=== PATIENT | male | born 1960 | race Caucasian/White ===

== ENCOUNTER 2024-04-29 12:41 | Emergency (ER) | payer MEDICARE, MEDICAID, SELFPAY ==
--- NOTE | ~2024-04-29 | XR_ITS ---
XR foot RT 2V 04/29/2024 15:32 INDICATION: Ecchymosis. PROCEDURE: 2 views right foot COMPARISON: No prior studies for comparison. FINDINGS: Lisfranc joint intact. Osteopenia. No fracture or traumatic malalignment. No foreign bodies . IMPRESSION: 1: NO ACUTE BONE OR JOINT ABNORMALITY IDENTIFIED. Reviewed, dictated and finalized at location B.
--- NOTE | ~2024-04-29 | XR_ITS ---
XR ribs LT 2V Ordering provider: El Winston History: . fall, pain . Comparison: None. FINDINGS: BONES: Acute fracture in the left sixth rib is noted. Old healed fracture is seen in the left eighth and ninth ribs. LEFT LUNG: No effusions or infiltrates. No pneumothorax. SOFT TISSUES: Normal. IMPRESSION: Fracture in the left sixth rib. Highly suggestive of old healed fractures in the left eighth and ninth rib. Reviewed, dictated and finalized at location A.
--- NOTE | ~2024-04-29 | CT_ITS ---
CT brain wo con Ordering provider: El Winston PA-C History: 63 years Male with . fall, on blood thinners . Comparison: None. Technique: CT of the head without contrast. Radiation reduction technique utilized.The dose-length product was 605.33 mGy-cm. FINDINGS: BRAIN PARENCHYMA AND CSF SPACES: Mild leukoaraiosis and diffuse cortical atrophy. Mild atheromatous d isease. No midline shift, mass effect or hemorrhage. The brain parenchyma and CSF spaces are otherwi se normal. VISUALIZED PARANASAL SINUSES: Bilateral ethmoid and maxillary sinus disease. Otherwise, Well aerated. MASTOIDS: Well aerated. BONES: The bones appear intact. SOFT TISSUES: Visualized nasopharynx is normal. Superficial soft tissues are normal. IMPRESSION: No acute intracranial findings. Reviewed, dictated and finalized at location A.
--- NOTE | ~2024-04-29 | CT_ITS ---
EXAMINATION: CT cervical spine wo con DATE: 04/29/2024 13:19 INDICATION: Fall with head injury TECHNIQUE: Computed tomography (CT) of the cervical spine was performed without intravenous contrast. Automated exposure control and iterative reconstruction technique were employed. The dose-length pro duct was 173.31 mGy-cm. COMPARISON: None FINDINGS: There is straightening of the normal cervical lordosis. There is a chronic C5 compression fracture wi th one third anterior vertebral body height loss and which is fused both anteriorly and posteriorly t o C4. Chronic appearing minimal anterior wedging at T1 and T2. No acute fractures. Moderate disc heig ht loss at C5-C6 and mild disc height loss at remaining cervical levels. Severe uncovertebral osteoar thritis on the right at C5-C6. Multilevel mild to moderate cervical and moderate left-sided and sever e right-sided upper thoracic facet osteoarthritis. Disc bulges at C2-C3, C3-C4 and C6-C7 and small po sterior endplate osteophytes at C4-C5 and C5-C6 result in multilevel mild central canal stenosis. Mul tilevel cervical neural foraminal stenosis. Minimal biapical pleural-parenchymal scarring. There is a likely left carotid body stimulator lead projecting alongside the left carotid bulb. Cervical soft t issues are otherwise unremarkable. IMPRESSION: 1. Chronic compression fractures with mild anterior vertebral body height loss at C5 and minimal at T 1 and T2. No acute osseous abnormality. 2. Anterior and posterior spinal fusion at C4-C5. Otherwise moderate cervical spondylosis. Reviewed, dictated and finalized at location A. IMPRESSION: 1. Chronic compression fractures with mild anterior vertebral body height loss at C5 and minimal at T1 and T2. No acute osseous abnormality. 2. Anterior and posterior spinal fusion at C4-C5. Otherwise moderate cervical s pondylosis.
[2024-04-29 13:02] VITALS: BP 105/70; PULSE 63; RESP 16; TEMP 36.6; O2SAT 100
--- NOTE | 2024-04-29 14:58 | ED_ITS ---
HPI - Fall General Chief Complaint: Fall Stated Complaint: Fall-rolled out of bed, Head injury,+Eliquis Time Seen by Provider: 04/29/24 14:35 Source: patient and RN notes reviewed Mode of arrival: EMS History of Present Illness HPI Narrative: Patient presents after an unwitnessed fall, presumably rolled out of bed. Possibly struck head. On Elliquis. Complaining of left chest pain. No loss of consciousness. Requesting that we let his [place] [facility] know he doesn't want to take melatonin anymore; feels it makes him too sleepy and off balance. Usually uses a walker but when feeling sleepy and off balance has had to use a wheelchair. Hadn't been complaining of right foot pain but states it does hurt when he presses on it after ecchymosis identified during physical exam. Unknown if trauma. Patient has an implanted device in his anterior device which he states is a vagus nerve stimulator that has since been shut off because they quoted at [place] that it would be $1000 out of pocket to replace the battery. States he weighed 174 lbs and then was down to 129 lbs but then weight improved. Related Data Allergies Allergy/AdvReac Type Severity Reaction Status Date / Time Antihistamines - Ethanolamine Allergy Unknown Unknown Verified 04/29/24 15:13 cephalexin Allergy Unknown Unknown Verified 04/29/24 15:13 Cephalosporins Allergy Unknown Unknown Verified 04/29/24 15:13 diphenhydramine (From Allergy Unknown Unknown Verified 04/29/24 15:13 Benadryl) enoxaparin Allergy Unknown Unknown Verified 04/29/24 15:13 fexofenadine Allergy Unknown Unknown Verified 04/29/24 15:13 lactose Allergy Unknown Unknown Verified 04/29/24 15:13 milk Allergy Unknown Unknown Verified 04/29/24 15:13 olanzapine Allergy Unknown Unknown Verified 04/29/24 15:13 rofecoxib Allergy Unknown Unknown Verified 04/29/24 15:13 Sulfa (Sulfonamide Allergy Unknown Unknown Verified 04/29/24 15:13 Antibiotics) valproic acid Allergy Unknown Unknown Verified 04/29/24 15:13 zinc Allergy Unknown Unknown Verified 04/29/24 15:13 zolpidem Allergy Unknown Unknown Verified 04/29/24 15:13 [facility] Past Medical History Medical History Weakness Unspecified severe protein-calorie malnutrition Unspecified mood [affective] disorder Type 2 diabetes mellitus without complications Other age-related cataract Mixed hyperlipidemia Hypo-osmolality and hyponatremia Essential (primary) hypertension Depression, unspecified Cognitive communication deficit Unsteadiness on feet Unspecified open-angle glaucoma, stage unspecified Unspecified cataract Sleep disorder, unspecified Need for assistance with personal care Mild 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, unspecified Epilepsy, unspecified, not intractable, without status epilepticus Conversion disorder with seizures or convulsions Benign prostatic hyperplasia without lower urinary tract symptoms Social History Social History Living arrangements: [place] [facility] Additional living arrangements comments: [facility] since 04/09/24 Exam Narrative: GENERAL: Well-appearing, well-nourished, and in no acute distress. HEAD: Normocephalic, atraumatic upon palpation. ENT: Nares clear, no rhinorrhea or epistaxis. NECK: Supple. CHEST: Speaking in full sentences. No respiratory distress. Lungs clear to auscultation bilaterally. No subcutaneous emphysema. No ecchymosis along anterior/lateral/posterior aspect of left chest. No palpable deformity. Implantable device in left superior anterior cheest. HEART: Regular rate and rhythm. ABDOMEN: Soft, nondistended. EXTREMITIES: Normal range of motion. No lower extremity edema. SKIN: Warm, dry. Right medial aspect of lateral foot with ecchymosis. NEURO: No focal deficits. Alert. Oriented to self; he does state I'm 60 going to be 64. PSYCH: Congruent mood and affect. Course Vital Signs Vital signs: Vital Signs Temperature 97.8 F 04/29/24 13:02 Pulse Rate 63 04/29/24 13:02 Respiratory Rate 16 04/29/24 13:02 Blood Pressure 105/70 04/29/24 13:02 Pulse Oximetry 100 04/29/24 13:02 Temperature 97.8 F 04/29/24 18:13 Pulse Rate 71 04/29/24 20:43 Respiratory Rate 18 04/29/24 20:43 Blood Pressure 111/68 04/29/24 20:43 Pulse Oximetry 100 04/29/24 20:43 MDM - Fall MDM Narrative Medical decision making narrative: Patient presents after presumably orally out of bed as he had unwitnessed fall. He potentially struck his head and is on Eliquis by report. He is complaining of left-sided chest pain. In the emergency department they are afebrile with vital signs within normal limits. Patient has an acute rib fracture as well as the appearance of old rib fractures that are healing. He can not recall if he ever had rib fractures before. [place] and lidocaine patch ordered. Patient unable to take NSAIDs due to being on Eliquis. Multimodal pain strategy medications ordered as prescriptions including opiates. Prescription monitoring database is reviewed which shows pregabalin filled in November 2023 with no other interval fills. Differential Diagnosis Differential diagnosis: Likely other (intracranial hemorrhage; vertebral fracture; fracture in foot; ecchymosis due to anticoagulation; rib fracture; pneumothorax/hemothorax) Imaging Data Radiologist's impression: Impressions Head CT 04/29/24 13:29 IMPRESSION: No acute intracranial findings. Ribs X-Ray 04/29/24 14:05 IMPRESSION: Fracture in the left sixth rib. Highly suggestive of old healed fractures in the left eighth and ninth rib. Cervical Spine CT 04/29/24 14:10 IMPRESSION: 1. Chronic compression fractures with mild anterior vertebral body height loss at C5 and minimal at T1 and T2. No acute osseous abnormality. 2. Anterior and posterior spinal fusion at C4-C5. Otherwise moderate cervical spondylosis. Foot X-Ray 04/29/24 15:50 IMPRESSION: 1: NO ACUTE BONE OR JOINT ABNORMALITY IDENTIFIED. Discharge Plan Discharge Clinical Impression: Compression fracture of C5 vertebra with routine healing Left rib fracture Qualifiers: Encounter type: initial encounter Rib fracture type: single rib Fracture type: closed Qualified Code(s): S22.32XA - Fracture of one rib, left side, initial encounter for closed fracture Multiple rib fractures Qualifiers: Fracture type: closed Laterality: left Fracture healing: with routine healing Fall Qualifiers: Encounter type: initial encounter Qualified Code(s): W19.XXXA - Unspecified fall, initial encounter Patient Disposition: [facility] [place] [facility] Living Condition: Stable Instructions: Antibiotic Form, How to Use an Incentive Spirometer (ED), Rib Fracture (ED), Vertebral Compression Fracture (ED), Fall Prevention (ED) Additional Instructions: Patient is requesting that the melatonin he is currently taking be discontinued; please discuss this patient preference with primary care physician/facility nuclear medical tech. Patient appears to have a chronic vertebral fracture but nothing acute. No bleeding in the brain. He also does have an isolated fracture of rib #6 on the left and some old but healing fractures. No broken bones in R foot. Bruising likely due to being on Eliquis. Given the patient is on Eliquis, NSAIDs (like ibuprofen, Motrin, Advil, Aleve Naprosyn, naproxen, etc) are contraindicated however a multimodal pain regimen strategy is recommended for pain control and has been prescribed. Follow-up with primary care physician/facility nuclear medical tech. Return to the emergency department with any new or worsening symptoms. Incentive spirometer has been provided to reduce the likelihood of pneumonia which can developed if patient's take more shallow breaths due to pain which is why pain control is important. Patient Language: Cameroonian Prescriptions: New oxycodone 5 mg tablet 5 mg PO Q8H PRN (Reason: pain) Qty: 14 0RF acetaminophen 500 mg capsule 1,000 mg PO Q6H PRN (Reason: pain) Qty: 30 0RF lidocaine 4 % adhesive patch,medicated 1 patch topical DAILY PRN (Reason: pain) Qty: 10 0RF oxycodone 10 mg tablet 10 mg PO Q8H PRN (Reason: pain) Qty: 14 0RF Follow-up/Referrals: PHYSICIAN NOT ON STAFF,NONSTAFF [Non-Staff] - Stand Alone Forms: Prison Discharge Time of Disposition: 16:33
[2024-04-29] MEDS: HYDROcodone/acetaminophen (*CRX) 5-325 MG TABLET 1 TAB PO (15:40)
[2024-04-29] MEDS: LIDOCAINE 5% PATCH 1 PATCH TRANSDERM (15:41)
[2024-04-29 18:13] VITALS: BP 132/80; PULSE 82; RESP 18; TEMP 36.6; O2SAT 100
[2024-04-29 20:43] VITALS: BP 111/68; PULSE 71; RESP 18; O2SAT 100
== END 2024-04-29 20:44 ==
PROVIDERS: Emergency Provider Student in an Organized Health Care Education/Training Program
DX: S22.32XA Fracture of one rib, left side, initial encounter for closed fracture (principal); S12.400A Unspecified displaced fracture of fifth cervical vertebra, initial encounter for closed fracture; E11.9 Type 2 diabetes mellitus without complications; E78.5 Hyperlipidemia, unspecified; I10 Essential (primary) hypertension; F32.A Depression, unspecified; G40.909 Epilepsy, unspecified, not intractable, without status epilepticus; Z79.01 Long term (current) use of anticoagulants; W06.XXXA Fall from bed, initial encounter
CPT/HCPCS: 70450; 71100; 72125; 73620; 99284; A9270

== ENCOUNTER 2024-10-03 00:08 | Day surgery (SDC) | payer MEDICARE, MEDICAID, SELFPAY ==
--- OUTSIDE RECORDS SUMMARY | 2018-08-19 09:50 | XMS_ITS | Continuity of Care Document ---
Author Organization [facility] [place], [facility] Address [address] [place] [address] Phone Care Team Providers Care Refinery Superintendent Name Role Phone [facility] [place] [facility], [facility] Unavailable Unavailable Procedures Procedure Date INSERT ANT SEGMENT DRAIN INT INSERT ANT SEGMENT DRAIN INT CATARACT SURG W/IOL Aqueous shunt prosthesis Pt Documented Not To Have Experienced An y Of The INSERT ANT SEGMENT DRAIN INT INSERT ANT SEGMENT DRAIN INT Aqueous shunt prosthesis CATARACT SURG W/IOL Pt Documented Not To Have Experienced An y Of The Advance Directives Directive Yes / No Effective Date File Name No Information Encounters Encounter Description Practice Location Reason(s) For Visit Diagnoses Date Provider Providers Copied on Encounter [facility] [place], [facility], [address], [place], [place], [id number], [place] tel:[phone] [facility] No Information [facility] [place] [facility]. [address], [id number], [place]. tel:[phone] Referring Provider: Josh Mcdonald, [address] [place], [address]. tel:[phone] [facility] [place], [facility], [address], [place], [place], [id number], [place] tel:[phone] [facility] No Information Surgery - [facility]. [address], [place], [place], [id number], [place]. tel:[phone] Referring Provider: Josh Mcdonald, [address] [place], [address]. tel:[phone] Family History Family Member Type Diagnosis Age At Onset No Information Payers Payer name Insurance type Covered green party ID Authoriza tion(s) Medicare [place] MB [id number] [place] [employer] [id number] Social History Type Description Quantity Date Captured Comments Sex Male Smoking Status No Information Chief Complaint And Reason For Visit No Information Reason For Referral Reason For Referral No Information History Of Present Illness Encounter Date Complaint History Of Prese nt Illness No Information Functional Status Date Functional Assessmen t No Information Instructions Date Instruction Additional Infor mation No Information Assessments Type Assessment Date No Information Patient Care Teams Name Effective Dates (start - stop) Status Members No Information
--- OUTSIDE RECORDS SUMMARY | 2023-09-06 03:36 | XMS_ITS | Continuity of Care Document ---
Author Organization [facility], [place] Address [address] [place] [address] Phone Care Team Providers Care Carrier Packer Name Role Phone Miky Fowler OD Unavailable Unavailable Allergies, Adverse Reactions, Alerts Substance Reaction Status Criticality barium sulfate Weal Active No Informatio n DIPHENHYDRAMINE HCL Unknown Active No Infor mation divalproex sodium Unknown Active No Informa tion CEPHALEXIN MONOHYDRATE Unknown Active No In formation ENOXAPARIN SODIUM Unknown Active No Informa tion sulfacetamide Unknown Active No Information rofecoxib Unknown Active No Information milk Unknown Active No Information Medications Medication Instructions Dosage Effective Dates (start - stop) Status Comments dorzolamide 2 % eye drops instill 1 drop by ophthalmic route 2 times every day into both eyes - Active disregard last Dorzolamide Rx with TID OD Combigan 0.2 %-0.5 % eye drops instill 1 Drop by Ophthalmic route 2 times every day into both eyes - Active disregard last Combigan with TID OD latanoprost 0.005 % eye drops instill 1 drop by ophthalmic route 2 times every day into both eyes - Active Vitamin C 500 mg tablet take 1 tablet by oral route every day 1 tablet - Active acetaminophen 325 mg tablet take 1 tablet by oral route every 4 hours as needed 325 MG - Active atorvastatin 40 mg tablet take 1 tablet by oral route every day 40 MG - Active benztropine 1 mg tablet take 1 tablet by oral route 2 times every day 1 MG - Active Calcium 600 600 mg calcium (1,500 mg) tablet take 1 tablet by oral route every day 1 tablet - Active carbamazepine ER 400 mg tablet,extended release,12 hr take 1 tablet by oral route every 12 hours 400 MG - Active Colestid 1 gram tablet take 1 tablet by oral route every day swallowing whole with any liquid. Do not crush, chew and/or divide. 1 G - Active haloperidol 5 mg tablet take 1 tablet by oral route 2 times every day 5 MG - Active irbesartan 150 mg tablet take 1 tablet by oral route every day 150 MG - Active levetiracetam 750 mg tablet take 1 tablet by oral route 2 times every day 750 MG - Active Lyrica 100 mg capsule take 1 capsule by oral route 2 times every day 100 MG - Active melatonin ER 3 mg tablet,extended release take 1 tablet by oral route 3-4 hrs before bedtime - Active meloxicam 15 mg tablet take 1 tablet by oral route every day 15 MG - Active multivitamin tablet take 1 tablet by oral route every day with food - Active olanzapine 15 mg tablet take 1 tablet by oral route every day 15 MG - Active sertraline 100 mg tablet take 1 tablet by oral route every day 100 MG - Active tamsulosin 0.4 mg capsule take 1 capsule by oral route every day 1/2 hour following the same meal each day 0.4 MG - Active Vitamin D3 2,000 unit capsule take 1 tablet by oral route every day 1 tablet - Active zonisamide 100 mg capsule take 1 capsule by oral route every day 100 MG - Active zonisamide 50 mg capsule take 1 capsule by oral route 2 times every day 50 MG - Active Procedures Procedure Date EYE EXAM ESTABLISHED [facility] EYE EXAM ESTABLISHED [facility] EYE EXAM ESTABLISHED [facility] EYE EXAM ESTABLISHED [facility] CORNEAL PACHYMETRY Scan Image/ OCT, Glaucoma EYE EXAM, NEW PATIENT INSERT ANT SEGMENT DRAIN INT INSERT ANT SEGMENT DRAIN INT CATARACT SURG W/IOL IOL MASTER, PROF COMP ONLY INSERT ANT SEGMENT DRAIN INT INSERT ANT SEGMENT DRAIN INT CATARACT SURG W/IOL EYE EXAM, NEW PATIENT IOL MASTER Post Operative Kit / Medical Supply By P rescription Advance Directives Directive Yes / No Effective Date File Name No Information Encounters Encounter Description Practice Location Reason(s) For Visit Diagnoses Date Provider Providers Copied on Encounter [facility], [address] [place] [address], [id number], [place] tel:[phone] [facility] 4 Malcolm Bolaños. [address] [place] [address], [id number], [place]. tel:[phone] [facility], [address] [place] [address], [id number], [place] tel:[phone] [facility] [address] f/u POAG OU (chief complaint) Primary open-angle glaucoma, right eye, severe stagePrimary open-angle glaucoma, left eye, moderate stage 4 Genaro Hernández. [address] [place] [address], [id number], [place]. tel:[phone] Referring Provider: Edgar Huber, [address] [place] [address], [id number] . tel:[phone] [facility], [address] [place] [address], [id number], [place] tel:[phone] [facility] [address] high pressures OU (chief complaint) Primary open-angle glaucoma, right eye, severe stagePrimary open-angle glaucoma, left eye, moderate stage 4 Genaro Hernández. [address] [place] [address], [id number], [place]. tel:[phone] Referring Provider: Edgar Huber, [address] [place] [address], [id number] . tel:[phone] [facility], [address] [place] [address], [id number], tel:[phone] [facility] [address] Glaucoma Evaluation (chief complaint) Primary open-angle glaucoma, right eye, severe stagePrimary open-angle glaucoma, left eye, moderate stage Sep- 2 Rom Moreno. [address] [place] [address], [id number], . [phone] Referring Provider: Josh Mcdonald, [address] [place] [address], [id number] . tel:[phone] [facility], [address] [place] [address], [id number], tel:[phone] [facility] (chief complaint) Presence of intraocular lensPrimary open-angle glaucoma, right eye, severe stagePrimary open-angle glaucoma, left eye, moderate stageOther secondary cataract, right eye 2 Jody Larios. [address] [place] [address], [id number], [place]. tel:[phone] Referring Provider: Ric Vera I, [address] [place] [address], [id number] . tel:[phone] [facility], [address] [place] [address], [id number], tel:[phone] [facility] No Information 9 Rom Moreno. [address] [place] [address], [id number], . [phone] Referring Provider: Estuardo Sifuentes, [facility] [address] [place], [address]. tel:[phone] [facility], [address] [place] [address], [id number], tel:[phone] [facility] No Information 9 Rom Moreno. [address] [place] [address], [id number], [place]. [phone] Referring Provider: Estuardo Sifuentes [place] [address] [place], [address]. tel:[phone] [facility], [address] [place] [address], [id number], tel:[phone] [facility] No Information 9 Rom Moreno. [address] [place] [address], [id number], [place]. [phone] Referring Provider: Estuardo Sifuentes [place] [address] [place], [address]. tel:[phone] [facility], [address] [place] [address], [id number], tel:[phone] [facility] (chief complaint) Primary open-angle glaucoma, bilateral, moderate stage 9 Rom oMreno. [address] [place] [address], [id number], [place]. tel:[phone] Referring Provider: Estuardo Sifuentes [place] [address] [place], [address]. tel:[phone] Family History Family Member Type Diagnosis Age At Onset Problem (finding) No family hist ory of Macular degeneration Mother Problem (finding) cataract Father Problem (finding) glaucoma Brother Problem (finding) hypertension Mother Problem (finding) Diabetes mellitus Payers Payer name Insurance type Covered libertarian ID Authoriza tion(s) Medicare [place] MB [id number] [facility] [id number] Social History Type Description Quantity Date Captured Comments Alcohol Use Details Unknown Caffeine Use Details Unknown Tobacco Use Status No Information Smoking Status No Information Sex Male Chief Complaint And Reason For Visit No Information Reason For Referral Reason For Referral No Information Plan Of Treatment Date Type Action Status Referral Ordered: Estuardo Sifuentes -[facility] Providers : Jewel Cupping Machine Operator (related to Age-related nuclear cataract, left eye) ordered Referral Referred To: Estuardo Sifuentes [address] [place] [address], [phone] Ordered: Referrals: [facility] Providers : Jewel Cupping Machine Operator. Estuardo Sifuentes. Assume care ordered Future Order: Radiology Order OC T - Optic Nerve ([id number]), Collected on: Ordered History Of Present Illness Encounter Date Complaint History Of Prese nt Illness f/u POAG OU The 63 year old patient presents for evaluation of f/u POAG OU. PT states he did not have any directions for the drops so he has not been doing them. PT reports OD is a black hole. VA OU D/N c gls is blurry. PT got all gt in last night, supposed to be using Dorzolamide TID OU, Latanoprost BID OU, Combigan BID OU. Pt did get drops in last night, his nephew came over. high pressures OU The 63 year ol d patient presents for evaluation of high pressures OD. Pt was referred by Dr Gamboa's office for high [pressures OD 66. Pt was having headaches. Pt states that distance and near vision is good OD but blurry OS cc. Pt states that both eyes hurt today. Pt is using Prednisolone, but isn't sure how many drops he uses. Pt is also using Combigan 1 gt BID OU. Pt is not using any TA. Glaucoma Evaluation The 61 year old patient presents for Glaucoma Evaluation in the right eye and left eye. Pt referred by [facility] for Glaucoma Eval OU. Pt reports of poor to no vision OD and fair vision OS. It affects both near and far vision cc since last exam. Patient denies: pain or discomfort. PT uses Azopt QID OD, Combigan TID OD, Rocklatan QHS OU, TobraDex BID OD, and Pred QAM OS. Glaucoma Evaluation The 61 year old patient presents for Eval of OAG and Cats to discuss surgical options, referred by Dr. Estuardo Sifuentes. Pt reports vision OD is very poor and has been that way for approximately 3 years. Pt states the onset was gradual. It affects both near and far vision with glasses. Pt reports OS D&NVA is good stable and constant with glasses. The condition is not any better. Patient denies: pain or discomfort. Pt is currently using Azopt TID OD, Combigan QID OD, Rocklatan qHS OU, Prednisolone qAM OS, TobraDex BID OD and OTC AT's PRN OU. Please send letter to Dr. Sifuentes. fuzzy VA The 58 Year old male presents for follow up Cataract Eval referred by Dr. Estuardo Sifuentes. PT states that he has fuzzy VA in the right eye and left eye since last exam. It affects both near and far vision. PT states that he notices OD is a lot worse than OS. PT states that smaller print is very hard to read and he has to use a magnifying gls. PT states that he is unsure if he has problems with glare. The patient denies pain or discomfort. PT states that he uses Azopt OD 2 x day, Latanoprost qHS OU, Combigan OD 2 x day,Did not do Optos or glare due to Epilepsy and is brought on by flashing lights Functional Status Date Functional Assessmen t No Information Instructions Date Instruction Additional Infor brady Impression/Plan Impression/Plan Impression/Plan Impression/Plan Impression/Plan Assessments Type Assessment Date No Information Patient Care Teams Name Effective Dates (start - stop) Status Members No Information
--- NOTE | 2024-07-14 12:30 | PC.NURSE ---
Spoke with ISABELL @ [facility] regarding medication ELIQUIS. _ISABELL_verbalizes understanding that the last dose is to be taken on _07/11/2024___ and the Endoscopist will instruct them when to restart after the procedure.
[2024-07-14 13:25] VITALS: BMI 19.0
[2024-09-30 14:32] VITALS: BMI 20.4
--- NOTE | 2024-09-30 14:38 | PC.NURSE ---
Spoke with _Nurse and DON of facility_ regarding medication _ELIQUIS_. _BOTH verbalizes understanding that the last dose is to be taken on _09/29/2024-AM DOSE WAS GIVEN 09/30/2024 BUT WILL BE HELD STARTING WITH PM DOSE and the Endoscopist will instruct them when to restart after the procedure.
[2024-10-03 08:48] VITALS: BP 92/75; PULSE 76; RESP 16; TEMP 36.3; O2SAT 100; BMI 19.2
--- NOTE | 2024-10-03 09:00 | WPDANESEPPF ---
Anes - Initial Pre Proc Eval Procedure: Operation Date: 10/03/24 10:00 Proposed Procedures p Screening Colonoscopy - Nixon Cedeno MD Date/Time: 10/03/24 09:00 Surgeon: Nixon Cedeno MD Pre Op Diagnosis: Screening Patient Data Age: 64 Gender: M Height: 1.8 m Weight: 66.5 kg Allergies Allergy/AdvReac Type Severity Reaction Status Date / Time Antihistamines - Ethanolamine Allergy Unknown Unknown Verified 10/03/24 08:54 cephalexin Allergy Unknown Unknown Verified 10/03/24 08:54 Cephalosporins Allergy Unknown Unknown Verified 10/03/24 08:54 diphenhydramine (From Allergy Unknown Unknown Verified 10/03/24 08:54 Benadryl) enoxaparin Allergy Unknown Unknown Verified 10/03/24 08:54 fexofenadine Allergy Unknown Unknown Verified 10/03/24 08:54 lactose Allergy Unknown Unknown Verified 10/03/24 08:54 milk Allergy Unknown Unknown Verified 10/03/24 08:54 olanzapine Allergy Unknown Unknown Verified 10/03/24 08:54 rofecoxib Allergy Unknown Unknown Verified 10/03/24 08:54 Sulfa (Sulfonamide Allergy Unknown Unknown Verified 10/03/24 08:54 Antibiotics) valproic acid Allergy Unknown Unknown Verified 10/03/24 08:54 zinc Allergy Unknown Unknown Verified 10/03/24 08:54 zolpidem Allergy Unknown Unknown Verified 10/03/24 08:54 Home Medications ?Medication ?Instructions ?Recorded ?Confirmed ?Type acetaminophen 500 mg capsule 1,000 mg (2 x 500 mg) PO Q6H PRN 04/29/24 07/11/24 Rx pain #30 caps lidocaine 4 % topical patch 1 patch topical DAILY PRN pain #10 04/29/24 07/11/24 Rx ea oxycodone 10 mg tablet 10 mg PO Q8H PRN pain #14 tabs 04/29/24 07/11/24 Rx oxycodone 5 mg tablet 5 mg PO Q8H PRN pain #14 tabs 04/29/24 07/11/24 Rx amlodipine 10 mg tablet 10 mg PO DAILY 07/11/24 10/03/24 History apixaban 5 mg tablet (Eliquis) 5 mg PO Q12H 07/11/24 10/03/24 History atorvastatin 40 mg tablet 40 mg PO QPM 07/11/24 10/03/24 History brimonidine 0.2 % eye drops drp 07/11/24 History brimonidine 0.2 %-timolol 0.5 % 1 drp EACH EYE Q12H 07/11/24 10/03/24 History eye drops (Combigan) cholecalciferol (vitamin D3) 50 2,000 unit PO DAILY 07/11/24 10/03/24 History mcg (2,000 unit) capsule dorzolamide 2 % eye drops 1 drp EACH EYE BID 07/11/24 10/03/24 History eslicarbazepine 800 mg tablet 800 mg PO DAILY 07/11/24 10/03/24 History (Aptiom) insulin glargine 100 unit/mL (3 10 unit subcut QPM 07/11/24 10/03/24 History mL) subcutaneous pen (Basaglar KwikPen U-100 Insulin) lactulose 10 gram/15 mL oral 30 ml PO BID PRN constipation 07/11/24 07/11/24 History solution latanoprost 0.005 % eye drops 1 drp EACH EYE QPM 07/11/24 10/03/24 History levetiracetam 500 mg tablet 500 mg PO TID 07/11/24 10/03/24 History lorazepam 1 mg tablet (Ativan) 1 mg PO TID 07/11/24 10/03/24 History melatonin 5 mg capsule 5 mg PO HS 07/11/24 10/03/24 History mirtazapine 15 mg tablet 15 mg PO HS 07/11/24 10/03/24 History pregabalin 50 mg capsule 50 mg PO Q12H 07/11/24 10/03/24 History pyridoxine (vitamin B6) 100 mg 100 mg PO Q12H 07/11/24 10/03/24 History tablet sertraline 50 mg tablet 50 mg PO Q24H 07/11/24 10/03/24 History trazodone 50 mg tablet 50 mg PO HS 07/11/24 10/03/24 History Patient hx anesthesia problems: none Family hx anesthesia problems: none Results Review: All pre-operative results and documents have been reviewed as part of the pre-operative evaluation. [facility] Past Medical History Medical History Weakness Unspecified severe protein-calorie malnutrition Unspecified mood [affective] disorder Type 2 diabetes mellitus without complications Other age-related cataract Mixed hyperlipidemia Hypo-osmolality and hyponatremia Essential (primary) hypertension Depression, unspecified Cognitive communication deficit Unsteadiness on feet Unspecified open-angle glaucoma, stage unspecified Unspecified cataract Sleep disorder, unspecified Need for assistance with personal care Mild 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, unspecified Epilepsy, unspecified, not intractable, without status epilepticus Conversion disorder with seizures or convulsions Benign prostatic hyperplasia without lower urinary tract symptoms Social History Social History Living arrangements: prison [facility] Anes - Evsaniya Final PreProcedure Day of Procedure 10/03/24 09:00 Patient weight: normal Heart: regular rate and rhythm Lungs: clear to auscultation Airway: Mallampati scale class II Neurological: alert and oriented Last oral intake: >/= 8 hours ASA classification: III Emergent: no Anesthetic plan: proceed Anesthesia type and monitoring: general GIVS and standard monitoring Results Review: All pre-operative results and documents have been reviewed as part of the pre-operative evaluation. Informed Consent: The patient's anesthetic plan and its attendant risks and benefits were discussed with the patient/family/POA. Questions were solicited and answers provided to the satisfaction of the patient/family/POA.
[2024-10-03] MEDS: LACTATED RINGERS 1,000 ML 150 ML IV CONT (09:17)
--- NOTE | 2024-10-03 09:52 | PM.IMHP ---
H&P: HPI History of Present Illness Date/Time: 10/03/24 09:52 Chief Complaint: Screening colonoscopy Narrative: This is the patient's 2nd colonoscopy. There are no GI symptoms and there is no family history of colorectal cancer. Review of Systems Review of Systems: All systems reviewed & are unremarkable except as noted in HPI and below PMFSH Past Medical History Medical History Weakness Unspecified severe protein-calorie malnutrition Unspecified mood [affective] disorder Type 2 diabetes mellitus without complications Other age-related cataract Mixed hyperlipidemia Hypo-osmolality and hyponatremia Essential (primary) hypertension Depression, unspecified Cognitive communication deficit Unsteadiness on feet Unspecified open-angle glaucoma, stage unspecified Unspecified cataract Sleep disorder, unspecified Need for assistance with personal care Mild 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, unspecified Epilepsy, unspecified, not intractable, without status epilepticus Conversion disorder with seizures or convulsions Benign prostatic hyperplasia without lower urinary tract symptoms Social History Social History Living arrangements: [facility] Additional living arrangements comments: [facility] since 04/09/24 Meds Home Medications and Allergies Home Medications ?Medication ?Instructions ?Recorded ?Confirmed ?Type acetaminophen 500 mg capsule 1,000 mg (2 x 500 mg) PO Q6H PRN 04/29/24 07/11/24 Rx pain #30 caps lidocaine 4 % topical patch 1 patch topical DAILY PRN pain #10 04/29/24 07/11/24 Rx ea oxycodone 10 mg tablet 10 mg PO Q8H PRN pain #14 tabs 04/29/24 07/11/24 Rx oxycodone 5 mg tablet 5 mg PO Q8H PRN pain #14 tabs 04/29/24 07/11/24 Rx amlodipine 10 mg tablet 10 mg PO DAILY 07/11/24 10/03/24 History apixaban 5 mg tablet (Eliquis) 5 mg PO Q12H 07/11/24 10/03/24 History atorvastatin 40 mg tablet 40 mg PO QPM 07/11/24 10/03/24 History brimonidine 0.2 % eye drops drp 07/11/24 History brimonidine 0.2 %-timolol 0.5 % 1 drp EACH EYE Q12H 07/11/24 10/03/24 History eye drops (Combigan) cholecalciferol (vitamin D3) 50 2,000 unit PO DAILY 07/11/24 10/03/24 History mcg (2,000 unit) capsule dorzolamide 2 % eye drops 1 drp EACH EYE BID 07/11/24 10/03/24 History eslicarbazepine 800 mg tablet 800 mg PO DAILY 07/11/24 10/03/24 History (Aptiom) insulin glargine 100 unit/mL (3 10 unit subcut QPM 07/11/24 10/03/24 History mL) subcutaneous pen (Basaglar KwikPen U-100 Insulin) lactulose 10 gram/15 mL oral 30 ml PO BID PRN constipation 07/11/24 07/11/24 History solution latanoprost 0.005 % eye drops 1 drp EACH EYE QPM 07/11/24 10/03/24 History levetiracetam 500 mg tablet 500 mg PO TID 07/11/24 10/03/24 History lorazepam 1 mg tablet (Ativan) 1 mg PO TID 07/11/24 10/03/24 History melatonin 5 mg capsule 5 mg PO HS 07/11/24 10/03/24 History mirtazapine 15 mg tablet 15 mg PO HS 07/11/24 10/03/24 History pregabalin 50 mg capsule 50 mg PO Q12H 07/11/24 10/03/24 History pyridoxine (vitamin B6) 100 mg 100 mg PO Q12H 07/11/24 10/03/24 History tablet sertraline 50 mg tablet 50 mg PO Q24H 07/11/24 10/03/24 History trazodone 50 mg tablet 50 mg PO HS 07/11/24 10/03/24 History Allergies Allergy/AdvReac Type Severity Reaction Status Date / Time Antihistamines - Ethanolamine Allergy Unknown Unknown Verified 10/03/24 08:54 cephalexin Allergy Unknown Unknown Verified 10/03/24 08:54 Cephalosporins Allergy Unknown Unknown Verified 10/03/24 08:54 diphenhydramine (From Allergy Unknown Unknown Verified 10/03/24 08:54 Benadryl) enoxaparin Allergy Unknown Unknown Verified 10/03/24 08:54 fexofenadine Allergy Unknown Unknown Verified 10/03/24 08:54 lactose Allergy Unknown Unknown Verified 10/03/24 08:54 milk Allergy Unknown Unknown Verified 10/03/24 08:54 olanzapine Allergy Unknown Unknown Verified 10/03/24 08:54 rofecoxib Allergy Unknown Unknown Verified 10/03/24 08:54 Sulfa (Sulfonamide Allergy Unknown Unknown Verified 10/03/24 08:54 Antibiotics) valproic acid Allergy Unknown Unknown Verified 10/03/24 08:54 zinc Allergy Unknown Unknown Verified 10/03/24 08:54 zolpidem Allergy Unknown Unknown Verified 10/03/24 08:54 Vital Signs Vital Signs - 24 hr 10/03/24 08:48 Temperature 97.4 F L Pulse Rate 76 Respiratory Rate 16 Blood Pressure 92/75 L Pulse Oximetry 100 Oxygen Delivery Room Air Exam Const: General: cooperative and healthy appearing Resp: Effort & Inspection: normal respiratory effort and able to speak in complete sentences Auscultation: clear to auscultation bilaterally Cardio: Rate: regular rate Rhythm: regular rhythm GI: Inspection: normal to inspection GI Palp: No No hepatosplenomegaly present Auscultation: normal bowel sounds Rectal Exam: deferred Skin: General skin exam: normal color Psych: Appearance: grossly normal Mental Status: mental status grossly normal Assessment and Plan Assessment and plan (1) Encounter for screening colonoscopy: Code(s): Z12.11 - Encounter for screening for malignant neoplasm of colon Status: Acute Assessment and Plan: The patient is deemed a good candidate for the procedure. Consent signed. Will proceed.
--- NOTE | 2024-10-03 10:16 | S_PTH ---
PATIENT: Jairon Dennis LOC: [facility] #:[id number] AGE/SX: 64/M ROOM: RE10/03/[address]: Nixon Cedeno MD : 1960 BED: DIS: 10/03/2024 SPEC #: [id number] RECD: 10/03/24 11:11 STATUS: TANJA REQ #: [id number] TAYLOR: 10/03/24 10:[address]: Nixon Cedeno DEPT: [facility] Surgical RECD BY: Josee Sepulveda Tissues: A - Colon Polypectomy Procedures: Hematoxylin and Eosin Stain Gross and Microscopic Level 4
[2024-10-03 10:17] VITALS: BP 103/60; PULSE 54; RESP 16; O2SAT 100
[2024-10-03 10:27] VITALS: BP 120/71; PULSE 58; RESP 11; O2SAT 100
[2024-10-03 10:37] VITALS: BP 111/71; PULSE 58; RESP 13; O2SAT 100
== END 2024-10-03 10:45 | disposition home or self-care (01) ==
PROVIDERS: Visit Provider Internal Medicine Gastroenterology
PROC: 0DJD8ZZ Inspection of Lower Intestinal Tract, Via Natural or Artificial Opening Endoscopic (ICD-10-PCS; CPT 45378; principal; 2024-10-03 10:00)
DX: Z12.11 Encounter for screening for malignant neoplasm of colon (principal); D12.3 Benign neoplasm of transverse colon; K57.30 Diverticulosis of large intestine without perforation or abscess without bleeding; E11.9 Type 2 diabetes mellitus without complications; E78.2 Mixed hyperlipidemia; E87.1 Hypo-osmolality and hyponatremia; I10 Essential (primary) hypertension; N40.0 Benign prostatic hyperplasia without lower urinary tract symptoms; F32.A Depression, unspecified; G47.9 Sleep disorder, unspecified; E43 Unspecified severe protein-calorie malnutrition; Z68.1 Body mass index [BMI] 19.9 or less, adult; F39 Unspecified mood [affective] disorder; F70 Mild intellectual disabilities; Z74.1 Need for assistance with personal care; G60.9 Hereditary and idiopathic neuropathy, unspecified; F44.5 Conversion disorder with seizures or convulsions; Z79.891 Long term (current) use of opiate analgesic; Z79.01 Long term (current) use of anticoagulants; Z79.4 Long term (current) use of insulin
CPT/HCPCS: 45385; 82948; 88305; J2003; J2704; J7120

== ENCOUNTER 2024-10-08 16:09 | Inpatient (IN) | payer MEDICARE, MEDICAID, SELFPAY ==
[2024-10-08] VITALS (20 sets, daily range): BP systolic 107–189; BP diastolic 61–135; PULSE 92–112; RESP 11–24; TEMP 36.9–37.7; O2SAT 80–100; BMI 19.5
--- NOTE | ~2024-10-08 | XR_ITS ---
EXAMINATION: XR chest 1V portable 10/08/2024 17:48 INDICATION: Shortness of breath TECHNIQUE:A single portable AP upright frontal image of the chest was obtained. COMPARISON: None available FINDINGS: Generator projects over the left hilar region. 5 mm calcified granuloma in the right lower lung. Heart is not enlarged. No pneumothorax. No pleural effusion. No free air the diaphragm. No focal pulmonary consolidation. IMPRESSION: 1: NO ACUTE CARDIOPULMONARY DISEASE. Reviewed, dictated and finalized at location Q.
--- NOTE | ~2024-10-08 | CT_ITS ---
EXAMINATION: CT brain wo carlos, 10/08/2024 17:08 CDT HISTORY: seizure COMPARISON: No comparisons available. Technique: Axial images obtained of the brain without contrast. One or more of the following dose reduction techniques were used: automated exposure control, adjustment of the mA and/or kV according to patient size, use of iterative reconstruction technique. Findings: No acute infarct or parenchymal hemorrhage. No abnormal mass or mass effect. No midline shift. No extra-axial fluid collections. No hydrocephalus. Mastoid air cells unremarkable. Sinuses and orbits unremarkable. No acute fracture. No significant facial or scalp soft tissue swelling evident. No radiopaque foreign body is seen. Impression: 1.No acute intracranial abnormality. Reviewed, dictated and finalized at location A. Impression: 1.No acute intracranial abnormality.
--- NOTE | ~2024-10-08 | CT_ITS ---
EXAMINATION: CT chest abdomen pelvis w con DATE: 10/09/2024 5:38 CDT INDICATION: Fever and abdominal tenderness TECHNIQUE: Computed tomography (CT) of the chest, abdomen, and pelvis was performed without intravenous contrast. The dose-length product was 388.91 mGy- cm. Automated exposure control and iterative reconstruction technique were employed. COMPARISON: None FINDINGS: CHEST CT: No evidence for aortic aneurysm or dissection. Heart size normal. No significant pleural or pericardial effusion. No pneumothorax. Patchy groundglass opacities are present in the lung bases, suspicious for pneumonia. No endobronchial lesions. No pneumothorax. There are multiple healed left rib fractures. Mild wedge compression deformities of T1 and T5, likely chronic. Mild thoracic spondylosis. ABDOMEN/PELVIS CT: The liver, spleen, pancreas, adrenal glands are unremarkable. Small subcentimeter hypodensity of the right kidney, most likely benign. 3 mm nonobstructing left renal stone. Gallbladder is present. Nonobstructive bowel gas pattern. No free air or free fluid. No abnormal pelvic masses or fluid collections. Colonic diverticulosis without evidence for diverticulitis. Small sclerotic lesion right ilium, most likely bone island in the absence of known malignancy. Mild-moderate multilevel degenerative spondylosis. IMPRESSION: 1. Patchy groundglass opacities of the lung bases, suspicious for pneumonia. 2: Nonobstructing left nephrolithiasis. Reviewed, dictated and finalized at location O.
--- NOTE | 2024-10-08 16:26 | ECG_ITS ---
Test Date: 2024-10-08 16:18:49 Measurements Intervals [place] Rate: 94 P: 66 UT: 176 QRS: 60 QRSD: 80 T: 58 QT: 338 QTc: 424 Interpretive Statements SINUS RHYTHM BORDERLINE R WAVE PROGRESSION, ANTERIOR LEADS BASELINE ARTIFACT- I, II, III, AVR, AVL, AVF, V1-V6 BORDERLINE ECG No previous ECG available for comparison Electronically Signed On 10-08-2024 18:45:31 CDT by Kale Guzmán D.O.
[2024-10-08 16:44] LABS: Hematocrit 43.7 % (42.0-52.0); Hemoglobin 15.1 g/dL (14.0-18.0); Immature Granulocyte Percent A 0.3 % (0-0.5); Lymphocytes Absolute Auto 0.97 K/mm3 (0.9-3.2); Mean Corpuscular HGB Conc 34.6 g/dl (32-36); Mean Corpuscular Hemoglobin 31.0 pg (26-34); Mean Corpuscular Volume 89.7 fl (80-100); Nucleated Red Blood Cells Absolute Auto 0.000 K/mm3 (0.0-0.012); Nucleated Red Blood Cells Perc 0.0 % (0.0-0.2); Platelet Count Result 204 k/mm3 (150-375); Red Blood Count 4.87 M/mm3 (4.6-6.20); White Blood Count 5.9 K/mm3 (4.5-10.0)
--- NOTE | 2024-10-08 16:44 | ED.SEIZURE ---
HPI - Seizure General Chief Complaint: Seizure Stated Complaint: seizure Time Seen by Provider: 10/08/24 16:33 History of Present Illness HPI Narrative: 64-year-old male with history of seizures, diabetes, intellectual disability presents [facility] the ED [facility] via [facility] for seizures. Per EMS report, patient reportedly had a couple seizures that lasted for 30 seconds to 2 minutes. Patient does not recall what happened today. He states that he felt ?not himself? today. Plan he states that he believes he may have fever but is not sure. Denies headache, sore throat, chest pain, shortness of breath, abdominal pain, nausea, vomiting. Seizure History: Yes (LARA) Related Data Home Medications ?Medication ?Instructions ?Recorded ?Confirmed ?Last Taken ?Type amlodipine 10 mg tablet 10 mg PO DAILY 07/11/24 10/03/24 10/02/24 History apixaban 5 mg tablet (Eliquis) 5 mg PO Q12H 07/11/24 10/03/24 09/30/24 History atorvastatin 40 mg tablet 40 mg PO QPM 07/11/24 10/03/24 09/28/24 History brimonidine 0.2 % eye drops drp 07/11/24 Unknown History brimonidine 0.2 %-timolol 0.5 % 1 drp EACH EYE Q12H 07/11/24 10/03/24 10/02/24 History eye drops (Combigan) cholecalciferol (vitamin D3) 50 2,000 unit PO DAILY 07/11/24 10/03/24 10/02/24 History mcg (2,000 unit) capsule dorzolamide 2 % eye drops 1 drp EACH EYE BID 07/11/24 10/03/24 10/02/24 History eslicarbazepine 800 mg tablet 800 mg PO DAILY 07/11/24 10/03/24 10/02/24 History (Aptiom) insulin glargine 100 unit/mL (3 10 unit subcut QPM 07/11/24 10/03/24 10/02/24 History mL) subcutaneous pen (Basaglar KwikPen U-100 Insulin) lactulose 10 gram/15 mL oral 30 ml PO BID PRN constipation 07/11/24 07/11/24 Unknown History solution latanoprost 0.005 % eye drops 1 drp EACH EYE QPM 07/11/24 10/03/24 10/02/24 History levetiracetam 500 mg tablet 500 mg PO TID 07/11/24 10/03/24 10/02/24 History lorazepam 1 mg tablet (Ativan) 1 mg PO TID 07/11/24 10/03/24 10/02/24 History melatonin 5 mg capsule 5 mg PO 07/11/24 10/03/24 10/02/24 History mirtazapine 15 mg tablet 15 mg PO 07/11/24 10/03/24 10/02/24 History pregabalin 50 mg capsule 50 mg PO Q12H 07/11/24 10/03/24 10/02/24 History pyridoxine (vitamin B6) 100 mg 100 mg PO Q12H 07/11/24 10/03/24 10/02/24 History tablet sertraline 50 mg tablet 50 mg PO Q24H 07/11/24 10/03/24 10/02/24 History trazodone 50 mg tablet 50 mg PO 07/11/24 10/03/24 10/02/24 History Allergies Allergy/AdvReac Type Severity Reaction Status Date / Time Antihistamines - Ethanolamine Allergy Unknown Unknown Verified 10/03/24 08:54 cephalexin Allergy Unknown Unknown Verified 10/03/24 08:54 Cephalosporins Allergy Unknown Unknown Verified 10/03/24 08:54 diphenhydramine (From Allergy Unknown Unknown Verified 10/03/24 08:54 Benadryl) enoxaparin Allergy Unknown Unknown Verified 10/03/24 08:54 fexofenadine Allergy Unknown Unknown Verified 10/03/24 08:54 lactose Allergy Unknown Unknown Verified 10/03/24 08:54 milk Allergy Unknown Unknown Verified 10/03/24 08:54 olanzapine Allergy Unknown Unknown Verified 10/03/24 08:54 rofecoxib Allergy Unknown Unknown Verified 10/03/24 08:54 Sulfa (Sulfonamide Allergy Unknown Unknown Verified 10/03/24 08:54 Antibiotics) valproic acid Allergy Unknown Unknown Verified 10/03/24 08:54 zinc Allergy Unknown Unknown Verified 10/03/24 08:54 zolpidem Allergy Unknown Unknown Verified 10/03/24 08:54 Review of Systems Review of Systems: Gen.: Denies fevers or chills Eyes: Denies eye pain or visual change ENT: Denies congestion Respiratory: Denies shortness of breath or cough CV: Denies chest pain or palpitations GI: Denies abdominal pain nausea, emesis or diarrhea denies burning, urgency, frequency or hematuria Musculoskeletal: Denies back pain or muscle pain Neuro: Denies numbness, tingling, weakness or focal weakness Skin: Denies rash Except as documented, all other systems reviewed and negative [facility] Past Medical History Medical History Weakness Unspecified severe protein-calorie malnutrition Unspecified mood [affective] disorder Type 2 diabetes mellitus without complications Other age-related cataract Mixed hyperlipidemia Hypo-osmolality and hyponatremia Essential (primary) hypertension Depression, unspecified Cognitive communication deficit Unsteadiness on feet Unspecified open-angle glaucoma, stage unspecified Unspecified cataract Sleep disorder, unspecified Need for assistance with personal care Mild 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, unspecified Epilepsy, unspecified, not intractable, without status epilepticus Conversion disorder with seizures or convulsions Benign prostatic hyperplasia without lower urinary tract symptoms Social History Social History Living arrangements: [facility] Additional living arrangements comments: [facility] since 04/09/24 Exam Narrative: APPEARANCE: No acute distress, nontoxic, resting in bed EYES: EOMI HEENT: Normocephalic, atraumatic, OMM RESPIRATORY: No respiratory distress Clear to auscultation bilaterally with no rhonchi wheezing or rales. CARDIOVASCULAR: Regular rate and rhythm without murmurs rubs or gallops. ABDOMINAL: Soft, nontender, nondistended, no rebound or guarding MUSCULOSKELETAl: Moves all extremities. No clubbing, cyanosis or edema. NEURO: AAO x1-2. Following commands, speech normal, no focal deficits SKIN:: Warm, dry. No rashes lesions or abrasions PSYCHIATRIC: Normal affect/mood, Course Vital Signs Vital signs: Vital Signs Temperature 98.4 F 10/08/24 16:12 Pulse Rate 94 10/08/24 16:12 Respiratory Rate 19 10/08/24 16:12 Blood Pressure 150/80 H 10/08/24 16:12 Pulse Oximetry 97 10/08/24 16:12 Oxygen Delivery Room Air 10/08/24 16:12 Temperature 98.4 F 10/08/24 16:12 Pulse Rate 95 10/08/24 17:49 Respiratory Rate 15 10/08/24 17:49 Blood Pressure 167/135 H 10/08/24 17:49 Pulse Oximetry 98 10/08/24 17:55 Oxygen Delivery Room Air 10/08/24 17:55 MDM - Seizure MDM Narrative Medical decision making narrative: 64-year-old male who presented to the ED for seizure activity. Under initial evaluation, patient was in no acute distress, afebrile, hemodynamically stable. He was at his baseline mental status per [facility]. He had nonfocal neuro exam. Heart and lungs clear. Abdomen soft nontender. CT head was obtained while in CT, patient did begin to experience grand mal seizure activity lasted about 15 seconds and aborted without any medications. Patient did appear to be in a postictal state shortly after this. He had another episode in the ED room it was similar to previous that lasted 15-20 seconds. He was loaded with Keppra 30 milligrams/kilogram. Lactic acid prior to these episodes was normal. CBC and CMP were without significant abnormalities. CT head showed no acute process. UA showed evidence of UTI. Chest x-ray was clear. Patient will require admission for further neurologic evaluation given these recurrent seizures. Case was discussed with Dr. Ann, neurology, who agrees with the plan and will see the patient as a consult. Case was discussedwith hospitalist who will admit the patient. Differential Diagnosis Differential diagnosis: Likely focal seizure, generalized seizure and epileptic seizure Medical Records Attestation: I reviewed the patient's medical records. Lab Data Attestation: I reviewed the patient's lab results. 10/08/24 17:21 10/08/24 17:21 Labs: Lab Results 10/08/24 10/08/24 10/08/24 Range/Units 16:36 17:21 18:04 WBC 5.9 7.2 (4.5-10.0) K/mm3 RBC 4.87 4.62 (4.6-6.20) M/mm3 Hgb 15.1 14.5 (14.0-18.0) g/dL Hct 43.7 41.7 L (42.0-52.0) % MCV 89.7 90.3 (80-100) fl MCH 31.0 31.4 (26-34) pg MCHC 34.6 34.8 (32-36) g/dl RDW 12.4 12.5 (11.5-14.5) % Plt Count 204 195 (150-375) k/mm3 MPV 9.8 9.2 (7.4-10.4) fl Immature Gran % (Auto) 0.3 0.4 (0-0.5) % Neut % (Auto) 77.2 H 79.0 H (45.5-73.1) % Lymph % (Auto) 16.4 L 14.7 L (18.3-44.2) % [place]rentiss % (Auto) 5.1 5.3 (2.6-8.5) % Eos % (Auto) 0.7 0.3 (0-4.4) % Baso % (Auto) 0.3 0.3 (0.2-1.2) % Lymph # (Auto) 0.97 1.06 (0.9-3.2) K/mm3 [place]iss # (Auto) 0.3 0.4 (0.1-0.6) K/mm3 Eos # (Auto) 0.0 0.0 (0-0.3) K/mm3 Baso # (Auto) 0.0 0.0 (0.0-0.1) K/mm3 Abs Immat Gran (auto) 0.02 0.03 (0.00-0.031) K/mm3 Absolute Neuts (auto) 4.6 5.7 (1.3-6.7) K/mm3 Absolute Nucleated RBC 0.000 0.000 (0.0-0.012) K/mm3 Nucleated RBC % 0.0 0.0 (0.0-0.2) % Sodium 131 L (137-145) mmol/L Potassium 4.4 (3.4-5.0) mmol/L Chloride 94 L (98-107) mmol/L Carbon Dioxide 28 (22-30) mmol/L Anion Gap 9 (4-12) mmol/L BUN 15 (9-20) mg/dL Creatinine 0.79 (0.7-1.3) mg/dL Estim Creat Clear Calc 72 ml/min Estimated GFR > 60 (59 - ) Glucose 123 H (65-110) mg/dL Lactic Acid 1.7 1.5 (0.7-2.0) mmol/L Calcium 9.9 (8.4-10.2) mg/dL Total Bilirubin 0.8 (0.2-1.3) mg/dL AST 43 (17-59) U/L ALT 49 (6-50) U/L Alkaline Phosphatase 127 H (38-126) U/L Total Protein 8.5 H (6.3-8.2) g/dL Albumin 4.9 (3.5-5.1) g/dL Urine Color Yellow (Yellow) Urine Appearance Cloudy H (Clear) Urine pH 7.5 (5.0-9.0) Ur Specific [place] 1.014 (1.001-1.035) Urine Protein 1+ H (Negative) mg/dL Urine Glucose (UA) Negative (Negative) mg/dL Urine Ketones Negative (Negative) mg/dL Ur Blood (Man) Negative (Negative) Urine Nitrate Negative (Negative) Urine Bilirubin Negative (Negative) Urine Urobilinogen 1.0 (<2.0) mg/dL Leukocyte Esterase Rfl Negative (Negative) LEO/UL Urine RBC 0-2 (0-2) /hpf Urine WBC 0-5 (0-3) /hpf Ur Squamous Epith Cells None seen (Few) /hpf Urine Bacteria None seen /hpf Urine Casts 0-2 Imaging Data Radiologist's impression: Impressions Head CT 10/08/24 17:17 Impression: 1.No acute intracranial abnormality. Chest X-Ray 10/08/24 17:50 IMPRESSION: 1: NO ACUTE CARDIOPULMONARY DISEASE. ECG Data EKG #1: Attestation: I personally reviewed and interpreted this ECG as follows: ECG completion date: 10/08/24 ECG completion time: 16:18 Interpretation: Normal sinus rhythm rate of 94, normal axis, normal intervals, no acute ST or T-wave changes Discharge Plan Discharge Clinical Impression: Generalized seizure Patient Disposition: Still a Patient Condition: Stable Patient Language: Mongolian Prescriptions: No Action oxycodone 5 mg tablet 5 mg PO Q8H PRN (Reason: pain) Qty: 14 0RF acetaminophen 500 mg capsule 1,000 mg PO Q6H PRN (Reason: pain) Qty: 30 0RF lidocaine 4 % adhesive patch,medicated 1 patch topical DAILY PRN (Reason: pain) Qty: 10 0RF oxycodone 10 mg tablet 10 mg PO Q8H PRN (Reason: pain) Qty: 14 0RF levetiracetam 500 mg tablet 500 mg PO TID pyridoxine (vitamin B6) 100 mg tablet 100 mg PO Q12H sertraline 50 mg tablet 50 mg PO Q24H pregabalin 50 mg capsule 50 mg PO Q12H lorazepam [Ativan] 1 mg tablet 1 mg PO TID Eliquis 5 mg tablet 5 mg PO Q12H lactulose 10 gram/15 mL solution 30 ml PO BID PRN (Reason: constipation) dorzolamide 2 % drops 1 drp EACH EYE BID cholecalciferol (vitamin D3) 50 mcg (2,000 unit) capsule 2,000 unit PO DAILY brimonidine 0.2 % drops brimonidine-timolol [Combigan] 0.2-0.5 % drops 1 drp EACH EYE Q12H atorvastatin 40 mg tablet 40 mg PO QPM eslicarbazepine [Aptiom] 800 mg tablet 800 mg PO DAILY amlodipine 10 mg tablet 10 mg PO DAILY latanoprost 0.005 % drops 1 drp EACH EYE QPM trazodone 50 mg tablet 50 mg PO HS mirtazapine 15 mg tablet 15 mg PO HS melatonin 5 mg capsule 5 mg PO HS insulin glargine [Basaglar KwikPen U-100 Insulin] 100 unit/mL (3 mL) insulin pen 10 unit SUBCUT QPM Follow-up/Referrals: [facility] [Other]
[2024-10-08] MEDS: DEXTROSE 5% IVPB (17:26)
[2024-10-08] MEDS: LEVETIRACETAM IVPB (17:26)
[2024-10-08 17:28] LABS: Hematocrit 41.7 % (42.0-52.0); Hemoglobin 14.5 g/dL (14.0-18.0); Immature Granulocyte Percent A 0.4 % (0-0.5); Lymphocytes Absolute Auto 1.06 K/mm3 (0.9-3.2); Mean Corpuscular HGB Conc 34.8 g/dl (32-36); Mean Corpuscular Hemoglobin 31.4 pg (26-34); Mean Corpuscular Volume 90.3 fl (80-100); Nucleated Red Blood Cells Absolute Auto 0.000 K/mm3 (0.0-0.012); Nucleated Red Blood Cells Perc 0.0 % (0.0-0.2); Platelet Count Result 195 k/mm3 (150-375); Red Blood Count 4.62 M/mm3 (4.6-6.20); White Blood Count 7.2 K/mm3 (4.5-10.0)
[2024-10-08 17:39] LABS: Alanine Aminotransferase 49 U/L (6-50); Albumin Level 4.9 g/dL (3.5-5.1); Alkaline Phosphatase 127 U/L (38-126); Anion Gap 9 mmol/L (4-12); Aspartate Amino Transferase 43 U/L (17-59); Bilirubin,Total 0.8 mg/dL (0.2-1.3); Blood Urea Nitrogen 15 mg/dL (9-20); Calcium 9.9 mg/dL (8.4-10.2); Carbon Dioxide 28 mmol/L (22-30); Chloride 94 mmol/L (98-107); Estimated CRCL calculation 72 ml/min; Estimated Glomerular Filt Rate > 60; Glucose 123 mg/dL (65-110); Potassium 4.4 mmol/L (3.4-5.0); Sodium 131 mmol/L (137-145); Total Protein 8.5 g/dL (6.3-8.2)
[2024-10-08 18:17] LABS: Add Urine Microscopic? YES; Appearance Urine Cloudy (Clear); Glucose Urine UA Negative (Negative); Leukocyte Esterase Ur Negative LEU/UL (Negative); Nitrate Urine Negative (Negative); Non Pathogenic Casts 0-2; Specific Grav Ur 1.014 (1.001-1.035)
[2024-10-08 21:13] LABS: Hemoglobin A1C 5.5 % (<5.7)
[2024-10-08 21:23] LABS: Magnesium 1.9 mg/dL (1.6-2.3)
--- NOTE | 2024-10-08 21:33 | PC.NURSE ---
Notified Carlos Colon NP that Pt. had a seizure lasting approx. 1 minute and that the nurse was notified that Pt. had a seizure on the way up from ER. Carlos Colon NP stated that he will review his chart and place new orders. Pt's RN informed.
[2024-10-08 22:04] LABS: Ammonia 25 umol/L (9-30)
[2024-10-08] MEDS: PHENYTOIN SODIUM INJ (*BKC) 1,000 MG in SODIUM CHLORIDE 0.9% IV 100 ML 360 MG IVPB (22:05)
--- NOTE | 2024-10-08 23:12 | PM.IMHP ---
H&P: HPI History of Present Illness Date/Time: 10/08/24 23:12 Chief Complaint: Seizures, lactic acidosis Narrative: This is a 64 year old male patient who is admitted to the hospital due to frequent seizures today. He is developmentally delayed and not always oriented. He is currently experiencing fever and some tenderness of the abdomen. He denies pain elsewhere, nausea, and vomiting at the time of assessment. Initially, he denied trouble breathing, but later affirmed experiencing cough and trouble breathing during assessment. He has a history of seizures and takes multiple medications for them, but is unsure if he has been consistently taking his doses; typically, nurses administer his medications at his care facility ([facility]). Initially labs were normal in ER except for mild hyponatremia (131) including normal lactic acid and normal WBC x 2 draws and normal UA. Once patient arrived to the floor he spiked a fever and was given Tylenol. Covid/Flu/RSV negative. CXR normal appearing. Blood cultures drawn along with repeat chemistry panel and lactic acid since patient had been having seizures. At this time his carbon dioxide had decreased to 21 and anion gap lauryn to 13. Lactic acid was 4.3. Ordered 30 mL/kg of LR infusion and CT scan of chest/abdomen/pelvis with IV contrast. Also loaded patient with phenytoin 1000 mg IVPB. A few hours later, lactic acid (and morning labs) drawn with increase in lactic acid to 5.8 as well as increased anion gap to 15. This time WBC returned elevated at 12.4. Uncertain if IV phenytoin, infection or seizure activity alone accounts for rising lactic acid. Fever could be infectious vs Neurologic in nature. Tylenol has not seemed to improve the temperature much. Review of Systems Review of Systems: Constitutional: Fever, warmth; denies chills, night sweats, malaise, fatigue, weight change. Respiratory: Affirmed cough and some trouble breathing during assessment, despite an initial denial of trouble breathing. Gastrointestinal: Denies nausea, vomiting. Musculoskeletal: No pain reported; legs are doing all right. Neurological: History of seizures; developmentally delayed; not always oriented. [facility] Past Medical History Medical History (Updated 10/09/24 @ 05:06 by Sergio Colon APRN) Generalized seizure Encounter for screening colonoscopy Weakness Unspecified severe protein-calorie malnutrition Unspecified mood [affective] disorder Type 2 diabetes mellitus without complications Other age-related cataract Mixed hyperlipidemia Hypo-osmolality and hyponatremia Essential (primary) hypertension Depression, unspecified Cognitive communication deficit Unsteadiness on feet Unspecified open-angle glaucoma, stage unspecified Unspecified cataract Sleep disorder, unspecified Need for assistance with personal care Mild 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, unspecified Epilepsy, unspecified, not intractable, without status epilepticus Conversion disorder with seizures or convulsions Benign prostatic hyperplasia without lower urinary tract symptoms Social History Social History Living arrangements: shelter Additional living arrangements comments: [facility] since 04/09/24 Meds Home Medications and Allergies Home Medications ?Medication ?Instructions ?Recorded ?Confirmed ?Type acetaminophen 500 mg capsule 1,000 mg (2 x 500 mg) PO Q6H PRN 04/29/24 07/11/24 Rx pain #30 caps lidocaine 4 % topical patch 1 patch topical DAILY PRN pain #10 04/29/24 07/11/24 Rx ea oxycodone 10 mg tablet 10 mg PO Q8H PRN pain #14 tabs 04/29/24 07/11/24 Rx oxycodone 5 mg tablet 5 mg PO Q8H PRN pain #14 tabs 04/29/24 07/11/24 Rx amlodipine 10 mg tablet 10 mg PO DAILY 07/11/24 10/03/24 History apixaban 5 mg tablet (Eliquis) 5 mg PO Q12H 07/11/24 10/03/24 History atorvastatin 40 mg tablet 40 mg PO QPM 07/11/24 10/03/24 History brimonidine 0.2 % eye drops drp 07/11/24 History brimonidine 0.2 %-timolol 0.5 % 1 drp EACH EYE Q12H 07/11/24 10/03/24 History eye drops (Combigan) cholecalciferol (vitamin D3) 50 2,000 unit PO DAILY 07/11/24 10/03/24 History mcg (2,000 unit) capsule dorzolamide 2 % eye drops 1 drp EACH EYE BID 07/11/24 10/03/24 History eslicarbazepine 800 mg tablet 800 mg PO DAILY 07/11/24 10/03/24 History (Aptiom) insulin glargine 100 unit/mL (3 10 unit subcut QPM 07/11/24 10/03/24 History mL) subcutaneous pen (Basaglar KwikPen U-100 Insulin) lactulose 10 gram/15 mL oral 30 ml PO BID PRN constipation 07/11/24 07/11/24 History solution latanoprost 0.005 % eye drops 1 drp EACH EYE QPM 07/11/24 10/03/24 History levetiracetam 500 mg tablet 500 mg PO TID 07/11/24 10/03/24 History lorazepam 1 mg tablet (Ativan) 1 mg PO TID 07/11/24 10/03/24 History melatonin 5 mg capsule 5 mg PO HS 07/11/24 10/03/24 History mirtazapine 15 mg tablet 15 mg PO 07/11/24 10/03/24 History pregabalin 50 mg capsule 50 mg PO Q12H 07/11/24 10/03/24 History pyridoxine (vitamin B6) 100 mg 100 mg PO Q12H 07/11/24 10/03/24 History tablet sertraline 50 mg tablet 50 mg PO Q24H 07/11/24 10/03/24 History trazodone 50 mg tablet 50 mg PO 07/11/24 10/03/24 History Allergies Allergy/AdvReac Type Severity Reaction Status Date / Time Antihistamines - Ethanolamine Allergy Unknown Unknown Verified 10/03/24 08:54 cephalexin Allergy Unknown Unknown Verified 10/03/24 08:54 Cephalosporins Allergy Unknown Unknown Verified 10/03/24 08:54 diphenhydramine (From Allergy Unknown Unknown Verified 10/03/24 08:54 Benadryl) enoxaparin Allergy Unknown Unknown Verified 10/03/24 08:54 fexofenadine Allergy Unknown Unknown Verified 10/03/24 08:54 lactose Allergy Unknown Unknown Verified 10/03/24 08:54 milk Allergy Unknown Unknown Verified 10/03/24 08:54 olanzapine Allergy Unknown Unknown Verified 10/03/24 08:54 rofecoxib Allergy Unknown Unknown Verified 10/03/24 08:54 Sulfa (Sulfonamide Allergy Unknown Unknown Verified 10/03/24 08:54 Antibiotics) valproic acid Allergy Unknown Unknown Verified 10/03/24 08:54 zinc Allergy Unknown Unknown Verified 10/03/24 08:54 zolpidem Allergy Unknown Unknown Verified 10/03/24 08:54 Vital Signs Vital Signs - 24 hr 10/08/24 16:12 10/08/24 16:22 10/08/24 17:39 Temperature 36.9 C Pulse Rate 94 92 Respiratory Rate 19 11 L Blood Pressure 150/80 H Pulse Oximetry 97 80 L Oxygen Delivery Room Air Room Air 10/08/24 17:45 10/08/24 17:47 10/08/24 17:49 Temperature Pulse Rate 112 H 95 Respiratory Rate 24 H 15 Blood Pressure 167/135 H Pulse Oximetry 88 L 97 99 Oxygen Delivery Room Air 10/08/24 17:55 10/08/24 18:00 10/08/24 18:01 Temperature Pulse Rate 94 97 Respiratory Rate 18 18 Blood Pressure 175/86 H Pulse Oximetry 98 100 100 Oxygen Delivery Room Air 10/08/24 18:15 10/08/24 18:16 10/08/24 19:44 Temperature Pulse Rate 98 101 H 104 H Respiratory Rate 16 15 16 Blood Pressure 107/94 H Pulse Oximetry 98 97 Oxygen Delivery 10/08/24 19:45 10/08/24 19:46 10/08/24 20:04 Temperature Pulse Rate 100 101 H 94 Respiratory Rate 16 16 17 Blood Pressure 127/61 Pulse Oximetry Oxygen Delivery 10/08/24 20:21 10/08/24 20:30 10/08/24 20:31 Temperature Pulse Rate 98 99 100 Respiratory Rate 18 18 19 Blood Pressure 149/63 H Pulse Oximetry Oxygen Delivery 10/08/24 20:42 10/08/24 21:18 Temperature 37.7 C H Pulse Rate 112 H Respiratory Rate 18 Blood Pressure 189/82 H Pulse Oximetry 100 96 Oxygen Delivery Exam Narrative: GENERAL: Acutely and chronically ill-appearing, uncomfortable appearing HEAD: Normocephalic, atraumatic. ENT:? Mucous membranes dry. CHEST: Clear to auscultation.? No respiratory distress. HEART: Tachycardic rate and regular rhythm. Bounding peripheral pulses. ABDOMEN: Soft, flat, diffusely tender without rebound or guarding EXTREMITIES: Normal range of motion. No peripheral edema. SKIN: Very hot to the touch, mildly diaphoretic NEURO: Awake and alert, chronically poor historian, moving all extremities equally. Multiple tonic-clonic seizures witnessed by nursing staff, EMS and ER/CT staff H&P: Results Labs Labs: Short CBC 10/08/24 10/08/24 Range/Units 16:36 17:21 WBC 5.9 7.2 (4.5-10.0) K/mm3 Hgb 15.1 14.5 (14.0-18.0) g/dL Hct 43.7 41.7 L (42.0-52.0) % Plt Count 204 195 (150-375) k/mm3 BMP 10/08/24 17:21 Sodium 131 L Potassium 4.4 Chloride 94 L Carbon Dioxide 28 BUN 15 Creatinine 0.79 Glucose 123 H Calcium 9.9 Liver Function 10/08/24 Range/Units 17:21 Total Bilirubin 0.8 (0.2-1.3) mg/dL AST 43 (17-59) U/L ALT 49 (6-50) U/L Alkaline Phosphatase 127 H (38-126) U/L Albumin 4.9 (3.5-5.1) g/dL Urine 10/08/24 Range/Units 18:04 Urine Color Yellow (Yellow) Urine Appearance Cloudy H (Clear) Urine pH 7.5 (5.0-9.0) Ur Specific [place] 1.014 (1.001-1.035) Urine Protein 1+ H (Negative) mg/dL Urine Glucose (UA) Negative (Negative) mg/dL Pulse Oximetry SpO2 results: 96-100% on room air Attestation: I personally reviewed and interpreted this pulse oximetry as follows: Interpretation: No need for supplemental oxygenation at this time Imaging CT Chest Abdomen Pelvis with IV contrast: My impression: Extensive gas throughout colon and mildly enlarged gallbladder noted on my independent interpretation, awaiting Radiology read in the morning. CT scan - head: Radiologist's impression: EXAMINATION: CT brain wo carlos, 10/08/2024 17:08 CDT HISTORY: seizure COMPARISON: No comparisons available. Technique: Axial images obtained of the brain without contrast. One or more of the following dose reduction techniques were used: automated exposure control, adjustment of the mA and/or kV according to patient size, use of iterative reconstruction technique. Findings: No acute infarct or parenchymal hemorrhage. No abnormal mass or mass effect. No midline shift. No extra-axial fluid collections. No hydrocephalus. Mastoid air cells unremarkable. Sinuses and orbits unremarkable. No acute fracture. No significant facial or scalp soft tissue swelling evident. No radiopaque foreign body is seen. Impression: 1.No acute intracranial abnormality. Reviewed, dictated and finalized at location A. Chest x-ray: Radiologist's impression: EXAMINATION: XR chest 1V portable 10/08/2024 17:48 INDICATION: Shortness of breath TECHNIQUE:A single portable AP upright frontal image of the chest was obtained. COMPARISON: None available FINDINGS: Generator projects over the left hilar region. 5 mm calcified granuloma in the right lower lung. Heart is not enlarged. No pneumothorax. No pleural effusion. No free air the diaphragm. No focal pulmonary consolidation. IMPRESSION: 1: NO ACUTE CARDIOPULMONARY DISEASE. Reviewed, dictated and finalized at location Q. Assessment and Plan Assessment and plan (1) Epilepsy, unspecified, not intractable, without status epilepticus: Code(s): G40.909 - Epilepsy, unspecified, not intractable, without status epilepticus Status: Acute Assessment and Plan: -Multiple episodes of seizures today including witnessed by EMS, ER, CT staff and Floor RNs -Keppra load recommended by Neurology 1800 mg, already on 500 mg TID oral -On high doses of Aptiom (1600 mg daily) which is non-formulary here -Takes pregabalin for pain -Numerous reported allergies including valproic acid -Loading dose of phenytoin given and initate 100 mg IVP Q6H starting about 12 hours after loading dose -Phenytoin may be cause of patient's rapidly rising lactic acid levels (2) Acute lactic acidosis: Code(s): E87.21 - Acute metabolic acidosis Status: Acute Assessment and Plan: -Potentially related to IV bolus (loading) dose of phenytoin, repeated seizure activity or infectious causes -30 mL/kg LR bolus given after lactic acid of 4.3 -Repeat was 5.8 -Redraw at 0600 ordered (3) Fever: Code(s): R50.9 - Fever, unspecified Status: Acute Assessment and Plan: -Very hot to touch on exam with tachycardia -Possibly infectious or potentially neurologic fever related to numerous seizures today -Abdomen tender to palpation throughout, normal UA -CT scan chest abdomen pelvis ordered STAT -Extensive gas throughout colon and mildly enlarged gallbladder noted on my independent interpretation, awaiting Radiology read in the morning. (4) Hypo-osmolality and hyponatremia: Code(s): E87.1 - Hypo-osmolality and hyponatremia Status: Acute Assessment and Plan: -Sodium 130-132 during this admission, uncertain baseline levels (5) Type 2 diabetes mellitus without complications: Code(s): E11.9 - Type 2 diabetes mellitus without complications Status: Chronic Assessment and Plan: -ACHS fingerstick glucose with SSI -Diabetic diet -Continue Lantus with 10% dose reduction (6) Essential (primary) hypertension: Code(s): I10 - Essential (primary) hypertension Status: Chronic Assessment and Plan: -Continue home medications -IV labetalol ordered for elevated BP after multiple seizures on the floor (7) Mild intellectual disabilities: Code(s): F70 - Mild intellectual disabilities Status: Chronic Assessment and Plan: -noted history (8) Unspecified mood [affective] disorder: Code(s): F39 - Unspecified mood [affective] disorder Status: Chronic Assessment and Plan: -noted history (9) Need for assistance with personal care: Code(s): Z74.1 - Need for assistance with personal care Status: Chronic Assessment and Plan: -noted history, resident at [facility] in [place] (10) Mixed hyperlipidemia: Code(s): E78.2 - Mixed hyperlipidemia Status: Chronic Assessment and Plan: -continue atorvastatin Quality VTE Prophylaxis VTE prophylaxis: pharmacologic ordered Due to a high probability of clinically significant, life threatening deterioration, the patient required my highest level of preparedness to intervene emergently and I personally spent this critical care time directly and personally managing the patient. This critical care time included obtaining a history; examining the patient; pulse oximetry; ordering and review of studies; arranging urgent treatment with development of a management plan; evaluation of patient's response to treatment; frequent reassessment; and discussions with other providers. It was exclusive of separately billable procedures and treating other patients and teaching time. Please see Assessment and Plan section and the rest of the note for further information on patient assessment and treatment. Critical Care time: 65 minutes Hospitalist MIPS Advance Care Plan I have confirmed that the patient's Advanced Care Plan is present, code status is documented, or surrogate decision maker is listed in patient medical record.: Yes Medication Reconciliation I have utilized all available resources to obtain, update and review the patients current medications (includes all prescriptions, OTC, herbals, cannabis, and nutritional supplements).: Yes
[2024-10-08 23:56] LABS: Albumin Level 4.7 g/dL (3.5-5.1); Anion Gap 13 mmol/L (4-12); Blood Urea Nitrogen 18 mg/dL (9-20); Calcium 9.7 mg/dL (8.4-10.2); Carbon Dioxide 21 mmol/L (22-30); Chloride 96 mmol/L (98-107); Estimated CRCL calculation 66 ml/min; Estimated Glomerular Filt Rate > 60; Glucose 131 mg/dL (65-110); Potassium 4.4 mmol/L (3.4-5.0); Sodium 130 mmol/L (137-145)
[2024-10-09] VITALS (16 sets, daily range): BP systolic 119–134; BP diastolic 56–65; PULSE 60–105; RESP 14–18; TEMP 36.3–38.1; O2SAT 97–98; BMI 19.5
[2024-10-09] MEDS: LACTATED RINGERS 900 ML 999 ML IV CONT (00:19)
[2024-10-09] MEDS: ACETAMINOPHEN 500 MG TABLET 1000 MG PO ×2 (00:21→16:03)
[2024-10-09] MEDS: LACTATED RINGERS 1,000 ML 999 ML IV CONT (01:43)
[2024-10-09 02:03] LABS: Hematocrit 37.9 % (42.0-52.0); Hemoglobin 13.0 g/dL (14.0-18.0); Immature Granulocyte Percent A 0.4 % (0-0.5); Lymphocytes Absolute Auto 1.24 K/mm3 (0.9-3.2); Mean Corpuscular HGB Conc 34.3 g/dl (32-36); Mean Corpuscular Hemoglobin 31.4 pg (26-34); Mean Corpuscular Volume 91.5 fl (80-100); Nucleated Red Blood Cells Absolute Auto 0.000 K/mm3 (0.0-0.012); Nucleated Red Blood Cells Perc 0.0 % (0.0-0.2); Platelet Count Result 181 k/mm3 (150-375); Red Blood Count 4.14 M/mm3 (4.6-6.20); White Blood Count 12.4 K/mm3 (4.5-10.0)
[2024-10-09 02:14] LABS: Alanine Aminotransferase 45 U/L (6-50); Albumin Level 4.4 g/dL (3.5-5.1); Alkaline Phosphatase 107 U/L (38-126); Anion Gap 15 mmol/L (4-12); Aspartate Amino Transferase 41 U/L (17-59); Bilirubin,Total 0.7 mg/dL (0.2-1.3); Blood Urea Nitrogen 17 mg/dL (9-20); Calcium 9.4 mg/dL (8.4-10.2); Carbon Dioxide 21 mmol/L (22-30); Chloride 96 mmol/L (98-107); Estimated CRCL calculation 64 ml/min; Estimated Glomerular Filt Rate > 60; Glucose 128 mg/dL (65-110); Magnesium 2.0 mg/dL (1.6-2.3); Potassium 4.2 mmol/L (3.4-5.0); Sodium 132 mmol/L (137-145); Total Protein 7.2 g/dL (6.3-8.2)
[2024-10-09] MEDS: SODIUM CHLOR 3% 15 ML NEB (RESPIRATORY THERAPY) 6 ML INHALATION (06:21)
--- NOTE | 2024-10-09 06:32 | PCRCNOTE ---
pt was unable to submit a sputum sample
[2024-10-09] MEDS: AZTREONAM 2 GM in SODIUM CHLORIDE 0.9% IV 100 ML IVPB ×3 (06:47→23:00)
[2024-10-09] MEDS: AZITHROMYCIN IV 500 MG in SODIUM CHLORIDE 0.9% IV 250 ML IVPB (08:36)
[2024-10-09] MEDS: PYRIDOXINE HCL 50 MG TABLET 100 MG PO ×2 (08:37→20:29)
[2024-10-09] MEDS: CHOLECALCIFEROL (VITAMIN D3) 25 MCG (1,000 UNITS) TABLET 50 MCG PO (08:38)
[2024-10-09] MEDS: PREGABALIN (*CRX) 50 MG CAPSULE PO ×2 (08:38→20:29)
[2024-10-09] MEDS: APIXABAN 5 MG TABLET PO ×2 (08:38→20:29)
[2024-10-09] MEDS: SERTRALINE HCL 25 MG TABLET PO (08:38)
[2024-10-09] MEDS: PHENYTOIN SODIUM INJ 100 MG/2 ML VIAL (*BKC) IV PUSH ×3 (09:31→20:41)
[2024-10-09] MEDS: DORZOLAMIDE HCL 2% OPHTH DROPS 1 DROP EACH EYE ×2 (09:31→20:41)
[2024-10-09 09:38] LABS: Hemoglobin A1C 5.4 % (<5.7)
[2024-10-09] MEDS: levETIRAcetam 1000MG/NACL100ML 1,000 MG/100 ML BAG 400 MG IVPB ×2 (09:42→20:30)
--- NOTE | 2024-10-09 18:09 | PM.IMPN ---
Progress Note: A&P Assessment and Plan (1) Epilepsy, unspecified, not intractable, without status epilepticus: Code(s): G40.909 - Epilepsy, unspecified, not intractable, without status epilepticus Status: Acute Assessment and Plan: On admission, had multiple witnessed episode of seizure per EMS, ER, CT staff and floor RN Neurology consulted, 1800 mg of Keppra loaded Continue Keppra 1 g q.12 hours, Continue phenytoin 100 mg IV push q.6 hours Patient takes Keppra 500 mg t.i.d. and high dose of Aptiom (1600 mg QD)-non-formulary here Patient allergic to valproic acid (2) Acute lactic acidosis: Code(s): E87.21 - Acute metabolic acidosis Status: Acute Assessment and Plan: Likely secondary to multifactorial etiology: Seizure, medication, dehydration and pneumonia Status post 30 cc/kg of LR bolus Repeat lactic acid is 2.1 normalized (3) Fever: Code(s): R50.9 - Fever, unspecified Status: Acute Assessment and Plan: On admission, had fever 38.1 Likely secondary to multifactorial etiology: Seizure/aspiration pneumonia/aspiration chemical pneumonitis CT abdomen/pelvis is unrevealing Nonobstructive left nephrolithiasis noted (4) Hypo-osmolality and hyponatremia: Code(s): E87.1 - Hypo-osmolality and hyponatremia Status: Acute Assessment and Plan: -Sodium 130-132 during this admission, uncertain baseline levels (5) Type 2 diabetes mellitus without complications: Code(s): E11.9 - Type 2 diabetes mellitus without complications Status: Chronic Assessment and Plan: Can not verify whether he had diabetes or not A1c 5.5% in this admission No need to do sliding scale, POCT Will check his glucose in BMP (6) Essential (primary) hypertension: Code(s): I10 - Essential (primary) hypertension Status: Chronic Assessment and Plan: -Continue home medications -IV labetalol ordered for elevated BP after multiple seizures on the floor (7) Mild intellectual disabilities: Code(s): F70 - Mild intellectual disabilities Status: Chronic Assessment and Plan: -noted history (8) Unspecified mood [affective] disorder: Code(s): F39 - Unspecified mood [affective] disorder Status: Chronic Assessment and Plan: -noted history (9) Need for assistance with personal care: Code(s): Z74.1 - Need for assistance with personal care Status: Chronic Assessment and Plan: -noted history, resident at [facility] in [place] (10) Mixed hyperlipidemia: Code(s): E78.2 - Mixed hyperlipidemia Status: Chronic Assessment and Plan: -continue atorvastatin (11) Aspiration pneumonia: Code(s): J69.0 - Pneumonitis due to inhalation of food and vomit Status: Acute Assessment and Plan: Likely secondary to aspiration secondary to seizure CT chest shows patchy ground-glass opacity of the lung base suspicious for pneumonia Continue azithromycin and Aztreonam Follow-up blood culture Plan Once clinically stable he will discharge to [facility] in [place] Time Spent With Patient Time: 30 minutes Subjective Date/time seen: 10/09/24 18:09 Interval history: Jairon has intellectual disabilities assisted for breakthrough seizure. He is not aware of what happened. He thinks his sugar was low. EMS reported he had a couple seizures that lasted for 30 seconds to 2 minutes. He covers his face with towel. Exam Narrative: APPEARANCE: Cover his face with towel. EYES: EOMI HEENT: Normocephalic, atraumatic, OMM RESPIRATORY: No respiratory distress Clear to auscultation bilaterally with no rhonchi wheezing or rales. CARDIOVASCULAR: RRR, S1 and S2 without murmurs rubs or gallops. ABDOMINAL: Soft, nontender, nondistended, no rebound or guarding MSK: Moves his extremities spontaneously NEURO: Awake and alert. Following commands, appears dysarthric PSYCHIATRIC: cover face with towel Objective Data Vital Signs Vital Signs: Vital Signs - 24 hr 10/08/24 18:15 10/08/24 18:16 10/08/24 19:44 Temperature Pulse Rate 98 101 H 104 H Respiratory Rate 16 15 16 Blood Pressure 107/94 H Pulse Oximetry 98 97 Oxygen Delivery 10/08/24 19:45 10/08/24 19:46 10/08/24 20:04 Temperature Pulse Rate 100 101 H 94 Respiratory Rate 16 16 17 Blood Pressure 127/61 Pulse Oximetry Oxygen Delivery 10/08/24 20:21 10/08/24 20:30 10/08/24 20:31 Temperature Pulse Rate 98 99 100 Respiratory Rate 18 18 19 Blood Pressure 149/63 H Pulse Oximetry Oxygen Delivery 10/08/24 20:42 10/08/24 21:18 10/08/24 21:39 Temperature 37.7 C H Pulse Rate 112 H Respiratory Rate 18 Blood Pressure 189/82 H Pulse Oximetry 100 96 97 Oxygen Delivery Room Air 10/09/24 00:03 10/09/24 00:21 10/09/24 00:25 Temperature 38.1 C H Pulse Rate 99 105 H Respiratory Rate Blood Pressure Pulse Oximetry Oxygen Delivery 10/09/24 01:21 10/09/24 04:00 10/09/24 04:05 Temperature 37.4 C 36.4 C L Pulse Rate 87 76 Respiratory Rate 18 Blood Pressure 132/56 L Pulse Oximetry 97 Oxygen Delivery 10/09/24 06:20 10/09/24 06:22 10/09/24 06:31 Temperature Pulse Rate 85 89 Respiratory Rate 18 18 Blood Pressure Pulse Oximetry 97 Oxygen Delivery Room Air 10/09/24 08:00 10/09/24 08:00 10/09/24 11:29 Temperature 36.7 C Pulse Rate 71 60 Respiratory Rate 18 Blood Pressure 119/59 L Pulse Oximetry 98 98 Oxygen Delivery Room Air 10/09/24 12:00 10/09/24 15:48 Temperature 36.3 C L Pulse Rate 62 63 Respiratory Rate 18 Blood Pressure 121/58 L Pulse Oximetry 98 Oxygen Delivery Intake/Output Intake/Output: Intake & Output 10/06/24 10/07/24 10/08/24 10/09/24 23:59 23:59 23:59 23:59 Intake Total 118.6 220 Output Total 75 250 Balance 43.6 -30 Meds/Results Medications: Active Medications Generic Name Dose Route Start Last Admin Trade Name Freq PRN Reason Stop Dose Admin Acetaminophen 1,000 mg 10/09/24 06:00 10/09/24 16:03 Acetaminophen 500 Mg Tablet PO 1,000 mg Q6H PRN Administration Pain or Fever Amlodipine Besylate 10 mg 10/09/24 09:00 10/09/24 08:38 Amlodipine Besylate 10 Mg Tablet PO 10 mg DAILY RADHA Administration Apixaban 5 mg 10/09/24 09:00 10/09/24 08:38 Apixaban 5 Mg Tablet PO 5 mg Q12HR RADHA Administration Artificial Tears 2 drop 10/09/24 04:39 Artificial Tears Ophth Soln 15 Ml Bottle EACH EYE TID PRN Dry Eye(s) Atorvastatin Calcium 40 mg 10/09/24 21:00 Atorvastatin 40 Mg Tablet PO HS RADHA Dextrose 12.5 gm 10/09/24 04:43 Dextrose 50% 25 Gm/50 Ml Syringe IV PUSH PRN PRN Hypoglycemia Protocol Dorzolamide HCl 1 drop 10/09/24 09:00 10/09/24 09:31 Dorzolamide Hcl 2% Ophth Drops EACH EYE 1 drop Q12HR RADHA Administration Glucagon 1 mg 10/09/24 04:43 Glucagon For Inj 1 Mg Vial IM PRN PRN Hypoglycemia Protocol Glucose 15 gm 10/09/24 04:43 Glucose Oral Gel 15 Gm Of Glucse In 37.5 Gm Tube PO PRN PRN Hypoglycemia Protocol Levetiracetam 1,000 mg in 100 mls @ 400 mls/hr 10/09/24 09:00 10/09/24 09:42 Keppra Iv IVPB 400 mls/hr Q12H RADHA Administration Dextrose 1,000 mls @ 100 mls/hr 10/09/24 04:43 Dextrose 5% 1,000 Ml IVPB PRN PRN Hypoglycemia Protocol Azithromycin 500 mg/ Sodium 250 mls @ 250 mls/hr 10/09/24 06:00 10/09/24 08:36 Chloride IVPB 250 mls/hr Q24H RADHA Administration Aztreonam 2 gm/ Sodium 100 mls @ 200 mls/hr 10/09/24 07:00 10/09/24 15:54 Chloride IVPB 200 mls/hr Q8H RADHA Administration Insulin Aspart 2 - 5 units 10/09/24 08:00 10/09/24 12:58 Insulin Aspart (*Bkc) 100 Units/Ml SUB-Q Not Given TIDWM [facility] Protocol Insulin Glargine 9 units 10/09/24 21:00 Insulin Glargine (*Bkc) 100 Units/Ml 0.15 units/kg (9 units) SUB-Q HS RADHA Lactulose 30 gm 10/09/24 04:33 Lactulose 20 Gm/30 Ml Udc PO BID PRN Constipation Latanoprost 1 drop 10/09/24 21:00 Latanoprost 0.005% Op Soln 2.5 Ml Btl EACH EYE HS RADHA Lorazepam 1 mg 10/09/24 04:33 Lorazepam (*Crx) 1 Mg Tablet PO TID PRN Anxiety Midazolam HCl 2 mg 10/08/24 21:38 Midazolam Hcl (*Crx) 2 Mg/2 Ml Vial IV PUSH Q4H PRN seizures Mirtazapine 15 mg 10/09/24 21:00 Mirtazapine 15 Mg Tablet PO HS [facility] Miscellaneous Information 1 each 10/09/24 00:01 Order Clarification - Aptiom 1,600 Mg Is Non-Formulary XX 11/08/24 00:00 CLARIFY RADHA Non-Formulary Medication 1,600 mg 10/09/24 09:00 Aptiom PO 11/08/24 08:59 DAILY [facility] Oxycodone HCl 10 mg 10/09/24 04:39 Oxycodone Hcl (*Crx) 5 Mg Tab Ir PO Q8H PRN Pain Rated 7-10 Phenytoin Sodium 100 mg 10/09/24 09:00 10/09/24 15:54 Phenytoin Sodium Inj 100 Mg/2 Ml Vial (*Bkc) IV PUSH 100 mg ,,,03 [facility] Administration Pregabalin 50 mg 10/09/24 09:00 10/09/24 08:38 Pregabalin (*Crx) 50 Mg Capsule PO 50 mg Q12HR RADHA Administration Pyridoxine HCl 100 mg 10/09/24 09:00 10/09/24 08:37 Pyridoxine Hcl 50 Mg Tablet PO 100 mg Q12HR RADHA Administration Sertraline HCl 25 mg 10/09/24 09:00 10/09/24 08:38 Sertraline Hcl 25 Mg Tablet PO 25 mg QAM RADHA Administration Sodium Chloride 6 ml 10/09/24 06:05 10/09/24 06:21 Sodium Chlor 3% 15 Ml Neb (Respiratory Therapy) INHALATION 10/11/24 05:01 6 ml DAILY@0500 [facility] Administration Vitamin D 50 mcg 10/09/24 09:00 10/09/24 08:38 Cholecalciferol (Vitamin D3) 25 Mcg (1,000 Units) Tablet PO 50 mcg DAILY RADHA Administration Radiology Results: ITS Impressions Head CT 10/08/24 17:17 Impression: 1.No acute intracranial abnormality. Chest X-Ray 10/08/24 17:50 IMPRESSION: 1: NO ACUTE CARDIOPULMONARY DISEASE. Chest/Abdomen/Pelvis CT 10/09/24 05:37 IMPRESSION: 1. Patchy groundglass opacities of the lung bases, suspicious for pneumonia. 2: Nonobstructing left nephrolithiasis. Labs Labs: Laboratory Results - last 24 hr 10/08/24 10/08/24 10/08/24 16:36 17:21 18:04 WBC RBC Hgb Hct MCV MCH MCHC RDW Plt Count MPV Immature Gran % (Auto) Neut % (Auto) Lymph % (Auto) [place] % (Auto) Eos % (Auto) Baso % (Auto) Lymph # (Auto) [place] # (Auto) Eos # (Auto) Baso # (Auto) Abs Immat Gran (auto) Absolute Neuts (auto) Absolute Nucleated RBC Nucleated RBC % Sodium Potassium Chloride Carbon Dioxide Anion Gap BUN Creatinine Estim Creat Clear Calc Estimated GFR Glucose POC Capillary Glucose Hemoglobin A1c 5.5 Lactic Acid Calcium Phosphorus Magnesium 1.9 Total Bilirubin AST ALT Alkaline Phosphatase Ammonia Total Protein Albumin Urine Color Yellow Urine Appearance Cloudy H Urine pH 7.5 Ur Specific [place] 1.014 Urine Protein 1+ H Urine Glucose (UA) Negative Urine Ketones Negative Ur Blood (Man) Negative Urine Nitrate Negative Urine Bilirubin Negative Urine Urobilinogen 1.0 Leukocyte Esterase Rfl Negative Urine RBC 0-2 Urine WBC 0-5 Ur Squamous Epith Cells None seen Urine Bacteria None seen Urine Casts 0-2 Urine Pneumococcal Ag 10/08/24 10/08/24 10/09/24 21:48 23:31 01:56 WBC 12.4 H RBC 4.14 L Hgb 13.0 L Hct 37.9 L MCV 91.5 MCH 31.4 MCHC 34.3 RDW 12.6 Plt Count 181 MPV 9.0 Immature Gran % (Auto) 0.4 Neut % (Auto) 81.8 H Lymph % (Auto) 10.0 L [place] % (Auto) 7.7 Eos % (Auto) 0.0 Baso % (Auto) 0.1 L Lymph # (Auto) 1.24 [place] # (Auto) 1.0 H Eos # (Auto) 0.0 Baso # (Auto) 0.0 Abs Immat Gran (auto) 0.05 H Absolute Neuts (auto) 10.1 H Absolute Nucleated RBC 0.000 Nucleated RBC % 0.0 Sodium 130 L 132 L Potassium 4.4 4.2 Chloride 96 L 96 L Carbon Dioxide 21 L 21 L Anion Gap 13 H 15 H BUN 18 17 Creatinine 0.87 0.89 Estim Creat Clear Calc 66 64 Estimated GFR > 60 > 60 Glucose 131 H 128 H POC Capillary Glucose Hemoglobin A1c Lactic Acid 4.3 H* 5.8 H* Calcium 9.7 9.4 Phosphorus 3.0 Magnesium 2.0 Total Bilirubin 0.7 AST 41 ALT 45 Alkaline Phosphatase 107 Ammonia 25 Total Protein 7.2 Albumin 4.7 4.4 Urine Color Urine Appearance Urine pH Ur Specific [place] Urine Protein Urine Glucose (UA) Urine Ketones Ur Blood (Man) Urine Nitrate Urine Bilirubin Urine Urobilinogen Leukocyte Esterase Rfl Urine RBC Urine WBC Ur Squamous Epith Cells Urine Bacteria Urine Casts Urine Pneumococcal Ag 10/09/24 10/09/24 10/09/24 06:03 08:03 12:03 WBC RBC Hgb Hct MCV MCH MCHC RDW Plt Count MPV Immature Gran % (Auto) Neut % (Auto) Lymph % (Auto) [place] % (Auto) Eos % (Auto) Baso % (Auto) Lymph # (Auto) [place] # (Auto) Eos # (Auto) Baso # (Auto) Abs Immat Gran (auto) Absolute Neuts (auto) Absolute Nucleated RBC Nucleated RBC % Sodium Potassium Chloride Carbon Dioxide Anion Gap BUN Creatinine Estim Creat Clear Calc Estimated GFR Glucose POC Capillary Glucose 110 H 103 Hemoglobin A1c 5.4 Lactic Acid 2.1 H Calcium Phosphorus Magnesium Total Bilirubin AST ALT Alkaline Phosphatase Ammonia Total Protein Albumin Urine Color Urine Appearance Urine pH Ur Specific [place] Urine Protein Urine Glucose (UA) Urine Ketones Ur Blood (Man) Urine Nitrate Urine Bilirubin Urine Urobilinogen Leukocyte Esterase Rfl Urine RBC Urine WBC Ur Squamous Epith Cells Urine Bacteria Urine Casts Urine Pneumococcal Ag 10/09/24 10/09/24 13:07 16:56 WBC RBC Hgb Hct MCV MCH MCHC RDW Plt Count MPV Immature Gran % (Auto) Neut % (Auto) Lymph % (Auto) [place] % (Auto) Eos % (Auto) Baso % (Auto) Lymph # (Auto) [place] # (Auto) Eos # (Auto) Baso # (Auto) Abs Immat Gran (auto) Absolute Neuts (auto) Absolute Nucleated RBC Nucleated RBC % Sodium Potassium Chloride Carbon Dioxide Anion Gap BUN Creatinine Estim Creat Clear Calc Estimated GFR Glucose POC Capillary Glucose 110 H Hemoglobin A1c Lactic Acid Calcium Phosphorus Magnesium Total Bilirubin AST ALT Alkaline Phosphatase Ammonia Total Protein Albumin Urine Color Urine Appearance Urine pH Ur Specific [place] Urine Protein Urine Glucose (UA) Urine Ketones Ur Blood (Man) Urine Nitrate Urine Bilirubin Urine Urobilinogen Leukocyte Esterase Rfl Urine RBC Urine WBC Ur Squamous Epith Cells Urine Bacteria Urine Casts Urine Pneumococcal Ag Cancelled Quality VTE Prophylaxis VTE prophylaxis: pharmacologic ordered (Eliquis)
[2024-10-09] MEDS: MIRTAZAPINE 15 MG TABLET PO (20:29)
[2024-10-09] MEDS: ATORVASTATIN 40 MG TABLET PO (20:29)
[2024-10-09] MEDS: oxyCODONE HCL (*CRX) 5 MG TAB IR 10 MG PO (20:29)
[2024-10-09] MEDS: LORazepam (*CRX) 1 MG TABLET PO (20:29)
[2024-10-09] MEDS: LATANOPROST 0.005% OP SOLN 2.5 ML BTL 1 DROP EACH EYE (20:41)
[2024-10-10] VITALS (7 sets, daily range): BP systolic 141–154; BP diastolic 66–75; PULSE 77–88; RESP 16–18; TEMP 36.3–37.9; O2SAT 96–100
[2024-10-10 06:20] LABS: Hematocrit 38.6 % (42.0-52.0); Hemoglobin 13.0 g/dL (14.0-18.0); Immature Granulocyte Percent A 0.3 % (0-0.5); Lymphocytes Absolute Auto 3.00 K/mm3 (0.9-3.2); Mean Corpuscular HGB Conc 33.7 g/dl (32-36); Mean Corpuscular Hemoglobin 31.4 pg (26-34); Mean Corpuscular Volume 93.2 fl (80-100); Nucleated Red Blood Cells Absolute Auto 0.000 K/mm3 (0.0-0.012); Nucleated Red Blood Cells Perc 0.0 % (0.0-0.2); Platelet Count Result 161 k/mm3 (150-375); Red Blood Count 4.14 M/mm3 (4.6-6.20); White Blood Count 7.9 K/mm3 (4.5-10.0)
[2024-10-10] MEDS: SODIUM CHLOR 3% 15 ML NEB (RESPIRATORY THERAPY) 6 ML INHALATION (06:26)
[2024-10-10] MEDS: AZITHROMYCIN IV 500 MG in SODIUM CHLORIDE 0.9% IV 250 ML IVPB (06:26)
[2024-10-10] MEDS: PHENYTOIN SODIUM INJ 100 MG/2 ML VIAL (*BKC) IV PUSH ×4 (06:26→20:36)
--- NOTE | 2024-10-10 06:43 | PCRCNOTE ---
Patient unable to produce a sputum sample.
[2024-10-10 07:00] LABS: Alanine Aminotransferase 36 U/L (6-50); Albumin Level 4.2 g/dL (3.5-5.1); Alkaline Phosphatase 99 U/L (38-126); Anion Gap 6 mmol/L (4-12); Aspartate Amino Transferase 48 U/L (17-59); Bilirubin,Total 0.6 mg/dL (0.2-1.3); Blood Urea Nitrogen 14 mg/dL (9-20); Calcium 9.2 mg/dL (8.4-10.2); Carbon Dioxide 29 mmol/L (22-30); Chloride 102 mmol/L (98-107); Estimated CRCL calculation 65 ml/min; Estimated Glomerular Filt Rate > 60; Glucose 91 mg/dL (65-110); Magnesium 2.1 mg/dL (1.6-2.3); Potassium 4.0 mmol/L (3.4-5.0); Sodium 137 mmol/L (137-145); Total Protein 7.1 g/dL (6.3-8.2)
[2024-10-10] MEDS: SERTRALINE HCL 25 MG TABLET PO (09:16)
[2024-10-10] MEDS: CHOLECALCIFEROL (VITAMIN D3) 25 MCG (1,000 UNITS) TABLET 50 MCG PO (09:16)
[2024-10-10] MEDS: PYRIDOXINE HCL 50 MG TABLET 100 MG PO ×2 (09:16→20:37)
[2024-10-10] MEDS: APIXABAN 5 MG TABLET PO ×2 (09:16→20:35)
[2024-10-10] MEDS: PREGABALIN (*CRX) 50 MG CAPSULE PO ×2 (09:17→20:36)
[2024-10-10] MEDS: levETIRAcetam 1000MG/NACL100ML 1,000 MG/100 ML BAG 400 MG IVPB ×2 (09:22→20:23)
[2024-10-10] MEDS: DORZOLAMIDE HCL 2% OPHTH DROPS 1 DROP EACH EYE ×2 (09:41→20:32)
--- NOTE | 2024-10-10 11:42 | ECG_ITS ---
Test Date: 2024-10-10 11:55:59 Measurements Intervals [place] Rate: 77 P: 71 OK: 172 QRS: 61 QRSD: 88 T: 47 QT: 380 QTc: 431 Interpretive Statements SINUS RHYTHM WITH OCCASIONAL VENTRICULAR PREMATURE COMPLEXES BORDERLINE ECG Compared to ECG 10/08/2024 16:18:49 Ventricular premature complex(es) now present Electronically Signed On 10-10-2024 12:06:40 CDT by Kale Guzmán D.O.
[2024-10-10 12:22] LABS: Magnesium 1.8 mg/dL (1.6-2.3)
[2024-10-10 12:49] LABS: MRSA (PCR) DETECTED (NOT DETECTE)
[2024-10-10] MEDS: ACETAMINOPHEN 500 MG TABLET 1000 MG PO (14:19)
--- NOTE | 2024-10-10 17:29 | PM.IMPN ---
Progress Note: A&P Assessment and Plan (1) Epilepsy, unspecified, not intractable, without status epilepticus: Code(s): G40.909 - Epilepsy, unspecified, not intractable, without status epilepticus Status: Acute Assessment and Plan: On admission, had multiple witnessed episode of seizure per EMS, ER, CT staff and floor RN Neurology consulted, 1800 mg of Keppra loaded Continue Keppra 1 g q.12 hours, Continue phenytoin 100 mg IV push q.6 hours Patient takes Keppra 500 mg t.i.d. and high dose of Aptiom (1600 mg QD)-non-formulary here Patient allergic to valproic acid (2) Acute lactic acidosis: Code(s): E87.21 - Acute metabolic acidosis Status: Acute Assessment and Plan: Likely secondary to multifactorial etiology: Seizure, medication, dehydration and pneumonia Status post 30 cc/kg of LR bolus Repeat lactic acid is 2.1 normalized (3) Fever: Code(s): R50.9 - Fever, unspecified Status: Acute Assessment and Plan: On admission, had fever 38.1 Likely secondary to multifactorial etiology: Seizure/aspiration pneumonia/aspiration chemical pneumonitis CT abdomen/pelvis is unrevealing Nonobstructive left nephrolithiasis noted (4) Hypo-osmolality and hyponatremia: Code(s): E87.1 - Hypo-osmolality and hyponatremia Status: Acute Assessment and Plan: Sodium today 137 (5) Type 2 diabetes mellitus without complications: Code(s): E11.9 - Type 2 diabetes mellitus without complications Status: Chronic Assessment and Plan: Can not verify whether he had diabetes or not A1c 5.5% in this admission No need to do sliding scale, POCT Will check his glucose in BMP (6) Essential (primary) hypertension: Code(s): I10 - Essential (primary) hypertension Status: Chronic Assessment and Plan: -Continue home medications -IV labetalol ordered for elevated BP after multiple seizures on the floor (7) Mild intellectual disabilities: Code(s): F70 - Mild intellectual disabilities Status: Chronic Assessment and Plan: -noted history (8) Unspecified mood [affective] disorder: Code(s): F39 - Unspecified mood [affective] disorder Status: Chronic Assessment and Plan: -noted history (9) Need for assistance with personal care: Code(s): Z74.1 - Need for assistance with personal care Status: Chronic Assessment and Plan: -noted history, resident at [facility] in [place] (10) Mixed hyperlipidemia: Code(s): E78.2 - Mixed hyperlipidemia Status: Chronic Assessment and Plan: -continue atorvastatin (11) Aspiration pneumonia: Code(s): J69.0 - Pneumonitis due to inhalation of food and vomit Status: Acute Assessment and Plan: Likely secondary to aspiration secondary to seizure CT chest shows patchy ground-glass opacity of the lung base suspicious for pneumonia Deescalate azithromycin and Aztreonam to Augmentin Blood culture no growth to date Plan Once clinically stable he will discharge to [facility] in [place] Subjective Date/time seen: 10/10/24 17:29 Interval history: No overnight events. More awake today. He refuses to follow commands he thinks he is weak. He has intellectual disability but pretty functional. No seizure since his admission. Exam Narrative: APPEARANCE: Awake, conversant EYES: EOMI HEENT: Normocephalic, atraumatic, OMM RESPIRATORY: No respiratory distress Clear to auscultation bilaterally with no rhonchi wheezing or rales. CARDIOVASCULAR: RRR, S1 and S2 without murmurs rubs or gallops. ABDOMINAL: Soft, nontender, nondistended, no rebound or guarding MSK: Moves his extremities spontaneously NEURO: Awake and alert. Following commands, appears dysarthric PSYCHIATRIC: cover face with towel Objective Data Vital Signs Vital Signs: Vital Signs - 24 hr 10/09/24 20:00 10/09/24 20:00 10/09/24 23:44 Temperature 36.7 C 37.1 C Pulse Rate 74 74 84 Respiratory Rate 14 14 Blood Pressure 129/65 134/64 Pulse Oximetry 98 97 Oxygen Delivery 10/10/24 04:00 10/10/24 08:00 10/10/24 08:00 Temperature 36.3 C L Pulse Rate 88 84 87 Respiratory Rate 17 18 Blood Pressure 154/68 H 146/74 H Pulse Oximetry 100 97 Oxygen Delivery 10/10/24 08:00 10/10/24 12:00 10/10/24 12:00 Temperature 37.9 C H Pulse Rate 88 83 Respiratory Rate 18 Blood Pressure 141/73 H Pulse Oximetry 99 Oxygen Delivery Room Air 10/10/24 14:19 10/10/24 15:34 10/10/24 16:00 Temperature 37.9 C H 37.4 C 37.4 C Pulse Rate 77 Respiratory Rate 18 Blood Pressure 142/66 H Pulse Oximetry 96 Oxygen Delivery 10/10/24 16:00 Temperature Pulse Rate 78 Respiratory Rate Blood Pressure Pulse Oximetry Oxygen Delivery Intake/Output Intake/Output: Intake & Output 10/07/24 10/08/24 10/09/24 10/10/24 23:59 23:59 23:59 23:59 Intake Total 118.6 990 650 Output Total 75 650 1500 Balance 43.6 340 -850 Meds/Results Medications: Active Medications Generic Name Dose Route Start Last Admin Trade Name Freq PRN Reason Stop Dose Admin Acetaminophen 1,000 mg 10/09/24 06:00 10/10/24 14:19 Acetaminophen 500 Mg Tablet PO 1,000 mg Q6H PRN Administration Pain or Fever Amlodipine Besylate 10 mg 10/09/24 09:00 10/10/24 09:17 Amlodipine Besylate 10 Mg Tablet PO 10 mg DAILY RADHA Administration Amoxicillin/Clavulanate Potassium 1 tablet 10/10/24 09:30 10/10/24 09:25 Amoxicillin/Clavulanate K 875-125 Mg Tab PO 10/13/24 21:01 1 tablet Q12HR RADHA Administration Apixaban 5 mg 10/09/24 09:00 10/10/24 09:16 Apixaban 5 Mg Tablet PO 5 mg Q12HR RADHA Administration Artificial Tears 2 drop 10/09/24 04:39 Artificial Tears Ophth Soln 15 Ml Bottle EACH EYE TID PRN Dry Eye(s) Atorvastatin Calcium 40 mg 10/09/24 21:00 10/09/24 20:29 Atorvastatin 40 Mg Tablet PO 40 mg HS RADHA Administration Azithromycin 500 mg 10/11/24 09:00 Azithromycin 250 Mg Tablet PO 10/11/24 09:01 ONCE ONE Dextrose 12.5 gm 10/09/24 04:43 Dextrose 50% 25 Gm/50 Ml Syringe IV PUSH PRN PRN Hypoglycemia Protocol Dorzolamide HCl 1 drop 10/09/24 09:00 10/10/24 09:41 Dorzolamide Hcl 2% Ophth Drops EACH EYE 1 drop Q12HR RADHA Administration Glucagon 1 mg 10/09/24 04:43 Glucagon For Inj 1 Mg Vial IM PRN PRN Hypoglycemia Protocol Glucose 15 gm 10/09/24 04:43 Glucose Oral Gel 15 Gm Of Glucse In 37.5 Gm Tube PO PRN PRN Hypoglycemia Protocol Levetiracetam 1,000 mg in 100 mls @ 400 mls/hr 10/09/24 09:00 10/10/24 09:22 Keppra Iv IVPB 400 mls/hr Q12H RADHA Administration Dextrose 1,000 mls @ 100 mls/hr 10/09/24 04:43 Dextrose 5% 1,000 Ml IVPB PRN PRN Hypoglycemia Protocol Insulin Aspart 2 - 5 units 10/09/24 08:00 10/10/24 17:01 Insulin Aspart (*Bkc) 100 Units/Ml SUB-Q Not Given TIDWM RADHA Protocol Lactulose 30 gm 10/09/24 04:33 Lactulose 20 Gm/30 Ml Udc PO BID PRN Constipation Latanoprost 1 drop 10/09/24 21:00 10/09/24 20:41 Latanoprost 0.005% Op Soln 2.5 Ml Btl EACH EYE 1 drop HS RADHA Administration Lorazepam 1 mg 10/09/24 04:33 10/09/24 20:29 Lorazepam (*Crx) 1 Mg Tablet PO 1 mg TID PRN Administration Anxiety Midazolam HCl 2 mg 10/08/24 21:38 Midazolam Hcl (*Crx) 2 Mg/2 Ml Vial IV PUSH Q4H PRN seizures Mirtazapine 15 mg 10/09/24 21:00 10/09/24 20:29 Mirtazapine 15 Mg Tablet PO 15 mg HS RADHA Administration Miscellaneous Information 1 each 10/09/24 00:01 Order Clarification - Aptiom 1,600 Mg Is Non-Formulary XX 11/08/24 00:00 CLARIFY RADHA Non-Formulary Medication 1,600 mg 10/09/24 09:00 Aptiom PO 11/08/24 08:59 DAILY RADHA Oxycodone HCl 10 mg 10/09/24 04:39 10/09/24 20:29 Oxycodone Hcl (*Crx) 5 Mg Tab Ir PO 10 mg Q8H PRN Administration Pain Rated 7-10 Phenytoin Sodium 100 mg 10/09/24 09:00 10/10/24 14:22 Phenytoin Sodium Inj 100 Mg/2 Ml Vial (*Bkc) IV PUSH 100 mg ,,,03 RADHA Administration Pregabalin 50 mg 10/09/24 09:00 10/10/24 09:17 Pregabalin (*Crx) 50 Mg Capsule PO 50 mg Q12HR RADHA Administration Pyridoxine HCl 100 mg 10/09/24 09:00 10/10/24 09:16 Pyridoxine Hcl 50 Mg Tablet PO 100 mg Q12HR RADHA Administration Sertraline HCl 25 mg 10/09/24 09:00 10/10/24 09:16 Sertraline Hcl 25 Mg Tablet PO 25 mg QAM RADHA Administration Sodium Chloride 6 ml 10/09/24 06:05 10/10/24 06:26 Sodium Chlor 3% 15 Ml Neb (Respiratory Therapy) INHALATION 10/11/24 05:01 6 ml DAILY@0500 RADHA Administration Vitamin D 50 mcg 10/09/24 09:00 10/10/24 09:16 Cholecalciferol (Vitamin D3) 25 Mcg (1,000 Units) Tablet PO 50 mcg DAILY RADHA Administration Radiology Results: ITS Impressions Head CT 10/08/24 17:17 Impression: 1.No acute intracranial abnormality. Chest X-Ray 10/08/24 17:50 IMPRESSION: 1: NO ACUTE CARDIOPULMONARY DISEASE. Chest/Abdomen/Pelvis CT 10/09/24 05:37 IMPRESSION: 1. Patchy groundglass opacities of the lung bases, suspicious for pneumonia. 2: Nonobstructing left nephrolithiasis. Labs Labs: Laboratory Results - last 24 hr 10/09/24 10/10/24 10/10/24 20:31 05:52 07:54 WBC 7.9 RBC 4.14 L Hgb 13.0 L Hct 38.6 L MCV 93.2 MCH 31.4 MCHC 33.7 RDW 12.8 Plt Count 161 MPV 9.4 Immature Gran % (Auto) 0.3 Neut % (Auto) 45.9 Lymph % (Auto) 38.0 [place] % (Auto) 12.3 H Eos % (Auto) 2.7 Baso % (Auto) 0.8 Lymph # (Auto) 3.00 [place] # (Auto) 1.0 H Eos # (Auto) 0.2 Baso # (Auto) 0.1 Abs Immat Gran (auto) 0.02 Absolute Neuts (auto) 3.6 Absolute Nucleated RBC 0.000 Nucleated RBC % 0.0 Sodium 137 Potassium 4.0 Chloride 102 Carbon Dioxide 29 Anion Gap 6 BUN 14 Creatinine 0.88 Estim Creat Clear Calc 65 Estimated GFR > 60 Glucose 91 POC Capillary Glucose 124 H 80 Calcium 9.2 Magnesium 2.1 Total Bilirubin 0.6 AST 48 ALT 36 Alkaline Phosphatase 99 Total Protein 7.1 Albumin 4.2 Nasal MRSA (PCR) 10/10/24 10/10/24 10/10/24 11:13 11:41 11:50 WBC RBC Hgb Hct MCV MCH MCHC RDW Plt Count MPV Immature Gran % (Auto) Neut % (Auto) Lymph % (Auto) [place] % (Auto) Eos % (Auto) Baso % (Auto) Lymph # (Auto) [place] # (Auto) Eos # (Auto) Baso # (Auto) Abs Immat Gran (auto) Absolute Neuts (auto) Absolute Nucleated RBC Nucleated RBC % Sodium Potassium Chloride Carbon Dioxide Anion Gap BUN Creatinine Estim Creat Clear Calc Estimated GFR Glucose POC Capillary Glucose 101 Calcium Magnesium 1.8 Total Bilirubin AST ALT Alkaline Phosphatase Total Protein Albumin Nasal MRSA (PCR) Detected A* 10/10/24 16:36 WBC RBC Hgb Hct MCV MCH MCHC RDW Plt Count MPV Immature Gran % (Auto) Neut % (Auto) Lymph % (Auto) [place] % (Auto) Eos % (Auto) Baso % (Auto) Lymph # (Auto) [place] # (Auto) Eos # (Auto) Baso # (Auto) Abs Immat Gran (auto) Absolute Neuts (auto) Absolute Nucleated RBC Nucleated RBC % Sodium Potassium Chloride Carbon Dioxide Anion Gap BUN Creatinine Estim Creat Clear Calc Estimated GFR Glucose POC Capillary Glucose 107 H Calcium Magnesium Total Bilirubin AST ALT Alkaline Phosphatase Total Protein Albumin Nasal MRSA (PCR) Quality VTE Prophylaxis VTE prophylaxis: pharmacologic ordered (Eliquis)
[2024-10-10] MEDS: ATORVASTATIN 40 MG TABLET PO (20:36)
[2024-10-10] MEDS: MIRTAZAPINE 15 MG TABLET PO (20:39)
[2024-10-11] VITALS (11 sets, daily range): BP systolic 146–153; BP diastolic 70–84; PULSE 71–94; RESP 16–18; TEMP 36.9–37; O2SAT 96–99
[2024-10-11] MEDS: PHENYTOIN SODIUM INJ 100 MG/2 ML VIAL (*BKC) IV PUSH (02:51)
[2024-10-11] MEDS: SODIUM CHLOR 3% 15 ML NEB (RESPIRATORY THERAPY) 6 ML INHALATION (05:31)
[2024-10-11 05:58] LABS: Hematocrit 39.4 % (42.0-52.0); Hemoglobin 13.4 g/dL (14.0-18.0); Immature Granulocyte Percent A 0.2 % (0-0.5); Lymphocytes Absolute Auto 1.88 K/mm3 (0.9-3.2); Mean Corpuscular HGB Conc 34.0 g/dl (32-36); Mean Corpuscular Hemoglobin 31.5 pg (26-34); Mean Corpuscular Volume 92.7 fl (80-100); Nucleated Red Blood Cells Absolute Auto 0.000 K/mm3 (0.0-0.012); Nucleated Red Blood Cells Perc 0.0 % (0.0-0.2); Platelet Count Result 178 k/mm3 (150-375); Red Blood Count 4.25 M/mm3 (4.6-6.20); White Blood Count 9.9 K/mm3 (4.5-10.0)
[2024-10-11 06:21] LABS: Alanine Aminotransferase 35 U/L (6-50); Albumin Level 4.3 g/dL (3.5-5.1); Alkaline Phosphatase 103 U/L (38-126); Anion Gap 6 mmol/L (4-12); Aspartate Amino Transferase 44 U/L (17-59); Bilirubin,Total 0.7 mg/dL (0.2-1.3); Blood Urea Nitrogen 13 mg/dL (9-20); Calcium 9.0 mg/dL (8.4-10.2); Carbon Dioxide 30 mmol/L (22-30); Chloride 96 mmol/L (98-107); Estimated CRCL calculation 81 ml/min; Estimated Glomerular Filt Rate > 60; Glucose 101 mg/dL (65-110); Magnesium 1.9 mg/dL (1.6-2.3); Potassium 3.8 mmol/L (3.4-5.0); Sodium 132 mmol/L (137-145); Total Protein 7.2 g/dL (6.3-8.2)
[2024-10-11] MEDS: LORazepam (*CRX) 1 MG TABLET PO (06:26)
[2024-10-11] MEDS: PYRIDOXINE HCL 50 MG TABLET 100 MG PO ×2 (08:59→21:02)
[2024-10-11] MEDS: CHOLECALCIFEROL (VITAMIN D3) 25 MCG (1,000 UNITS) TABLET 50 MCG PO (08:59)
[2024-10-11] MEDS: APIXABAN 5 MG TABLET PO ×2 (08:59→20:59)
[2024-10-11] MEDS: SERTRALINE HCL 25 MG TABLET PO (08:59)
[2024-10-11] MEDS: PREGABALIN (*CRX) 50 MG CAPSULE PO ×2 (08:59→21:02)
[2024-10-11] MEDS: DORZOLAMIDE HCL 2% OPHTH DROPS 1 DROP EACH EYE ×2 (09:07→21:00)
[2024-10-11] MEDS: AZITHROMYCIN 250 MG TABLET 500 MG PO (10:15)
--- NOTE | 2024-10-11 11:15 | P.PNIM_ITS ---
Progress Note: A&P Assessment and Plan (1) Epilepsy, unspecified, not intractable, without status epilepticus: Code(s): G40.909 - Epilepsy, unspecified, not intractable, without status epilepticus Status: Acute Assessment and Plan: On admission, had multiple witnessed episode of seizure per EMS, ER, CT staff and floor RN Neurology consulted, 1800 mg of Keppra loaded switch Keppra IV 1 g q.12 hours to p.o. the same dose switch phenytoin 100 mg IV push q.6 hours to the p.o. QID the symptoms Patient takes Keppra 500 mg t.i.d. and high dose of Aptiom (1600 mg QD)-non-formulary here Patient allergic to valproic acid (2) Acute lactic acidosis: Code(s): E87.21 - Acute metabolic acidosis Status: Acute Assessment and Plan: Likely secondary to multifactorial etiology: Seizure, medication, dehydration and pneumonia Status post 30 cc/kg of LR bolus Repeat lactic acid is 2.1 normalized (3) Fever: Code(s): R50.9 - Fever, unspecified Status: Acute Assessment and Plan: On admission, had fever 38.1 Likely secondary to multifactorial etiology: Seizure/aspiration pneumonia/aspiration chemical pneumonitis CT abdomen/pelvis is unrevealing Nonobstructive left nephrolithiasis noted (4) Hypo-osmolality and hyponatremia: Code(s): E87.1 - Hypo-osmolality and hyponatremia Status: Acute Assessment and Plan: Sodium today 137 (5) Type 2 diabetes mellitus without complications: Code(s): E11.9 - Type 2 diabetes mellitus without complications Status: Chronic Assessment and Plan: Can not verify whether he had diabetes or not A1c 5.5% in this admission, regular diet No need to do sliding scale, POCT Will check his glucose in BMP (6) Essential (primary) hypertension: Code(s): I10 - Essential (primary) hypertension Status: Chronic Assessment and Plan: -Continue home medications -IV labetalol ordered for elevated BP after multiple seizures on the floor (7) Mild intellectual disabilities: Code(s): F70 - Mild intellectual disabilities Status: Chronic Assessment and Plan: -noted history (8) Unspecified mood [affective] disorder: Code(s): F39 - Unspecified mood [affective] disorder Status: Chronic Assessment and Plan: -noted history (9) Need for assistance with personal care: Code(s): Z74.1 - Need for assistance with personal care Status: Chronic Assessment and Plan: -noted history, resident at [facility] in [place] (10) Mixed hyperlipidemia: Code(s): E78.2 - Mixed hyperlipidemia Status: Chronic Assessment and Plan: -continue atorvastatin (11) Aspiration pneumonia: Code(s): J69.0 - Pneumonitis due to inhalation of food and vomit Status: Acute Assessment and Plan: Likely secondary to aspiration secondary to seizure CT chest shows patchy ground-glass opacity of the lung base suspicious for pneumonia Deescalate azithromycin and Aztreonam to Augmentin Blood culture no growth to date Plan can be discharge to [facility] in [place] today the facility accepts Subjective Date/time seen: 10/11/24 11:15 Interval history: he is oriented to person. usually he is oriented to person, time and place. no seizure overnight. he ate breakfast this morning per nursing staff. no fever or chills or abdominal pain or diarrhea. Exam Narrative: APPEARANCE: Awake, conversant EYES: EOMI HEENT: Normocephalic, atraumatic, OMM RESPIRATORY: No respiratory distress Clear to auscultation bilaterally with no rhonchi wheezing or rales. CARDIOVASCULAR: RRR, S1 and S2 without murmurs rubs or gallops. ABDOMINAL: Soft, nontender, nondistended, no rebound or guarding MSK: Moves his extremities spontaneously NEURO: Awake and alert. Following commands, appears dysarthric PSYCHIATRIC: cover face with towel Objective Data Vital Signs Vital Signs: Vital Signs - 24 hr 10/10/24 12:00 10/10/24 12:00 10/10/24 14:19 Temperature 37.9 C H 37.9 C H Pulse Rate 88 83 Respiratory Rate 18 Blood Pressure 141/73 H Pulse Oximetry 99 Oxygen Delivery 10/10/24 15:34 10/10/24 16:00 10/10/24 16:00 Temperature 37.4 C 37.4 C Pulse Rate 77 78 Respiratory Rate 18 Blood Pressure 142/66 H Pulse Oximetry 96 Oxygen Delivery 10/10/24 20:00 10/10/24 20:00 10/10/24 20:00 Temperature 37.2 C Pulse Rate 77 84 Respiratory Rate 16 Blood Pressure 141/75 H Pulse Oximetry 97 Oxygen Delivery Room Air 10/11/24 00:00 10/11/24 00:00 10/11/24 04:00 Temperature 37.0 C Pulse Rate 73 75 79 Respiratory Rate 16 Blood Pressure 148/78 H Pulse Oximetry 99 Oxygen Delivery 10/11/24 05:18 10/11/24 05:31 10/11/24 05:43 Temperature 37.0 C Pulse Rate 81 94 92 Respiratory Rate 18 18 18 Blood Pressure 153/78 H Pulse Oximetry 98 Oxygen Delivery 10/11/24 08:00 10/11/24 08:00 Temperature Pulse Rate 76 Respiratory Rate Blood Pressure Pulse Oximetry Oxygen Delivery Room Air Intake/Output Intake/Output: Intake & Output 10/08/24 10/09/24 10/10/24 10/11/24 23:59 23:59 23:59 23:59 Intake Total 118.6 990 1640 740 Output Total 75 650 3150 1550 Balance 43.6 182 -4308 -675 Meds/Results Medications: Active Medications Generic Name Dose Route Start Last Admin Trade Name Freq PRN Reason Stop Dose Admin Acetaminophen 1,000 mg 10/09/24 06:00 10/10/24 14:19 Acetaminophen 500 Mg Tablet PO 1,000 mg Q6H PRN Administration Pain or Fever Amlodipine Besylate 10 mg 10/09/24 09:00 10/11/24 08:59 Amlodipine Besylate 10 Mg Tablet PO 10 mg DAILY RADHA Administration Amoxicillin/Clavulanate Potassium 1 tablet 10/10/24 09:30 10/11/24 08:59 Amoxicillin/Clavulanate K 875-125 Mg Tab PO 10/13/24 21:01 1 tablet Q12HR RADHA Administration Apixaban 5 mg 10/09/24 09:00 10/11/24 08:59 Apixaban 5 Mg Tablet PO 5 mg Q12HR RADHA Administration Artificial Tears 2 drop 10/09/24 04:39 Artificial Tears Ophth Soln 15 Ml Bottle EACH EYE TID PRN Dry Eye(s) Atorvastatin Calcium 40 mg 10/09/24 21:00 10/10/24 20:36 Atorvastatin 40 Mg Tablet PO 40 mg HS RADHA Administration Dextrose 12.5 gm 10/09/24 04:43 Dextrose 50% 25 Gm/50 Ml Syringe IV PUSH PRN PRN Hypoglycemia Protocol Dorzolamide HCl 1 drop 10/09/24 09:00 10/11/24 09:07 Dorzolamide Hcl 2% Ophth Drops EACH EYE 1 drop Q12HR RADHA Administration Glucagon 1 mg 10/09/24 04:43 Glucagon For Inj 1 Mg Vial IM PRN PRN Hypoglycemia Protocol Glucose 15 gm 10/09/24 04:43 Glucose Oral Gel 15 Gm Of Glucse In 37.5 Gm Tube PO PRN PRN Hypoglycemia Protocol Dextrose 1,000 mls @ 100 mls/hr 10/09/24 04:43 Dextrose 5% 1,000 Ml IVPB PRN PRN Hypoglycemia Protocol Insulin Aspart 2 - 5 units 10/09/24 08:00 10/11/24 09:09 Insulin Aspart (*Bkc) 100 Units/Ml SUB-Q Not Given TIDWM RADHA Protocol Lactulose 30 gm 10/09/24 04:33 Lactulose 20 Gm/30 Ml Udc PO BID PRN Constipation Latanoprost 1 drop 10/09/24 21:00 10/11/24 02:54 Latanoprost 0.005% Op Soln 2.5 Ml Btl EACH EYE Not Given HS RADHA Levetiracetam 1,000 mg 10/11/24 11:10 Levetiracetam 500 Mg Tablet PO Q12HR RADHA Lorazepam 1 mg 10/09/24 04:33 10/11/24 06:26 Lorazepam (*Crx) 1 Mg Tablet PO 1 mg TID PRN Administration Anxiety Midazolam HCl 2 mg 10/08/24 21:38 Midazolam Hcl (*Crx) 2 Mg/2 Ml Vial IV PUSH Q4H PRN seizures Mirtazapine 15 mg 10/09/24 21:00 10/10/24 20:39 Mirtazapine 15 Mg Tablet PO 15 mg HS RADHA Administration Miscellaneous Information 1 each 10/09/24 00:01 10/11/24 00:07 Order Clarification - Aptiom 1,600 Mg Is Non-Formulary XX 11/08/24 00:00 Not Given CLARIFY RADHA Non-Formulary Medication 1,600 mg 10/09/24 09:00 Aptiom PO 11/08/24 08:59 DAILY RADHA Oxycodone HCl 10 mg 10/09/24 04:39 10/09/24 20:29 Oxycodone Hcl (*Crx) 5 Mg Tab Ir PO 10 mg Q8H PRN Administration Pain Rated 7-10 Phenytoin Sodium 100 mg 10/09/24 09:00 10/11/24 10:15 Phenytoin Sodium Inj 100 Mg/2 Ml Vial (*Bkc) IV PUSH 100 mg ,,, RADHA Administration Polyethylene Glycol 17 gm 10/10/24 18:05 10/11/24 08:59 Polyethylene Glycol 3350 17 Gm Powd.Pack PO 17 gm QAM RADHA Administration Pregabalin 50 mg 10/09/24 09:00 10/11/24 08:59 Pregabalin (*Crx) 50 Mg Capsule PO 50 mg Q12HR RADHA Administration Pyridoxine HCl 100 mg 10/09/24 09:00 10/11/24 08:59 Pyridoxine Hcl 50 Mg Tablet PO 100 mg Q12HR RADHA Administration Sertraline HCl 25 mg 10/09/24 09:00 10/11/24 08:59 Sertraline Hcl 25 Mg Tablet PO 25 mg QAM RADHA Administration Vitamin D 50 mcg 10/09/24 09:00 10/11/24 08:59 Cholecalciferol (Vitamin D3) 25 Mcg (1,000 Units) Tablet PO 50 mcg DAILY RADHA Administration Radiology Results: ITS Impressions Head CT 10/08/24 17:17 Impression: 1.No acute intracranial abnormality. Chest X-Ray 10/08/24 17:50 IMPRESSION: 1: NO ACUTE CARDIOPULMONARY DISEASE. Chest/Abdomen/Pelvis CT 10/09/24 05:37 IMPRESSION: 1. Patchy groundglass opacities of the lung bases, suspicious for pneumonia. 2: Nonobstructing left nephrolithiasis. Labs Labs: Laboratory Results - last 24 hr 10/10/24 10/10/24 10/10/24 11:13 11:41 11:50 WBC RBC Hgb Hct MCV MCH MCHC RDW Plt Count MPV Immature Gran % (Auto) Neut % (Auto) Lymph % (Auto) [place] % (Auto) Eos % (Auto) Baso % (Auto) Lymph # (Auto) [place] # (Auto) Eos # (Auto) Baso # (Auto) Abs Immat Gran (auto) Absolute Neuts (auto) Absolute Nucleated RBC Nucleated RBC % Sodium Potassium Chloride Carbon Dioxide Anion Gap BUN Creatinine Estim Creat Clear Calc Estimated GFR Glucose POC Capillary Glucose 101 Calcium Magnesium 1.8 Total Bilirubin AST ALT Alkaline Phosphatase Total Protein Albumin Nasal MRSA (PCR) Detected A* 10/10/24 10/10/2425 16:36 20:57 05:46 WBC 9.9 RBC 4.25 L Hgb 13.4 L Hct 39.4 L MCV 92.7 MCH 31.5 MCHC 34.0 RDW 12.5 Plt Count 178 MPV 9.1 Immature Gran % (Auto) 0.2 Neut % (Auto) 67.1 Lymph % (Auto) 19.0 [place] % (Auto) 10.4 H Eos % (Auto) 2.7 Baso % (Auto) 0.6 Lymph # (Auto) 1.88 [place] # (Auto) 1.0 H Eos # (Auto) 0.3 Baso # (Auto) 0.1 Abs Immat Gran (auto) 0.02 Absolute Neuts (auto) 6.7 Absolute Nucleated RBC 0.000 Nucleated RBC % 0.0 Sodium 132 L Potassium 3.8 Chloride 96 L Carbon Dioxide 30 Anion Gap 6 BUN 13 Creatinine 0.70 Estim Creat Clear Calc 81 Estimated GFR > 60 Glucose 101 POC Capillary Glucose 107 H 128 H Calcium 9.0 Magnesium 1.9 Total Bilirubin 0.7 AST 44 ALT 35 Alkaline Phosphatase 103 Total Protein 7.2 Albumin 4.3 Nasal MRSA (PCR) 10/11/24 07:37 WBC RBC Hgb Hct MCV MCH MCHC RDW Plt Count MPV Immature Gran % (Auto) Neut % (Auto) Lymph % (Auto) [place] % (Auto) Eos % (Auto) Baso % (Auto) Lymph # (Auto) [place] # (Auto) Eos # (Auto) Baso # (Auto) Abs Immat Gran (auto) Absolute Neuts (auto) Absolute Nucleated RBC Nucleated RBC % Sodium Potassium Chloride Carbon Dioxide Anion Gap BUN Creatinine Estim Creat Clear Calc Estimated GFR Glucose POC Capillary Glucose 85 Calcium Magnesium Total Bilirubin AST ALT Alkaline Phosphatase Total Protein Albumin Nasal MRSA (PCR) Quality VTE Prophylaxis VTE prophylaxis: pharmacologic ordered (Eliquis)
[2024-10-11] MEDS: PHENYTOIN SODIUM 100 MG EXTENDED RELEASE CAP PO ×3 (12:02→21:01)
[2024-10-11] MEDS: ATORVASTATIN 40 MG TABLET PO (20:59)
[2024-10-11] MEDS: MIRTAZAPINE 15 MG TABLET PO (21:01)
[2024-10-11] MEDS: LATANOPROST 0.005% OP SOLN 2.5 ML BTL 1 DROP EACH EYE (21:01)
[2024-10-12] VITALS: PULSE 77
[2024-10-12 04:00] VITALS: PULSE 79
[2024-10-12] MEDS: ARTIFICIAL TEARS OPHTH SOLN 15 ML BOTTLE 2 DROP EACH EYE (05:21)
[2024-10-12 05:44] LABS: Hematocrit 39.7 % (42.0-52.0); Hemoglobin 13.5 g/dL (14.0-18.0); Immature Granulocyte Percent A 0.2 % (0-0.5); Lymphocytes Absolute Auto 2.37 K/mm3 (0.9-3.2); Mean Corpuscular HGB Conc 34.0 g/dl (32-36); Mean Corpuscular Hemoglobin 31.3 pg (26-34); Mean Corpuscular Volume 91.9 fl (80-100); Nucleated Red Blood Cells Absolute Auto 0.000 K/mm3 (0.0-0.012); Nucleated Red Blood Cells Perc 0.0 % (0.0-0.2); Platelet Count Result 197 k/mm3 (150-375); Red Blood Count 4.32 M/mm3 (4.6-6.20); White Blood Count 8.8 K/mm3 (4.5-10.0)
[2024-10-12 06:00] VITALS: BP 146/66; PULSE 77; RESP 18; TEMP 37; O2SAT 100
[2024-10-12 06:11] LABS: Alanine Aminotransferase 30 U/L (6-50); Albumin Level 4.0 g/dL (3.5-5.1); Alkaline Phosphatase 99 U/L (38-126); Anion Gap 5 mmol/L (4-12); Aspartate Amino Transferase 38 U/L (17-59); Bilirubin,Total 0.5 mg/dL (0.2-1.3); Blood Urea Nitrogen 17 mg/dL (9-20); Calcium 9.1 mg/dL (8.4-10.2); Carbon Dioxide 30 mmol/L (22-30); Chloride 98 mmol/L (98-107); Estimated CRCL calculation 72 ml/min; Estimated Glomerular Filt Rate > 60; Glucose 90 mg/dL (65-110); Magnesium 2.0 mg/dL (1.6-2.3); Potassium 3.6 mmol/L (3.4-5.0); Sodium 133 mmol/L (137-145); Total Protein 6.9 g/dL (6.3-8.2)
[2024-10-12 08:00] VITALS: PULSE 70; O2SAT 100
[2024-10-12] MEDS: PYRIDOXINE HCL 50 MG TABLET 100 MG PO (09:17)
[2024-10-12] MEDS: PHENYTOIN SODIUM 100 MG EXTENDED RELEASE CAP PO ×2 (09:18→13:31)
[2024-10-12] MEDS: CHOLECALCIFEROL (VITAMIN D3) 25 MCG (1,000 UNITS) TABLET 50 MCG PO (09:18)
[2024-10-12] MEDS: PREGABALIN (*CRX) 50 MG CAPSULE PO (09:18)
[2024-10-12] MEDS: APIXABAN 5 MG TABLET PO (09:18)
[2024-10-12] MEDS: SERTRALINE HCL 25 MG TABLET PO (09:19)
[2024-10-12] MEDS: DORZOLAMIDE HCL 2% OPHTH DROPS 1 DROP EACH EYE (09:20)
[2024-10-12 12:00] VITALS: PULSE 96
--- NOTE | 2024-10-12 13:06 | P.DS_ITS ---
DS: Admitting Diagnosis Discharge Date 10/12/2024 Admitting Diagnosis Seizure DS: Discharge Diagnosis Discharge Diagnosis (1) Aspiration pneumonia: Code(s): J69.0 - Pneumonitis due to inhalation of food and vomit Status: Acute (2) Fever: Code(s): R50.9 - Fever, unspecified Status: Acute (3) Acute lactic acidosis: Code(s): E87.21 - Acute metabolic acidosis Status: Acute (4) Need for assistance with personal care: Code(s): Z74.1 - Need for assistance with personal care Status: Chronic (5) Hypo-osmolality and hyponatremia: Code(s): E87.1 - Hypo-osmolality and hyponatremia Status: Acute (6) Mild intellectual disabilities: Code(s): F70 - Mild intellectual disabilities Status: Chronic (7) Epilepsy, unspecified, not intractable, without status epilepticus: Code(s): G40.909 - Epilepsy, unspecified, not intractable, without status epilepticus Status: Acute (8) Essential (primary) hypertension: Code(s): I10 - Essential (primary) hypertension Status: Chronic Plan In this admission Keppra increased to 1 g b.i.d. Phenytoin 100 mg p.o. q.i.d. DS: Summary Hospital Course Reason for hospitalization: Breakthrough seizure Hospital Course: Jairon Dennis is a 64 year old male with pmhx of intellectual disability, epilepsy, and hypertension, diet-controlled diabetes who came in from half-way living place for breakthrough seizure. Patient had multiple seizure both was at the living facility, in the ambulance and in the ED. neurology was consulted in the ED, Keppra dose was loaded, 1 mg b.i.d. was continued. Phenytoin 100 mg q.i.d. was started. Patient did not have any seizures since his admission. Chest x- ray was also showing some kind of consolidation concerning for aspiration pneumonia. Patient completed 5 days of IV antibiotics. Patient was in room air, no fever, cough, chest pain and abdominal pain. He was hemodynamically stable. Patient was discharged back to he has a half-way living place in stable condition. Time Spent with Patient Time attestation: Total time spent providing and/or coordinating discharge services: Exam Narrative: APPEARANCE: Awake, conversant EYES: EOMI HEENT: Normocephalic, atraumatic, OMM RESPIRATORY: No respiratory distress Clear to auscultation bilaterally with no rhonchi wheezing or rales. CARDIOVASCULAR: RRR, S1 and S2 without murmurs rubs or gallops. ABDOMINAL: Soft, nontender, nondistended, no rebound or guarding MSK: Moves his extremities spontaneously NEURO: Awake and alert. Following commands, appears dysarthric PSYCHIATRIC: cover face with towel DS: Data Data Completed and Pending Labs on day of discharge: Labs from last 24 hours 10/12/24 10/12/24 10/12/24 11:46 07:30 05:03 WBC 8.8 RBC 4.32 L Hgb 13.5 L Hct 39.7 L MCV 91.9 MCH 31.3 MCHC 34.0 RDW 12.5 Plt Count 197 MPV 9.5 Immature Gran % (Auto) 0.2 Neut % (Auto) 54.8 Lymph % (Auto) 26.8 [place] % (Auto) 12.8 H Eos % (Auto) 4.8 H Baso % (Auto) 0.6 Lymph # (Auto) 2.37 [place] # (Auto) 1.1 H Eos # (Auto) 0.4 H Baso # (Auto) 0.1 Abs Immat Gran (auto) 0.02 Absolute Neuts (auto) 4.9 Absolute Nucleated RBC 0.000 Nucleated RBC % 0.0 Sodium 133 L Potassium 3.6 Chloride 98 Carbon Dioxide 30 Anion Gap 5 BUN 17 Creatinine 0.79 Estim Creat Clear Calc 72 Estimated GFR > 60 Glucose 90 POC Capillary Glucose 101 84 Calcium 9.1 Magnesium 2.0 Total Bilirubin 0.5 AST 38 ALT 30 Alkaline Phosphatase 99 Total Protein 6.9 Albumin 4.0 10/11/24 10/11/24 20:29 16:41 WBC RBC Hgb Hct MCV MCH MCHC RDW Plt Count MPV Immature Gran % (Auto) Neut % (Auto) Lymph % (Auto) [place] % (Auto) Eos % (Auto) Baso % (Auto) Lymph # (Auto) [place] # (Auto) Eos # (Auto) Baso # (Auto) Abs Immat Gran (auto) Absolute Neuts (auto) Absolute Nucleated RBC Nucleated RBC % Sodium Potassium Chloride Carbon Dioxide Anion Gap BUN Creatinine Estim Creat Clear Calc Estimated GFR Glucose POC Capillary Glucose 130 H 125 H Calcium Magnesium Total Bilirubin AST ALT Alkaline Phosphatase Total Protein Albumin Preliminary micro results at discharge 10/08/24 23:32 Blood Culture - Preliminary Blood 10/08/24 23:31 Blood Culture - Preliminary Blood Discharge Plan Discharge Attending physician on discharge: Andrea Armendariz Consulting providers: Jamar Ann Discharging Clinician: Alina Talley Anticipated Discharge Date/Time: 10/12/24 12:55 Patient Disposition: [facility] Living Activity: unlimited Diet: regular Discharge Instructions: Continue taking Keppra 1000 mg twice a day Continue taking phenytoin 100 mg 3 times a Patient Instructions: Antibiotic Form, Apixaban (By mouth) Patient Language: Somali Stand Alone Forms: General Discharge Information Follow-up/Referrals: Pantera Friedman [Other] - 2 Weeks Discharge Medications: New levetiracetam [Keppra] 500 mg Tablet 1,000 mg PO Q12HR Qty: 60 0RF phenytoin sodium extended [Dilantin Extended] 100 mg Capsule 100 mg PO QID Qty: 120 0RF Artificial Tears(no-[id number]) 1-0.2-0.2 % Drops 2 drp EACH EYE TID PRN (Reason: Dry Eye(S)) Qty: 5 0RF Continued acetaminophen 500 mg capsule 1,000 mg PO Q6H PRN (Reason: pain) Qty: 30 0RF lidocaine 4 % adhesive patch,medicated 1 patch topical DAILY PRN (Reason: pain) Qty: 10 0RF oxycodone 10 mg tablet 10 mg PO Q8H PRN (Reason: pain) Qty: 14 0RF pyridoxine (vitamin B6) 100 mg tablet 100 mg PO Q12H sertraline 50 mg tablet 50 mg PO Q24H pregabalin 50 mg capsule 50 mg PO Q12H lorazepam [Ativan] 1 mg tablet 1 mg PO TID Eliquis 5 mg tablet 5 mg PO Q12H dorzolamide 2 % drops 1 drp EACH EYE BID cholecalciferol (vitamin D3) 50 mcg (2,000 unit) capsule 2,000 unit PO DAILY brimonidine-timolol [Combigan] 0.2-0.5 % drops 1 drp EACH EYE Q12H atorvastatin 40 mg tablet 40 mg PO QPM eslicarbazepine [Aptiom] 800 mg tablet 800 mg PO DAILY amlodipine 10 mg tablet 10 mg PO DAILY latanoprost 0.005 % drops 1 drp EACH EYE QPM mirtazapine 15 mg tablet 15 mg PO HS carboxymethylcellulose sodium 0.5 % drops 2 drp EACH EYE Q8H PRN (Reason: dry eye(s)) Discontinued levetiracetam 500 mg tablet 500 mg PO TID insulin glargine [Basaglar KwikPen U-100 Insulin] 100 unit/mL (3 mL) insulin pen 10 unit SUBCUT QPM Date of admission: 10/09/24 08:03 Primary Care Provider: Pantera Friedman Admitting Provider: Andrea Armendariz Attending physician on admission: Andrea Armendariz Condition: Stable
[2024-10-12 14:00] VITALS: BP 135/81; PULSE 75; RESP 18; TEMP 35.7; O2SAT 98
--- NOTE | 2024-10-14 12:15 | WPDNEUROLOGY ---
Neurology EEG Report General Information Date of Study: 11/09/24 TEST EEG DIAGNOSIS Frequent seizures CONDITION OF RECORDING Lethargic and cooperative. EEG NUMBER [id number] CLINICAL HISTORY 64 years old with history of seizures and on multiple medications for the seizure control has been having more frequently. At present patient has fever and being tender to belly. Patient has a lot of heavy size and D breathing during tracing and recording. EEG DESCRIPTION Background rhythm consists of medium voltage 6 to 7 hertz per 2nd theta activity admixed with multiple movement artifacts. Low-voltage beta activity seen diffusely admixed with waxing and waning theta activity during drowsiness. Bilateral symmetrical sleep spindles are noted during sleep. Photic stimulation not done. Hyperventilation not done. Non paroxysmal. Nonfocal. Nonlateralizing. IMPRESSION Abnormal record due to the absence of the normal background rhythm and with the presence of bihemispheric theta activity during wakefulness. There is no evidence of any paroxysmal discharge throughout the tracing. Clinical correlation recommended as this particular EEG could be compatible with only postictal state but no active seizures.
[2024-10-17 09:08] LABS: Chlamydia pneumoniae, PCR Negative (Negative)
== END 2024-10-12 15:15 | DRG 871 ==
LOC: ANHED 19:07 → ANH3MEDSUR 19:49
PROVIDERS: Nurse Practitioner; Admitting Provider General Practice; Emergency Provider Student in an Organized Health Care Education/Training Program; Visit Provider Student in an Organized Health Care Education/Training Program
DX: A41.9 Sepsis, unspecified organism (principal); J18.9 Pneumonia, unspecified organism; J69.0 Pneumonitis due to inhalation of food and vomit; E87.1 Hypo-osmolality and hyponatremia; G40.909 Epilepsy, unspecified, not intractable, without status epilepticus; I10 Essential (primary) hypertension; E11.9 Type 2 diabetes mellitus without complications; E78.2 Mixed hyperlipidemia; G60.9 Hereditary and idiopathic neuropathy, unspecified; N40.0 Benign prostatic hyperplasia without lower urinary tract symptoms; H40.10X0 Unspecified open-angle glaucoma, stage unspecified; F79 Unspecified intellectual disabilities; F32.A Depression, unspecified; F39 Unspecified mood [affective] disorder; Z74.1 Need for assistance with personal care; Z79.01 Long term (current) use of anticoagulants; Z79.4 Long term (current) use of insulin
CPT/HCPCS: 36415; 70450; 71045; 71260; 74177; 80053; 80069; 81001; 82140; 82948; 83036; 83605; 83735; 85025; 87040; 87449; 87486; 87581; 87641; 87899; 93005; 94640; 95816; 96365; 96367; 99285; A9270; G0378; J0456; J0457; J1165; J1953; J7050; J7120; Q9967

== ENCOUNTER 2025-01-03 13:21 | Inpatient (IN) | payer MEDICARE, MEDICAID, SELFPAY ==
[2025-01-03] VITALS (32 sets, daily range): BP systolic 109–156; BP diastolic 56–87; PULSE 68–108; RESP 11–28; TEMP 36.4–36.7; O2SAT 98–100; BMI 18.6
--- NOTE | ~2025-01-03 | CT_ITS ---
EXAMINATION: CT brain wo con DATE: 01/03/2025 14:04 INDICATION: Increased seizure activity. TECHNIQUE: Computed tomography (CT) of the head was performed without intravenous contrast. The mA was adjusted according to patient size. Iterative reconstruction technique was employed. The dose-length product was 605.33 mGy-cm. COMPARISON: Head CT 10/08/2024 FINDINGS: There is chronic encephalomalacia in the anteroinferior frontal lobes and temporal lobes. There is no intracranial hemorrhage, acute infarction, or abnormal intracranial mass lesion. The ventricles are normal in size. There are likely changes of ocular lens replacement surgeries. There is mild mucosal thickening in the paranasal sinuses. The mastoid air cells are normal. IMPRESSION: 1. Chronic encephalomalacia in the anteroinferior frontal lobes and temporal lobes, which is a distribution typical of traumatic brain injury. Reviewed, dictated and finalized at location E. STAMP OPERATOR IMPRESSION: 1. Chronic encephalomalacia in the anteroinferior frontal lobes and temporal lo bes, which is a distribution typical of traumatic brain injury.
--- NOTE | ~2025-01-03 | XR_ITS ---
EXAMINATION: XR chest 1V, 01/03/2025 13:55 TALENT SCOUT HISTORY: Weakness, increased seizures COMPARISON: No comparisons available. Technique: Single view. Findings: The lungs are clear, no effusion. No pneumothorax. Heart is normal size. Mediastinal and hilar contours are within normal limits. Bony thorax no acute abnormality. Impression: No acute cardiopulmonary abnormality. Reviewed, dictated and finalized at location P. NT SCOUT Impression: No acute cardiopulmonary abnormality.
--- NOTE | 2025-01-03 13:24 | ECG_ITS ---
Test Date: 2025-01-03 13:32:46 Measurements Intervals [place] Rate: 94 P: 82 UT: 160 QRS: 79 QRSD: 85 T: 57 QT: 359 QTc: 450 Interpretive Statements SINUS RHYTHM Compared to ECG 10/10/2024 11:55:59 Ventricular premature complex(es) no longer present Electronically Signed On 01-03-2025 14:08:41 DATABASE MARKETING ANALYST by Lorri Weems M.D.
--- NOTE | 2025-01-03 13:54 | ED.GENADULT ---
HPI - General Adult General Chief complaint: Seizure Stated complaint: seizures @ night x 3 days Time Seen by Provider: 01/03/25 13:30 History of Present Illness HPI narrative: Patient is a 64-year-old gentleman presents emergency department with chief complaint of seizure. The patient is a resident of [facility] and [facility] of patient has been having seizures at the facility and also has not been feeling well Related Data Home Medications ?Medication ?Instructions ?Recorded ?Confirmed ?Last Taken ?Type amlodipine 10 mg tablet 10 mg PO DAILY 07/11/24 10/09/24 10/08/24 History apixaban 5 mg tablet (Eliquis) 5 mg PO Q12H 07/11/24 10/09/24 10/08/24 History atorvastatin 40 mg tablet 40 mg PO QPM 07/11/24 10/09/24 10/07/24 History brimonidine 0.2 %-timolol 0.5 % 1 drp EACH EYE Q12H 07/11/24 10/09/24 10/08/24 History eye drops (Combigan) cholecalciferol (vitamin D3) 50 2,000 unit PO DAILY 07/11/24 10/09/24 10/08/24 History mcg (2,000 unit) capsule dorzolamide 2 % eye drops 1 drp EACH EYE BID 07/11/24 10/09/24 10/08/24 History eslicarbazepine 800 mg tablet 800 mg PO DAILY 07/11/24 10/09/24 10/08/24 History (Aptiom) latanoprost 0.005 % eye drops 1 drp EACH EYE QPM 07/11/24 10/09/24 10/07/24 History lorazepam 1 mg tablet (Ativan) 1 mg PO TID 07/11/24 10/09/24 10/08/24 History mirtazapine 15 mg tablet 15 mg PO HS 07/11/24 10/09/24 10/07/24 History pregabalin 50 mg capsule 50 mg PO Q12H 07/11/24 10/09/24 10/08/24 History pyridoxine (vitamin B6) 100 mg 100 mg PO Q12H 07/11/24 10/09/24 10/08/24 History tablet sertraline 50 mg tablet 50 mg PO Q24H 07/11/24 10/09/24 10/08/24 History carboxymethylcellulose sodium 0.5 2 drp EACH EYE Q8H PRN dry eye(s) 10/09/24 10/09/24 Unknown History % eye drops Allergies Allergy/AdvReac Type Severity Reaction Status Date / Time Antihistamines - Ethanolamine Allergy Unknown Unknown Verified 10/03/24 08:54 cephalexin Allergy Unknown Unknown Verified 10/03/24 08:54 Cephalosporins Allergy Unknown Unknown Verified 10/03/24 08:54 diphenhydramine (From Allergy Unknown Unknown Verified 10/03/24 08:54 Benadryl) enoxaparin Allergy Unknown Unknown Verified 10/03/24 08:54 fexofenadine Allergy Unknown Unknown Verified 10/03/24 08:54 lactose Allergy Unknown Unknown Verified 10/03/24 08:54 milk Allergy Unknown Unknown Verified 10/03/24 08:54 olanzapine Allergy Unknown Unknown Verified 10/03/24 08:54 rofecoxib Allergy Unknown Unknown Verified 10/03/24 08:54 Sulfa (Sulfonamide Allergy Unknown Unknown Verified 10/03/24 08:54 Antibiotics) valproic acid Allergy Unknown Unknown Verified 10/03/24 08:54 zinc Allergy Unknown Unknown Verified 10/03/24 08:54 zolpidem Allergy Unknown Unknown Verified 10/03/24 08:54 Review of Systems Review of Systems: A 10 system review of systems was completed on the patient and is negative except for what is stated in the HPI. Nursing and ancillary documentation was reviewed. 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 HEAD: Normocephalic, atraumatic. EYES: PERRLA and EOMI. ENT: Nares clear, no rhinorrhea or epistaxis. Mucous membranes moist. NECK: Supple. CHEST: Clear to auscultation. No respiratory distress. HEART: Regular rate and rhythm. No murmur heard. Normal peripheral pulses. ABDOMEN: Soft, nontender, nondistended, normal active bowel sounds. EXTREMITIES: Normal range of motion. No edema. SKIN: Warm, dry, no rash. NEURO: No focal deficits. Alert and oriented x3. PSYCH: Normal mood and affect. Course Vital Signs Vital signs: Vital Signs Temperature 36.7 C 01/03/25 13:19 Pulse Rate 105 H 01/03/25 13:19 Respiratory Rate 11 L 01/03/25 13:19 Pulse Oximetry 100 01/03/25 13:19 Oxygen Delivery Room Air 01/03/25 13:19 Temperature 36.7 C 01/03/25 13:19 Pulse Rate 89 01/03/25 14:16 Respiratory Rate 17 01/03/25 14:16 Blood Pressure 127/65 01/03/25 14:16 Pulse Oximetry 100 01/03/25 14:16 Oxygen Delivery Room Air 01/03/25 13:24 Medical Decision Making [facility] Narrative Medical decision making narrative: Differential diagnosis includes frequent seizures, infection, rhabdomyolysis Patient has elevated CPK at 4000 his troponin was slightly elevated Dilate level is less than 3 COVID flu RSV are negative Patient was given a gram of Dilantin the emergency department patient was also hydrated case was discussed with the hospitalist for admission Vital Signs Vital Signs: Vital Signs Temperature 36.7 C 01/03/25 13:19 Pulse Rate 105 H 01/03/25 13:19 Respiratory Rate 11 L 01/03/25 13:19 Pulse Oximetry 100 01/03/25 13:19 Oxygen Delivery Room Air 01/03/25 13:19 Temperature 36.7 C 01/03/25 13:19 Pulse Rate 89 01/03/25 14:16 Respiratory Rate 17 01/03/25 14:16 Blood Pressure 127/65 01/03/25 14:16 Pulse Oximetry 100 01/03/25 14:16 Oxygen Delivery Room Air 01/03/25 13:24 Lab Data 01/03/25 14:12 01/03/25 14:11 Labs: Lab Results 01/03/25 01/03/25 01/03/25 Range/Units 14:11 14:12 14:17 WBC 10.9 H (4.5-10.0) K/mm3 RBC 4.09 L (4.6-6.20) M/mm3 Hgb 13.1 L (14.0-18.0) g/dL Hct 36.9 L (42.0-52.0) % MCV 90.2 (80-100) fl MCH 32.0 (26-34) pg MCHC 35.5 (32-36) g/dl RDW 12.4 (11.5-14.5) % Plt Count 182 (150-375) k/mm3 MPV 10.1 (7.4-10.4) fl Immature Gran % (Auto) 0.4 (0-0.5) % Neut % (Auto) 84.7 H (45.5-73.1) % Lymph % (Auto) 5.0 L (18.3-44.2) % [place] % (Auto) 9.8 H (2.6-8.5) % Eos % (Auto) 0.0 (0-4.4) % Baso % (Auto) 0.1 L (0.2-1.2) % Lymph # (Auto) 0.55 L (0.9-3.2) K/mm3 [place] # (Auto) 1.1 H (0.1-0.6) K/mm3 Eos # (Auto) 0.0 (0-0.3) K/mm3 Baso # (Auto) 0.0 (0.0-0.1) K/mm3 Abs Immat Gran (auto) 0.04 H (0.00-0.031) K/mm3 Absolute Neuts (auto) 9.2 H (1.3-6.7) K/mm3 Absolute Nucleated RBC 0.000 (0.0-0.012) K/mm3 Nucleated RBC % 0.0 (0.0-0.2) % Sodium 134 L (137-145) mmol/L Potassium 4.0 (3.4-5.0) mmol/L Chloride 100 (98-107) mmol/L Carbon Dioxide 24 (22-30) mmol/L Anion Gap 10 (4-12) mmol/L BUN 43 H D (9-20) mg/dL Creatinine 0.96 (0.7-1.3) mg/dL Estim Creat Clear Calc 75 ml/min Estimated GFR > 60 (59 - ) Glucose 134 H (65-110) mg/dL Lactic Acid 1.3 (0.7-2.0) mmol/L Calcium 9.4 (8.4-10.2) mg/dL Magnesium 2.6 H (1.6-2.3) mg/dL Total Bilirubin 0.7 (0.2-1.3) mg/dL AST 236 H (17-59) U/L ALT 92 H (6-50) U/L Alkaline Phosphatase 98 (38-126) U/L Total Creatine Kinase 4030 H (55-170) U/L Troponin I 0.046 H* (0.000-0.034) ng/mL Total Protein 7.4 (6.3-8.2) g/dL Albumin 4.6 (3.5-5.1) g/dL Urine Color (Yellow) Urine Appearance (Clear) Urine pH (5.0-9.0) Ur Specific [place] (1.001-1.035) Urine Protein (Negative) mg/dL Urine Glucose (UA) (Negative) mg/dL Urine Ketones (Negative) mg/dL Ur Blood (Man) (Negative) Urine Nitrate (Negative) Urine Bilirubin (Negative) Urine Urobilinogen (<2.0) mg/dL Leukocyte Esterase Rfl (Negative) LEO/UL Urine RBC (0-2) /hpf Urine WBC (0-3) /hpf Ur Squamous Epith Cells (Few) /hpf Urine Bacteria /hpf Urine Casts Phenytoin < 3 L (10-20) ug/mL Influenza A (RT-PCR) Negative (Negative) Influenza B (RT-PCR) Negative (Negative) RSV (RT-PCR) Negative (Negative) SARS-CoV-2 RNA (RT-PCR) Negative (Negative) 01/03/25 Range/Units 14:26 WBC (4.5-10.0) K/mm3 RBC (4.6-6.20) M/mm3 Hgb (14.0-18.0) g/dL Hct (42.0-52.0) % MCV (80-100) fl MCH (26-34) pg MCHC (32-36) g/dl RDW (11.5-14.5) % Plt Count (150-375) k/mm3 MPV (7.4-10.4) fl Immature Gran % (Auto) (0-0.5) % Neut % (Auto) (45.5-73.1) % Lymph % (Auto) (18.3-44.2) % [place] % (Auto) (2.6-8.5) % Eos % (Auto) (0-4.4) % Baso % (Auto) (0.2-1.2) % Lymph # (Auto) (0.9-3.2) K/mm3 [place] # (Auto) (0.1-0.6) K/mm3 Eos # (Auto) (0-0.3) K/mm3 Baso # (Auto) (0.0-0.1) K/mm3 Abs Immat Gran (auto) (0.00-0.031) K/mm3 Absolute Neuts (auto) (1.3-6.7) K/mm3 Absolute Nucleated RBC (0.0-0.012) K/mm3 Nucleated RBC % (0.0-0.2) % Sodium (137-145) mmol/L Potassium (3.4-5.0) mmol/L Chloride (98-107) mmol/L Carbon Dioxide (22-30) mmol/L Anion Gap (4-12) mmol/L BUN (9-20) mg/dL Creatinine (0.7-1.3) mg/dL Estim Creat Clear Calc ml/min Estimated GFR (59 - ) Glucose (65-110) mg/dL Lactic Acid (0.7-2.0) mmol/L Calcium (8.4-10.2) mg/dL Magnesium (1.6-2.3) mg/dL Total Bilirubin (0.2-1.3) mg/dL AST (17-59) U/L ALT (6-50) U/L Alkaline Phosphatase (38-126) U/L Total Creatine Kinase (55-170) U/L Troponin I (0.000-0.034) ng/mL Total Protein (6.3-8.2) g/dL Albumin (3.5-5.1) g/dL Urine Color Yellow (Yellow) Urine Appearance Clear (Clear) Urine pH 6.0 (5.0-9.0) Ur Specific [place] 1.024 (1.001-1.035) Urine Protein 1+ H (Negative) mg/dL Urine Glucose (UA) Negative (Negative) mg/dL Urine Ketones 1+ H (Negative) mg/dL Ur Blood (Man) 3+ H (Negative) Urine Nitrate Negative (Negative) Urine Bilirubin Negative (Negative) Urine Urobilinogen 1.0 (<2.0) mg/dL Leukocyte Esterase Rfl Trace H (Negative) LEO/UL Urine RBC 0-2 (0-2) /hpf Urine WBC 0-5 (0-3) /hpf Ur Squamous Epith Cells None seen (Few) /hpf Urine Bacteria None seen /hpf Urine Casts 3-5 Phenytoin (10-20) ug/mL Influenza A (RT-PCR) (Negative) Influenza B (RT-PCR) (Negative) RSV (RT-PCR) (Negative) SARS-CoV-2 RNA (RT-PCR) (Negative) Discharge Plan Discharge Clinical Impression: Rhabdomyolysis, Seizure Patient Disposition: Still a Patient Condition: Stable Patient Language: Indonesian Prescriptions: No Action acetaminophen 500 mg capsule 1,000 mg PO Q6H PRN (Reason: pain) Qty: 30 0RF lidocaine 4 % adhesive patch,medicated 1 patch topical DAILY PRN (Reason: pain) Qty: 10 0RF oxycodone 10 mg tablet 10 mg PO Q8H PRN (Reason: pain) Qty: 14 0RF pyridoxine (vitamin B6) 100 mg tablet 100 mg PO Q12H sertraline 50 mg tablet 50 mg PO Q24H pregabalin 50 mg capsule 50 mg PO Q12H lorazepam [Ativan] 1 mg tablet 1 mg PO TID Eliquis 5 mg tablet 5 mg PO Q12H dorzolamide 2 % drops 1 drp EACH EYE BID cholecalciferol (vitamin D3) 50 mcg (2,000 unit) capsule 2,000 unit PO DAILY brimonidine-timolol [Combigan] 0.2-0.5 % drops 1 drp EACH EYE Q12H atorvastatin 40 mg tablet 40 mg PO QPM eslicarbazepine [Aptiom] 800 mg tablet 800 mg PO DAILY amlodipine 10 mg tablet 10 mg PO DAILY latanoprost 0.005 % drops 1 drp EACH EYE QPM mirtazapine 15 mg tablet 15 mg PO HS carboxymethylcellulose sodium 0.5 % drops 2 drp EACH EYE Q8H PRN (Reason: dry eye(s)) levetiracetam [Keppra] 500 mg Tablet 1,000 mg PO Q12HR Qty: 60 0RF phenytoin sodium extended [Dilantin Extended] 100 mg Capsule 100 mg PO QID Qty: 120 0RF Artificial Tears([id number]-aglp) 1-0.2-0.2 % Drops 2 drp EACH EYE TID PRN (Reason: Dry Eye(S)) Qty: 5 0RF Follow-up/Referrals: UNKNOWN,DOCTOR [Primary Care Provider] Time of Disposition: 15:59
[2025-01-03] MEDS: SODIUM CHLORIDE 0.9% IV 1,000 ML 999 ML IV CONT ×2 (14:14→16:15)
[2025-01-03 14:19] LABS: Hematocrit 36.9 % (42.0-52.0); Hemoglobin 13.1 g/dL (14.0-18.0); Immature Granulocyte Percent A 0.4 % (0-0.5); Lymphocytes Absolute Auto 0.55 K/mm3 (0.9-3.2); Mean Corpuscular HGB Conc 35.5 g/dl (32-36); Mean Corpuscular Hemoglobin 32.0 pg (26-34); Mean Corpuscular Volume 90.2 fl (80-100); Nucleated Red Blood Cells Absolute Auto 0.000 K/mm3 (0.0-0.012); Nucleated Red Blood Cells Perc 0.0 % (0.0-0.2); Platelet Count Result 182 k/mm3 (150-375); Red Blood Count 4.09 M/mm3 (4.6-6.20); White Blood Count 10.9 K/mm3 (4.5-10.0)
[2025-01-03 14:36] LABS: Add Urine Microscopic? YES; Appearance Urine Clear (Clear); Glucose Urine UA Negative (Negative); Leukocyte Esterase Ur Trace LEU/UL (Negative); Nitrate Urine Negative (Negative); Specific Grav Ur 1.024 (1.001-1.035)
[2025-01-03 14:37] LABS: Alanine Aminotransferase 92 U/L (6-50); Albumin Level 4.6 g/dL (3.5-5.1); Alkaline Phosphatase 98 U/L (38-126); Anion Gap 10 mmol/L (4-12); Aspartate Amino Transferase 236 U/L (17-59); Bilirubin,Total 0.7 mg/dL (0.2-1.3); Blood Urea Nitrogen 43 mg/dL (9-20); Calcium 9.4 mg/dL (8.4-10.2); Carbon Dioxide 24 mmol/L (22-30); Chloride 100 mmol/L (98-107); Estimated CRCL calculation 75 ml/min; Estimated Glomerular Filt Rate > 60; Glucose 134 mg/dL (65-110); Magnesium 2.6 mg/dL (1.6-2.3); Potassium 4.0 mmol/L (3.4-5.0); Sodium 134 mmol/L (137-145); Total Protein 7.4 g/dL (6.3-8.2)
[2025-01-03 14:44] LABS: Troponin I 0.046 ng/mL (0.000-0.034)
[2025-01-03 14:57] LABS: Influenza A QL RT-PCR Negative (Negative); Influenza B QL RT-PCR Negative (Negative); RSV RNA, RT-PCR Negative (Negative); SARS-CoV-2 RNA PCR Negative (Negative)
[2025-01-03 15:22] LABS: Creatine Kinase 4030 U/L (55-170)
--- NOTE | 2025-01-03 15:50 | PM.IMHP ---
H&P: HPI History of Present Illness Date/Time: 01/03/25 15:50 Chief Complaint: Increased Seizure Activity Narrative: 64 y/o M with PMH of intellectual disability, epilepsy, and hypertension, diet-controlled diabetes who came in from alf living place for breakthrough seizures. The patient presents here from [facility] for further evaluation of recurrent/breakthrough seizures. The patient presenting he has been having increased seizure activity. He is unsure when they started to increase, however EMS reported they have been increasing for the past 3 days. Patient is also unable to elaborate how he knows he has had increased seizure activity recently. Just states he knows and can tell. Believes this may be due to his facility not giving him his medications, patient has no recollection of saying this in the emergency department. Currently on Keppra 1000 mg b.i.d. and Remeron. He is unsure where he follows with [facility] stating [facility] [place]. Per last note at discharge in September of 2024, patient was on Keppra and Dilantin. Dilantin no longer on the patient's medication list. Patient poor historian. Initial VS at presentation: 98? F, HR 105, RR 11, 124/66, and 100% on RA. ED workup showed: WBC 10.9, hemoglobin 13.1 (at baseline), sodium 134, creatinine 0.96 and GFR >60, glucose 134, magnesium 2.6, AST 236/ALT 92, CK 4030, initial troponin 0.046. UA showed 1+ protein/1+ ketones/2+ blood/trace leuk esterase. Phenytoin <3. Viral PCR negative. CXR showed no acute cardiopulmonary abnormality. Head CT showed chronic encephalomalacia at the anteroinferior frontal lobes and temporal lobes which is a distribution typical of traumatic brain injury. EKG showed NSR, rate 94. Review of Systems Review of Systems: All systems reviewed & are unremarkable except as noted in HPI and below [facility] Past Medical History Medical History (Updated 01/03/25 @ 16:12 by Bernadine Madrigal, [employer]) Type 2 diabetes mellitus without complications 5.4% in September of 2024, not currently on medications as of December of 2024 Hypo-osmolality and hyponatremia Encounter for screening colonoscopy Unspecified severe protein-calorie malnutrition Unspecified mood [affective] disorder Other age-related cataract Mixed hyperlipidemia Essential (primary) hypertension Depression, unspecified Cognitive communication deficit Unspecified open-angle glaucoma, stage unspecified Sleep disorder, unspecified Mild 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, unspecified Epilepsy, unspecified, not intractable, without status epilepticus Conversion disorder with seizures or convulsions Benign prostatic hyperplasia without lower urinary tract symptoms Social History Social History Smoking status: Never smoker Second hand tobacco smoke exposure: No (Unknown) Alcohol intake: never Substance use: never Lack of Transportation: No Lack of Food: Never True Current Housing: I Have Housing Concerned About Future Housing: No Difficulty Paying Gas/Electric Bills: No Difficulty Paying for Meds: No Currently Unemployed: No Education: High School Diploma/GED Difficulty w/ Childcare or Family Care: No Living arrangements: intermediate Additional living arrangements comments: [facility] since 04/09/24 Spiritual care concerns: No Meds Home Medications and Allergies Home Medications ?Medication ?Instructions ?Recorded ?Confirmed ?Type acetaminophen 500 mg capsule 1,000 mg (2 x 500 mg) PO Q6H PRN 04/29/24 01/03/25 Rx pain #30 caps lidocaine 4 % topical patch 1 patch topical DAILY PRN pain #10 04/29/24 01/03/25 Rx ea oxycodone 10 mg tablet 10 mg PO Q8H PRN pain #14 tabs 04/29/24 01/03/25 Rx amlodipine 10 mg tablet 10 mg PO DAILY 07/11/24 01/03/25 History apixaban 5 mg tablet (Eliquis) 5 mg PO Q12H 07/11/24 01/03/25 History atorvastatin 40 mg tablet 40 mg PO HS 07/11/24 01/03/25 History brimonidine 0.2 %-timolol 0.5 % 1 drp EACH EYE Q12H 07/11/24 01/03/25 History eye drops (Combigan) cholecalciferol (vitamin D3) 50 2,000 unit PO DAILY 07/11/24 01/03/25 History mcg (2,000 unit) capsule dorzolamide 2 % eye drops 1 drp EACH EYE .q12hr 07/11/24 01/03/25 History eslicarbazepine 800 mg tablet 800 mg PO DAILY 07/11/24 01/03/25 History (Aptiom) latanoprost 0.005 % eye drops 1 drp EACH EYE HS 07/11/24 01/03/25 History lorazepam 1 mg tablet (Ativan) 1 mg PO .q8hr 07/11/24 01/03/25 History mirtazapine 15 mg tablet 15 mg PO HS 07/11/24 01/03/25 History pregabalin 50 mg capsule 50 mg PO Q12H 07/11/24 01/03/25 History pyridoxine (vitamin B6) 100 mg 100 mg PO Q12H 07/11/24 01/03/25 History tablet sertraline 50 mg tablet 50 mg PO Q24H 07/11/24 01/03/25 History carboxymethylcellulose sodium 0.5 2 drp EACH EYE Q8H PRN dry eye(s) 10/09/24 01/03/25 History % eye drops levetiracetam 500 mg tablet 1,000 mg (2 x 500 mg) PO Q12HR #60 10/12/24 01/03/25 Rx (Keppra) tabs peg [id number] 1 2 drp EACH EYE TID PRN Dry Eye(S) 10/12/24 01/03/25 Rx %-0.2 %-0.2 % eye drops #5 mL (Artificial Tears ([id number])) Allergies Allergy/AdvReac Type Severity Reaction Status Date / Time Antihistamines - Ethanolamine Allergy Unknown Unknown Verified 01/03/25 17:33 cephalexin Allergy Unknown Unknown Verified 01/03/25 17:33 Cephalosporins Allergy Unknown Unknown Verified 01/03/25 17:33 diphenhydramine (From Allergy Unknown Unknown Verified 01/03/25 17:33 Benadryl) enoxaparin Allergy Unknown Unknown Verified 01/03/25 17:33 fexofenadine Allergy Unknown Unknown Verified 01/03/25 17:33 lactose Allergy Unknown Unknown Verified 01/03/25 17:33 milk Allergy Unknown Unknown Verified 01/03/25 17:33 olanzapine Allergy Unknown Unknown Verified 01/03/25 17:33 rofecoxib Allergy Unknown Unknown Verified 01/03/25 17:33 Sulfa (Sulfonamide Allergy Unknown Unknown Verified 01/03/25 17:33 Antibiotics) valproic acid Allergy Unknown Unknown Verified 01/03/25 17:33 zinc Allergy Unknown Unknown Verified 01/03/25 17:33 zolpidem Allergy Unknown Unknown Verified 01/03/25 17:33 Vital Signs Vital Signs - 24 hr 01/03/25 13:19 01/03/25 13:24 01/03/25 13:45 Temperature 98.0 F Pulse Rate 105 H 84 Respiratory Rate 11 L 15 Blood Pressure Pulse Oximetry 100 98 Oxygen Delivery Room Air Room Air 01/03/25 13:46 01/03/25 14:06 01/03/25 14:13 Temperature Pulse Rate 76 99 91 Respiratory Rate 13 21 H 17 Blood Pressure 124/66 Pulse Oximetry 99 100 Oxygen Delivery 01/03/25 14:15 01/03/25 14:16 Temperature Pulse Rate 93 89 Respiratory Rate 17 17 Blood Pressure 127/65 Pulse Oximetry 100 100 Oxygen Delivery Exam Const: General: comfortable and no acute distress Other: , male, nontoxic appearance, chronically ill-appearing HENMT: Face/Nose/Sinus: Normal nares present Mouth: Yes dry mucous membranes Eyes: General: appearance normal, both eyes and all related structures Sclera: sclerae normal Pupils: Equal, round and reactive pupils present EOM: EOMs intact bilaterally Resp: Effort & Inspection: normal respiratory effort Auscultation: clear to auscultation bilaterally Cardio: Rate: regular rate Rhythm: regular rhythm Other: S1-S2 present without murmur, rub, ectopy GI: Other: Abdomen soft, nondistended, nontender. Normoactive bowel sounds in all quadrants. Skin: General skin exam: normal color and no rashes or lesions noted Wounds: no wounds Neuro: Sensory Exam: normal sensation Other: Alert orientated to self, place, time. Poor situational recall. Moderate amplitude resting tremor to the bilateral upper extremities, symmetric. Forgetful. Slow speech selvin. Extrem: General: normal to inspection Psych: Mental Status: mental status grossly normal Affect: normal affect Other: Fair to poor insight and judgment, pleasant H&P: Results Labs Labs: Short CBC 01/03/25 Range/Units 14:12 WBC 10.9 H (4.5-10.0) K/mm3 Hgb 13.1 L (14.0-18.0) g/dL Hct 36.9 L (42.0-52.0) % Plt Count 182 (150-375) k/mm3 BMP 01/03/25 14:11 Sodium 134 L Potassium 4.0 Chloride 100 Carbon Dioxide 24 BUN 43 H D Creatinine 0.96 Glucose 134 H Calcium 9.4 Cardiac Enzymes 01/03/25 Range/Units 14:11 Total Creatine Kinase 4030 H (55-170) U/L Troponin I 0.046 H* (0.000-0.034) ng/mL Liver Function 01/03/25 Range/Units 14:11 Total Bilirubin 0.7 (0.2-1.3) mg/dL AST 236 H (17-59) U/L ALT 92 H (6-50) U/L Alkaline Phosphatase 98 (38-126) U/L Albumin 4.6 (3.5-5.1) g/dL Urine 01/03/25 Range/Units 14:26 Urine Color Yellow (Yellow) Urine Appearance Clear (Clear) Urine pH 6.0 (5.0-9.0) Ur Specific [place] 1.024 (1.001-1.035) Urine Protein 1+ H (Negative) mg/dL Urine Glucose (UA) Negative (Negative) mg/dL Assessment and Plan Assessment and plan (1) Epilepsy, unspecified, not intractable, without status epilepticus: Qualifiers: Epilepsy type: generalized idiopathic Qualified Code(s): G40.309 - Generalized idiopathic epilepsy and epileptic syndromes, not intractable, without status epilepticus Code(s): G40.909 - Epilepsy, unspecified, not intractable, without status epilepticus Status: Acute Assessment and Plan: Increase in seizure activity over the past 3 days prior to admission on 01/03. Patient concerned his facility has not been giving him his medications. Currently on Remeron and Keppra for his generalized seizure disorder. Phenytoin levels negative upon admission. Additionally on Aptiom per medication list for seizures. - check Keppra levels, if depleted will give loading dose of 1800 IV - given IV phenytoin 1 G in ED >> no longer on this medication per his facility medication list. medication not continued. - continue Remeron and Aptiom. - seizure precautions - neurology consult? will consider if Keppra levels therapeutic (2) Rhabdomyolysis: Qualifiers: Rhabdomyolysis type: non-traumatic Qualified Code(s): M62.82 - Rhabdomyolysis Code(s): M62.82 - Rhabdomyolysis Status: Acute Assessment and Plan: CK 4030 upon admission on 01/03. Likely related to increased seizure activity over the last 3 days. No associated DWAYNE. - IV fluids: 2L -> 125 mL/hr x1L - trend CK down - monitor renal function (3) Elevated troponin: Code(s): R79.89 - Other specified abnormal findings of blood chemistry Status: Acute Assessment and Plan: Initial troponin 0.046. No complaints of chest pain or symptoms concerning for ACS. EKG from the emergency department personally reviewed, showed NSR/rate 94. When compared to previous PVCs no longer present. Impression reading same. Suspect elevation in troponin secondary to rhabdo. - trend troponins down - telemetry monitoring - nitro SL p.r.n. - repeat EKG with 3 hour troponin (4) Essential (primary) hypertension: Code(s): I10 - Essential (primary) hypertension Status: Chronic Assessment and Plan: - chronic, currently 127/65, stable. - continue home medications: Amlodipine - monitor Plan Diet: Heart healthy GI Prophylaxis: N/a DVT Prophylaxis: Eliquis IV fluids: 2L -> 125 mL/hr x1L Lines/Tubes: Peripheral IV Code Status: Full code Quality VTE Prophylaxis VTE prophylaxis: pharmacologic ordered Hospitalist MIPS Advance Care Plan I have confirmed that the patient's Advanced Care Plan is present, code status is documented, or surrogate decision maker is listed in patient medical record.: Yes Medication Reconciliation I have utilized all available resources to obtain, update and review the patients current medications (includes all prescriptions, OTC, herbals, cannabis, and nutritional supplements).: Yes
--- NOTE | 2025-01-03 16:10 | ECG_ITS ---
Test Date: 2025-01-03 16:50:31 Measurements Intervals [place] Rate: 83 P: 72 VA: 165 QRS: 69 QRSD: 89 T: 42 QT: 395 QTc: 466 Interpretive Statements SINUS RHYTHM Compared to ECG 01/03/2025 13:32:46 No significant changes Electronically Signed On 01-03-2025 22:54:46 REAL ESTATE INTERN by Lorri Weems M.D.
[2025-01-03] MEDS: PHENYTOIN SODIUM INJ (*BKC) 1,000 MG in SODIUM CHLORIDE 0.9% IV 100 ML 360 MG IVPB (16:16)
--- NOTE | 2025-01-03 16:59 | WPCEDHO ---
ED Hand Off Checklist All vitals saved:YES IV Site documented:YES All med administrations documented:YES Triage Note Triage Note Pt AMOL, coming from [facility] 01/03/25 13:19 of [place]. Patient called EMS stating the last three days he has been having seizures and the staff at [facility] have not being caring for him or giving him medications. Allergies Antihistamines - Ethanolamine Allergy (Unknown, Verified 10/03/24 08:54) Unknown cephalexin Allergy (Unknown, Verified 10/03/24 08:54) Unknown Cephalosporins Allergy (Unknown, Verified 10/03/24 08:54) Unknown diphenhydramine (From Benadryl) Allergy (Unknown, Verified 10/03/24 08:54) Unknown enoxaparin Allergy (Unknown, Verified 10/03/24 08:54) Unknown fexofenadine Allergy (Unknown, Verified 10/03/24 08:54) Unknown lactose Allergy (Unknown, Verified 10/03/24 08:54) Unknown milk Allergy (Unknown, Verified 10/03/24 08:54) Unknown olanzapine Allergy (Unknown, Verified 10/03/24 08:54) Unknown rofecoxib Allergy (Unknown, Verified 10/03/24 08:54) Unknown Sulfa (Sulfonamide Antibiotics) Allergy (Unknown, Verified 10/03/24 08:54) Unknown valproic acid Allergy (Unknown, Verified 10/03/24 08:54) Unknown zinc Allergy (Unknown, Verified 10/03/24 08:54) Unknown zolpidem Allergy (Unknown, Verified 10/03/24 08:54) Unknown Administered/Completed Medications Discontinued Medications Sodium Chloride (Normal Saline Iv) 1,000 mls @ 999 mls/hr IV CONT .Q1H1M STA Stop: 01/03/25 14:43 Last Infusion: 01/03/25 15:09 Dose: Infused Documented By: Admin: 01/03/25 14:14 Dose: 999 mls/hr Documented By: ANDREW Phenytoin Sodium 1,000 mg/ (Sodium Chloride) 120 mls @ 360 mls/hr IVPB ONCE STA Stop: 01/03/25 16:01 Last Infusion: 01/03/25 16:42 Dose: Infused Documented By: Admin: 01/03/25 16:16 Dose: 360 mls/hr Documented By: ANDREW Sodium Chloride (Normal Saline Iv) 1,000 mls @ 999 mls/hr IV CONT .Q1H1M STA Stop: 01/03/25 16:43 Last Admin: 01/03/25 16:15 Dose: 999 mls/hr Documented By: ANDREW Interventions/Assessments IV / Saline Lock, Insert Start: 01/03/25 13:19 Freq: Status: Active Protocol: Document 01/03/25 14:14 [facility] (Rec: 01/03/25 14:15 [facility] [id number]) IV Assessment Peripheral Access Left Wrist IV Catheter Access Initiated IV Insertion Date 01/03/25 IV Insertion Time 14:15 Catheter Gauge 20 IV Site Assessment WNL IV Care and WNL Maintenance Last Vital Signs Temperature 98.0 F 01/03/25 13:19 Pulse Rate 81 01/03/25 16:46 Respiratory Rate 20 01/03/25 16:46 Pulse Oximetry 100 01/03/25 16:46 Blood Pressure 151/87 H 01/03/25 16:46 Blood Pressure Mean 103 01/03/25 16:46 Oxygen Delivery Room Air 01/03/25 13:24 Weight 82 kg 01/03/25 13:19 Last Result - Abnormals Only WBC 10.9 K/mm3 (4.5-10.0) H 01/03/25 14:12 RBC 4.09 M/mm3 (4.6-6.20) L 01/03/25 14:12 Hgb 13.1 g/dL (14.0-18.0) L 01/03/25 14:12 Hct 36.9 % (42.0-52.0) L 01/03/25 14:12 Neut % (Auto) 84.7 % (45.5-73.1) H 01/03/25 14:12 Lymph % (Auto) 5.0 % (18.3-44.2) L 01/03/25 14:12 [place] % (Auto) 9.8 % (2.6-8.5) H 01/03/25 14:12 Baso % (Auto) 0.1 % (0.2-1.2) L 01/03/25 14:12 Lymph # (Auto) 0.55 K/mm3 (0.9-3.2) L 01/03/25 14:12 [place] # (Auto) 1.1 K/mm3 (0.1-0.6) H 01/03/25 14:12 Abs Immat Gran (auto) 0.04 K/mm3 (0.00-0.031) H 01/03/25 14:12 Absolute Neuts (auto) 9.2 K/mm3 (1.3-6.7) H 01/03/25 14:12 Sodium 134 mmol/L (137-145) L 01/03/25 14:11 BUN 43 mg/dL (9-20) H D 01/03/25 14:11 Glucose 134 mg/dL (65-110) H 01/03/25 14:11 Magnesium 2.6 mg/dL (1.6-2.3) H 01/03/25 14:11 AST 236 U/L (17-59) H 01/03/25 14:11 ALT 92 U/L (6-50) H 01/03/25 14:11 Total Creatine Kinase 4030 U/L (55-170) H 01/03/25 14:11 Troponin I 0.046 ng/mL (0.000-0.034) H* 01/03/25 14:11 Urine Protein 1+ mg/dL (Negative) H 01/03/25 14:26 Urine Ketones 1+ mg/dL (Negative) H 01/03/25 14:26 Ur Blood (Man) 3+ (Negative) H 01/03/25 14:26 Leukocyte Esterase Rfl Trace LEO/UL (Negative) H 01/03/25 14:26 Phenytoin < 3 ug/mL (10-20) L 01/03/25 14:11 Most Recent Suicide Severity Rating Suicide Severity Rating NO RISK INDICATED 01/03/25 13:19
[2025-01-03] MEDS: SODIUM CHLORIDE 0.9% IV 1,000 ML 125 ML IV CONT ×2 (17:02→18:02)
[2025-01-03 17:28] LABS: Troponin I 0.036 ng/mL (0.000-0.034)
--- NOTE | 2025-01-03 17:31 | ADMGEN ---
This patient, Jairon Dennis, was admitted to IMU Room 232-01. Patient/family oriented to hospital policies and general routines including ID bracelet, bed and alarms, visiting hours, pain management, procedures, bathroom and other care routines, personal items, smoking policy, room service/diet, and visiting hours. Information on how to activate the Rapid Response Team has been discussed. Patient/Family are encouraged to report perceived risks to care and to ask questions if they do not understand what they are told or what they should do.
[2025-01-03] MEDS: ATORVASTATIN 40 MG TABLET PO (21:13)
[2025-01-03] MEDS: PREGABALIN (*CRX) 50 MG CAPSULE PO (21:13)
[2025-01-03] MEDS: APIXABAN 5 MG TABLET PO (21:13)
[2025-01-03] MEDS: DOCUSATE SODIUM 100 MG CAPSULE PO (21:13)
[2025-01-03] MEDS: MIRTAZAPINE 15 MG TABLET PO (21:14)
[2025-01-03] MEDS: LORazepam (*CRX) 1 MG TABLET PO (21:14)
[2025-01-03] MEDS: PYRIDOXINE HCL 50 MG TABLET 100 MG PO (21:15)
[2025-01-03] MEDS: BISACODYL 10 MG SUPPOSITORY RECTAL (21:15)
[2025-01-03] MEDS: TIMOLOL MALEATE 0.5% OP SOLN 5 ML BOTTLE 1 DROP EACH EYE (21:16)
[2025-01-03] MEDS: BRIMONIDINE TARTRATE 0.2% OP SOLN 5 ML BTL 1 DROP EACH EYE (21:18)
[2025-01-03] MEDS: DORZOLAMIDE HCL 2% OPHTH DROPS 1 DROP EACH EYE (21:19)
[2025-01-03] MEDS: LATANOPROST 0.005% OP SOLN 2.5 ML BTL 1 DROP EACH EYE (21:24)
[2025-01-03 22:14] LABS: Troponin I 0.031 ng/mL (0.000-0.034)
[2025-01-04] VITALS (10 sets, daily range): BP systolic 126–140; BP diastolic 63–73; PULSE 64–80; RESP 18–20; TEMP 36.1–36.8; O2SAT 99–100
[2025-01-04 04:19] LABS: Hematocrit 30.6 % (42.0-52.0); Hemoglobin 10.7 g/dL (14.0-18.0); Immature Granulocyte Percent A 0.4 % (0-0.5); Lymphocytes Absolute Auto 1.06 K/mm3 (0.9-3.2); Mean Corpuscular HGB Conc 35.0 g/dl (32-36); Mean Corpuscular Hemoglobin 31.7 pg (26-34); Mean Corpuscular Volume 90.5 fl (80-100); Nucleated Red Blood Cells Absolute Auto 0.000 K/mm3 (0.0-0.012); Nucleated Red Blood Cells Perc 0.0 % (0.0-0.2); Platelet Count Result 133 k/mm3 (150-375); Red Blood Count 3.38 M/mm3 (4.6-6.20); White Blood Count 7.8 K/mm3 (4.5-10.0)
[2025-01-04 04:33] LABS: Anion Gap 2 mmol/L (4-12); Blood Urea Nitrogen 22 mg/dL (9-20); Calcium 8.3 mg/dL (8.4-10.2); Carbon Dioxide 27 mmol/L (22-30); Chloride 103 mmol/L (98-107); Creatine Kinase 1075 U/L (55-170); Estimated CRCL calculation 78 ml/min; Estimated Glomerular Filt Rate > 60; Glucose 102 mg/dL (65-110); Magnesium 2.1 mg/dL (1.6-2.3); Potassium 3.6 mmol/L (3.4-5.0); Sodium 132 mmol/L (137-145)
[2025-01-04] MEDS: LORazepam (*CRX) 1 MG TABLET PO ×3 (06:35→22:02)
--- NOTE | 2025-01-04 07:42 | P.PNIM_ITS ---
Progress Note: A&P Assessment and Plan (1) Epilepsy, unspecified, not intractable, without status epilepticus: Qualifiers: Epilepsy type: generalized idiopathic Qualified Code(s): G40.309 - Generalized idiopathic epilepsy and epileptic syndromes, not intractable, without status epilepticus Code(s): G40.909 - Epilepsy, unspecified, not intractable, without status epilepticus Status: Acute Assessment and Plan: Increase in seizure activity over the past 3 days prior to admission on 01/03. Patient concerned his facility has not been giving him his medications. Currently on Remeron and Keppra for his generalized seizure disorder. Phenytoin levels negative upon admission. Additionally on Aptiom per medication list for seizures. - check Keppra levels, if depleted will give loading dose of 1800 IV - given IV phenytoin 1 G in ED >> no longer on this medication per his facility medication list. medication not continued. - continue Remeron and Aptiom. - seizure precautions - neurology consult? will consider if Keppra levels therapeutic keppra level still pending neurology consulted continue seizure/fall precautions will downgrade to medsurg (2) Rhabdomyolysis: Qualifiers: Rhabdomyolysis type: non-traumatic Qualified Code(s): M62.82 - Rhabdomyolysis Code(s): M62.82 - Rhabdomyolysis Status: Acute Assessment and Plan: CK 4030 upon admission on 01/03. Likely related to increased seizure activity over the last 3 days. No associated DWAYNE. - IV fluids: 2L -> 125 mL/hr x1L - trend CK down - monitor renal function (3) Elevated troponin: Code(s): R79.89 - Other specified abnormal findings of blood chemistry Status: Acute Assessment and Plan: Initial troponin 0.046. No complaints of chest pain or symptoms concerning for ACS. EKG from the emergency department personally reviewed, showed NSR/rate 94. When compared to previous PVCs no longer present. Impression reading same. Suspect elevation in troponin secondary to rhabdo. - trend troponins down - telemetry monitoring - nitro SL p.r.n. - repeat EKG with 3 hour troponin (4) Essential (primary) hypertension: Code(s): I10 - Essential (primary) hypertension Status: Chronic Assessment and Plan: - chronic, currently 127/65, stable. - continue home medications: Amlodipine - monitor Plan Diet: Heart healthy GI Prophylaxis: N/a DVT Prophylaxis: Eliquis IV fluids: 2L -> 125 mL/hr x1L Lines/Tubes: Peripheral IV Code Status: Full code Time Spent With Patient Time with patient: 25 - 35 minutes Subjective Date/time seen: 01/04/25 07:42 Interval history: 64 y/o M with PMH of intellectual disability, epilepsy, and hypertension, diet- controlled diabetes who came in from longterm living place for breakthrough seizures. The patient presents here from [facility] for further evaluation of recurrent/breakthrough seizures. The patient presenting he has been having increased seizure activity. He is unsure when they started to increase, however EMS reported they have been increasing for the past 3 days. Patient is also unable to elaborate how he knows he has had increased seizure activity recently. Just states he knows and can tell. Believes this may be due to his facility not giving him his medications, patient has no recollection of saying this in the emergency department. Currently on Keppra 1000 mg b.i.d. and Remeron. He is unsure where he follows with [facility] stating [facility]. Per last note at discharge in September of 2024, patient was on Keppra and Dilantin. Dilantin no longer on the patient's medication list. Patient poor historian. Initial VS at presentation: 98? F, HR 105, RR 11, 124/66, and 100% on RA. ED workup showed: WBC 10.9, hemoglobin 13.1 (at baseline), sodium 134, creatinine 0.96 and GFR >60, glucose 134, magnesium 2.6, AST 236/ALT 92, CK 4030, initial troponin 0.046. UA showed 1+ protein/1+ ketones/2+ blood/trace leuk esterase. Phenytoin <3. Viral PCR negative. CXR showed no acute cardiopulmonary abnormality. Head CT showed chronic encephalomalacia at the anteroinferior frontal lobes and temporal lobes which is a distribution typical of traumatic brain injury. EKG showed NSR, rate 94. Pt is seen and examined. He insists that he had a seizure last night, he reports that he called that nurse as he was having a seizure to report it. No seizures were reported from nursing though. He voices no other complains at this time. Review of Systems Review of Systems: All systems reviewed & are unremarkable except as noted in HPI and below Exam Const: General: comfortable and no acute distress Other: , male, nontoxic appearance, chronically ill-appearing HENMT: Face/Nose/Sinus: Normal nares present Mouth: Yes dry mucous membranes Eyes: General: appearance normal, both eyes and all related structures Sclera: sclerae normal Pupils: Equal, round and reactive pupils present EOM: EOMs intact bilaterally Resp: Effort & Inspection: normal respiratory effort Auscultation: clear to auscultation bilaterally Cardio: Rate: regular rate Rhythm: regular rhythm Other: S1-S2 present without murmur, rub, ectopy GI: GI Palp: Yes Soft to palpation Auscultation: normal bowel sounds Other: Abdomen soft, nondistended, nontender. Normoactive bowel sounds in all quadrants. Skin: General skin exam: normal color and no rashes or lesions noted Wounds: no wounds Neuro: Cranial nerves: Yes Equal, round and reactive pupils present Sensory Exam: normal sensation Other: Alert orientated to self, place, time. Poor situational recall. Moderate amplitude resting tremor to the bilateral upper extremities, symmetric. Forgetful. Slow speech selvin. Extrem: General: normal to inspection Psych: Mental Status: mental status grossly normal Affect: normal affect Other: Fair to poor insight and judgment, pleasant Objective Data Vital Signs Vital Signs: Vital Signs - 24 hr 01/03/25 13:19 01/03/25 13:24 01/03/25 13:45 Temperature 98.0 F 98.0 F Pulse Rate 105 H 84 Respiratory Rate 11 L 15 Blood Pressure Pulse Oximetry 100 98 Oxygen Delivery Room Air Room Air 01/03/25 13:46 01/03/25 14:06 01/03/25 14:13 Temperature Pulse Rate 76 99 91 Respiratory Rate 13 21 H 17 Blood Pressure 124/66 Pulse Oximetry 99 100 Oxygen Delivery 01/03/25 14:15 01/03/25 14:16 01/03/25 14:17 Temperature Pulse Rate 93 89 95 Respiratory Rate 17 17 13 Blood Pressure 127/65 Pulse Oximetry 100 100 100 Oxygen Delivery 01/03/25 14:41 01/03/25 14:45 01/03/25 15:01 Temperature Pulse Rate 99 80 70 Respiratory Rate 14 13 14 Blood Pressure 114/56 L Pulse Oximetry 100 100 100 Oxygen Delivery 01/03/25 15:02 01/03/25 15:15 01/03/25 15:16 Temperature Pulse Rate 69 71 68 Respiratory Rate 14 13 14 Blood Pressure 109/67 Pulse Oximetry 100 100 100 Oxygen Delivery 01/03/25 15:30 01/03/25 15:31 01/03/25 15:45 Temperature Pulse Rate 69 70 99 Respiratory Rate 19 13 14 Blood Pressure Pulse Oximetry 100 100 100 Oxygen Delivery 01/03/25 15:46 01/03/25 16:00 01/03/25 16:01 Temperature Pulse Rate 97 99 97 Respiratory Rate 14 17 24 H Blood Pressure 141/75 H 133/74 Pulse Oximetry 98 100 100 Oxygen Delivery 01/03/25 16:15 01/03/25 16:16 01/03/25 16:17 Temperature Pulse Rate 95 97 102 H Respiratory Rate 13 13 16 Blood Pressure 156/86 H Pulse Oximetry 100 100 100 Oxygen Delivery 01/03/25 16:30 01/03/25 16:31 01/03/25 16:34 Temperature Pulse Rate 98 101 H 95 Respiratory Rate 28 H 18 22 H Blood Pressure 138/82 Pulse Oximetry 100 100 100 Oxygen Delivery 01/03/25 16:45 01/03/25 16:46 01/03/25 17:32 Temperature 97.5 F L Pulse Rate 85 81 86 Respiratory Rate 13 20 18 Blood Pressure 151/87 H 138/66 Pulse Oximetry 100 100 100 Oxygen Delivery 01/03/25 18:00 01/03/25 20:00 01/03/25 20:00 Temperature Pulse Rate 108 H 87 93 Respiratory Rate 18 Blood Pressure 128/60 Pulse Oximetry 98 Oxygen Delivery 01/03/25 20:00 01/03/25 22:00 01/04/25 00:00 Temperature Pulse Rate 79 Respiratory Rate Blood Pressure Pulse Oximetry Oxygen Delivery Room Air Room Air 01/04/25 00:00 01/04/25 00:00 01/04/25 02:00 Temperature 96.9 F L Pulse Rate 64 72 71 Respiratory Rate 18 Blood Pressure 128/65 Pulse Oximetry 100 Oxygen Delivery 01/04/25 04:00 01/04/25 04:00 01/04/25 04:00 Temperature 98.1 F Pulse Rate 80 80 Respiratory Rate 18 Blood Pressure 126/73 Pulse Oximetry 100 Oxygen Delivery Room Air 01/04/25 06:00 Temperature Pulse Rate 76 Respiratory Rate Blood Pressure Pulse Oximetry Oxygen Delivery Intake/Output Intake/Output: Intake & Output 01/01/25 01/02/25 01/03/25 01/04/25 23:59 23:59 23:59 23:59 Intake Total 2360 745.8 Output Total 650 Balance 2360 95.8 Meds/Results Medications: Active Medications Generic Name Dose Route Start Last Admin Trade Name Freq PRN Reason Stop Dose Admin Acetaminophen 1,000 mg 01/03/25 19:23 Acetaminophen 500 Mg Tablet PO Q6H PRN PAIN RATED 1-3 Amlodipine Besylate 10 mg 01/04/25 09:00 Amlodipine Besylate 10 Mg Tablet PO DAILY RADHA Apixaban 5 mg 01/03/25 21:00 01/03/25 21:13 Apixaban 5 Mg Tablet PO 5 mg Q12H RADHA Administration Artificial Tears 2 drop 01/03/25 19:23 Artificial Tears Ophth Soln 15 Ml Bottle EACH EYE TID PRN Dry Eye(s) Atorvastatin Calcium 40 mg 01/03/25 21:00 01/03/25 21:13 Atorvastatin 40 Mg Tablet PO 40 mg HS RADHA Administration Brimonidine Tartrate 1 drop 01/03/25 21:00 01/03/25 21:18 Brimonidine Tartrate 0.2% Op Soln 5 Ml Btl EACH EYE 1 drop Q12HR RADHA Administration Docusate Sodium 100 mg 01/03/25 21:00 01/03/25 21:13 Docusate Sodium 100 Mg Capsule PO 100 mg Q12HR RADHA Administration Dorzolamide HCl 1 drop 01/03/25 21:00 01/03/25 21:19 Dorzolamide Hcl 2% Ophth Drops EACH EYE 1 drop Q12HR RADHA Administration Latanoprost 1 drop 01/03/25 21:00 01/03/25 21:24 Latanoprost 0.005% Op Soln 2.5 Ml Btl EACH EYE 1 drop HS RADHA Administration Levetiracetam 1,000 mg 01/03/25 21:00 01/03/25 21:14 Levetiracetam 500 Mg Tablet PO 1,000 mg Q12HR RADHA Administration Lidocaine 1 patch 01/03/25 19:31 Lidocaine 5% Patch TOPICAL DAILY PRN pain Lorazepam 1 mg 01/03/25 22:00 01/04/25 06:35 Lorazepam (*Crx) 1 Mg Tablet PO 1 mg Q8HR RADHA Administration Mirtazapine 15 mg 01/03/25 21:00 01/03/25 21:14 Mirtazapine 15 Mg Tablet PO 15 mg HS RADHA Administration Miscellaneous Information 1 each 01/04/25 00:01 Aptiom Is Nonform; Can Pt Use From Home? XX 02/03/25 00:00 CLARIFY RADHA Nitroglycerin 0.4 mg 01/03/25 16:27 Nitroglycerin Sl 0.4 Mg Tablet SUBLINGUAL Q5M PRN Chest Pain Non-Formulary Medication 800 mg 01/04/25 09:00 Eslicarbazepine [Aptiom] PO 02/03/25 08:59 DAILY [facility] Oxycodone HCl 10 mg 01/03/25 19:23 Oxycodone Hcl (*Crx) 5 Mg Tab Ir PO Q8H PRN PAIN RATED 7-10 Polyethylene Glycol 17 gm 01/03/25 19:47 Polyethylene Glycol 3350 17 Gm Powd.Pack PO DAILY PRN Constipation Pregabalin 50 mg 01/03/25 21:00 01/03/25 21:13 Pregabalin (*Crx) 50 Mg Capsule PO 50 mg Q12HR [facility] Administration Pyridoxine HCl 100 mg 01/03/25 21:00 01/03/25 21:15 Pyridoxine Hcl 50 Mg Tablet PO 100 mg Q12H [facility] Administration Sertraline HCl 50 mg 01/04/25 09:00 Sertraline Hcl 50 Mg Tablet PO QAM [facility] Timolol Maleate 1 drop 01/03/25 21:00 01/03/25 21:16 Timolol Maleate 0.5% Op Soln 5 Ml Bottle EACH EYE 1 drop Q12HR [facility] Administration Vitamin D 50 mcg 01/04/25 09:00 Cholecalciferol (Vitamin D3) 25 Mcg (1,000 Units) Tablet PO DAILY [facility] Radiology Results: ITS Impressions Chest X-Ray 01/03/25 14:05 Impression: No acute cardiopulmonary abnormality. Head CT 01/03/25 14:05 IMPRESSION: 1. Chronic encephalomalacia in the anteroinferior frontal lobes and temporal lobes, which is a distribution typical of traumatic brain injury. Labs Labs: Laboratory Results - last 24 hr 01/03/25 01/03/25 01/03/25 14:11 14:12 14:17 WBC 10.9 H RBC 4.09 L Hgb 13.1 L Hct 36.9 L MCV 90.2 MCH 32.0 MCHC 35.5 RDW 12.4 Plt Count 182 MPV 10.1 Immature Gran % (Auto) 0.4 Neut % (Auto) 84.7 H Lymph % (Auto) 5.0 L [place] % (Auto) 9.8 H Eos % (Auto) 0.0 Baso % (Auto) 0.1 L Lymph # (Auto) 0.55 L [place] # (Auto) 1.1 H Eos # (Auto) 0.0 Baso # (Auto) 0.0 Abs Immat Gran (auto) 0.04 H Absolute Neuts (auto) 9.2 H Absolute Nucleated RBC 0.000 Nucleated RBC % 0.0 Sodium 134 L Potassium 4.0 Chloride 100 Carbon Dioxide 24 Anion Gap 10 BUN 43 H D Creatinine 0.96 Estim Creat Clear Calc 75 Estimated GFR > 60 Glucose 134 H Lactic Acid 1.3 Calcium 9.4 Magnesium 2.6 H Total Bilirubin 0.7 AST 236 H ALT 92 H Alkaline Phosphatase 98 Total Creatine Kinase 4030 H Troponin I 0.046 H* Total Protein 7.4 Albumin 4.6 Urine Color Urine Appearance Urine pH Ur Specific [place] Urine Protein Urine Glucose (UA) Urine Ketones Ur Blood (Man) Urine Nitrate Urine Bilirubin Urine Urobilinogen Leukocyte Esterase Rfl Urine RBC Urine WBC Ur Squamous Epith Cells Urine Bacteria Urine Casts Phenytoin < 3 L Influenza A (RT-PCR) Negative Influenza B (RT-PCR) Negative RSV (RT-PCR) Negative SARS-CoV-2 RNA (RT-PCR) Negative 01/03/25 01/03/25 01/03/25 14:26 16:56 21:45 WBC RBC Hgb Hct MCV MCH MCHC RDW Plt Count MPV Immature Gran % (Auto) Neut % (Auto) Lymph % (Auto) [place] % (Auto) Eos % (Auto) Baso % (Auto) Lymph # (Auto) [place] # (Auto) Eos # (Auto) Baso # (Auto) Abs Immat Gran (auto) Absolute Neuts (auto) Absolute Nucleated RBC Nucleated RBC % Sodium Potassium Chloride Carbon Dioxide Anion Gap BUN Creatinine Estim Creat Clear Calc Estimated GFR Glucose Lactic Acid Calcium Magnesium Total Bilirubin AST ALT Alkaline Phosphatase Total Creatine Kinase Troponin I 0.036 H* D 0.031 Total Protein Albumin Urine Color Yellow Urine Appearance Clear Urine pH 6.0 Ur Specific [place] 1.024 Urine Protein 1+ H Urine Glucose (UA) Negative Urine Ketones 1+ H Ur Blood (Man) 3+ H Urine Nitrate Negative Urine Bilirubin Negative Urine Urobilinogen 1.0 Leukocyte Esterase Rfl Trace H Urine RBC 0-2 Urine WBC 0-5 Ur Squamous Epith Cells None seen Urine Bacteria None seen Urine Casts 3-5 Phenytoin Influenza A (RT-PCR) Influenza B (RT-PCR) RSV (RT-PCR) SARS-CoV-2 RNA (RT-PCR) 01/04/25 04:13 WBC 7.8 RBC 3.38 L Hgb 10.7 L Hct 30.6 L MCV 90.5 MCH 31.7 MCHC 35.0 RDW 12.5 Plt Count 133 L MPV 9.8 Immature Gran % (Auto) 0.4 Neut % (Auto) 71.2 Lymph % (Auto) 13.6 L [place] % (Auto) 14.1 H Eos % (Auto) 0.6 Baso % (Auto) 0.1 L Lymph # (Auto) 1.06 [place] # (Auto) 1.1 H Eos # (Auto) 0.1 Baso # (Auto) 0.0 Abs Immat Gran (auto) 0.03 Absolute Neuts (auto) 5.6 Absolute Nucleated RBC 0.000 Nucleated RBC % 0.0 Sodium 132 L Potassium 3.6 Chloride 103 Carbon Dioxide 27 Anion Gap 2 L BUN 22 H D Creatinine 0.71 Estim Creat Clear Calc 78 Estimated GFR > 60 Glucose 102 Lactic Acid Calcium 8.3 L Magnesium 2.1 Total Bilirubin AST ALT Alkaline Phosphatase Total Creatine Kinase 1075 H Troponin I Total Protein Albumin Urine Color Urine Appearance Urine pH Ur Specific [place] Urine Protein Urine Glucose (UA) Urine Ketones Ur Blood (Man) Urine Nitrate Urine Bilirubin Urine Urobilinogen Leukocyte Esterase Rfl Urine RBC Urine WBC Ur Squamous Epith Cells Urine Bacteria Urine Casts Phenytoin Influenza A (RT-PCR) Influenza B (RT-PCR) RSV (RT-PCR) SARS-CoV-2 RNA (RT-PCR) Quality VTE Prophylaxis VTE prophylaxis: pharmacologic ordered
[2025-01-04] MEDS: PYRIDOXINE HCL 50 MG TABLET 100 MG PO ×2 (09:22→22:02)
[2025-01-04] MEDS: PREGABALIN (*CRX) 50 MG CAPSULE PO (09:23)
[2025-01-04] MEDS: APIXABAN 5 MG TABLET PO ×2 (09:23→22:01)
[2025-01-04] MEDS: CHOLECALCIFEROL (VITAMIN D3) 25 MCG (1,000 UNITS) TABLET 50 MCG PO (09:23)
[2025-01-04] MEDS: SERTRALINE HCL 50 MG TABLET PO (09:24)
[2025-01-04] MEDS: DORZOLAMIDE HCL 2% OPHTH DROPS 1 DROP EACH EYE ×2 (09:24→22:04)
[2025-01-04] MEDS: TIMOLOL MALEATE 0.5% OP SOLN 5 ML BOTTLE 1 DROP EACH EYE ×2 (09:24→22:03)
[2025-01-04] MEDS: BRIMONIDINE TARTRATE 0.2% OP SOLN 5 ML BTL 1 DROP EACH EYE ×2 (09:25→22:04)
[2025-01-04] MEDS: DOCUSATE SODIUM 100 MG CAPSULE PO ×2 (09:25→22:01)
--- NOTE | 2025-01-04 13:54 | PC.NURSE ---
Patient states I have been having seizures all day. This RN informed him that he has not had any seizures this hospitalization. The patient states I haven't. This RN reassured him that he had not had any seizure activity. He states I just don't feel like myself. This RN verbalizes understanding at this time. No acute distress noted at this time. Discussed with patient that he had been downgraded and may get a new room. Patient verbalizes understanding at this time.
--- NOTE | 2025-01-04 18:02 | WPDNEURCNPN ---
Assessment and Plan Assessment and plan (1) Epilepsy, unspecified, not intractable, without status epilepticus: Qualifiers: Epilepsy type: generalized idiopathic Qualified Code(s): G40.309 - Generalized idiopathic epilepsy and epileptic syndromes, not intractable, without status epilepticus Code(s): G40.909 - Epilepsy, unspecified, not intractable, without status epilepticus Status: Acute (2) Mild intellectual disabilities: Code(s): F70 - Mild intellectual disabilities Status: Chronic (3) Unspecified mood [affective] disorder: Code(s): F39 - Unspecified mood [affective] disorder Status: Chronic (4) Rhabdomyolysis: Qualifiers: Rhabdomyolysis type: non-traumatic Qualified Code(s): M62.82 - Rhabdomyolysis Code(s): M62.82 - Rhabdomyolysis Status: Acute Assessment and Plan: His CPK was 1075 this morning but it was up to 4030 earlier on. Plan I reviewed the medications and noted that he is on Eliquis and use of the eslicarbazepine or drugs in that class or Dilantin may render anticoagulation less effective and hence I would suggest to increase the dose of pregabalin 200 mg twice a day and a Keppra to 1250 mg twice a day. We should maintain seizure precautions. Consult date: 01/04/25 HPI: Jairon Dennis is a 64 year old male with history of static encephalopathy and seizure disorder was seen for neurologic evaluation today. The patient apparently has been saying that he has been having increasing seizures for last 3 days although the nursing staff have not observed him mark any seizure-like spells. He keeps the cap on since he states that he is sensitive to light and would not let me shine a light in his eyes. According the nursing staff they have not noted any seizure-like spell nevertheless the patient maintains that he is having seizures. He is on multiple seizure medications. He apparently is also claiming that the jail is not providing him with all the medications for seizure. Current list of medications were reviewed. An EEG was performed previously which did shows diffuse background slowing but no focal or paroxysmal epileptiform abnormalities were described. CTs scan of the brain shows some encephalomalacia in the frontal and temporal lobe region. No acute findings were noted. Review of Systems Review of Systems: All systems reviewed & are unremarkable except as noted in HPI and below PMFSH Past Medical History Medical History Type 2 diabetes mellitus without complications 5.4% in September of 2024, not currently on medications as of December of 2024 Hypo-osmolality and hyponatremia Encounter for screening colonoscopy Unspecified severe protein-calorie malnutrition Unspecified mood [affective] disorder Other age-related cataract Mixed hyperlipidemia Essential (primary) hypertension Depression, unspecified Cognitive communication deficit Unspecified open-angle glaucoma, stage unspecified Sleep disorder, unspecified Mild 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, unspecified Epilepsy, unspecified, not intractable, without status epilepticus Conversion disorder with seizures or convulsions Benign prostatic hyperplasia without lower urinary tract symptoms Social History Social History Smoking status: Never smoker Second hand tobacco smoke exposure: No (Unknown) Alcohol intake: never Substance use: never Lack of Transportation: No Lack of Food: Never True Current Housing: I Have Housing Concerned About Future Housing: No Difficulty Paying Gas/Electric Bills: No Difficulty Paying for Meds: No Currently Unemployed: No Education: High School Diploma/GED Difficulty w/ Childcare or Family Care: No Living arrangements: jail [facility] Spiritual care concerns: No Meds Home Medications and Allergies Home Medications ?Medication ?Instructions ?Recorded ?Confirmed ?Type acetaminophen 500 mg capsule 1,000 mg (2 x 500 mg) PO Q6H PRN 04/29/24 01/03/25 Rx pain #30 caps lidocaine 4 % topical patch 1 patch topical DAILY PRN pain #10 04/29/24 01/03/25 Rx ea oxycodone 10 mg tablet 10 mg PO Q8H PRN pain #14 tabs 04/29/24 01/03/25 Rx amlodipine 10 mg tablet 10 mg PO DAILY 07/11/24 01/03/25 History apixaban 5 mg tablet (Eliquis) 5 mg PO Q12H 07/11/24 01/03/25 History atorvastatin 40 mg tablet 40 mg PO HS 07/11/24 01/03/25 History brimonidine 0.2 %-timolol 0.5 % 1 drp EACH EYE Q12H 07/11/24 01/03/25 History eye drops (Combigan) cholecalciferol (vitamin D3) 50 2,000 unit PO DAILY 07/11/24 01/03/25 History mcg (2,000 unit) capsule dorzolamide 2 % eye drops 1 drp EACH EYE .q12hr 07/11/24 01/03/25 History eslicarbazepine 800 mg tablet 800 mg PO DAILY 07/11/24 01/03/25 History (Aptiom) latanoprost 0.005 % eye drops 1 drp EACH EYE HS 07/11/24 01/03/25 History lorazepam 1 mg tablet (Ativan) 1 mg PO .q8hr 07/11/24 01/03/25 History mirtazapine 15 mg tablet 15 mg PO HS 07/11/24 01/03/25 History pregabalin 50 mg capsule 50 mg PO Q12H 07/11/24 01/03/25 History pyridoxine (vitamin B6) 100 mg 100 mg PO Q12H 07/11/24 01/03/25 History tablet sertraline 50 mg tablet 50 mg PO Q24H 07/11/24 01/03/25 History carboxymethylcellulose sodium 0.5 2 drp EACH EYE Q8H PRN dry eye(s) 10/09/24 01/03/25 History % eye drops levetiracetam 500 mg tablet 1,000 mg (2 x 500 mg) PO Q12HR #60 10/12/24 01/03/25 Rx (Keppra) tabs peg 101-[id number] 1 2 drp EACH EYE TID PRN Dry Eye(S) 10/12/24 01/03/25 Rx %-0.2 %-0.2 % eye drops #5 mL (Artificial Tears ([id number])) Allergies Allergy/AdvReac Type Severity Reaction Status Date / Time Antihistamines - Ethanolamine Allergy Unknown Unknown Verified 01/03/25 17:33 cephalexin Allergy Unknown Unknown Verified 01/03/25 17:33 Cephalosporins Allergy Unknown Unknown Verified 01/03/25 17:33 diphenhydramine (From Allergy Unknown Unknown Verified 01/03/25 17:33 Benadryl) enoxaparin Allergy Unknown Unknown Verified 01/03/25 17:33 fexofenadine Allergy Unknown Unknown Verified 01/03/25 17:33 lactose Allergy Unknown Unknown Verified 01/03/25 17:33 milk Allergy Unknown Unknown Verified 01/03/25 17:33 olanzapine Allergy Unknown Unknown Verified 01/03/25 17:33 rofecoxib Allergy Unknown Unknown Verified 01/03/25 17:33 Sulfa (Sulfonamide Allergy Unknown Unknown Verified 01/03/25 17:33 Antibiotics) valproic acid Allergy Unknown Unknown Verified 01/03/25 17:33 zinc Allergy Unknown Unknown Verified 01/03/25 17:33 zolpidem Allergy Unknown Unknown Verified 01/03/25 17:33 Vital Signs Vital Signs - 24 hr 01/03/25 20:00 01/03/25 20:00 01/03/25 20:00 Temperature Pulse Rate 87 93 Respiratory Rate 18 Blood Pressure 128/60 Pulse Oximetry 98 Oxygen Delivery Room Air 01/03/25 22:00 01/04/25 00:00 01/04/25 00:00 Temperature Pulse Rate 79 64 Respiratory Rate Blood Pressure Pulse Oximetry Oxygen Delivery Room Air 01/04/25 00:00 01/04/25 02:00 01/04/25 04:00 Temperature 96.9 F L 98.1 F Pulse Rate 72 71 80 Respiratory Rate 18 18 Blood Pressure 128/65 126/73 Pulse Oximetry 100 100 Oxygen Delivery 01/04/25 04:00 01/04/25 04:00 01/04/25 06:00 Temperature Pulse Rate 80 76 Respiratory Rate Blood Pressure Pulse Oximetry Oxygen Delivery Room Air 01/04/25 08:00 01/04/25 08:00 01/04/25 08:00 Temperature 98.0 F Pulse Rate 76 79 79 Respiratory Rate 20 20 Blood Pressure 138/73 Pulse Oximetry 100 99 Oxygen Delivery Room Air 01/04/25 09:20 01/04/25 10:00 01/04/25 11:56 Temperature 98.3 F Pulse Rate 66 78 Respiratory Rate 19 Blood Pressure 140/73 Pulse Oximetry 99 100 Oxygen Delivery Room Air 01/04/25 12:00 01/04/25 12:00 Temperature Pulse Rate 72 72 Respiratory Rate 19 Blood Pressure Pulse Oximetry 100 Oxygen Delivery Room Air Exam Narrative: Fully conscious alert able to talk. No aphasia or dysarthria. Examination head and neck was unremarkable. I am unable to see the his pupils are eye movements because he is very sensitive to light and does not like to have stroke cap taken off. There is no facial asymmetry. Tongue was midline. Other cranial nerves appear grossly within normal limits. Motor system normal power and tone in both upper and lower limbs. No spasticity or involuntary movements were seen. Deep tendon reflexes did not show any asymmetry. Sensory examination grossly intact. No intention tremors were noted. Results Labs 01/04/25 04:13 01/04/25 04:13 Labs: Short CBC 01/04/25 Range/Units 04:13 WBC 7.8 (4.5-10.0) K/mm3 Hgb 10.7 L (14.0-18.0) g/dL Hct 30.6 L (42.0-52.0) % Plt Count 133 L (150-375) k/mm3 BMP 01/04/25 04:13 Sodium 132 L Potassium 3.6 Chloride 103 Carbon Dioxide 27 BUN 22 H D Creatinine 0.71 Glucose 102 Calcium 8.3 L Cardiac Enzymes 01/03/25 01/04/25 Range/Units 21:45 04:13 Total Creatine Kinase 1075 H (55-170) U/L Troponin I 0.031 (0.000-0.034) ng/mL
[2025-01-04] MEDS: ATORVASTATIN 40 MG TABLET PO (22:01)
[2025-01-04] MEDS: MIRTAZAPINE 15 MG TABLET PO (22:02)
[2025-01-04] MEDS: PREGABALIN (*CRX) 50 MG CAPSULE 100 MG PO (22:02)
[2025-01-04] MEDS: LATANOPROST 0.005% OP SOLN 2.5 ML BTL 1 DROP EACH EYE (22:03)
[2025-01-04] MEDS: oxyCODONE HCL (*CRX) 5 MG TAB IR 10 MG PO (22:36)
[2025-01-05] MEDS: LORazepam (*CRX) 1 MG TABLET PO ×3 (05:19→21:10)
[2025-01-05 05:39] VITALS: BP 143/68; PULSE 72; RESP 18; TEMP 36.6; O2SAT 100
[2025-01-05 06:11] LABS: Hematocrit 35.5 % (42.0-52.0); Hemoglobin 12.0 g/dL (14.0-18.0); Mean Corpuscular HGB Conc 33.8 g/dl (32-36); Mean Corpuscular Hemoglobin 31.6 pg (26-34); Mean Corpuscular Volume 93.4 fl (80-100); Platelet Count Result 144 k/mm3 (150-375); Red Blood Count 3.80 M/mm3 (4.6-6.20); White Blood Count 8.4 K/mm3 (4.5-10.0)
[2025-01-05 06:46] LABS: Anion Gap 4 mmol/L (4-12); Blood Urea Nitrogen 13 mg/dL (9-20); Calcium 8.7 mg/dL (8.4-10.2); Carbon Dioxide 30 mmol/L (22-30); Chloride 101 mmol/L (98-107); Creatine Kinase 273 U/L (55-170); Estimated CRCL calculation 88 ml/min; Estimated Glomerular Filt Rate > 60; Glucose 94 mg/dL (65-110); Potassium 4.1 mmol/L (3.4-5.0); Sodium 135 mmol/L (137-145)
--- NOTE | 2025-01-05 09:23 | PM.IMPN ---
Progress Note: A&P Assessment and Plan (1) Epilepsy, unspecified, not intractable, without status epilepticus: Qualifiers: Epilepsy type: generalized idiopathic Qualified Code(s): G40.309 - Generalized idiopathic epilepsy and epileptic syndromes, not intractable, without status epilepticus Code(s): G40.909 - Epilepsy, unspecified, not intractable, without status epilepticus Status: Acute Assessment and Plan: Increase in seizure activity over the past 3 days prior to admission on 01/03. Patient concerned his facility has not been giving him his medications. Currently on Remeron and Keppra for his generalized seizure disorder. Phenytoin levels negative upon admission. Additionally on Aptiom per medication list for seizures. - check Keppra levels, if depleted will give loading dose of 1800 IV - given IV phenytoin 1 G in ED >> no longer on this medication per his facility medication list. medication not continued. - continue Remeron and Aptiom. - seizure precautions - neurology consult? will consider if Keppra levels therapeutic keppra level still pending neurology consulted continue seizure/fall precautions will downgrade to medsurg 01/05- lyrica dose increased to 100 mg bid per neurology as well as Keppra now 1250 bid (up from 1000 mg bid) -continue seizure precaution he will have to f/u with neurology as an outpt (2) Rhabdomyolysis: Qualifiers: Rhabdomyolysis type: non-traumatic Qualified Code(s): M62.82 - Rhabdomyolysis Code(s): M62.82 - Rhabdomyolysis Status: Acute Assessment and Plan: CK 4030 upon admission on 01/03. Likely related to increased seizure activity over the last 3 days. No associated DWAYNE. - IV fluids: 2L -> 125 mL/hr x1L - trend CK down - monitor renal function 01/05 ck is downtrending- 273 this morning (4030->1075-> 273) (3) Elevated troponin: Code(s): R79.89 - Other specified abnormal findings of blood chemistry Status: Acute Assessment and Plan: Initial troponin 0.046. No complaints of chest pain or symptoms concerning for ACS. EKG from the emergency department personally reviewed, showed NSR/rate 94. When compared to previous PVCs no longer present. Impression reading same. Suspect elevation in troponin secondary to rhabdo. - trend troponins down - telemetry monitoring - nitro SL p.r.n. - repeat EKG with 3 hour troponin (4) Essential (primary) hypertension: Code(s): I10 - Essential (primary) hypertension Status: Chronic Assessment and Plan: - chronic, currently 127/65, stable. - continue home medications: Amlodipine - monitor Plan Diet: Heart healthy GI Prophylaxis: N/a DVT Prophylaxis: Eliquis IV fluids: 2L -> 125 mL/hr x1L Lines/Tubes: Peripheral IV Code Status: Full code Time Spent With Patient Time with patient: 25 - 35 minutes Subjective Date/time seen: 01/05/25 09:23 Interval history: 64 y/o M with PMH of intellectual disability, epilepsy, and hypertension, diet-controlled diabetes who came in from [facility] for breakthrough seizures. The patient presents here from [facility] for further evaluation of recurrent/breakthrough seizures. The patient presenting he has been having increased seizure activity. He is unsure when they started to increase, however EMS reported they have been increasing for the past 3 days. Patient is also unable to elaborate how he knows he has had increased seizure activity recently. Just states he knows and can tell. Believes this may be due to his facility not giving him his medications, patient has no recollection of saying this in the emergency department. Currently on Keppra 1000 mg b.i.d. and Remeron. He is unsure where he follows with [facility]rology stating [facility]. Per last note at discharge in September of 2024, patient was on Keppra and Dilantin. Dilantin no longer on the patient's medication list. Patient poor historian. Initial VS at presentation: 98? F, HR 105, RR 11, 124/66, and 100% on RA. ED workup showed: WBC 10.9, hemoglobin 13.1 (at baseline), sodium 134, creatinine 0.96 and GFR >60, glucose 134, magnesium 2.6, AST 236/ALT 92, CK 4030, initial troponin 0.046. UA showed 1+ protein/1+ ketones/2+ blood/trace leuk esterase. Phenytoin <3. Viral PCR negative. CXR showed no acute cardiopulmonary abnormality. Head CT showed chronic encephalomalacia at the anteroinferior frontal lobes and temporal lobes which is a distribution typical of traumatic brain injury. EKG showed NSR, rate 94. Pt is seen and examined. Neurology made some changes to the regimen. NO reported seizures overnight. He denies chest pain, sob, n/v/d. Lyrica dose was increased yesterday per neurology as well. Review of Systems Review of Systems: All systems reviewed & are unremarkable except as noted in HPI and below Exam Const: General: comfortable and no acute distress Other: , male, nontoxic appearance, chronically ill-appearing HENMT: Face/Nose/Sinus: Normal nares present Mouth: Yes dry mucous membranes Eyes: General: appearance normal, both eyes and all related structures Sclera: sclerae normal Pupils: Equal, round and reactive pupils present EOM: EOMs intact bilaterally Resp: Effort & Inspection: normal respiratory effort Auscultation: clear to auscultation bilaterally Cardio: Rate: regular rate Rhythm: regular rhythm Other: S1-S2 present without murmur, rub, ectopy GI: Auscultation: normal bowel sounds Other: Abdomen soft, nondistended, nontender. Normoactive bowel sounds in all quadrants. Skin: General skin exam: normal color and no rashes or lesions noted Wounds: no wounds Neuro: Cranial nerves: Yes Equal, round and reactive pupils present Sensory Exam: normal sensation Other: Alert orientated to self, place, time. Poor situational recall. Moderate amplitude resting tremor to the bilateral upper extremities, symmetric. Forgetful. Slow speech selvin. Extrem: General: normal to inspection Psych: Mental Status: mental status grossly normal Affect: normal affect Other: Fair to poor insight and judgment, pleasant Objective Data Vital Signs Vital Signs: Vital Signs - 24 hr 01/04/25 10:00 01/04/25 11:56 01/04/25 12:00 Temperature 98.3 F Pulse Rate 66 78 72 Respiratory Rate 19 19 Blood Pressure 140/73 Pulse Oximetry 100 100 Oxygen Delivery Room Air 01/04/25 12:00 01/04/25 22:00 01/04/25 22:10 Temperature 97.8 F Pulse Rate 72 80 Respiratory Rate 19 Blood Pressure 132/63 Pulse Oximetry 100 Oxygen Delivery Room Air 01/05/25 05:39 Temperature 97.9 F Pulse Rate 72 Respiratory Rate 18 Blood Pressure 143/68 H Pulse Oximetry 100 Oxygen Delivery Intake/Output Intake/Output: Intake & Output 01/02/25 01/03/25 01/04/25 01/05/25 23:59 23:59 23:59 23:59 Intake Total 2360 1345.8 858 Output Total 650 1700 Balance 2360 695.8 -842 Meds/Results Medications: Active Medications Generic Name Dose Route Start Last Admin Trade Name Freq PRN Reason Stop Dose Admin Acetaminophen 1,000 mg 01/03/25 19:23 Acetaminophen 500 Mg Tablet PO Q6H PRN PAIN RATED 1-3 Amlodipine Besylate 10 mg 01/04/25 09:00 01/04/25 09:25 Amlodipine Besylate 10 Mg Tablet PO 10 mg DAILY RADHA Administration Apixaban 5 mg 01/03/25 21:00 01/04/25 22:01 Apixaban 5 Mg Tablet PO 5 mg Q12H RADHA Administration Artificial Tears 2 drop 01/03/25 19:23 Artificial Tears Ophth Soln 15 Ml Bottle EACH EYE TID PRN Dry Eye(s) Atorvastatin Calcium 40 mg 01/03/25 21:00 01/04/25 22:01 Atorvastatin 40 Mg Tablet PO 40 mg HS RADHA Administration Brimonidine Tartrate 1 drop 01/03/25 21:00 01/04/25 22:04 Brimonidine Tartrate 0.2% Op Soln 5 Ml Btl EACH EYE 1 drop Q12HR RADHA Administration Docusate Sodium 100 mg 01/03/25 21:00 01/04/25 22:01 Docusate Sodium 100 Mg Capsule PO 100 mg Q12HR RADHA Administration Dorzolamide HCl 1 drop 01/03/25 21:00 01/04/25 22:04 Dorzolamide Hcl 2% Ophth Drops EACH EYE 1 drop Q12HR RADHA Administration Latanoprost 1 drop 01/03/25 21:00 01/04/25 22:03 Latanoprost 0.005% Op Soln 2.5 Ml Btl EACH EYE 1 drop HS RADHA Administration Levetiracetam 250 mg 01/04/25 21:00 01/04/25 22:01 Levetiracetam 250 Mg Tablet PO 250 mg Q12HR RADHA Administration Levetiracetam 1,000 mg 01/04/25 21:00 01/04/25 22:02 Levetiracetam 500 Mg Tablet PO 1,000 mg Q12HR RADHA Administration Lidocaine 1 patch 01/03/25 19:31 Lidocaine 5% Patch TOPICAL DAILY PRN pain Lorazepam 1 mg 01/03/25 22:00 01/05/25 05:19 Lorazepam (*Crx) 1 Mg Tablet PO 1 mg Q8HR RADHA Administration Mirtazapine 15 mg 01/03/25 21:00 01/04/25 22:02 Mirtazapine 15 Mg Tablet PO 15 mg HS RADHA Administration Miscellaneous Information 1 each 01/04/25 00:01 Aptiom Is Nonform; Can Pt Use From Home? XX 02/03/25 00:00 CLARIFY RADHA Nitroglycerin 0.4 mg 01/03/25 16:27 Nitroglycerin Sl 0.4 Mg Tablet SUBLINGUAL Q5M PRN Chest Pain Oxycodone HCl 10 mg 01/03/25 19:23 01/04/25 22:36 Oxycodone Hcl (*Crx) 5 Mg Tab Ir PO 10 mg Q8H PRN Administration PAIN RATED 7-10 Polyethylene Glycol 17 gm 01/03/25 19:47 Polyethylene Glycol 3350 17 Gm Powd.Pack PO DAILY PRN Constipation Pregabalin 100 mg 01/04/25 21:00 01/04/25 22:02 Pregabalin (*Crx) 50 Mg Capsule PO 100 mg Q12HR RADHA Administration Pyridoxine HCl 100 mg 01/03/25 21:00 01/04/25 22:02 Pyridoxine Hcl 50 Mg Tablet PO 100 mg Q12H RADHA Administration Sertraline HCl 50 mg 01/04/25 09:00 01/04/25 09:24 Sertraline Hcl 50 Mg Tablet PO 50 mg QAM RADHA Administration Timolol Maleate 1 drop 01/03/25 21:00 01/04/25 22:03 Timolol Maleate 0.5% Op Soln 5 Ml Bottle EACH EYE 1 drop Q12HR RADHA Administration Vitamin D 50 mcg 01/04/25 09:00 01/04/25 09:23 Cholecalciferol (Vitamin D3) 25 Mcg (1,000 Units) Tablet PO 50 mcg DAILY RADHA Administration Radiology Results: ITS Impressions Chest X-Ray 01/03/25 14:05 Impression: No acute cardiopulmonary abnormality. Head CT 01/03/25 14:05 IMPRESSION: 1. Chronic encephalomalacia in the anteroinferior frontal lobes and temporal lobes, which is a distribution typical of traumatic brain injury. Labs Labs: Laboratory Results - last 24 hr 01/05/25 05:31 WBC 8.4 RBC 3.80 L Hgb 12.0 L Hct 35.5 L MCV 93.4 MCH 31.6 MCHC 33.8 RDW 12.7 Plt Count 144 L MPV 10.2 Sodium 135 L Potassium 4.1 Chloride 101 Carbon Dioxide 30 Anion Gap 4 BUN 13 D Creatinine 0.67 L Estim Creat Clear Calc 88 Estimated GFR > 60 Glucose 94 Calcium 8.7 Total Creatine Kinase 273 H Quality VTE Prophylaxis VTE prophylaxis: pharmacologic ordered
[2025-01-05] MEDS: PREGABALIN (*CRX) 50 MG CAPSULE 100 MG PO ×2 (09:24→21:11)
[2025-01-05] MEDS: APIXABAN 5 MG TABLET PO ×2 (09:24→21:11)
[2025-01-05] MEDS: DOCUSATE SODIUM 100 MG CAPSULE PO ×2 (09:24→21:11)
[2025-01-05] MEDS: PYRIDOXINE HCL 50 MG TABLET 100 MG PO ×2 (09:24→21:11)
[2025-01-05] MEDS: SERTRALINE HCL 50 MG TABLET PO (09:24)
[2025-01-05] MEDS: CHOLECALCIFEROL (VITAMIN D3) 25 MCG (1,000 UNITS) TABLET 50 MCG PO (09:24)
[2025-01-05] MEDS: TIMOLOL MALEATE 0.5% OP SOLN 5 ML BOTTLE 1 DROP EACH EYE ×2 (12:30→21:14)
[2025-01-05] MEDS: BRIMONIDINE TARTRATE 0.2% OP SOLN 5 ML BTL 1 DROP EACH EYE ×2 (12:30→21:14)
[2025-01-05] MEDS: DORZOLAMIDE HCL 2% OPHTH DROPS 1 DROP EACH EYE ×2 (12:30→21:14)
[2025-01-05 13:52] VITALS: BP 120/87; PULSE 81; RESP 16; TEMP 37; O2SAT 98
[2025-01-05] MEDS: MIRTAZAPINE 15 MG TABLET PO (21:11)
[2025-01-05] MEDS: ATORVASTATIN 40 MG TABLET PO (21:12)
[2025-01-05] MEDS: LATANOPROST 0.005% OP SOLN 2.5 ML BTL 1 DROP EACH EYE (21:14)
[2025-01-05 22:00] VITALS: BP 152/86; PULSE 84; RESP 16; TEMP 36.1; O2SAT 100
[2025-01-06] MEDS: LORazepam (*CRX) 1 MG TABLET PO ×2 (05:50→14:58)
[2025-01-06 05:51] VITALS: BP 141/78; PULSE 72; RESP 16; TEMP 36.1; O2SAT 100
[2025-01-06] MEDS: CHOLECALCIFEROL (VITAMIN D3) 25 MCG (1,000 UNITS) TABLET 50 MCG PO (09:23)
[2025-01-06] MEDS: PREGABALIN (*CRX) 50 MG CAPSULE 100 MG PO (09:24)
[2025-01-06] MEDS: DOCUSATE SODIUM 100 MG CAPSULE PO (09:24)
[2025-01-06] MEDS: APIXABAN 5 MG TABLET PO (09:24)
[2025-01-06] MEDS: SERTRALINE HCL 50 MG TABLET PO (09:24)
[2025-01-06] MEDS: PYRIDOXINE HCL 50 MG TABLET 100 MG PO (09:24)
[2025-01-06] MEDS: TIMOLOL MALEATE 0.5% OP SOLN 5 ML BOTTLE 1 DROP EACH EYE (09:25)
[2025-01-06] MEDS: ARTIFICIAL TEARS OPHTH SOLN 15 ML BOTTLE 2 DROP EACH EYE (09:26)
[2025-01-06] MEDS: BRIMONIDINE TARTRATE 0.2% OP SOLN 5 ML BTL 1 DROP EACH EYE (09:26)
[2025-01-06] MEDS: DORZOLAMIDE HCL 2% OPHTH DROPS 1 DROP EACH EYE (09:26)
--- NOTE | 2025-01-06 09:56 | P.PNIM_ITS ---
Progress Note: A&P Assessment and Plan (1) Epilepsy, unspecified, not intractable, without status epilepticus: Qualifiers: Epilepsy type: generalized idiopathic Qualified Code(s): G40.309 - Generalized idiopathic epilepsy and epileptic syndromes, not intractable, without status epilepticus Code(s): G40.909 - Epilepsy, unspecified, not intractable, without status epilepticus Status: Acute Assessment and Plan: Increase in seizure activity over the past 3 days prior to admission on 01/03. Patient concerned his facility has not been giving him his medications. Currently on Remeron and Keppra for his generalized seizure disorder. Phenytoin levels negative upon admission. Additionally on Aptiom per medication list for seizures. - head ct: Chronic encephalomalacia in the anteroinferior frontal lobes and temporal lobes, which is a distribution typical of traumatic brain injury. - check Keppra levels, if depleted will give loading dose of 1800 IV - given IV phenytoin 1 G in ED >> no longer on this medication per his facility medication list. medication not continued. - continue Remeron and Aptiom. - seizure precautions - neurology consulted lyrica dose increased to 100 mg bid Keppra now 1250 bid (up from 1000 mg bid (2) Rhabdomyolysis: Qualifiers: Rhabdomyolysis type: non-traumatic Qualified Code(s): M62.82 - Rhabdomyolysis Code(s): M62.82 - Rhabdomyolysis Status: Acute Assessment and Plan: CK 4030 upon admission on 01/03. Likely related to increased seizure activity over the last 3 days. No associated DWAYNE. - IV fluids: 2L -> 125 mL/hr x1L which has been discontinued ck is downtrending- 273 this morning (4030->1075-> 273) (3) Elevated troponin: Code(s): R79.89 - Other specified abnormal findings of blood chemistry Status: Acute Assessment and Plan: Initial troponin 0.046. No complaints of chest pain or symptoms concerning for ACS. EKG from the emergency department personally reviewed, showed NSR/rate 94. When compared to previous PVCs no longer present. Impression reading same. Suspect elevation in troponin secondary to rhabdo. - telemetry monitoring - nitro SL p.r.n. - repeat troponin downtrended back to WNL (4) Essential (primary) hypertension: Code(s): I10 - Essential (primary) hypertension Status: Chronic Assessment and Plan: - chronic, - continue home medications: Amlodipine - blood pressures reviewed and stable, continue to monitor Subjective Date/time seen: 01/06/25 09:56 Interval history: 64 y/o M with PMH of intellectual disability, epilepsy, and hypertension, diet- controlled diabetes who came in from long-term living place for breakthrough seizures. Review of Systems Review of Systems: All systems reviewed & are unremarkable except as noted in HPI and below Exam Narrative: AF General: well nourished, well-developed male in no acute respiratory distress wh o is nontoxic appearing, lying semi recumbent in bed. HEENT: Normocephalic. Atraumatic. Pupils equal round reactive to light. Extraocular movement intact. Sclera clear and anicteric. Nares patent. No oral lesions. Moist mucous membranes. Tongue is midline. Palate lauryn symmetrically. No facial asymmetry. Neck: Neck was supple. No dominant adenopathy, thyromegaly or masses. 2+ carotid upstrokes without bruits. Chest: Lungs are clear to auscultation bilaterlly. No wheezes or crackles. CV: Heart was regular rate and rhythm. S1/S2. No murmurs, gallops, or rubs. Abd: Abdomen was soft. Nontender. Nondistended. Postive bowel sounds. No organomegaly or masses. Ext: No clubbing, cyanosis, or edema. 2+ DP pulses bilaterally. Neuro: Patient is alert and oriented x4. Strenth is 5/5 in both upper and lower extremities. Cranial nerves 2-12 are intact. Speech is clear. Psych: Normal nood and affect. Patient is pleasant and cooperative. Skin: Warm and dry. No rashes noted. Objective Data Vital Signs Vital Signs: Vital Signs - 24 hr 01/05/25 13:52 01/05/25 13:53 01/05/25 20:00 Temperature 98.6 F Pulse Rate 81 Respiratory Rate 16 Blood Pressure 120/87 Pulse Oximetry 98 Oxygen Delivery Room Air Room Air 01/05/25 22:00 01/06/25 05:51 Temperature 97.0 F L 97.0 F L Pulse Rate 84 72 Respiratory Rate 16 16 Blood Pressure 152/86 H 141/78 H Pulse Oximetry 100 100 Oxygen Delivery Intake/Output Intake/Output: Intake & Output 01/03/25 01/04/25 01/05/25 01/06/25 23:59 23:59 23:59 23:59 Intake Total 2360 1345.8 2431 450 Output Total 650 6595 2221 Balance 2360 982.8 -2528 -449 Meds/Results Medications: Active Medications Generic Name Dose Route Start Last Admin Trade Name Freq PRN Reason Stop Dose Admin Acetaminophen 1,000 mg 01/03/25 19:23 Acetaminophen 500 Mg Tablet PO Q6H PRN PAIN RATED 1-3 Amlodipine Besylate 10 mg 01/04/25 09:00 01/06/25 09:24 Amlodipine Besylate 10 Mg Tablet PO 10 mg DAILY RADHA Administration Apixaban 5 mg 01/03/25 21:00 01/06/25 09:24 Apixaban 5 Mg Tablet PO 5 mg Q12H RADHA Administration Artificial Tears 2 drop 01/03/25 19:23 01/06/25 09:26 Artificial Tears Ophth Soln 15 Ml Bottle EACH EYE 2 drop TID PRN Administration Dry Eye(s) Atorvastatin Calcium 40 mg 01/03/25 21:00 01/05/25 21:12 Atorvastatin 40 Mg Tablet PO 40 mg HS RADHA Administration Brimonidine Tartrate 1 drop 01/03/25 21:00 01/06/25 09:26 Brimonidine Tartrate 0.2% Op Soln 5 Ml Btl EACH EYE 1 drop Q12HR RADHA Administration Docusate Sodium 100 mg 01/03/25 21:00 01/06/25 09:24 Docusate Sodium 100 Mg Capsule PO 100 mg Q12HR RADHA Administration Dorzolamide HCl 1 drop 01/03/25 21:00 01/06/25 09:26 Dorzolamide Hcl 2% Ophth Drops EACH EYE 1 drop Q12HR RADHA Administration Latanoprost 1 drop 01/03/25 21:00 01/05/25 21:14 Latanoprost 0.005% Op Soln 2.5 Ml Btl EACH EYE 1 drop HS RADHA Administration Levetiracetam 250 mg 01/04/25 21:00 01/06/25 09:23 Levetiracetam 250 Mg Tablet PO 250 mg Q12HR RADHA Administration Levetiracetam 1,000 mg 01/04/25 21:00 01/06/25 09:24 Levetiracetam 500 Mg Tablet PO 1,000 mg Q12HR RADHA Administration Lidocaine 1 patch 01/03/25 19:31 Lidocaine 5% Patch TOPICAL DAILY PRN pain Lorazepam 1 mg 01/03/25 22:00 01/06/25 05:50 Lorazepam (*Crx) 1 Mg Tablet PO 1 mg Q8HR RADHA Administration Mirtazapine 15 mg 01/03/25 21:00 01/05/25 21:11 Mirtazapine 15 Mg Tablet PO 15 mg HS RADHA Administration Miscellaneous Information 1 each 01/04/25 00:01 Aptiom Is Nonform; Can Pt Use From Home? XX 02/03/25 00:00 CLARIFY RADHA Nitroglycerin 0.4 mg 01/03/25 16:27 Nitroglycerin Sl 0.4 Mg Tablet SUBLINGUAL Q5M PRN Chest Pain Oxycodone HCl 10 mg 01/03/25 19:23 01/04/25 22:36 Oxycodone Hcl (*Crx) 5 Mg Tab Ir PO 10 mg Q8H PRN Administration PAIN RATED 7-10 Polyethylene Glycol 17 gm 01/03/25 19:47 Polyethylene Glycol 3350 17 Gm Powd.Pack PO DAILY PRN Constipation Pregabalin 100 mg 01/04/25 21:00 01/06/25 09:24 Pregabalin (*Crx) 50 Mg Capsule PO 100 mg Q12HR RADHA Administration Pyridoxine HCl 100 mg 01/03/25 21:00 01/06/25 09:24 Pyridoxine Hcl 50 Mg Tablet PO 100 mg Q12H RADHA Administration Sertraline HCl 50 mg 01/04/25 09:00 01/06/25 09:24 Sertraline Hcl 50 Mg Tablet PO 50 mg QAM RADHA Administration Timolol Maleate 1 drop 01/03/25 21:00 01/06/25 09:25 Timolol Maleate 0.5% Op Soln 5 Ml Bottle EACH EYE 1 drop Q12HR RADHA Administration Vitamin D 50 mcg 01/04/25 09:00 01/06/25 09:23 Cholecalciferol (Vitamin D3) 25 Mcg (1,000 Units) Tablet PO 50 mcg DAILY RADHA Administration Radiology Results: ITS Impressions Chest X-Ray 01/03/25 14:05 Impression: No acute cardiopulmonary abnormality. Head CT 01/03/25 14:05 IMPRESSION: 1. Chronic encephalomalacia in the anteroinferior frontal lobes and temporal lobes, which is a distribution typical of traumatic brain injury. Labs Labs: Laboratory Results - last 24 hr 01/06/25 08:16 POC Capillary Glucose 100 Quality VTE Prophylaxis VTE prophylaxis: pharmacologic ordered
[2025-01-06 10:33] LABS: Hematocrit 34.2 % (42.0-52.0); Hemoglobin 11.8 g/dL (14.0-18.0); Mean Corpuscular HGB Conc 34.5 g/dl (32-36); Mean Corpuscular Hemoglobin 31.9 pg (26-34); Mean Corpuscular Volume 92.4 fl (80-100); Platelet Count Result 155 k/mm3 (150-375); Red Blood Count 3.70 M/mm3 (4.6-6.20); White Blood Count 7.2 K/mm3 (4.5-10.0)
[2025-01-06 10:55] LABS: Alanine Aminotransferase 56 U/L (6-50); Albumin Level 3.5 g/dL (3.5-5.1); Alkaline Phosphatase 76 U/L (38-126); Anion Gap 3 mmol/L (4-12); Aspartate Amino Transferase 50 U/L (17-59); Bilirubin,Total 0.4 mg/dL (0.2-1.3); Blood Urea Nitrogen 11 mg/dL (9-20); Calcium 8.7 mg/dL (8.4-10.2); Carbon Dioxide 31 mmol/L (22-30); Chloride 96 mmol/L (98-107); Estimated CRCL calculation 99 ml/min; Estimated Glomerular Filt Rate > 60; Glucose 147 mg/dL (65-110); Potassium 3.3 mmol/L (3.4-5.0); Sodium 130 mmol/L (137-145); Total Protein 6.1 g/dL (6.3-8.2)
[2025-01-06 14:00] VITALS: BP 134/73; PULSE 73; RESP 16; TEMP 36.1; O2SAT 95
--- NOTE | 2025-01-06 14:21 | P.DS_ITS ---
DS: Admitting Diagnosis Discharge Date 01/06/2025 Admitting Diagnosis epilepsy rhabdomyolysis elevated troponin htn DS: Discharge Diagnosis Discharge Diagnosis (1) Epilepsy, unspecified, not intractable, without status epilepticus: Qualifiers: Epilepsy type: generalized idiopathic Qualified Code(s): G40.309 - Generalized idiopathic epilepsy and epileptic syndromes, not intractable, without status epilepticus Code(s): G40.909 - Epilepsy, unspecified, not intractable, without status epilepticus Status: Acute (2) Rhabdomyolysis: Qualifiers: Rhabdomyolysis type: non-traumatic Qualified Code(s): M62.82 - Rhabdomyolysis Code(s): M62.82 - Rhabdomyolysis Status: Acute (3) Elevated troponin: Code(s): R79.89 - Other specified abnormal findings of blood chemistry Status: Acute (4) Essential (primary) hypertension: Code(s): I10 - Essential (primary) hypertension Status: Chronic DS: Summary Hospital Course Reason for hospitalization: epilepsy rhabdomyolysis elevated troponin htn Hospital Course: 64-year-old male with a past medical history of mild intellectual disability, epilepsy, hypertension, and diet-controlled type 2 diabetes, who was admitted from a correction care facility for evaluation of increased seizure activity over the preceding three days. On arrival, he was a poor historian and unable to provide specific details regarding the frequency or characteristics of his seizures, but reported a subjective increase in episodes. Initial evaluation revealed stable vital signs, but laboratory studies were notable for elevated creatine kinase (CK 4030 U/L) and a mildly elevated troponin (0.046 ng/mL). Urinalysis showed mild proteinuria and hematuria, otherwise unremarkable. Head CT demonstrated chronic encephalomalacia in the anteroinferior frontal and temporal lobes, consistent with prior traumatic brain injury. EKG was unremarkable. In the emergency department, he received a loading dose of IV phenytoin, though this was not continued as it was not on his current medication list. His home antiepileptics included levetiracetam (Keppra), eslicarbazepine (Aptiom), and pregabalin (Lyrica), with mirtazapine for mood disorder were resumed pending neurology recommendations. Neurology was consulted and recommended continuing mirtazapine, increasing levetiracetam to 1250 mg BID and pregabalin to 100 mg BID, with continued seizure precautions. His Aptiom was discontinued after further discussion with neurology prior to discharge. There was no clinical or witnessed evidence of ongoing seizures during hospitalization. The patient?s rhabdomyolysis was attributed to possible unwitnessed seizure activity, with CK peaking at 4030 U/L and trending down to 273 U/L with IV fluid hydration. Renal function remained stable throughout admission, and there was no evidence of acute kidney injury. He remained asymptomatic denying muscle aches and pains. The mild troponin elevation was felt to be secondary to rhabdomyolysis, as the patient had no chest pain or ischemic symptoms, and serial EKGs and troponins remained stable. He was alert, oriented, and cooperative on time of discharge with no focal romina rologic deficits. By discharge, his CK had normalized, and he was back at his baseline mental status. Prior to discharge discussed patient with neurology patient who agreed with discharge from their perspective with follow up in the office. Patient had no complaints at time of discharge denying chest pain, palpitations, shortness of breath, nausea/vomiting, abdominal pain, and dizziness/lighthead edness. Patient discharged back to his facility in a stable condition. He is to follow up with his PCP in 1 week and neurology as scheduled. Status at Discharge Functional status at discharge: independent ambulation Time Spent with Patient Time attestation: Total time spent providing and/or coordinating discharge services: Time spent: Greater than 30 minutes Exam Narrative: AF HR 73 RR 16 Spo2 95 BP 134/73 General: male in no acute respiratory distress who is nontoxic appearing, lying semi recumbent in bed. HEENT: Normocephalic. Atraumatic. Extraocular movement intact. Sclera clear and anicteric.No facial asymmetry. Chest: Lungs are clear to auscultation bilaterally. No wheezes or crackles. CV: Heart was regular rate and rhythm. Abd: Abdomen was soft. Nontender. Nondistended. Positive bowel sounds. Ext: No clubbing, cyanosis, or edema. DP pulses bilaterally. Neuro: Patient is alert. Strength is 5/5 in both upper and lower extremities. Speech is clear. DS: Data Data Completed and Pending Completed studies during hospitalization: head ct chest xr Labs on day of discharge: Labs from last 24 hours 01/06/25 01/06/25 01/06/25 11:38 10:24 08:16 WBC 7.2 RBC 3.70 L Hgb 11.8 L Hct 34.2 L MCV 92.4 MCH 31.9 MCHC 34.5 RDW 12.5 Plt Count 155 MPV 9.7 Sodium 130 L Potassium 3.3 L Chloride 96 L Carbon Dioxide 31 H Anion Gap 3 L BUN 11 Creatinine 0.57 L Estim Creat Clear Calc 99 Estimated GFR > 60 Glucose 147 H POC Capillary Glucose 106 H 100 Calcium 8.7 Total Bilirubin 0.4 AST 50 ALT 56 H Alkaline Phosphatase 76 Total Protein 6.1 L Albumin 3.5 Levetiracetam 01/03/25 16:56 WBC RBC Hgb Hct MCV MCH MCHC RDW Plt Count MPV Sodium Potassium Chloride Carbon Dioxide Anion Gap BUN Creatinine Estim Creat Clear Calc Estimated GFR Glucose POC Capillary Glucose Calcium Total Bilirubin AST ALT Alkaline Phosphatase Total Protein Albumin Levetiracetam 26.9 Discharge Plan Discharge Attending physician on discharge: Cait Brooks Consulting providers: Dariel Franz; Lamar Garcia; Lorri Weems; Bernadine Madrigal; Ritu Hill; Yony Snell; Davonte Swift V. Discharging Clinician: Ammy Penn Anticipated Discharge Date/Time: 01/06/25 13:52 Patient Disposition: NH Fdc/Asst Living Activity: as tolerated Diet: as tolerated Discharge Instructions: Discharge disposition: 1. Medications * Keppra dose increased to 1250 mg q12 hours * Lyrica dose increased to 100 mg q12 hours * Stop Aptiom * Take your anti-seizure medications exactly as prescribed. Do not skip doses or stop taking your medication without medical advice. 2. Seizure Precautions * Avoid activities that could be dangerous if a seizure occurs (e.g., swimming alone, climbing ladders, operating heavy machinery, or driving until cleared by your provider and local laws). * Shower instead of taking baths to reduce the risk of drowning. * Use caution with sharp objects and hot surfaces. 3. Safety at Home * Inform family and close contacts about your condition and what to do during a seizure. * Consider wearing a medical alert bracelet. * Keep a padded mat or soft surface near your bed if you have seizures at night. * Remove sharp or hard objects from areas where you spend a lot of time. 4. When to Seek Immediate Medical Attention * Seizure lasts longer than 5 minutes. * You have repeated seizures without regaining consciousness between them. * You experience difficulty breathing, severe injury, or do not return to your usual state after a seizure. * You are or have diabetes and experience a seizure. 5. Follow-Up * Schedule a follow-up appointment with your neurology or primary care provider as directed. * Attached is the information to neurology office 6. Lifestyle and Triggers * Get adequate sleep and maintain a regular sleep schedule. * Avoid alcohol and recreational drugs, as these can lower your seizure threshold. * Manage stress as much as possible. * Identify and avoid known seizure triggers (flashing lights, certain medication s, etc.). 7. Driving and Legal Considerations * Do not drive until you have been cleared by your provider and meet state requirements regarding seizure-free periods. Monitor blood pressures Take caution while standing, rising, or moving Change positions slowly taking a break between each position change If you standing feel dizzy sit back down and take a break Encouraged to continue with yearly vaccinations Return to the emergency department if he developed sudden shortness of breath, chest pain, nausea, vomiting, upset stomach or intractable diarrhea Return to the emergency department if you develop fever greater than 100.5 Follow-up with the primary care physician within 1-2 weeks Thank you for [facility] for your healthcare needs Patient Instructions: Recurrent Seizures in Adults (DC) Patient Language: Kenyan Stand Alone Forms: General Discharge Information Follow-up/Referrals: Lamar Garcia MD [Physician, Neurology] - Call for Appointment UNKNOWN,DOCTOR [Primary Care Provider] - 1 Week Discharge Medications: Continued acetaminophen 500 mg capsule 1,000 mg PO Q6H PRN (Reason: pain) Qty: 30 0RF lidocaine 4 % adhesive patch,medicated 1 patch topical DAILY PRN (Reason: pain) Qty: 10 0RF oxycodone 10 mg tablet 10 mg PO Q8H PRN (Reason: pain) Qty: 14 0RF pyridoxine (vitamin B6) 100 mg tablet 100 mg PO Q12H sertraline 50 mg tablet 50 mg PO Q24H lorazepam [Ativan] 1 mg tablet 1 mg PO .q8hr Eliquis 5 mg tablet 5 mg PO Q12H dorzolamide 2 % drops 1 drp EACH EYE .q12hr cholecalciferol (vitamin D3) 50 mcg (2,000 unit) capsule 2,000 unit PO DAILY brimonidine-timolol [Combigan] 0.2-0.5 % drops 1 drp EACH EYE Q12H atorvastatin 40 mg tablet 40 mg PO HS amlodipine 10 mg tablet 10 mg PO DAILY latanoprost 0.005 % drops 1 drp EACH EYE HS mirtazapine 15 mg tablet 15 mg PO HS carboxymethylcellulose sodium 0.5 % drops 2 drp EACH EYE Q8H PRN (Reason: dry eye(s)) Artificial Tears([id number]) 1-0.2-0.2 % Drops 2 drp EACH EYE TID PRN (Reason: Dry Eye(S)) Qty: 5 0RF Changed levetiracetam [Keppra] 500 mg Tablet 1,250 mg PO Q12HR Qty: 60 0RF pregabalin 50 mg capsule 100 mg PO Q12H Qty: 30 0RF Discontinued eslicarbazepine [Aptiom] 800 mg tablet 800 mg PO DAILY No Action pregabalin 50 mg capsule 50 mg PO Q12H Date of admission: 01/04/25 15:10 Primary Care Provider: UNKNOWN,DOCTOR Admitting Provider: David Valadez Attending physician on admission: Ammy Penn Condition: Stable Hospitalist MIPS Heart Failure (Exclusion) Patient has history of Heart Transplant or Left Ventricular Assistive Device?: No IF YES, STOP HERE Heart Failure (Qualifier) Patient has current or prior documentation of LVEF less than or equal to 40%, or mod/servere depressed LVSF?: No IF NO, STOP HERE
--- NOTE | 2025-01-06 20:30 | PC.NURSE ---
Patient dischaged to [facility] at this time, prior to assessment. Patient belongings and personal items sent via Ambulance.
== END 2025-01-06 20:24 | DRG 101 ==
LOC: ANHED 15:44 → ANHIMU 17:03 → ANH3MEDSUR 01-04 15:18
PROVIDERS: Nurse Practitioner; Student in an Organized Health Care Education/Training Program; Admitting Provider Internal Medicine; Emergency Provider Emergency Medicine; Visit Provider Student in an Organized Health Care Education/Training Program
DX: G40.309 Generalized idiopathic epilepsy and epileptic syndromes, not intractable, without status epilepticus (principal); M62.82 Rhabdomyolysis; E87.1 Hypo-osmolality and hyponatremia; G93.49 Other encephalopathy; E78.2 Mixed hyperlipidemia; F32.A Depression, unspecified; F39 Unspecified mood [affective] disorder; F70 Mild intellectual disabilities; H25.9 Unspecified age-related cataract; E11.40 Type 2 diabetes mellitus with diabetic neuropathy, unspecified; I10 Essential (primary) hypertension; N40.1 Benign prostatic hyperplasia with lower urinary tract symptoms; R80.9 Proteinuria, unspecified; R31.0 Gross hematuria; Z20.822 Contact with and (suspected) exposure to COVID-19; Z74.1 Need for assistance with personal care; Z79.01 Long term (current) use of anticoagulants; Z79.891 Long term (current) use of opiate analgesic
CPT/HCPCS: 36415; 70450; 71045; 80048; 80053; 80177; 80185; 81001; 82550; 82948; 83605; 83735; 84484; 85025; 85027; 87637; 93005; 96361; 96365; 97162; 99285; A9270; G0378; J1165; J7030

== ENCOUNTER 2025-01-16 21:31 | Inpatient (IN) | payer MEDICARE, MEDICAID, SELFPAY ==
--- NOTE | ~2025-01-16 | CT_ITS ---
EXAMINATION: CTA abdomen pelvis DATE: 01/17/2025 01:01 INDICATION: Blood in stool. TECHNIQUE: Computed tomographic angiography (CTA) of the abdomen and pelvis was performed with 100 mL Omnipaque-350 intravenous contrast. Automated exposure control and iterative reconstruction technique were employed. The dose-length product was 433.33 mGy-cm. Maximum intensity projection 3D-reconstructions of the aorta and other arteries were constructed by the technologist on a separate workstation. COMPARISON: CT abdomen and pelvis 10/09/2024 FINDINGS: The visualized portions of the lung bases demonstrate mild atelectasis. There is septal thickening in right lower lobe, consistent with mild pulmonary edema. A calcified right lung nodule is consistent with old granulomatous disease. There is a trace right pleural effusion. The heart size is normal. No pericardial effusion. The liver and spleen are normal. The gallbladder is contracted. Gallbladder wall thickening is likely secondary to interstitial edema. There is widespread fat stranding in the abdomen. There is a 7 mm cyst in the tail of the pancreas, likely benign. The adrenal glands are normal. There is cortical thinning of the kidneys. There is a 5 mm cyst in right kidney. There is a 12 mm cyst in left kidney. The prostate is mildly enlarged. There is diverticulosis of the colon without evidence of diverticulitis. There are no dilated loops of bowel. The appendix is not visualized. There is a small volume of ascites. There is no significant stenosis of celiac axis, superior mesenteric artery, the renal arteries, or inferior mesenteric artery. There is severe lower lumbar spondylosis. There is mild chronic anterior wedging of multiple vertebral bodies. IMPRESSION: 1. No active hemorrhage identified. 2. Widespread fat stranding in the abdomen, which may be edema or acute interstitial pancreatitis. 3. Small volume of ascites. 4. Mild pulmonary edema. Reviewed, dictated and finalized at location E. CUTTER IMPRESSION: 1. No active hemorrhage identified. 2. Widespread fat stranding in the abdomen, which may be edema or acute interst itial pancreatitis. 3. Small volume of ascites. 4. Mild pulmonary edema.
[2025-01-16 22:42] VITALS: BP 120/73; PULSE 81; RESP 18; O2SAT 95
--- NOTE | 2025-01-16 22:43 | ED.RECABL ---
HPI - Recheck/Abnormal Lab/Rx General Chief Complaint: Recheck/Abnormal Lab/Rx <Keily Aguirre APRN - Last Filed: 01/17/25 04:21> Stated Complaint: low h&h <Keily Aguirre APRN - Last Filed: 01/17/25 04:21> Time Seen by Provider: 01/16/25 22:05 <Keily Aguirre APRN - Last Filed: 01/17/25 04:21> History of Present Illness HPI narrative: Patient is a 64-year-old male who presents to the ER with concerns of abnormal blood work. He reports he had a tonic clonic seizure last night. Per EMS, patient's blood work indicates he has a low hemoglobin and hematocrit. Patient denies any recent rectal bleeding, abdominal pain, urinary symptoms, headache, or shortness of breath. His medical records indicate he has a significant medical history including high blood pressure, hyperlipidemia, seizures, and intellectual delay. <Keily Aguirre APRN - Last Filed: 01/17/25 04:21> Related Data Home Medications: Home Medications ?Medication ?Instructions ?Recorded ?Confirmed ?Last Taken ?Type amlodipine 10 mg tablet 10 mg PO DAILY 07/11/24 01/03/25 10/08/24 History apixaban 5 mg tablet (Eliquis) 5 mg PO Q12H 07/11/24 01/03/25 10/08/24 History atorvastatin 40 mg tablet 40 mg PO HS 07/11/24 01/03/25 10/07/24 History brimonidine 0.2 %-timolol 0.5 % 1 drp EACH EYE Q12H 07/11/24 01/03/25 10/08/24 History eye drops (Combigan) cholecalciferol (vitamin D3) 50 2,000 unit PO DAILY 07/11/24 01/03/25 10/08/24 History mcg (2,000 unit) capsule dorzolamide 2 % eye drops 1 drp EACH EYE .q12hr 07/11/24 01/03/25 10/08/24 History latanoprost 0.005 % eye drops 1 drp EACH EYE HS 07/11/24 01/03/25 10/07/24 History lorazepam 1 mg tablet (Ativan) 1 mg PO .q8hr 07/11/24 01/03/25 10/08/24 History mirtazapine 15 mg tablet 15 mg PO HS 07/11/24 01/03/25 10/07/24 History pregabalin 50 mg capsule 50 mg PO Q12H 07/11/24 01/03/25 10/08/24 History pyridoxine (vitamin B6) 100 mg 100 mg PO Q12H 07/11/24 01/03/25 10/08/24 History tablet sertraline 50 mg tablet 50 mg PO Q24H 07/11/24 01/03/25 10/08/24 History carboxymethylcellulose sodium 0.5 2 drp EACH EYE Q8H PRN dry eye(s) 10/09/24 01/03/25 Unknown History % eye drops <Keily Aguirre, RICK - Last Filed: 01/17/25 04:21> Allergies/Adverse Reactions: Allergies Allergy/AdvReac Type Severity Reaction Status Date / Time Antihistamines - Ethanolamine Allergy Unknown Unknown Verified 01/17/25 01:25 cephalexin Allergy Unknown Unknown Verified 01/17/25 01:25 Cephalosporins Allergy Unknown Unknown Verified 01/17/25 01:25 diphenhydramine (From Allergy Unknown Unknown Verified 01/17/25 01:25 Benadryl) enoxaparin Allergy Unknown Unknown Verified 01/17/25 01:25 fexofenadine Allergy Unknown Unknown Verified 01/17/25 01:25 lactose Allergy Unknown Unknown Verified 01/17/25 01:25 milk Allergy Unknown Unknown Verified 01/17/25 01:25 olanzapine Allergy Unknown Unknown Verified 01/17/25 01:25 rofecoxib Allergy Unknown Unknown Verified 01/17/25 01:25 Sulfa (Sulfonamide Allergy Unknown Unknown Verified 01/17/25 01:25 Antibiotics) valproic acid Allergy Unknown Unknown Verified 01/17/25 01:25 zinc Allergy Unknown Unknown Verified 01/17/25 01:25 zolpidem Allergy Unknown Unknown Verified 01/17/25 01:25 <Keily Aguirre, RICK - Last Filed: 01/17/25 04:21> Review of Systems Review of Systems: All systems reviewed & are unremarkable except as noted in HPI and below <Keily Aguirre APRN - Last Filed: 01/17/25 04:21> [facility] Past Medical History Medical History: Medical History Type 2 diabetes mellitus without complications 5.4% in September of 2024, not currently on medications as of December of 2024 Hypo-osmolality and hyponatremia Encounter for screening colonoscopy Unspecified severe protein-calorie malnutrition Unspecified mood [affective] disorder Other age-related cataract Mixed hyperlipidemia Essential (primary) hypertension Depression, unspecified Cognitive communication deficit Unspecified open-angle glaucoma, stage unspecified Sleep disorder, unspecified Mild 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, unspecified Epilepsy, unspecified, not intractable, without status epilepticus Conversion disorder with seizures or convulsions Benign prostatic hyperplasia without lower urinary tract symptoms <Keily Aguirre APRN - Last Filed: 01/17/25 04:21> Social History Social History: Social History Smoking status: Never smoker Second hand tobacco smoke exposure: No (Unknown) Alcohol intake: never Substance use: never Lack of Transportation: No Lack of Food: Never True Current Housing: I Have Housing Concerned About Future Housing: No Difficulty Paying Gas/Electric Bills: No Difficulty Paying for Meds: No Currently Unemployed: No Education: High School Diploma/GED Difficulty w/ Childcare or Family Care: No Living arrangements: long term Additional living arrangements comments: [facility] since 04/09/24 Spiritual care concerns: No <Keily Aguirre APRN - Last Filed: 01/17/25 04:21> Exam Narrative: GENERAL: Well appearing, well-nourished, non-toxic, in no acute distress. HEAD: Normocephalic, atraumatic. NECK: Supple. No adenopathy, no masses. RESPIRATORY: Airway patent, respirations nonlabored. Clear to auscultation bilaterally, no rales, rhonchi, wheezing. CARDIOVASCULAR: Regular rate and rhythm without murmurs, rubs, or gallops. Peripheral pulses 2+ and equal bilaterally. ABDOMINAL: Soft, nontender, nondistended, no hepatosplenomegaly. Normoactive BS. MUSCULOSKELETAL: Moves all extremities. Strength/ROM intact without gross deformities. SKIN: Warm, dry, pallor. No rashes. NEURO: A&O X3. Speech clear. Cranial nerves II-XII intact. No ataxic movements. PSYCHIATRIC: Appropriate mood and affect. Normal interaction. : Patient's Hemoccult was positive. No palpable hemorrhoids with internal examination. No visible blood or external hemorrhoids. <Keily Aguirre, CUSTOMS COLLECTOR - Last Filed: 01/17/25 04:21> Course [employer]IMAL VETERINARIAN/PA Physician Supervision This visit was performed by both a physician and an APC. I performed all aspects of the MDM as documented. <Rashaad Silveira, - Last Filed: 01/17/25 04:40> Vital Signs Vital signs: Vital Signs Pulse Rate 81 01/16/25 22:42 Respiratory Rate 18 01/16/25 22:42 Blood Pressure 120/73 01/16/25 22:42 Pulse Oximetry 95 01/16/25 22:42 Temperature 97.6 F 01/17/25 03:23 Pulse Rate 72 01/17/25 03:23 Respiratory Rate 15 01/17/25 03:23 Blood Pressure 122/57 L 01/17/25 03:23 Pulse Oximetry 98 01/17/25 03:23 <Keily Aguirre, CUSTOMS COLLECTOR - Last Filed: 01/17/25 04:21> Vital Signs Pulse Rate 81 01/16/25 22:42 Respiratory Rate 18 01/16/25 22:42 Blood Pressure 120/73 01/16/25 22:42 Pulse Oximetry 95 01/16/25 22:42 Temperature 97.6 F 01/17/25 03:23 Pulse Rate 72 01/17/25 03:23 Respiratory Rate 15 01/17/25 03:23 Blood Pressure 122/57 L 01/17/25 03:23 Pulse Oximetry 98 01/17/25 03:23 <Rashaad Silveira, - Last Filed: 01/17/25 04:40> [facility] MDM Narrative Medical decision making narrative: Patient is a 64-year-old male who presents to the ER with concerns of abnormal blood work. He reports he had a tonic clonic seizure last night. Per EMS, patient's blood work indicates he has a low hemoglobin and hematocrit. Patient denies any recent rectal bleeding, abdominal pain, urinary symptoms, headache, or shortness of breath. His medical records indicate he has a significant medical history including high blood pressure, hyperlipidemia, seizures, and intellectual delay. Labs Ordered: CBC, CMP, lipase, type and screen, UA, PTT, INR Imaging Ordered: CTA abdomen pelvis Medications Ordered: 1 L normal saline IV bolus, 2 units RBCs Results: Patient's CT scan indicates edematous pancreas with peripancreatic fat stranding concerning for acute pancreatitis. No apparent time all necrosis or organized peripancreatic collections. Correlate with serum lipase. Mild ascites. No active gastrointestinal bleeding identified. Trace right pleural effusion. Nonspecific gallbladder wall edema without convincing evidence of cholecystitis. Liver, spleen, and adrenal glands are unremarkable. No hydronephrosis. Small left kidney cyst. No aortic aneurysm or dissection. No bowel obstruction. Diverticulosis without diverticulitis. Appendix not identified. Unremarkable urinary bladder. Unremarkable prostate. No acute osseous findings. Diagnosis: rectal bleed, low hemoglobin Consults: 0145- Spoke with scientific affairs manager, Dr. Bell, who was in agreement with consulting on pt once he is admitted to the hospital. MDM: Results of imaging and lab work shared with patient. It was advised patient be admitted to the hospital for further evaluation and treatment. Patient verbalized understanding and are in agreement with plan. 0230- Spoke with hospitalist, Dr. Kline, who was in agreement with plan for admission to hospital. Pt will be admitted to the med/surg floor with telemetry. He will receive a dose of Prilosec here in the ER. Pt will remain NPO at this time. <Keily Aguirre APRN - Last Filed: 01/17/25 04:21> Differential Diagnosis Differential Diagnosis: Rectal bleed, anemia, small-bowel obstruction, urinary tract infection <Keily Aguirre APRN - Last Filed: 01/17/25 04:21> Lab Data [facility] Lab Attestation statement: I personally reviewed the patient's lab results. <Keily Aguirre APRN - Last Filed: 01/17/25 04:21> Result diagrams: 01/16/25 23:46 01/16/25 23:46 <Keily Aguirre APRN - Last Filed: 01/17/25 04:21> Labs: Lab Results 01/16/25 01/17/25 Range/Units 23:46 00:39 WBC 12.2 H (4.5-10.0) K/mm3 RBC 1.75 L (4.6-6.20) M/mm3 Hgb 5.8 L* D (14.0-18.0) g/dL Hct 17.7 L* (42.0-52.0) % MCV 101.1 H (80-100) fl MCH 33.1 (26-34) pg MCHC 32.8 (32-36) g/dl RDW 15.9 H (11.5-14.5) % Plt Count 273 D (150-375) k/mm3 MPV 11.0 H (7.4-10.4) fl Immature Gran % (Auto) 0.4 (0-0.5) % Neut % (Auto) 67.8 (45.5-73.1) % Lymph % (Auto) 22.9 (18.3-44.2) % [place] % (Auto) 6.4 (2.6-8.5) % Eos % (Auto) 2.2 (0-4.4) % Baso % (Auto) 0.3 (0.2-1.2) % Lymph # (Auto) 2.79 (0.9-3.2) K/mm3 [place] # (Auto) 0.8 H (0.1-0.6) K/mm3 Eos # (Auto) 0.3 (0-0.3) K/mm3 Baso # (Auto) 0.0 (0.0-0.1) K/mm3 Abs Immat Gran (auto) 0.05 H (0.00-0.031) K/mm3 Absolute Neuts (auto) 8.2 H (1.3-6.7) K/mm3 Absolute Nucleated RBC 0.040 H (0.0-0.012) K/mm3 Nucleated RBC % 0.3 H (0.0-0.2) % PT 13.0 (11.1-14.7) Seconds INR 1.0 APTT 20.4 L (22.3-36.8) Seconds Sodium 133 L (137-145) mmol/L Potassium 3.5 (3.4-5.0) mmol/L Chloride 99 (98-107) mmol/L Carbon Dioxide 31 H (22-30) mmol/L Anion Gap 3 L (4-12) mmol/L BUN 18 (9-20) mg/dL Creatinine 0.86 (0.7-1.3) mg/dL Estim Creat Clear Calc Not Reportable Estimated GFR > 60 (59 - ) Glucose 109 (65-110) mg/dL Calcium 8.8 (8.4-10.2) mg/dL Total Bilirubin 0.4 (0.2-1.3) mg/dL AST 92 H (17-59) U/L ALT 123 H (6-50) U/L Alkaline Phosphatase 82 (38-126) U/L Total Protein 6.2 L (6.3-8.2) g/dL Albumin 3.6 (3.5-5.1) g/dL Lipase 176 (23-300) U/L Urine Color Yellow (Yellow) Urine Appearance Clear (Clear) Urine pH 6.5 (5.0-9.0) Ur Specific [place] 1.015 (1.001-1.035) Urine Protein Negative (Negative) mg/dL Urine Glucose (UA) Trace H (Negative) mg/dL Urine Ketones Negative (Negative) mg/dL Ur Blood (Man) Negative (Negative) Urine Nitrate Negative (Negative) Urine Bilirubin Negative (Negative) Urine Urobilinogen 0.2 (<2.0) mg/dL Leukocyte Esterase Rfl Negative (Negative) LEO/UL Blood Type A Positive Antibody Screen Negative Crossmatch See Detail <Keily Aguirre, CUSTOMS COLLECTOR - Last Filed: 01/17/25 04:21> Lab Results 01/16/25 01/17/25 Range/Units 23:46 00:39 WBC 12.2 H (4.5-10.0) K/mm3 RBC 1.75 L (4.6-6.20) M/mm3 Hgb 5.8 L* D (14.0-18.0) g/dL Hct 17.7 L* (42.0-52.0) % MCV 101.1 H (80-100) fl MCH 33.1 (26-34) pg MCHC 32.8 (32-36) g/dl RDW 15.9 H (11.5-14.5) % Plt Count 273 D (150-375) k/mm3 MPV 11.0 H (7.4-10.4) fl Immature Gran % (Auto) 0.4 (0-0.5) % Neut % (Auto) 67.8 (45.5-73.1) % Lymph % (Auto) 22.9 (18.3-44.2) % [place] % (Auto) 6.4 (2.6-8.5) % Eos % (Auto) 2.2 (0-4.4) % Baso % (Auto) 0.3 (0.2-1.2) % Lymph # (Auto) 2.79 (0.9-3.2) K/mm3 [place] # (Auto) 0.8 H (0.1-0.6) K/mm3 Eos # (Auto) 0.3 (0-0.3) K/mm3 Baso # (Auto) 0.0 (0.0-0.1) K/mm3 Abs Immat Gran (auto) 0.05 H (0.00-0.031) K/mm3 Absolute Neuts (auto) 8.2 H (1.3-6.7) K/mm3 Absolute Nucleated RBC 0.040 H (0.0-0.012) K/mm3 Nucleated RBC % 0.3 H (0.0-0.2) % PT 13.0 (11.1-14.7) Seconds INR 1.0 APTT 20.4 L (22.3-36.8) Seconds Sodium 133 L (137-145) mmol/L Potassium 3.5 (3.4-5.0) mmol/L Chloride 99 (98-107) mmol/L Carbon Dioxide 31 H (22-30) mmol/L Anion Gap 3 L (4-12) mmol/L BUN 18 (9-20) mg/dL Creatinine 0.86 (0.7-1.3) mg/dL Estim Creat Clear Calc Not Reportable Estimated GFR > 60 (59 - ) Glucose 109 (65-110) mg/dL Calcium 8.8 (8.4-10.2) mg/dL Total Bilirubin 0.4 (0.2-1.3) mg/dL AST 92 H (17-59) U/L ALT 123 H (6-50) U/L Alkaline Phosphatase 82 (38-126) U/L Total Protein 6.2 L (6.3-8.2) g/dL Albumin 3.6 (3.5-5.1) g/dL Lipase 176 (23-300) U/L Urine Color Yellow (Yellow) Urine Appearance Clear (Clear) Urine pH 6.5 (5.0-9.0) Ur Specific [place] 1.015 (1.001-1.035) Urine Protein Negative (Negative) mg/dL Urine Glucose (UA) Trace H (Negative) mg/dL Urine Ketones Negative (Negative) mg/dL Ur Blood (Man) Negative (Negative) Urine Nitrate Negative (Negative) Urine Bilirubin Negative (Negative) Urine Urobilinogen 0.2 (<2.0) mg/dL Leukocyte Esterase Rfl Negative (Negative) LEO/UL Blood Type A Positive Antibody Screen Negative Crossmatch See Detail <Rashaad Silveira DO - Last Filed: 01/17/25 04:40> Imaging Data Attestation: I personally reviewed and interpreted this imaging study as follows: <Keily Aguirre APRN - Last Filed: 01/17/25 04:21> Radiologist's impression: Patient's CT scan indicates edematous pancreas with peripancreatic fat stranding concerning for acute pancreatitis. No apparent time all necrosis or organized peripancreatic collections. Correlate with serum lipase. Mild ascites. No active gastrointestinal bleeding identified. Trace right pleural effusion. Nonspecific gallbladder wall edema without convincing evidence of cholecystitis. Liver, spleen, and adrenal glands are unremarkable. No hydronephrosis. Small left kidney cyst. No aortic aneurysm or dissection. No bowel obstruction. Diverticulosis without diverticulitis. Appendix not identified. Unremarkable urinary bladder. Unremarkable prostate. No acute osseous findings. <Keily Aguirre APRN - Last Filed: 01/17/25 04:21> Discharge Plan Discharge Clinical Impression: Low hemoglobin, GI bleed <Keily Aguirre APRN - Last Filed: 01/17/25 04:21> Patient Disposition: Still a Patient <Keily Aguirre APRN - Last Filed: 01/17/25 04:21> Condition: Guarded Prognosis <Keily Aguirre APRN - Last Filed: 01/17/25 04:21>
[2025-01-16] MEDS: SODIUM CHLORIDE 0.9% IV 1,000 ML 999 ML IV CONT (23:47)
[2025-01-16 23:55] LABS: Immature Granulocyte Percent A 0.4 % (0-0.5); Lymphocytes Absolute Auto 2.79 K/mm3 (0.9-3.2); Mean Corpuscular HGB Conc 32.8 g/dl (32-36); Mean Corpuscular Hemoglobin 33.1 pg (26-34); Mean Corpuscular Volume 101.1 fl (80-100); Nucleated Red Blood Cells Absolute Auto 0.040 K/mm3 (0.0-0.012); Nucleated Red Blood Cells Perc 0.3 % (0.0-0.2); Platelet Count Result 273 k/mm3 (150-375); Red Blood Count 1.75 M/mm3 (4.6-6.20); White Blood Count 12.2 K/mm3 (4.5-10.0)
[2025-01-17] VITALS (24 sets, daily range): BP systolic 83–145; BP diastolic 42–84; PULSE 66–104; RESP 15–23; TEMP 36.4–37.1; O2SAT 97–100; BMI 21.1
[2025-01-17] LABS: Hemoglobin 5.8 g/dL (14.0-18.0)
[2025-01-17 00:01] LABS: Hematocrit 17.7 % (42.0-52.0)
[2025-01-17 00:05] LABS: INR 1.0; Prothrombin Time 13.0 Seconds (11.1-14.7)
[2025-01-17 00:06] LABS: Partial Thromboplastin Time 20.4 Seconds (22.3-36.8)
[2025-01-17 00:20] LABS: Alanine Aminotransferase 123 U/L (6-50); Albumin Level 3.6 g/dL (3.5-5.1); Alkaline Phosphatase 82 U/L (38-126); Anion Gap 3 mmol/L (4-12); Aspartate Amino Transferase 92 U/L (17-59); Bilirubin,Total 0.4 mg/dL (0.2-1.3); Blood Urea Nitrogen 18 mg/dL (9-20); Calcium 8.8 mg/dL (8.4-10.2); Carbon Dioxide 31 mmol/L (22-30); Chloride 99 mmol/L (98-107); Estimated Glomerular Filt Rate > 60; Glucose 109 mg/dL (65-110); Lipase 176 U/L (23-300); Potassium 3.5 mmol/L (3.4-5.0); Sodium 133 mmol/L (137-145); Total Protein 6.2 g/dL (6.3-8.2)
[2025-01-17 00:48] LABS: Add Urine Microscopic? NO; Appearance Urine Clear (Clear); Glucose Urine UA Trace mg/dL (Negative); Leukocyte Esterase Ur Negative LEU/UL (Negative); Nitrate Urine Negative (Negative); Specific Grav Ur 1.015 (1.001-1.035)
[2025-01-17] MEDS: TUBING, BLOOD PLUM PUMP TUBING 1 EACH XX ×2 (01:18→05:05)
[2025-01-17] MEDS: SODIUM CHLORIDE 0.9% IV 250 ML 30 ML IV CONT (01:18)
--- NOTE | 2025-01-17 04:50 | WPCEDHO ---
ED Hand Off Checklist All vitals saved: Yes IV Site documented: Yes All med administrations documented: Yes Triage Note Triage Note Pt to ed from [facility] of 01/16/25 21:32 [place] for low H&H. Pt states he has no complaints. Allergies Antihistamines - Ethanolamine Allergy (Unknown, Verified 01/17/25:25) Unknown cephalexin Allergy (Unknown, Verified 01/17/25:25) Unknown Cephalosporins Allergy (Unknown, Verified 01/17/25:25) Unknown diphenhydramine (From Benadryl) Allergy (Unknown, Verified 01/17/25:25) Unknown enoxaparin Allergy (Unknown, Verified 01/17/25:25) Unknown fexofenadine Allergy (Unknown, Verified 01/17/25:) Unknown lactose Allergy (Unknown, Verified 01/17/25:25) Unknown milk Allergy (Unknown, Verified 01/17/25:25) Unknown olanzapine Allergy (Unknown, Verified 01/17/25:25) Unknown rofecoxib Allergy (Unknown, Verified 01/17/25:25) Unknown Sulfa (Sulfonamide Antibiotics) Allergy (Unknown, Verified 01/17/25:25) Unknown valproic acid Allergy (Unknown, Verified 01/17/25:25) Unknown zinc Allergy (Unknown, Verified 01/17/25:25) Unknown zolpidem Allergy (Unknown, Verified 01/17/25:25) Unknown Active Medications including assessments/comments Sodium Chloride (Normal Saline Iv) 250 mls @ 30 mls/hr IV CONT .Q8H20M STA Stop: 01/17/25 08:21 Last Admin: 01/17/25 01:18 Dose: 30 mls/hr Documented By: CR Infusion/Titration Document 01/17/25 01:18 CR (Rec: 01/17/25 01:18 CR [id number]) Intake IV Site Peripheral Access Right Arm, Upper Container Volume 250 Waste Amount 0 Dosing Infusion Rate 30 Cumulative Dose Not Applicable Increase/Decrease Started Elapsed Time Elapsed Time ( 0m minutes) Administered/Completed Medications Discontinued Medications Sodium Chloride (Normal Saline Iv) 1,000 mls @ 999 mls/hr IV CONT .Q1H1M STA Stop: 01/16/25 23:41 Last Infusion: 01/17/25 01:07 Dose: Infused Documented By: Admin: 01/16/25 23:47 Dose: 999 mls/hr Documented By: CR IV Miscellaneous Supplies (Tubing, Blood [place] Pump Tubing) Confirm Administered Dose 1 each XX .STK-MED ONE Stop: 01/17/25 01:10 Last Admin: 01/17/25 01:18 Dose: 1 each Documented By: CR Interventions/Assessments General Assessment Start: 01/16/25 21:28 Freq: Status: Active Protocol: Document 01/17/25 01:26 CR (Rec: 01/17/25 01:26 CR [id number]) GA Neurological Assessment Neurological Yes Assessment WNL Level of Alert,Awake Consciousness Arousable to Verbal Orientation Oriented to Person,Oriented to Place,Oriented to Time Behavior Appropriate,Cooperative Patient Able to Comprehend Comprehension Memory Description Intact Facial Symmetry Symmetrical IV / Saline Lock, Insert Start: 01/16/25 21:28 Freq: Status: Active Protocol: Document 01/16/25 23:48 CR (Rec: 01/16/25 23:48 CR [id number]) IV Assessment Peripheral Access Right Arm, Upper IV Catheter Access Initiated IV Insertion Date 01/16/25 IV Insertion Time 23:48 Catheter Gauge 18 IV Insertion 1 Attempts IV Site Assessment WNL IV Care and WNL Maintenance Last Vital Signs Temperature 98.4 F 01/17/25 04:39 Pulse Rate 93 01/17/25 04:39 Respiratory Rate 16 01/17/25 04:39 Pulse Oximetry 97 01/17/25 04:39 Blood Pressure 141/71 H 01/17/25 04:39 Blood Pressure Mean 94 01/17/25 04:39 Blood Pressure Position Supine 01/17/25 03:23 Last Result - Abnormals Only WBC 12.2 K/mm3 (4.5-10.0) H 01/16/25 23:46 RBC 1.75 M/mm3 (4.6-6.20) L 01/16/25 23:46 Hgb 5.8 g/dL (14.0-18.0) L* D 01/16/25 23:46 Hct 17.7 % (42.0-52.0) L* 01/16/25 23:46 MCV 101.1 fl (80-100) H 01/16/25 23:46 RDW 15.9 % (11.5-14.5) H 01/16/25 23:46 MPV 11.0 fl (7.4-10.4) H 01/16/25 23:46 [place] # (Auto) 0.8 K/mm3 (0.1-0.6) H 01/16/25 23:46 Abs Immat Gran (auto) 0.05 K/mm3 (0.00-0.031) H 01/16/25 23:46 Absolute Neuts (auto) 8.2 K/mm3 (1.3-6.7) H 01/16/25 23:46 Absolute Nucleated RBC 0.040 K/mm3 (0.0-0.012) H 01/16/25 23:46 Nucleated RBC % 0.3 % (0.0-0.2) H 01/16/25 23:46 APTT 20.4 Seconds (22.3-36.8) L 01/16/25 23:46 Sodium 133 mmol/L (137-145) L 01/16/25 23:46 Carbon Dioxide 31 mmol/L (22-30) H 01/16/25 23:46 Anion Gap 3 mmol/L (4-12) L 01/16/25 23:46 AST 92 U/L (17-59) H 01/16/25 23:46 ALT 123 U/L (6-50) H 01/16/25 23:46 Total Protein 6.2 g/dL (6.3-8.2) L 01/16/25 23:46 Urine Glucose (UA) Trace mg/dL (Negative) H 01/17/25 00:39 Crossmatch See Detail 01/16/25 23:46 Most Recent Suicide Severity Rating Suicide Severity Rating NO RISK INDICATED 01/16/25 21:32
[2025-01-17] MEDS: PANTOPRAZOLE SODIUM IV 40 MG VIAL 80 MG IV PUSH (05:05)
--- NOTE | 2025-01-17 05:44 | ADMGEN ---
This patient, Jairon Dennis, was admitted to 3 [facility] Surg Room 306-01.Arrived @0530. Patient oriented to hospital policies and general routines including ID bracelet, bed and alarms, visiting hours, pain management, procedures, bathroom and other care routines, personal items, smoking policy, room service/diet, and visiting hours. Information on how to activate the Rapid Response Team has been discussed. Patient is encouraged to report perceived risks to care and to ask questions if they do not understand what they are told or what they should do.
--- NOTE | 2025-01-17 08:02 | PM.IMHP2 ---
H&P: HPI History of Present Illness Date/Time: 01/17/25 08:02 Chief Complaint: abnormal labs Narrative: Patient is a 64 year old male with PMH of epilepsy, HTN, HLD, intellectual delay, BPH and depression. Patient presented to the ER from his halfway due to abnormal labs (low hemoglobin and hematocrit). Patient denied any rectal bleeding or coffee ground emesis. Patient did report he had a seizure last night. In the ER the patient's labs showed a wbc 12.2, hemoglobin 5.8 and hematocrit 17.7. Other labs were sodium 133, UA unremarkable and stool was occult blood positive. Patient was transfused 2 units PRBC's overnight. GI was consulted and will see patient today. Patient had a CTA of the abdomen and pelvis which did not identify any acute GI bleeding. CT did show edematous pancreas with peripancreatic fat stranding concerning for acute pancreatitis. Lipase was WNL at 176 and patient denies acute abdominal pain. Patient will remain NPO for now. IV Protonix and IV fluids. Serial H&H every 6 hours. Patient admitted for further evaluation and treatment. Review of Systems Review of Systems: All systems reviewed & are unremarkable except as noted in HPI and below PMFSH Past Medical History Medical History (Updated 01/17/25 @ 12:02 by Renetta Galeano APRN) Blood thinned due to long-term anticoagulant use Acute on chronic blood loss anemia Melena Type 2 diabetes mellitus without complications 5.4% in September of 2024, not currently on medications as of December of 2024 Hypo-osmolality and hyponatremia Encounter for screening colonoscopy Unspecified severe protein-calorie malnutrition Unspecified mood [affective] disorder Other age-related cataract Mixed hyperlipidemia Essential (primary) hypertension Depression, unspecified Cognitive communication deficit Unspecified open-angle glaucoma, stage unspecified Sleep disorder, unspecified Mild 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, unspecified Epilepsy, unspecified, not intractable, without status epilepticus Conversion disorder with seizures or convulsions Benign prostatic hyperplasia without lower urinary tract symptoms Social History Social History Smoking status: Never smoker Second hand tobacco smoke exposure: No (Unknown) Alcohol intake: never Substance use: never Lack of Transportation: No Lack of Food: Never True Current Housing: I Have Housing Concerned About Future Housing: No Difficulty Paying Gas/Electric Bills: No Difficulty Paying for Meds: No Currently Unemployed: No Education: High School Diploma/GED Difficulty w/ Childcare or Family Care: No Living arrangements: halfway Additional living arrangements comments: [facility] since 04/09/24 Spiritual care concerns: No Meds Home Medications and Allergies Home Medications ?Medication ?Instructions ?Recorded ?Confirmed ?Type acetaminophen 500 mg capsule 1,000 mg (2 x 500 mg) PO Q6H PRN 04/29/24 01/17/25 Rx pain #30 caps lidocaine 4 % topical patch 1 patch topical DAILY PRN pain #10 04/29/24 01/17/25 Rx ea oxycodone 10 mg tablet 10 mg PO Q8H PRN pain #14 tabs 04/29/24 01/17/25 Rx amlodipine 10 mg tablet 10 mg PO DAILY 07/11/24 01/17/25 History apixaban 5 mg tablet (Eliquis) 5 mg PO Q12H 07/11/24 01/17/25 History atorvastatin 40 mg tablet 40 mg PO HS 07/11/24 01/17/25 History brimonidine 0.2 %-timolol 0.5 % 1 drp EACH EYE Q12H 07/11/24 01/17/25 History eye drops (Combigan) cholecalciferol (vitamin D3) 50 2,000 unit PO DAILY 07/11/24 01/17/25 History mcg (2,000 unit) capsule dorzolamide 2 % eye drops 1 drp EACH EYE .q12hr 07/11/24 01/17/25 History latanoprost 0.005 % eye drops 1 drp EACH EYE HS 07/11/24 01/17/25 History lorazepam 1 mg tablet (Ativan) 1 mg PO .q8hr 07/11/24 01/17/25 History mirtazapine 15 mg tablet 15 mg PO HS 07/11/24 01/17/25 History pyridoxine (vitamin B6) 100 mg 100 mg PO Q12H 07/11/24 01/17/25 History tablet sertraline 50 mg tablet 50 mg PO Q24H 07/11/24 01/17/25 History carboxymethylcellulose sodium 0.5 2 drp EACH EYE Q8H PRN dry eye(s) 10/09/24 01/17/25 History % eye drops peg [id number] 1 2 drp EACH EYE TID PRN Dry Eye(S) 10/12/24 01/17/25 Rx %-0.2 %-0.2 % eye drops #5 mL (Artificial Tears ([id number])) levetiracetam 500 mg tablet 1,250 mg (2.5 x 500 mg) PO Q12HR 01/06/25 01/17/25 Rx (Keppra) #60 tabs pregabalin 50 mg capsule 100 mg (2 x 50 mg) PO Q12H #30 caps 01/06/25 01/17/25 Rx artificial tears solution eye drops 1 drp ophthalmic (eye) BID 01/17/25 01/17/25 History Keratoconjunctivitis Allergies Allergy/AdvReac Type Severity Reaction Status Date / Time Antihistamines - Ethanolamine Allergy Unknown Unknown Verified 01/17/25 05:47 cephalexin Allergy Unknown Unknown Verified 01/17/25 05:47 Cephalosporins Allergy Unknown Unknown Verified 01/17/25 05:47 diphenhydramine (From Allergy Unknown Unknown Verified 01/17/25 05:47 Benadryl) enoxaparin Allergy Unknown Unknown Verified 01/17/25 05:47 fexofenadine Allergy Unknown Unknown Verified 01/17/25 05:47 lactose Allergy Unknown Unknown Verified 01/17/25 05:47 milk Allergy Unknown Unknown Verified 01/17/25 05:47 olanzapine Allergy Unknown Unknown Verified 01/17/25 05:47 rofecoxib Allergy Unknown Unknown Verified 01/17/25 05:47 Sulfa (Sulfonamide Allergy Unknown Unknown Verified 01/17/25 05:47 Antibiotics) valproic acid Allergy Unknown Unknown Verified 01/17/25 05:47 zinc Allergy Unknown Unknown Verified 01/17/25 05:47 zolpidem Allergy Unknown Unknown Verified 01/17/25 05:47 Vital Signs Vital Signs - 24 hr 01/16/25 22:42 01/17/25 00:00 01/17/25 00:09 Temperature Pulse Rate 81 74 75 Respiratory Rate 18 15 17 Blood Pressure 120/73 83/50 L 106/42 L Pulse Oximetry 95 100 100 Oxygen Delivery 01/17/25 01:03 01/17/25 01:15 01/17/25 01:19 Temperature 97.6 F Pulse Rate 104 H 81 87 Respiratory Rate 15 15 18 Blood Pressure 137/65 115/53 L 114/74 Pulse Oximetry 100 100 100 Oxygen Delivery 01/17/25 01:21 01/17/25 01:36 01/17/25 02:00 Temperature 97.6 F 97.7 F Pulse Rate 90 85 69 Respiratory Rate 16 18 16 Blood Pressure 114/74 140/66 101/56 L Pulse Oximetry 100 100 100 Oxygen Delivery 01/17/25 02:36 01/17/25 02:45 01/17/25 03:23 Temperature 97.8 F 97.6 F 97.6 F Pulse Rate 81 66 72 Respiratory Rate 18 15 15 Blood Pressure 102/57 L 102/57 L 122/57 L Pulse Oximetry 100 97 98 Oxygen Delivery 01/17/25 03:25 01/17/25 03:30 01/17/25 04:39 Temperature 98.4 F Pulse Rate 74 83 93 Respiratory Rate 17 23 H 16 Blood Pressure 122/57 L 119/71 141/71 H Pulse Oximetry 100 97 97 Oxygen Delivery 01/17/25 04:39 01/17/25 04:57 01/17/25 05:18 Temperature 97.7 F 97.8 F Pulse Rate 87 87 84 Respiratory Rate 18 20 18 Blood Pressure 141/71 H 140/68 140/68 Pulse Oximetry 100 97 100 Oxygen Delivery 01/17/25 05:45 01/17/25 06:00 Temperature 98.0 F Pulse Rate 78 Respiratory Rate 18 Blood Pressure 141/68 H Pulse Oximetry 100 Oxygen Delivery Room Air Exam Const: General: comfortable and no acute distress HENMT: Face/Nose/Sinus: Normal nares present Mouth: Yes moist mucous membranes Eyes: General: appearance normal, both eyes and all related structures Sclera: sclerae normal Neck: Neck: supple Resp: Effort & Inspection: normal respiratory effort Auscultation: clear to auscultation bilaterally Cardio: Rate: regular rate Rhythm: regular rhythm GI: GI Palp: Yes Soft to palpation Auscultation: normal bowel sounds Skin: General skin exam: normal color and no rashes or lesions noted Neuro: Speech: normal speech Motor exam (neuro): 5/5 motor strength present throughout Sensory Exam: normal sensation Extrem: Other: 1+ pitting edema BLE Psych: Mental Status: mental status grossly normal Results Labs Labs: Short CBC 01/16/25 Range/Units 23:46 WBC 12.2 H (4.5-10.0) K/mm3 Hgb 5.8 L* D (14.0-18.0) g/dL Hct 17.7 L* (42.0-52.0) % Plt Count 273 D (150-375) k/mm3 [facility] 01/16/25 23:46 Sodium 133 L Potassium 3.5 Chloride 99 Carbon Dioxide 31 H BUN 18 Creatinine 0.86 Glucose 109 Calcium 8.8 Liver Function 01/16/25 Range/Units 23:46 Total Bilirubin 0.4 (0.2-1.3) mg/dL AST 92 H (17-59) U/L ALT 123 H (6-50) U/L Alkaline Phosphatase 82 (38-126) U/L Albumin 3.6 (3.5-5.1) g/dL Urine 01/17/25 Range/Units 00:39 Urine Color Yellow (Yellow) Urine Appearance Clear (Clear) Urine pH 6.5 (5.0-9.0) Ur Specific [place] 1.015 (1.001-1.035) Urine Protein Negative (Negative) mg/dL Urine Glucose (UA) Trace H (Negative) mg/dL Imaging CT scan - abdomen: Radiologist's impression: Ordering Physician: Keily Aguirre APRN Date of Service: 01/17/25 Procedure(s): CTA abdomen pelvis Accession Number(s): [id number] cc: Sherine Kline MD; Keily Aguirre APRN; UNKNOWN,DOCTOR~ EXAMINATION: CTA abdomen pelvis DATE: 01/17/2025 01:01 INDICATION: Blood in stool. TECHNIQUE: Computed tomographic angiography (CTA) of the abdomen and pelvis was performed with 100 mL Omnipaque-350 intravenous contrast. Automated exposure control and iterative reconstruction technique were employed. The dose-length product was 433.33 mGy-cm. Maximum intensity projection 3D-reconstructions of the aorta and other arteries were constructed by the technologist on a separate workstation. COMPARISON: CT abdomen and pelvis 10/09/2024 FINDINGS: The visualized portions of the lung bases demonstrate mild atelectasis. There is septal thickening in right lower lobe, consistent with mild pulmonary edema. A calcified right lung nodule is consistent with old granulomatous disease. There is a trace right pleural effusion. The heart size is normal. No pericardial effusion. The liver and spleen are normal. The gallbladder is contracted. Gallbladder wall thickening is likely secondary to interstitial edema. There is widespread fat stranding in the abdomen. There is a 7 mm cyst in the tail of the pancreas, likely benign. The adrenal glands are normal. There is cortical thinning of the kidneys. There is a 5 mm cyst in right kidney. There is a 12 mm cyst in left kidney. The prostate is mildly enlarged. There is diverticulosis of the colon without evidence of diverticulitis. There are no dilated loops of bowel. The appendix is not visualized. There is a small volume of ascites. There is no significant stenosis of celiac axis, superior mesenteric artery, the renal arteries, or inferior mesenteric artery. There is severe lower lumbar spondylosis. There is mild chronic anterior wedging of multiple vertebral bodies. IMPRESSION: 1. No active hemorrhage identified. 2. Widespread fat stranding in the abdomen, which may be edema or acute interstitial pancreatitis. 3. Small volume of ascites. 4. Mild pulmonary edema. Reviewed, dictated and finalized at location [facility] FOOD MANAGER Quality VTE Prophylaxis VTE prophylaxis: mechanical ordered Assessment and Plan Assessment and plan (1) GI bleed: Code(s): K92.2 - Gastrointestinal hemorrhage, unspecified Status: Acute Assessment and Plan: patient presented with Hgb 5.8 patient denies melena or coffee ground emesis stool positive for occult blood in ED GI consulted NPO IV protonix s/p CTA abdomen and pelvis with no acute GI bleed identified s/p 2 units PRBC monitor serial H&H (2) ABLA (acute blood loss anemia): Code(s): D62 - Acute posthemorrhagic anemia Status: Acute Assessment and Plan: patient presented with Hgb 5.8 Hgb on 01/06/25 was 11.8 appears to be due to acute GI bleed hold patient's Eliquis s/p 2 units PRBC monitor serial H&H (3) Leukocytosis: Code(s): D72.829 - Elevated white blood cell count, unspecified Status: Acute Assessment and Plan: wbx 12.2 on arrival no clear signs of infection suspect reactive due to acute anemia CBC in am (4) Hyponatremia: Code(s): E87.1 - Hypo-osmolality and hyponatremia Status: Acute Assessment and Plan: Na 133 on admission on review of previous labs patient appears to have hyponatremia baseline monitor (5) Epilepsy, unspecified, not intractable, without status epilepticus: Qualifiers: Epilepsy type: generalized idiopathic Qualified Code(s): G40.309 - Generalized idiopathic epilepsy and epileptic syndromes, not intractable, without status epilepticus Code(s): G40.909 - Epilepsy, unspecified, not intractable, without status epilepticus Status: Acute Assessment and Plan: patient was recently hospitalized with a neurology consult for seizures continue Keppra 1250 mg PO BID seizure precautions (6) Essential (primary) hypertension: Code(s): I10 - Essential (primary) hypertension Status: Chronic Assessment and Plan: BP appears stable hold home amlodipine in the setting of GI bleed restart amlodipine as indicated (7) Blood thinned due to long-term anticoagulant use: Code(s): Z79.01 - superintendent terminal (current) use of anticoagulants Status: Acute Assessment and Plan: patient is taking Eliquis 5 mg BID at halfway no indication listed in halfway records or hospital chart patient reports he had 3 different blood clots in his leg at different times, is unable to tell me how long ago this occured holding Eliquis in the setting of GI bleed and acute anemia Prior Studies I have reviewed the following patient records and this information was taken into consideration when formulating the assessment and plan.: previous labs, previous ER visits and previous hospitalizations Hospitalist MIPS Medication Reconciliation I have utilized all available resources to obtain, update and review the patients current medications (includes all prescriptions, OTC, herbals, cannabis, and nutritional supplements).: Yes
[2025-01-17 08:09] LABS: Hematocrit 25.3 % (42.0-52.0); Hemoglobin 8.4 g/dL (14.0-18.0)
--- NOTE | 2025-01-17 10:00 | WPDGICN ---
Assessment and Plan Assessment and plan (1) Melena: Code(s): K92.1 - Melena Status: Acute Assessment and Plan: he will need egd to assess if ulcer, lesions, etc will hold eliquis and he should be ready to undergo EGD this Sunday iv protonix will start diet if he tolerates, denies nausea (2) GI bleed: Code(s): K92.2 - Gastrointestinal hemorrhage, unspecified Status: Acute Assessment and Plan: iv protonix had recent colonoscopy as screening, no major findings only mild diverticulosis- no need to repeat (3) Seizure: Code(s): R56.9 - Unspecified convulsions Status: Acute Assessment and Plan: on meds (4) Mild intellectual disabilities: Code(s): F70 - Mild intellectual disabilities Status: Chronic (5) Acute on chronic blood loss anemia: Code(s): D62 - Acute posthemorrhagic anemia Status: Acute (6) Blood thinned due to long-term anticoagulant use: Code(s): Z79.01 - long term acute care registered nurse (current) use of anticoagulants Status: Acute GI Consult Note Consult date/time: 01/17/25 10:00 Reason for consult: symptomatic anemia, dark stools HPI: Jairon Dennis is a 64 year old male with past medical history of epilepsy, HTN, HLD, intellectual delay, BPH and depression. He came to the ER from his [facility] yesterday due to abnormal labs (low hemoglobin and hematocrit). Patient denied any rectal bleeding but noted some dark stools. He had a seizure last night. ER labs showed a wbc 12.2, hemoglobin 5.8 and hematocrit 17.7. Other labs were sodium 133, UA unremarkable and stool was occult blood positive. Patient was transfused 2 units PRBC's overnight. CTA of the abdomen and pelvis which did not identify any acute GI bleeding. CT did show edematous pancreas with peripancreatic fat stranding concerning for acute pancreatitis but lipase was WNL at 176, only mild epigastric pain. He is comfortable and hungry. He had routine screening colonoscopy 09/[address] Cedeno, only mild sigmoid diverticulosis and small polyp removed. He is on eliquis. Review of Systems Constitutional: Constitutional: Reports weakness Eyes: Eyes: Denies blurry vision ENT: Reports Normal hearing present Cardiovascular: Cardiovascular: Denies chest pain Respiratory: Respiratory: Reports dyspnea on exertion Gastrointestinal: Gastrointestinal: Reports melena Genitourinary: Genitourinary: Denies dysuria Musculoskeletal: Musculoskeletal: Denies neck pain Integumentary/Breasts: Skin/Breast: Denies rash Neurologic: Denies Abnormal speech present Psychiatric: Psychiatric: Denies confusion COUNTS INCLUDE 234 BEDS AT THE [facility] Past Medical History Medical History (Updated 01/17/25 @ 10:03 by Blake Caldwell MD) Blood thinned due to long-term anticoagulant use Acute on chronic blood loss anemia Melena Type 2 diabetes mellitus without complications 5.4% in September of 2024, not currently on medications as of December of 2024 Hypo-osmolality and hyponatremia Encounter for screening colonoscopy Unspecified severe protein-calorie malnutrition Unspecified mood [affective] disorder Other age-related cataract Mixed hyperlipidemia Essential (primary) hypertension Depression, unspecified Cognitive communication deficit Unspecified open-angle glaucoma, stage unspecified Sleep disorder, unspecified Mild 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, unspecified Epilepsy, unspecified, not intractable, without status epilepticus Conversion disorder with seizures or convulsions Benign prostatic hyperplasia without lower urinary tract symptoms Social History Social History Smoking status: Never smoker Second hand tobacco smoke exposure: No (Unknown) Alcohol intake: never Substance use: never Lack of Transportation: No Lack of Food: Never True Current Housing: I Have Housing Concerned About Future Housing: No Difficulty Paying Gas/Electric Bills: No Difficulty Paying for Meds: No Currently Unemployed: No Education: High School Diploma/GED Difficulty w/ Childcare or Family Care: No Living arrangements: fpc Additional living arrangements comments: [facility] since 04/09/24 Spiritual care concerns: No Meds Home Medications and Allergies Home Medications ?Medication ?Instructions ?Recorded ?Confirmed ?Type acetaminophen 500 mg capsule 1,000 mg (2 x 500 mg) PO Q6H PRN 04/29/24 01/17/25 Rx pain #30 caps lidocaine 4 % topical patch 1 patch topical DAILY PRN pain #10 04/29/24 01/17/25 Rx ea oxycodone 10 mg tablet 10 mg PO Q8H PRN pain #14 tabs 04/29/24 01/17/25 Rx amlodipine 10 mg tablet 10 mg PO DAILY 07/11/24 01/17/25 History apixaban 5 mg tablet (Eliquis) 5 mg PO Q12H 07/11/24 01/17/25 History atorvastatin 40 mg tablet 40 mg PO HS 07/11/24 01/17/25 History brimonidine 0.2 %-timolol 0.5 % 1 drp EACH EYE Q12H 07/11/24 01/17/25 History eye drops (Combigan) cholecalciferol (vitamin D3) 50 2,000 unit PO DAILY 07/11/24 01/17/25 History mcg (2,000 unit) capsule dorzolamide 2 % eye drops 1 drp EACH EYE .q12hr 07/11/24 01/17/25 History latanoprost 0.005 % eye drops 1 drp EACH EYE HS 07/11/24 01/17/25 History lorazepam 1 mg tablet (Ativan) 1 mg PO .q8hr 07/11/24 01/17/25 History mirtazapine 15 mg tablet 15 mg PO HS 07/11/24 01/17/25 History pyridoxine (vitamin B6) 100 mg 100 mg PO Q12H 07/11/24 01/17/25 History tablet sertraline 50 mg tablet 50 mg PO Q24H 07/11/24 01/17/25 History carboxymethylcellulose sodium 0.5 2 drp EACH EYE Q8H PRN dry eye(s) 10/09/24 01/17/25 History % eye drops peg [id number] 1 2 drp EACH EYE TID PRN Dry Eye(S) 10/12/24 01/17/25 Rx %-0.2 %-0.2 % eye drops #5 mL (Artificial Tears ([id number])) levetiracetam 500 mg tablet 1,250 mg (2.5 x 500 mg) PO Q12HR 01/06/25 01/17/25 Rx (Keppra) #60 tabs pregabalin 50 mg capsule 100 mg (2 x 50 mg) PO Q12H #30 caps 01/06/25 01/17/25 Rx artificial tears solution eye drops 1 drp ophthalmic (eye) BID 01/17/25 01/17/25 History Keratoconjunctivitis Allergies Allergy/AdvReac Type Severity Reaction Status Date / Time Antihistamines - Ethanolamine Allergy Unknown Unknown Verified 01/17/25 05:47 cephalexin Allergy Unknown Unknown Verified 01/17/25 05:47 Cephalosporins Allergy Unknown Unknown Verified 01/17/25 05:47 diphenhydramine (From Allergy Unknown Unknown Verified 01/17/25 05:47 Benadryl) enoxaparin Allergy Unknown Unknown Verified 01/17/25 05:47 fexofenadine Allergy Unknown Unknown Verified 01/17/25 05:47 lactose Allergy Unknown Unknown Verified 01/17/25 05:47 milk Allergy Unknown Unknown Verified 01/17/25 05:47 olanzapine Allergy Unknown Unknown Verified 01/17/25 05:47 rofecoxib Allergy Unknown Unknown Verified 01/17/25 05:47 Sulfa (Sulfonamide Allergy Unknown Unknown Verified 01/17/25 05:47 Antibiotics) valproic acid Allergy Unknown Unknown Verified 01/17/25 05:47 zinc Allergy Unknown Unknown Verified 01/17/25 05:47 zolpidem Allergy Unknown Unknown Verified 01/17/25 05:47 Vital Signs Vital Signs - 24 hr 01/16/25 22:42 01/17/25 00:00 01/17/25 00:09 Temperature Pulse Rate 81 74 75 Respiratory Rate 18 15 17 Blood Pressure 120/73 83/50 L 106/42 L Pulse Oximetry 95 100 100 Oxygen Delivery 01/17/25 01:03 01/17/25 01:15 01/17/25 01:19 Temperature 97.6 F Pulse Rate 104 H 81 87 Respiratory Rate 15 15 18 Blood Pressure 137/65 115/53 L 114/74 Pulse Oximetry 100 100 100 Oxygen Delivery 01/17/25 01:21 01/17/25 01:36 01/17/25 02:00 Temperature 97.6 F 97.7 F Pulse Rate 90 85 69 Respiratory Rate 16 18 16 Blood Pressure 114/74 140/66 101/56 L Pulse Oximetry 100 100 100 Oxygen Delivery 01/17/25 02:36 01/17/25 02:45 01/17/25 03:23 Temperature 97.8 F 97.6 F 97.6 F Pulse Rate 81 66 72 Respiratory Rate 18 15 15 Blood Pressure 102/57 L 102/57 L 122/57 L Pulse Oximetry 100 97 98 Oxygen Delivery 01/17/25 03:25 01/17/25 03:30 01/17/25 04:39 Temperature 98.4 F Pulse Rate 74 83 93 Respiratory Rate 17 23 H 16 Blood Pressure 122/57 L 119/71 141/71 H Pulse Oximetry 100 97 97 Oxygen Delivery 01/17/25 04:39 01/17/25 04:57 01/17/25 05:18 Temperature 97.7 F 97.8 F Pulse Rate 87 87 84 Respiratory Rate 18 20 18 Blood Pressure 141/71 H 140/68 140/68 Pulse Oximetry 100 97 100 Oxygen Delivery 01/17/25 05:45 01/17/25 06:00 01/17/25 08:17 Temperature 98.0 F 98.5 F Pulse Rate 78 91 Respiratory Rate 18 20 Blood Pressure 141/68 H 130/62 Pulse Oximetry 100 100 Oxygen Delivery Room Air Exam Const: General: comfortable and no acute distress HENMT: Face/Nose/Sinus: Normal nares present Eyes: General: appearance normal, both eyes and all related structures Neck: Neck: supple Resp: Auscultation: clear to auscultation bilaterally Cardio: Rate: regular rate Rhythm: regular rhythm GI: Inspection: non-distended GI Palp: Yes Soft to palpation and Yes Tenderness to palpation present (GI) (minimal pain in epigastric, no rebound) Auscultation: normal bowel sounds Skin: General skin exam: normal color Neuro: Speech: normal speech Extrem: General: normal to inspection Psych: Mental Status: mental status grossly normal Results Labs 01/17/25 08:04 01/16/25 23:46 Labs: Short CBC 01/16/25 01/17/25 Range/Units 23:46 08:04 WBC 12.2 H (4.5-10.0) K/mm3 Hgb 5.8 L* D 8.4 L (14.0-18.0) g/dL Hct 17.7 L* 25.3 L (42.0-52.0) % Plt Count 273 D (150-375) k/mm3 BMP 01/16/25 23:46 Sodium 133 L Potassium 3.5 Chloride 99 Carbon Dioxide 31 H BUN 18 Creatinine 0.86 Glucose 109 Calcium 8.8 Liver Function 01/16/25 Range/Units 23:46 Total Bilirubin 0.4 (0.2-1.3) mg/dL AST 92 H (17-59) U/L ALT 123 H (6-50) U/L Alkaline Phosphatase 82 (38-126) U/L Albumin 3.6 (3.5-5.1) g/dL Urine 01/17/25 Range/Units 00:39 Urine Color Yellow (Yellow) Urine Appearance Clear (Clear) Urine pH 6.5 (5.0-9.0) Ur Specific [place] 1.015 (1.001-1.035) Urine Protein Negative (Negative) mg/dL Urine Glucose (UA) Trace H (Negative) mg/dL
[2025-01-17] MEDS: PREGABALIN (*CRX) 50 MG CAPSULE 100 MG PO ×2 (10:13→20:52)
[2025-01-17] MEDS: PANTOPRAZOLE SODIUM IV 40 MG VIAL IV PUSH (10:13)
[2025-01-17] MEDS: LORazepam (*CRX) 1 MG TABLET PO ×2 (10:13→14:59)
[2025-01-17] MEDS: SERTRALINE HCL 50 MG TABLET PO (10:13)
[2025-01-17] MEDS: ARTIFICIAL TEARS OPHTH SOLN 15 ML BOTTLE 1 DROP EACH EYE ×2 (10:15→18:00)
[2025-01-17] MEDS: SODIUM CHLORIDE 0.9% IV 1,000 ML 100 ML IV CONT (10:48)
[2025-01-17 11:54] LABS: Hematocrit 24.4 % (42.0-52.0); Hemoglobin 8.1 g/dL (14.0-18.0)
[2025-01-17 15:52] LABS: Hematocrit 22.9 % (42.0-52.0); Hemoglobin 7.7 g/dL (14.0-18.0)
[2025-01-17 23:37] LABS: Hematocrit 23.1 % (42.0-52.0); Hemoglobin 7.7 g/dL (14.0-18.0)
[2025-01-18] VITALS: PULSE 99
[2025-01-18 04:00] VITALS: PULSE 80
[2025-01-18 05:52] VITALS: BP 148/79; PULSE 93; RESP 17; TEMP 36.6; O2SAT 98
[2025-01-18 08:00] VITALS: PULSE 103
[2025-01-18 09:17] LABS: Hematocrit 25.5 % (42.0-52.0); Hemoglobin 8.3 g/dL (14.0-18.0); Immature Granulocyte Percent A 0.6 % (0-0.5); Lymphocytes Absolute Auto 1.45 K/mm3 (0.9-3.2); Mean Corpuscular HGB Conc 32.5 g/dl (32-36); Mean Corpuscular Hemoglobin 30.1 pg (26-34); Mean Corpuscular Volume 92.4 fl (80-100); Nucleated Red Blood Cells Absolute Auto 0.000 K/mm3 (0.0-0.012); Nucleated Red Blood Cells Perc 0.0 % (0.0-0.2); Platelet Count Result 247 k/mm3 (150-375); Red Blood Count 2.76 M/mm3 (4.6-6.20); White Blood Count 9.6 K/mm3 (4.5-10.0)
[2025-01-18] MEDS: BRIMONIDINE TARTRATE 0.2% OP SOLN 5 ML BTL 1 DROP EACH EYE (09:23)
[2025-01-18] MEDS: DORZOLAMIDE HCL 2% OPHTH DROPS 1 DROP EACH EYE (09:23)
[2025-01-18] MEDS: PREGABALIN (*CRX) 50 MG CAPSULE 100 MG PO ×2 (09:23→21:14)
[2025-01-18] MEDS: ARTIFICIAL TEARS OPHTH SOLN 15 ML BOTTLE 1 DROP EACH EYE (09:23)
[2025-01-18] MEDS: PANTOPRAZOLE SODIUM IV 40 MG VIAL IV PUSH ×2 (09:23→21:14)
[2025-01-18 09:41] LABS: Alanine Aminotransferase 79 U/L (6-50); Albumin Level 3.3 g/dL (3.5-5.1); Alkaline Phosphatase 85 U/L (38-126); Anion Gap 3 mmol/L (4-12); Aspartate Amino Transferase 43 U/L (17-59); Bilirubin,Total 0.3 mg/dL (0.2-1.3); Blood Urea Nitrogen 13 mg/dL (9-20); Calcium 8.6 mg/dL (8.4-10.2); Carbon Dioxide 29 mmol/L (22-30); Chloride 101 mmol/L (98-107); Estimated CRCL calculation 79 ml/min; Estimated Glomerular Filt Rate > 60; Glucose 105 mg/dL (65-110); Potassium 3.7 mmol/L (3.4-5.0); Sodium 133 mmol/L (137-145); Total Protein 5.7 g/dL (6.3-8.2)
--- NOTE | 2025-01-18 10:48 | P.PN_ITS ---
Progress Note: A&P Assessment and Plan (1) GI bleed: Code(s): K92.2 - Gastrointestinal hemorrhage, unspecified Status: Acute Assessment and Plan: Presented with hemoglobin of 5.8, stool positive for occult blood in ED * Appreciate GI consultation and recommendations * Plan for EGD tomorrow * Continue regular diet for now, NPO at midnight for EGD tomorrow * Continue IV pantoprazole (2) ABLA (acute blood loss anemia): Code(s): D62 - Acute posthemorrhagic anemia Status: Acute Assessment and Plan: Hemoglobin 5.8 on presentation, was previously 11.8 two weeks prior * Received 2 units packed RBCs on presentation * Hemoglobin remaining stable following transfusion, 8.3 this morning * Continue to monitor q.12 hours (3) Leukocytosis: Code(s): D72.829 - Elevated white blood cell count, unspecified Status: Resolved Assessment and Plan: Suspect reactive secondary to anemia * Resolved. WBC 9.6 today (4) Hyponatremia: Code(s): E87.1 - Hypo-osmolality and hyponatremia Status: Acute Assessment and Plan: Chronic and stable * Sodium 133 today. * Continue to monitor BMP (5) Epilepsy, unspecified, not intractable, without status epilepticus: Qualifiers: Epilepsy type: generalized idiopathic Qualified Code(s): G40.309 - Generalized idiopathic epilepsy and epileptic syndromes, not intractable, without status epilepticus Code(s): G40.909 - Epilepsy, unspecified, not intractable, without status epilepticus Status: Acute Assessment and Plan: Had recent hospitalization due to seizures, was evaluated by Neurology and had adjustment of his anti seizure medications * Continue Keppra and pregabalin per Neurology recommendations * He has outpatient follow-up with Neurology scheduled (6) Essential (primary) hypertension: Code(s): I10 - Essential (primary) hypertension Status: Chronic Assessment and Plan: Blood pressure soft on arrival, improved with transfusion. Now remaining stable * Home amlodipine is on hold, resume when clinically indicated * Monitor BP trends closely (7) Blood thinned due to long-term anticoagulant use: Code(s): Z79.01 - terminal block assembler (current) use of anticoagulants Status: Acute Assessment and Plan: Patient is on Eliquis 5 mg b.i.d. at nursing facility * No obvious indication for use of chronic anticoagulation in patient records * Patient states he requires anticoagulation due to history of DVT, cannot recall when this occurred * Eliquis on hold in setting of suspected GI bleed and acute anemia * Pending EGD reports, will need to obtain more info regarding indication for Eliquis as this may need to be discontinued Subjective Date/time seen: 01/18/25 10:48 Interval history: Doing well today. Offers no significant complaints. States he has been having normal bowel movements today and denies hematochezia or melena. Denies hematemesis. Denies shortness of breath, cough, chest pain. States he did not sleep well last night. He has no additional concerns Review of Systems Review of Systems: All systems reviewed & are unremarkable except as noted in HPI and below Exam Narrative: General: well nourished, well developed, no acute distress Neuro: awake, alert and oriented x4, cognitive impairment HEENT: normocephalic, atraumatic CV: regular rate, rhythm Respiratory: lungs clear to auscultation, normal respiratory effort Abd: soft, nondistended, nontender, normoactive bowel sounds Extremities: no erythema or swelling Psych: appropriate mood and affect Objective Data Vital Signs Vital Signs: Vital Signs - 24 hr 01/17/25 11:00 01/17/25 12:00 01/17/25 13:42 Temperature 97.7 F Pulse Rate 96 91 Respiratory Rate 16 Blood Pressure 145/66 H Pulse Oximetry 100 Oxygen Delivery Room Air 01/17/25 16:00 01/17/25 20:00 01/17/25 20:00 Temperature Pulse Rate 93 94 Respiratory Rate Blood Pressure Pulse Oximetry Oxygen Delivery Room Air 01/17/25 20:41 01/18/25 00:00 01/18/25 04:00 Temperature 98.7 F Pulse Rate 90 99 80 Respiratory Rate 17 Blood Pressure 135/84 Pulse Oximetry 100 Oxygen Delivery 01/18/25 05:52 Temperature 97.8 F Pulse Rate 93 Respiratory Rate 17 Blood Pressure 148/79 H Pulse Oximetry 98 Oxygen Delivery Intake/Output Intake/Output: Intake & Output 01/15/25 01/16/25 01/17/25 01/18/25 23:59 23:59 23:59 23:59 Intake Total 2680 1300 Output Total 800 Balance 1880 1300 Meds/Results Medications: Active Medications Generic Name Dose Route Start Last Admin Trade Name Freq PRN Reason Stop Dose Admin Acetaminophen 650 mg 01/17/25 08:07 Acetaminophen 325 Mg Tablet PO Q4H PRN Mild Pain (1-3) or Fever Artificial Tears 1 drop 01/17/25 09:00 01/18/25 09:23 Artificial Tears Ophth Soln 15 Ml Bottle EACH EYE 02/16/25 08:59 1 drop BID RADHA Administration Artificial Tears 2 drop 01/17/25 08:09 Artificial Tears Ophth Soln 15 Ml Bottle EACH EYE TID PRN Dry Eye(s) Brimonidine Tartrate 1 drop 01/17/25 09:00 01/18/25 09:23 Brimonidine Tartrate 0.2% Op Soln 5 Ml Btl EACH EYE 1 drop Q12HR RADHA Administration Dorzolamide HCl 1 drop 01/17/25 09:00 01/18/25 09:23 Dorzolamide Hcl 2% Ophth Drops EACH EYE 1 drop Q12HR RADHA Administration Latanoprost 1 drop 01/17/25 21:00 01/17/25 20:57 Latanoprost 0.005% Op Soln 2.5 Ml Btl EACH EYE Not Given HS RADHA Levetiracetam 250 mg 01/17/25 09:00 01/18/25 09:24 Levetiracetam 250 Mg Tablet PO 250 mg Q12HR RADHA Administration Levetiracetam 1,000 mg 01/17/25 09:00 01/18/25 09:24 Levetiracetam 500 Mg Tablet PO 1,000 mg Q12HR RADHA Administration Lorazepam 1 mg 01/17/25 08:10 01/18/25 05:21 Lorazepam (*Crx) 1 Mg Tablet PO Not Given Q8HR RADHA Mirtazapine 15 mg 01/17/25 21:00 01/17/25 20:57 Mirtazapine 15 Mg Tablet PO Not Given HS RADHA Ondansetron HCl 4 mg 01/17/25 08:07 Ondansetron Inj 4 Mg/2 Ml Vial IV PUSH Q6H PRN Nausea And Vomiting Oxycodone HCl 10 mg 01/17/25 08:09 Oxycodone Hcl (*Crx) 5 Mg Tab Ir PO Q8H PRN Pain 7-10 Pantoprazole Sodium 40 mg 01/17/25 09:00 12/07/25 09:23 Pantoprazole Sodium Iv 40 Mg Vial IV PUSH 40 mg Q12HR RADHA Administration Pregabalin 100 mg 01/17/25 09:00 01/18/25 09:23 Pregabalin (*Crx) 50 Mg Capsule PO 100 mg Q12HR RADHA Administration Sertraline HCl 50 mg 01/17/25 09:00 01/18/25 09:25 Sertraline Hcl 50 Mg Tablet PO Not Given QAM RADHA Timolol Maleate 1 drop 01/17/25 09:00 01/18/25 09:25 Timolol Maleate 0.5% Op Soln 5 Ml Bottle EACH EYE Not Given Q12HR RADHA Radiology Results: ITS Impressions Abdomen/Pelvis CTA 01/17/25 07:53 IMPRESSION: 1. No active hemorrhage identified. 2. Widespread fat stranding in the abdomen, which may be edema or acute interstitial pancreatitis. 3. Small volume of ascites. 4. Mild pulmonary edema. Labs Labs: Laboratory Results - last 24 hr 01/17/25 01/17/25 01/17/25 11:41 15:47 23:26 WBC RBC Hgb 8.1 L 7.7 L 7.7 L Hct 24.4 L 22.9 L 23.1 L MCV MCH MCHC RDW Plt Count MPV Immature Gran % (Auto) Neut % (Auto) Lymph % (Auto) [place] % (Auto) Eos % (Auto) Baso % (Auto) Lymph # (Auto) [place] # (Auto) Eos # (Auto) Baso # (Auto) Abs Immat Gran (auto) Absolute Neuts (auto) Absolute Nucleated RBC Nucleated RBC % Sodium Potassium Chloride Carbon Dioxide Anion Gap BUN Creatinine Estim Creat Clear Calc Estimated GFR Glucose Calcium Total Bilirubin AST ALT Alkaline Phosphatase Total Protein Albumin 01/18/25 09:12 WBC 9.6 RBC 2.76 L Hgb 8.3 L Hct 25.5 L MCV 92.4 D MCH 30.1 D MCHC 32.5 RDW 18.6 H Plt Count 247 MPV 9.6 Immature Gran % (Auto) 0.6 H Neut % (Auto) 72.9 Lymph % (Auto) 15.1 L [place] % (Auto) 8.5 Eos % (Auto) 2.6 Baso % (Auto) 0.3 Lymph # (Auto) 1.45 [place] # (Auto) 0.8 H Eos # (Auto) 0.3 Baso # (Auto) 0.0 Abs Immat Gran (auto) 0.06 H Absolute Neuts (auto) 7.0 H Absolute Nucleated RBC 0.000 Nucleated RBC % 0.0 Sodium 133 L Potassium 3.7 Chloride 101 Carbon Dioxide 29 Anion Gap 3 L BUN 13 D Creatinine 0.80 Estim Creat Clear Calc 79 Estimated GFR > 60 Glucose 105 Calcium 8.6 Total Bilirubin 0.3 AST 43 ALT 79 H Alkaline Phosphatase 85 Total Protein 5.7 L Albumin 3.3 L Quality VTE Prophylaxis VTE prophylaxis: mechanical ordered
--- NOTE | 2025-01-18 10:52 | PC.NURSE ---
pt became agitated and threw walker and PCT, also refusing to wear nurse monitoring. Provider Adriana aware. Pt is calm and cooperative at this time.
--- NOTE | 2025-01-18 11:03 | PC.NURSE ---
RN spoke with hospitalist Adriana in regards to patient's telemetry. Patient refusing to wear it. Patient became aggressive with staff, ripped walker out of [employer]'s hand, and ripped urinal and threw it. Security was called to room due to patient's behaviors, screaming, and violence. Okay to d/c telemetry due to patient refusing to keep it on/ripping it off.
[2025-01-18 14:00] VITALS: BP 143/67; PULSE 92; RESP 18; TEMP 36.4; O2SAT 100
--- NOTE | 2025-01-18 14:36 | WPDGIPROGNO ---
Progress Note: A&P Assessment and Plan (1) GI bleed: Code(s): K92.2 - Gastrointestinal hemorrhage, unspecified Status: Acute Assessment and Plan: on protonix for now egd tomorrow to assess if source of ugib blood thinner is on hold he had colonoscopy earlier this year (2) Melena: Code(s): K92.1 - Melena Status: Acute (3) Blood thinned due to long-term anticoagulant use: Code(s): Z79.01 - residential (current) use of anticoagulants Status: Acute (4) Acute on chronic blood loss anemia: Code(s): D62 - Acute posthemorrhagic anemia Status: Acute (5) Seizure: Code(s): R56.9 - Unspecified convulsions Status: Acute Subjective Date/time seen: 01/18/25 14:36 Interval history: he is comfortable Review of Systems Review of Systems: All systems reviewed & are unremarkable except as noted in HPI and below Exam Const: General: comfortable and no acute distress HENMT: Face/Nose/Sinus: Normal nares present Eyes: General: appearance normal, both eyes and all related structures Neck: Neck: supple Resp: Auscultation: clear to auscultation bilaterally Cardio: Rate: regular rate Rhythm: regular rhythm GI: Inspection: non-distended GI Palp: Yes Soft to palpation and No Tenderness to palpation present (GI) Auscultation: normal bowel sounds Skin: Other: pallor Neuro: Speech: normal speech Extrem: General: normal to inspection Psych: Mental Status: mental status grossly normal Objective Data Vital Signs Vital Signs: Vital Signs - 24 hr 01/17/25 16:00 01/17/25 20:00 01/17/25 20:00 Temperature Pulse Rate 93 94 Respiratory Rate Blood Pressure Pulse Oximetry Oxygen Delivery Room Air 01/17/25 20:41 01/18/25 00:00 01/18/25 04:00 Temperature 98.7 F Pulse Rate 90 99 80 Respiratory Rate 17 Blood Pressure 135/84 Pulse Oximetry 100 Oxygen Delivery 01/18/25 05:52 01/18/25 08:00 Temperature 97.8 F Pulse Rate 93 103 H Respiratory Rate 17 Blood Pressure 148/79 H Pulse Oximetry 98 Oxygen Delivery Intake/Output Intake/Output: Intake & Output 01/15/25 01/16/25 01/17/25 01/18/25 23:59 23:59 23:59 23:59 Intake Total 2680 1780 Output Total 800 Balance 1880 1780 Meds/Results Medications: Active Medications Generic Name Dose Route Start Last Admin Trade Name Freq PRN Reason Stop Dose Admin Acetaminophen 650 mg 01/17/25 08:07 Acetaminophen 325 Mg Tablet PO Q4H PRN Mild Pain (1-3) or Fever Artificial Tears 1 drop 01/17/25 09:00 01/18/25 09:23 Artificial Tears Ophth Soln 15 Ml Bottle EACH EYE 02/16/25 08:59 1 drop BID RADHA Administration Artificial Tears 2 drop 01/17/25 08:09 Artificial Tears Ophth Soln 15 Ml Bottle EACH EYE TID PRN Dry Eye(s) Brimonidine Tartrate 1 drop 01/17/25 09:00 01/18/25 09:23 Brimonidine Tartrate 0.2% Op Soln 5 Ml Btl EACH EYE 1 drop Q12HR RADHA Administration Dorzolamide HCl 1 drop 01/17/25 09:00 01/18/25 09:23 Dorzolamide Hcl 2% Ophth Drops EACH EYE 1 drop Q12HR RADHA Administration Latanoprost 1 drop 01/17/25 21:00 01/17/25 20:57 Latanoprost 0.005% Op Soln 2.5 Ml Btl EACH EYE Not Given HS RADHA Levetiracetam 250 mg 01/17/25 09:00 01/18/25 09:24 Levetiracetam 250 Mg Tablet PO 250 mg Q12HR RADHA Administration Levetiracetam 1,000 mg 01/17/25 09:00 01/18/25 09:24 Levetiracetam 500 Mg Tablet PO 1,000 mg Q12HR RADHA Administration Lorazepam 1 mg 01/17/25 08:10 01/18/25 05:21 Lorazepam (*Crx) 1 Mg Tablet PO Not Given Q8HR RADHA Mirtazapine 15 mg 01/17/25 21:00 01/17/25 20:57 Mirtazapine 15 Mg Tablet PO Not Given HS RADHA Ondansetron HCl 4 mg 01/17/25 08:07 Ondansetron Inj 4 Mg/2 Ml Vial IV PUSH Q6H PRN Nausea And Vomiting Oxycodone HCl 10 mg 01/17/25 08:09 Oxycodone Hcl (*Crx) 5 Mg Tab Ir PO Q8H PRN Pain 7-10 Pantoprazole Sodium 40 mg 01/17/25 09:00 01/18/25 09:23 Pantoprazole Sodium Iv 40 Mg Vial IV PUSH 40 mg Q12HR RADHA Administration Pregabalin 100 mg 01/17/25 09:00 01/18/25 09:23 Pregabalin (*Crx) 50 Mg Capsule PO 100 mg Q12HR RADHA Administration Sertraline HCl 50 mg 01/17/25 09:00 01/18/25 09:25 Sertraline Hcl 50 Mg Tablet PO Not Given QAM RADHA Timolol Maleate 1 drop 01/17/25 09:00 01/18/25 09:25 Timolol Maleate 0.5% Op Soln 5 Ml Bottle EACH EYE Not Given Q12HR RADHA Radiology Results: ITS Impressions Abdomen/Pelvis CTA 01/17/25 07:53 IMPRESSION: 1. No active hemorrhage identified. 2. Widespread fat stranding in the abdomen, which may be edema or acute interstitial pancreatitis. 3. Small volume of ascites. 4. Mild pulmonary edema. Labs Labs: Laboratory Results - last 24 hr 01/17/25 01/17/25 01/18/25 15:47 23:26 09:12 WBC 9.6 RBC 2.76 L Hgb 7.7 L 7.7 L 8.3 L Hct 22.9 L 23.1 L 25.5 L MCV 92.4 D MCH 30.1 D MCHC 32.5 RDW 18.6 H Plt Count 247 MPV 9.6 Immature Gran % (Auto) 0.6 H Neut % (Auto) 72.9 Lymph % (Auto) 15.1 L [place] % (Auto) 8.5 Eos % (Auto) 2.6 Baso % (Auto) 0.3 Lymph # (Auto) 1.45 [place] # (Auto) 0.8 H Eos # (Auto) 0.3 Baso # (Auto) 0.0 Abs Immat Gran (auto) 0.06 H Absolute Neuts (auto) 7.0 H Absolute Nucleated RBC 0.000 Nucleated RBC % 0.0 Sodium 133 L Potassium 3.7 Chloride 101 Carbon Dioxide 29 Anion Gap 3 L BUN 13 D Creatinine 0.80 Estim Creat Clear Calc 79 Estimated GFR > 60 Glucose 105 Calcium 8.6 Total Bilirubin 0.3 AST 43 ALT 79 H Alkaline Phosphatase 85 Total Protein 5.7 L Albumin 3.3 L
[2025-01-18] MEDS: LORazepam (*CRX) 1 MG TABLET PO ×2 (14:55→21:13)
[2025-01-18 20:16] LABS: Hematocrit 28.1 % (42.0-52.0); Hemoglobin 9.2 g/dL (14.0-18.0)
[2025-01-18] MEDS: MIRTAZAPINE 15 MG TABLET PO (21:14)
[2025-01-18 21:16] VITALS: BP 154/73; PULSE 88; RESP 17; TEMP 36.4; O2SAT 98
[2025-01-19] MEDS: LORazepam (*CRX) 1 MG TABLET PO ×2 (05:38→13:48)
[2025-01-19 06:00] VITALS: BP 144/79; PULSE 90; RESP 17; TEMP 36.1; O2SAT 100
[2025-01-19 06:27] LABS: Hematocrit 28.3 % (42.0-52.0); Hemoglobin 9.1 g/dL (14.0-18.0); Mean Corpuscular HGB Conc 32.2 g/dl (32-36); Mean Corpuscular Hemoglobin 29.7 pg (26-34); Mean Corpuscular Volume 92.5 fl (80-100); Platelet Count Result 257 k/mm3 (150-375); Red Blood Count 3.06 M/mm3 (4.6-6.20); White Blood Count 8.5 K/mm3 (4.5-10.0)
[2025-01-19 06:59] LABS: Anion Gap 1 mmol/L (4-12); Blood Urea Nitrogen 11 mg/dL (9-20); Calcium 8.9 mg/dL (8.4-10.2); Carbon Dioxide 31 mmol/L (22-30); Chloride 102 mmol/L (98-107); Estimated CRCL calculation 101 ml/min; Estimated Glomerular Filt Rate > 60; Glucose 97 mg/dL (65-110); Potassium 4.8 mmol/L (3.4-5.0); Sodium 134 mmol/L (137-145)
[2025-01-19] MEDS: LACTATED RINGERS 1,000 ML 150 ML IV CONT (08:22)
[2025-01-19 08:27] VITALS: BP 129/89; PULSE 85; RESP 18; TEMP 36.1; O2SAT 100
[2025-01-19] MEDS: SIMETHICONE ORAL SUSPENSION 20 MG/0.3 ML 30 ML BOTTLE 1.8 ML PO (08:30)
--- NOTE | 2025-01-19 08:51 | WPDANESEPPF ---
Anes - Initial Pre Proc Eval Procedure: Operation Date: 01/19/25 10:00 Proposed Procedures p Esophagogastroduodenoscopy - Nixon Cedeno MD Date/Time: 01/19/25 08:51 Surgeon: Sherine Kline MD Pre Op Diagnosis: gastrointestinal bleed, low hemoglobin Patient Data Age: 64 Gender: M Height: 1.8 m Weight: 68.7 kg Last Vital Signs Temp 36.1 C L 01/19/25 08:27 Pulse 85 01/19/25 08:27 Resp 18 01/19/25 08:27 BP 129/89 01/19/25 08:27 Pulse Ox 100 01/19/25 08:27 O2 Del Method Room Air 01/19/25 08:27 Allergies Allergy/AdvReac Type Severity Reaction Status Date / Time Antihistamines - Ethanolamine Allergy Unknown Unknown Verified 01/19/25 08:26 cephalexin Allergy Unknown Unknown Verified 01/19/25 08:26 Cephalosporins Allergy Unknown Unknown Verified 01/19/25 08:26 diphenhydramine (From Allergy Unknown Unknown Verified 01/19/25 08:26 Benadryl) enoxaparin Allergy Unknown Unknown Verified 01/19/25 08:26 fexofenadine Allergy Unknown Unknown Verified 01/19/25 08:26 lactose Allergy Unknown Unknown Verified 01/19/25 08:26 milk Allergy Unknown Unknown Verified 01/19/25 08:26 olanzapine Allergy Unknown Unknown Verified 01/19/25 08:26 rofecoxib Allergy Unknown Unknown Verified 01/19/25 08:26 Sulfa (Sulfonamide Allergy Unknown Unknown Verified 01/19/25 08:26 Antibiotics) valproic acid Allergy Unknown Unknown Verified 01/19/25 08:26 zinc Allergy Unknown Unknown Verified 01/19/25 08:26 zolpidem Allergy Unknown Unknown Verified 01/19/25 08:26 Home Medications ?Medication ?Instructions ?Recorded ?Confirmed ?Type acetaminophen 500 mg capsule 1,000 mg (2 x 500 mg) PO Q6H PRN 04/29/24 01/17/25 Rx pain #30 caps lidocaine 4 % topical patch 1 patch topical DAILY PRN pain #10 04/29/24 01/17/25 Rx ea oxycodone 10 mg tablet 10 mg PO Q8H PRN pain #14 tabs 04/29/24 01/17/25 Rx amlodipine 10 mg tablet 10 mg PO DAILY 07/11/24 01/17/25 History apixaban 5 mg tablet (Eliquis) 5 mg PO Q12H 07/11/24 01/17/25 History atorvastatin 40 mg tablet 40 mg PO HS 07/11/24 01/17/25 History brimonidine 0.2 %-timolol 0.5 % 1 drp EACH EYE Q12H 07/11/24 01/17/25 History eye drops (Combigan) cholecalciferol (vitamin D3) 50 2,000 unit PO DAILY 07/11/24 01/17/25 History mcg (2,000 unit) capsule dorzolamide 2 % eye drops 1 drp EACH EYE .q12hr 07/11/24 01/17/25 History latanoprost 0.005 % eye drops 1 drp EACH EYE HS 07/11/24 01/17/25 History lorazepam 1 mg tablet (Ativan) 1 mg PO .q8hr 07/11/24 01/17/25 History mirtazapine 15 mg tablet 15 mg PO HS 07/11/24 01/17/25 History pyridoxine (vitamin B6) 100 mg 100 mg PO Q12H 07/11/24 01/17/25 History tablet sertraline 50 mg tablet 50 mg PO Q24H 07/11/24 01/17/25 History carboxymethylcellulose sodium 0.5 2 drp EACH EYE Q8H PRN dry eye(s) 10/09/24 01/17/25 History % eye drops peg [id number] 1 2 drp EACH EYE TID PRN Dry Eye(S) 10/12/24 01/17/25 Rx %-0.2 %-0.2 % eye drops #5 mL (Artificial Tears ([id number])) levetiracetam 500 mg tablet 1,250 mg (2.5 x 500 mg) PO Q12HR 01/06/25 01/17/25 Rx (Keppra) #60 tabs pregabalin 50 mg capsule 100 mg (2 x 50 mg) PO Q12H #30 caps 01/06/25 01/17/25 Rx artificial tears solution eye drops 1 drp ophthalmic (eye) BID 01/17/25 01/17/25 History Keratoconjunctivitis Laboratory Tests 01/18/25 01/18/25 01/19/25 09:12 20:11 06:09 WBC 9.6 K/mm3 8.5 K/mm3 (4.5-10.0) (4.5-10.0) RBC 2.76 L M/mm3 3.06 L M/mm3 (4.6-6.20) (4.6-6.20) Hgb 8.3 L g/dL 9.2 L g/dL 9.1 L g/dL (14.0-18.0) (14.0-18.0) (14.0-18.0) Hct 25.5 L % 28.1 L % 28.3 L % (42.0-52.0) (42.0-52.0) (42.0-52.0) MCV 92.4 D fl 92.5 fl (80-100) (80-100) MCH 30.1 D pg 29.7 pg (26-34) (26-34) MCHC 32.5 g/dl 32.2 g/dl (32-36) (32-36) RDW 18.6 H % 17.6 H % (11.5-14.5) (11.5-14.5) Plt Count 247 k/mm3 257 k/mm3 (150-375) (150-375) MPV 9.6 fl 9.3 fl (7.4-10.4) (7.4-10.4) Immature Gran % (Auto) 0.6 H % (0-0.5) Neut % (Auto) 72.9 % (45.5-73.1) Lymph % (Auto) 15.1 L % (18.3-44.2) [place] % (Auto) 8.5 % (2.6-8.5) Eos % (Auto) 2.6 % (0-4.4) Baso % (Auto) 0.3 % (0.2-1.2) Lymph # (Auto) 1.45 K/mm3 (0.9-3.2) [place] # (Auto) 0.8 H K/mm3 (0.1-0.6) Eos # (Auto) 0.3 K/mm3 (0-0.3) Baso # (Auto) 0.0 K/mm3 (0.0-0.1) Abs Immat Gran (auto) 0.06 H K/mm3 (0.00-0.031) Absolute Neuts (auto) 7.0 H K/mm3 (1.3-6.7) Absolute Nucleated RBC 0.000 K/mm3 (0.0-0.012) Nucleated RBC % 0.0 % (0.0-0.2) Sodium 133 L mmol/L 134 L mmol/L (137-145) (137-145) Potassium 3.7 mmol/L 4.8 mmol/L (3.4-5.0) (3.4-5.0) Chloride 101 mmol/L 102 mmol/L (98-107) (98-107) Carbon Dioxide 29 mmol/L 31 H mmol/L (22-30) (22-30) Anion Gap 3 L mmol/L 1 L mmol/L (4-12) (4-12) BUN 13 D mg/dL 11 mg/dL (9-20) (9-20) Creatinine 0.80 mg/dL 0.61 L mg/dL (0.7-1.3) (0.7-1.3) Estim Creat Clear Calc 79 ml/min 101 ml/min Estimated GFR > 60 > 60 (59 - ) (59 - ) Glucose 105 mg/dL 97 mg/dL (65-110) (65-110) Calcium 8.6 mg/dL 8.9 mg/dL (8.4-10.2) (8.4-10.2) Total Bilirubin 0.3 mg/dL (0.2-1.3) AST 43 U/L (17-59) ALT 79 H U/L (6-50) Alkaline Phosphatase 85 U/L (38-126) Total Protein 5.7 L g/dL (6.3-8.2) Albumin 3.3 L g/dL (3.5-5.1) Patient hx anesthesia problems: none Family hx anesthesia problems: none Results Review: All pre-operative results and documents have been reviewed as part of the pre-operative evaluation. [facility] Past Medical History Medical History Blood thinned due to long-term anticoagulant use Acute on chronic blood loss anemia Melena Type 2 diabetes mellitus without complications 5.4% in September of 2024, not currently on medications as of December of 2024 Hypo-osmolality and hyponatremia Encounter for screening colonoscopy Unspecified severe protein-calorie malnutrition Unspecified mood [affective] disorder Other age-related cataract Mixed hyperlipidemia Essential (primary) hypertension Depression, unspecified Cognitive communication deficit Unspecified open-angle glaucoma, stage unspecified Sleep disorder, unspecified Mild 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, unspecified Epilepsy, unspecified, not intractable, without status epilepticus Conversion disorder with seizures or convulsions Benign prostatic hyperplasia without lower urinary tract symptoms Social History Social History Smoking status: Never smoker Second hand tobacco smoke exposure: No (Unknown) Alcohol intake: never Substance use: never Lack of Transportation: No Lack of Food: Never True Current Housing: I Have Housing Concerned About Future Housing: No Difficulty Paying Gas/Electric Bills: No Difficulty Paying for Meds: No Currently Unemployed: No Education: High School Diploma/GED Difficulty w/ Childcare or Family Care: No Living arrangements: correction Additional living arrangements comments: [facility] since 04/09/24 Spiritual care concerns: No Anes - Eval Final PreProcedure Day of Procedure 01/19/25 08:51 Patient weight: thin Heart: regular rate and rhythm Lungs: clear to auscultation Airway: Mallampati scale class II and special considerations poor dentition Neurological: alert and oriented Last oral intake: >/= 8 hours ASA classification: III Emergent: no Anesthetic plan: proceed Anesthesia type and monitoring: general GIVS and standard monitoring Results Review: All pre-operative results and documents have been reviewed as part of the pre-operative evaluation. Informed Consent: The patient's anesthetic plan and its attendant risks and benefits were discussed with the patient/family/POA. Questions were solicited and answers provided to the satisfaction of the patient/family/POA.
[2025-01-19 09:53] VITALS: BP 104/62; PULSE 69; RESP 18; O2SAT 100
--- NOTE | 2025-01-19 09:53 | S_PTH ---
PATIENT: Jairon Dennis LOC: [id number] U#:[id number] AGE/SX: 64/M ROOM: 333 RE01/18/[address]: Ayleen Young PA-C : 1960 BED: 01 DIS: 01/19/2025 SPEC #: [id number] RECD: 01/19/25 10:46 STATUS: CARLOSJason MOHSEN #: [id number] TAYLOR: 01/19/25 09:[address]: Nixon Cedeno DEPT: [facility] Surgical RECD BY: Josee Sepulveda ENTERED: 01/19/25 10:46 SP TYPE: Surgical OTHR DR: MD Blake Camarena MD Tissues: A - Gastric Biopsy B - Gastric Biopsy Procedures: Hematoxylin and Eosin Stain Gross and Microscopic Level 4
--- NOTE | 2025-01-19 09:58 | WPDGIPROGNO ---
Progress Note: A&P Assessment and Plan (1) Duodenal ulcer: Code(s): K26.9 - Duodenal ulcer, unspecified as acute or chronic, without hemorrhage or perforation Status: Acute Assessment and Plan: See EGD report. Multiple, clean based duodenal ulcers explained anemia and melena. Patient is hemodynamically stable after transfusion. He can resume regular diet today and switch pantoprazole to 40 mg once a day orally for 6 weeks. After discharge, anticipated for tomorrow, he can resume his regular dose of Eliquis. Will notify the patient if there is H pylori detected to prescribe appropriate treatment and follow up to confirm erradication. NSAIDs are absolutely contraindicated. Subjective Date/time seen: 01/19/25 09:58 Objective Data Vital Signs Vital Signs: Vital Signs - 24 hr 01/18/25 14:00 01/18/25 20:00 01/18/25 21:16 Temperature 97.5 F L 97.6 F Pulse Rate 92 88 Respiratory Rate 18 17 Blood Pressure 143/67 H 154/73 H Pulse Oximetry 100 98 Oxygen Delivery Room Air 01/19/25 06:00 01/19/25 08:27 01/19/25 09:53 Temperature 96.9 F L 97.0 F L Pulse Rate 90 85 69 Respiratory Rate 17 18 18 Blood Pressure 144/79 H 129/89 104/62 Pulse Oximetry 100 100 100 Oxygen Delivery Room Air Room Air Intake/Output Intake/Output: Intake & Output 01/16/25 01/17/25 01/18/25 01/19/25 23:59 23:59 23:59 23:59 Intake Total 2680 2020 0 Output Total 800 1900 Balance 1880 120 0 Meds/Results Medications: Active Medications Generic Name Dose Route Start Last Admin Trade Name Freq PRN Reason Stop Dose Admin Acetaminophen 650 mg 01/17/25 08:07 Acetaminophen 325 Mg Tablet PO Q4H PRN Mild Pain (1-3) or Fever Artificial Tears 1 drop 01/17/25 09:00 01/18/25 16:49 Artificial Tears Ophth Soln 15 Ml Bottle EACH EYE 02/16/25 08:59 Not Given BID RADHA Artificial Tears 2 drop 01/17/25 08:09 Artificial Tears Ophth Soln 15 Ml Bottle EACH EYE TID PRN Dry Eye(s) Brimonidine Tartrate 1 drop 01/17/25 09:00 01/18/25 21:00 Brimonidine Tartrate 0.2% Op Soln 5 Ml Btl EACH EYE Not Given Q12HR RADHA Dorzolamide HCl 1 drop 01/17/25 09:00 01/18/25 21:00 Dorzolamide Hcl 2% Ophth Drops EACH EYE Not Given Q12HR RADHA Lactated Ringer's 1,000 mls @ 150 mls/hr 01/19/25 07:50 01/19/25 09:51 Lr - Lactated Ringers Iv IV CONT 150 mls/hr .Q6H40M RADHA Infusion Latanoprost 1 drop 01/17/25 21:00 01/18/25 21:00 Latanoprost 0.005% Op Soln 2.5 Ml Btl EACH EYE Not Given HS RADHA Levetiracetam 250 mg 01/17/25 09:00 01/18/25 21:14 Levetiracetam 250 Mg Tablet PO 250 mg Q12HR RADHA Administration Levetiracetam 1,000 mg 01/17/25 09:00 01/18/25 21:14 Levetiracetam 500 Mg Tablet PO 1,000 mg Q12HR RADHA Administration Lorazepam 1 mg 01/17/25 08:10 01/19/25 05:38 Lorazepam (*Crx) 1 Mg Tablet PO 1 mg Q8HR RADHA Administration Mirtazapine 15 mg 01/17/25 21:00 01/18/25 21:14 Mirtazapine 15 Mg Tablet PO 15 mg HS RADHA Administration Ondansetron HCl 4 mg 01/17/25 08:07 Ondansetron Inj 4 Mg/2 Ml Vial IV PUSH Q6H PRN Nausea And Vomiting Oxycodone HCl 10 mg 01/17/25 08:09 Oxycodone Hcl (*Crx) 5 Mg Tab Ir PO Q8H PRN Pain 7-10 Pantoprazole Sodium 40 mg 01/19/25 09:00 Pantoprazole 40 Mg Tablet PO QAM RADHA Pregabalin 100 mg 01/17/25 09:00 01/18/25 21:14 Pregabalin (*Crx) 50 Mg Capsule PO 100 mg Q12HR RADHA Administration Sertraline HCl 50 mg 01/17/25 09:00 01/18/25 09:25 Sertraline Hcl 50 Mg Tablet PO Not Given QAM [facility] Timolol Maleate 1 drop 01/17/25 09:00 01/18/25 21:00 Timolol Maleate 0.5% Op Soln 5 Ml Bottle EACH EYE Not Given Q12HR [facility] Radiology Results: ITS Impressions Abdomen/Pelvis CTA 01/17/25 07:53 IMPRESSION: 1. No active hemorrhage identified. 2. Widespread fat stranding in the abdomen, which may be edema or acute interstitial pancreatitis. 3. Small volume of ascites. 4. Mild pulmonary edema. Labs Labs: Laboratory Results - last 24 hr 01/18/25 01/19/25 01/19/25 20:11 06:09 08:21 WBC 8.5 RBC 3.06 L Hgb 9.2 L 9.1 L Hct 28.1 L 28.3 L MCV 92.5 MCH 29.7 MCHC 32.2 RDW 17.6 H Plt Count 257 MPV 9.3 Sodium 134 L Potassium 4.8 Chloride 102 Carbon Dioxide 31 H Anion Gap 1 L BUN 11 Creatinine 0.61 L Estim Creat Clear Calc 101 Estimated GFR > 60 Glucose 97 POC Capillary Glucose 88 Calcium 8.9
[2025-01-19 10:03] VITALS: BP 118/84; PULSE 79; RESP 24; O2SAT 100
[2025-01-19 10:13] VITALS: BP 137/83; PULSE 88; RESP 27; O2SAT 100
[2025-01-19] MEDS: PREGABALIN (*CRX) 50 MG CAPSULE 100 MG PO (10:36)
[2025-01-19] MEDS: SERTRALINE HCL 50 MG TABLET PO (10:37)
[2025-01-19] MEDS: PANTOPRAZOLE 40 MG TABLET PO (10:37)
[2025-01-19] MEDS: ARTIFICIAL TEARS OPHTH SOLN 15 ML BOTTLE 1 DROP EACH EYE (10:47)
[2025-01-19] MEDS: TIMOLOL MALEATE 0.5% OP SOLN 5 ML BOTTLE 1 DROP EACH EYE (10:47)
[2025-01-19] MEDS: BRIMONIDINE TARTRATE 0.2% OP SOLN 5 ML BTL 1 DROP EACH EYE (10:47)
[2025-01-19] MEDS: DORZOLAMIDE HCL 2% OPHTH DROPS 1 DROP EACH EYE (10:47)
[2025-01-19 10:50] LABS: HPYLORIRESULT Negative (Negative)
--- NOTE | 2025-01-19 12:28 | P.DS_ITS ---
DS: Admitting Diagnosis Discharge Date 01/19/25 Admitting Diagnosis Acute GI bleed DS: Discharge Diagnosis Discharge Diagnosis (1) GI bleed: Code(s): K92.2 - Gastrointestinal hemorrhage, unspecified Status: Acute (2) ABLA (acute blood loss anemia): Code(s): D62 - Acute posthemorrhagic anemia Status: Acute (3) Leukocytosis: Code(s): D72.829 - Elevated white blood cell count, unspecified Status: Resolved (4) Hyponatremia: Code(s): E87.1 - Hypo-osmolality and hyponatremia Status: Acute (5) Epilepsy, unspecified, not intractable, without status epilepticus: Qualifiers: Epilepsy type: generalized idiopathic Qualified Code(s): G40.309 - Generalized idiopathic epilepsy and epileptic syndromes, not intractable, without status epilepticus Code(s): G40.909 - Epilepsy, unspecified, not intractable, without status epilepticus Status: Acute (6) Essential (primary) hypertension: Code(s): I10 - Essential (primary) hypertension Status: Chronic (7) Blood thinned due to long-term anticoagulant use: Code(s): Z79.01 - alf (current) use of anticoagulants Status: Acute DS: Summary Hospital Course Hospital Course: This is a 64-year-old male with a past medical history of epilepsy, hypertension, hyperlipidemia, intellectual delay, BPH depression the present to the ED on 01/16/2025 due to abnormal labs. He was reported to have a low hemoglobin hematocrit. In the ED was found have a hemoglobin of 5.8 and hematocrit of 17.7. He did not have any rectal bleeding or coffee-ground emesis. GI was consulted. He received 2 units of PRBCs in the ED. CTA of the abdomen pelvis did not identify any acute GI bleed. He was started on IV Protonix and fluids. And serial hemoglobin hematocrit. He had EGD today which revealed chronic duodenal ulcers and gastritis. He has remained stable since his transfusion. Recommend that he start PPI. Time Spent with Patient Time attestation: Total time spent providing and/or coordinating discharge services: Exam Narrative: GENERAL: Comfortable, no acute distress HENMT: moist mucous membranes RESPIRATORY: clear to auscultation, no increased respiratory effort CARDIO: Regular rate and rhythm GI: soft, nontender, bowel sounds present SKIN/EXTREMITIES: no rashes, no edema, no redness or tenderness DS: Data Data Completed and Pending Pending studies at discharge: Pending at discharge 01/19/25 09:53 Surgical [PTH] Routine Labs on day of discharge: Labs from last 24 hours 01/19/25 01/19/25 01/19/25 10:48 10:02 08:21 WBC RBC Hgb Hct MCV MCH MCHC RDW Plt Count MPV Sodium Potassium Chloride Carbon Dioxide Anion Gap BUN Creatinine Estim Creat Clear Calc Estimated GFR Glucose POC Capillary Glucose 88 88 Calcium POC H. pylori Urease Negative 01/19/25 01/18/25 06:09 20:11 WBC 8.5 RBC 3.06 L Hgb 9.1 L 9.2 L Hct 28.3 L 28.1 L MCV 92.5 MCH 29.7 MCHC 32.2 RDW 17.6 H Plt Count 257 MPV 9.3 Sodium 134 L Potassium 4.8 Chloride 102 Carbon Dioxide 31 H Anion Gap 1 L BUN 11 Creatinine 0.61 L Estim Creat Clear Calc 101 Estimated GFR > 60 Glucose 97 POC Capillary Glucose Calcium 8.9 POC H. pylori Urease Discharge Plan Discharge Consulting providers: Blake Caldwell Discharging Clinician: Ayleen Young Patient Disposition: [facility] Activity: as tolerated Diet: regular Discharge Instructions: Discharge disposition: After discharge, anticipated for tomorrow (01/20/25), he can resume his regular dose of Eliquis. Will notify the patient if there is H pylori detected to prescribe appropriate treatment and follow up to confirm eradication. NSAIDs are absolutely contraindicated. Take medications as prescribed Monitor blood pressures Encouraged to continue with yearly vaccinations Return to the emergency department if he developed sudden shortness of breath, chest pain, nausea, vomiting, upset stomach or intractable diarrhea Return to the emergency department if you develop fever greater than 100.4 Follow-up with the primary care physician within 1-2 weeks Thank you for choosing [facility] for your healthcare needs Patient Instructions: Antibiotic Form Patient Language: Slovenian Stand Alone Forms: General Discharge Information Discharge Medications: New pantoprazole 40 mg Tablet,Delayed Release (Dr/Ec) 40 mg PO QAM Qty: 42 0RF Continued acetaminophen 500 mg capsule 1,000 mg PO Q6H PRN (Reason: pain) Qty: 30 0RF lidocaine 4 % adhesive patch,medicated 1 patch topical DAILY PRN (Reason: pain) Qty: 10 0RF pyridoxine (vitamin B6) 100 mg tablet 100 mg PO Q12H sertraline 50 mg tablet 50 mg PO Q24H lorazepam [Ativan] 1 mg tablet 1 mg PO .q8hr Eliquis 5 mg tablet 5 mg PO Q12H dorzolamide 2 % drops 1 drp EACH EYE .q12hr cholecalciferol (vitamin D3) 50 mcg (2,000 unit) capsule 2,000 unit PO DAILY brimonidine-timolol [Combigan] 0.2-0.5 % drops 1 drp EACH EYE Q12H atorvastatin 40 mg tablet 40 mg PO HS amlodipine 10 mg tablet 10 mg PO DAILY latanoprost 0.005 % drops 1 drp EACH EYE HS mirtazapine 15 mg tablet 15 mg PO HS carboxymethylcellulose sodium 0.5 % drops 2 drp EACH EYE Q8H PRN (Reason: dry eye(s)) Artificial Tears([id number]) 1-0.2-0.2 % Drops 2 drp EACH EYE TID PRN (Reason: Dry Eye(S)) Qty: 5 0RF levetiracetam [Keppra] 500 mg Tablet 1,250 mg PO Q12HR Qty: 60 0RF pregabalin 50 mg capsule 100 mg PO Q12H Qty: 30 0RF artificial tears solution Drops 1 drp ophthalmic (eye) BID Patient Comments: Bilateral eyes Discontinued oxycodone 10 mg tablet 10 mg PO Q8H PRN (Reason: pain) Qty: 14 0RF Date of admission: 01/18/25 16:03 Primary Care Provider: Pantera Friedman Admitting Provider: Sherine Kline Attending physician on admission: Sherine Kline Condition: Guarded Prognosis Hospitalist MIPS Heart Failure (Exclusion) Patient has history of Heart Transplant or Left Ventricular Assistive Device?: No IF YES, STOP HERE Heart Failure (Qualifier) Patient has current or prior documentation of LVEF less than or equal to 40%, or mod/servere depressed LVSF?: No IF NO, STOP HERE
[2025-01-19 14:00] VITALS: BP 126/82; PULSE 80; RESP 18; TEMP 36.9; O2SAT 100
== END 2025-01-19 16:00 | DRG 377 ==
LOC: ANHED 01-17 04:21 → ANH3MEDSUR 01-17 04:30
PROVIDERS: Internal Medicine Gastroenterology; Nurse Practitioner Adult Health; Physician Assistant; Admitting Provider General Practice; Emergency Provider Registered Nurse; Visit Provider Internal Medicine Critical Care Medicine
PROC: 0DJ08ZZ Inspection of Upper Intestinal Tract, Via Natural or Artificial Opening Endoscopic (ICD-10-PCS; principal; 2025-01-19 10:00)
DX: K92.2 Gastrointestinal hemorrhage, unspecified (principal); E43 Unspecified severe protein-calorie malnutrition; D62 Acute posthemorrhagic anemia; E87.1 Hypo-osmolality and hyponatremia; K29.70 Gastritis, unspecified, without bleeding; K26.7 Chronic duodenal ulcer without hemorrhage or perforation; D72.829 Elevated white blood cell count, unspecified; G40.909 Epilepsy, unspecified, not intractable, without status epilepticus; N40.0 Benign prostatic hyperplasia without lower urinary tract symptoms; H40.10X0 Unspecified open-angle glaucoma, stage unspecified; Z79.01 Long term (current) use of anticoagulants; Z68.21 Body mass index [BMI] 21.0-21.9, adult
CPT/HCPCS: 36415; 36430; 74174; 80048; 80053; 81003; 82948; 83690; 85014; 85018; 85025; 85027; 85610; 85730; 86850; 86900; 86901; 86923; 87081; 88305; 96361; 96374; 96375; 96376; 99285; A9270; G0378; J2003; J2470; J2704; J7030; J7050; J7120; P9016; Q9967

== ENCOUNTER 2025-01-20 21:25 | Observation (INO) | payer MEDICARE, MEDICAID, SELFPAY ==
--- NOTE | ~2025-01-20 | CT_ITS ---
CT HEAD NON-CONTRAST Clinical History: seizure Comparison: 01/03/2025 Technique: Unenhanced axial images skull base to vertex Coronal, sagittal reformats CT images acquired with automatic exposure control for dose reduction DLP: 681 mGy-cm Findings: Mild inferior bifrontal encephalomalacia. Sulci, ventricles: Unremarkable. No intracerebral hemorrhage. No evidence acute territorial infarct. No mass effect, midline shift. Bony calvarium intact. Visualized paranasal sinuses: Clear. Mastoid air cells: Clear. IMPRESSION: 1. No acute intracranial findings. Reviewed, dictated and finalized at location R. R PLANT OPERATOR
--- NOTE | ~2025-01-20 | XR_ITS ---
EXAMINATION: XR chest 1V DATE: 01/20/2025 22:06 INDICATION: Seizure TECHNIQUE: A single frontal view of the chest was obtained. COMPARISON: January 03, 2025 FINDINGS: Left-sided pacemaking device are electronic device stable. Lungs are clear. Heart shadow normal. No pneumothorax or subphrenic free air seen. IMPRESSION: 1. Portable chest x-ray with no focal acute process. Reviewed, dictated and finalized at location A. R DIRECTOR
[2025-01-20 21:25] VITALS: BP 100/70; PULSE 121; RESP 22; TEMP 36.6; O2SAT 100
--- NOTE | 2025-01-20 21:50 | ECG_ITS ---
Test Date: 2025-01-20 22:41:20 Measurements Intervals [place] Rate: 93 P: 54 UT: 166 QRS: 61 QRSD: 79 T: 60 QT: 362 QTc: 452 Interpretive Statements SINUS RHYTHM NORMAL ECG Compared to ECG 01/03/2025 16:50:31 No significant changes Electronically Signed On 01-21-2025 06:19:06 [employer]ILHEAD OPERATOR by Kale Guzmán D.O.
[2025-01-20 22:00] VITALS: BP 120/87; PULSE 114; RESP 23; TEMP 36.9; O2SAT 100
--- OUTSIDE RECORDS SUMMARY | 2025-01-20 22:16 | XMS_ITS | Clinical Summary ---
Author Organization [facility] Address [facility] [place] [address] Care Team Providers Care Stacking Machine Operator Name Role Phone Lex Eaton MD Primary Care Provider [phone] Louie Soto MD Unavailable [phone] Allergies Active Allergy Reactions Criticality Noted Date Comments Zolpidem Dizziness 03/07/2023 Fexofenadine-Pseudoephed Er Unknown 12/30/19 Cephalexin Unknown 06/13/2017 Cephalosporins Unknown 12/29/2021 Ciprofloxacin Unknown 12/29/2021 Diphenhydramine Seizure 06/13/2017 Enoxaparin Unknown 06/13/2017 Ethanolamine Unknown 12/29/2021 Lactose Diarrhea 06/13/2017 Milk-Related Compounds Unknown 12/29/2021 Rofecoxib Unknown 06/13/2017 Sulfa Antibiotics Unknown 12/29/2021 Sulfacetamide Unknown 06/13/2017 Valproic Acid Dizziness 06/13/2017 Zinc Acetate Unknown 12/29/2021 Olanzapine Blurred vision 05/11/2023 Medications vitamin C (ASCORBIC ACID) 1000 MG tabletIndication s:supplement Take 1 tablet (1,000 mg total) by mouth daily. Indications: supplement 4 Active Cholecalciferol (VITAMIN D3) 50 MCG (1999) CapIndications:s upplement Take 1 tablet by mouth daily. Indications: supplement 4 Active mirtazapine (REMERON) 15 MG tabletIndication s:Depression Take 1 tablet (15 mg total) by mouth nightly at bedtime. 30 tablet 1 4 Active calcium, elemental, 600 MG tablet Take 1 tablet (600 mg total) by mouth daily. 4 Active Multiple Vitamins-Mineral s (MULTIVITAMIN ADULTS 50+) Tab Take 1 tablet by mouth daily. 4 Active sodium chloride 1 GM tabletIndication s:Low sodium levels Take 1 tablet (1 g total) by mouth 2 (two) times a day. 4 Active alfuzosin ER (UROXATRAL) 10 MG 24 hr tabletIndication s:BPH Take 1 tablet (10 mg total) by mouth nightly at bedtime. 90 tablet 1 4 Active pyridoxine (VITAMIN B-6) 100 MG tablet Take 1 tablet (100 mg total) by mouth 2 (two) times a day. 4 Active COMBIGAN 0.2-0.5 % ophthalmic solutionIndicati ons:Glaucoma Place 1 drop into both eyes 2 (two) times a day. Indications: Glaucoma 4 Active ROCKLATAN 0.02-0.005 % SolutionIndicati ons:Glaucoma Apply 1 drop to eye nightly at bedtime. Both eyes 4 Active prednisoLONE acetate (PRED FORTE) 1 % ophthalmic suspensionIndica tions:Inflammati on of eye Place 1 drop into both eyes every morning. 4 Active atorvastatin (LIPITOR) 40 MG tabletIndication s:hypercholester olemia take one tablet by mouth every day 90 tablet 4 Active ELIQUIS 5 MG tabletIndication s:History of deep venous thrombosis (DVT) of distal vein of right lower extremity take one tablet twice daily 60 tablet 1 4 Active empagliflozin (JARDIANCE) 10 MG tabletIndication s:Diastolic dysfunction Take 1 tablet (10 mg total) by mouth daily. 30 tablet 2 4 Active Additional Information Patient not taking.Reported on 09/25/2024 dorzolamide (TRUSOPT) 2 % ophthalmic solution Place 1 drop into both eyes. 4 Active latanoprost (XALATAN) 0.005 % ophthalmic solution Place 1 drop into both eyes. 4 Active ATIVAN 1 MG tablet Take by mouth every 8 (eight) hours. 4 Active sertraline (ZOLOFT) 50 MG tablet Take by mouth daily. 4 Active ENULOSE 10 GM/15ML solution Take by mouth every 12 (twelve) hours. 4 Active amLODIPine (NORVASC) 10 MG tablet Take by mouth daily. 4 Active BASAGLAR KWIKPEN 100 UNIT/ML injection (PEN) 5 Active oxyCODONE immediate release (ROXICODONE) 10 MG immediate release tablet 5 Active eslicarbazepine (APTIOM) 800 MG tabletIndication s:Seizure Disorder Take 2 tablets (1,600 mg total) by mouth daily. Indications: Disorder with Convulsion 30 tablet 5 5 Active levETIRAcetam (KEPPRA) 750 MG tabletIndication s:Seizure Disorder Take 2 tablets (1,500 mg total) by mouth 3 (three) times daily. Indications: Disorder with Convulsion 540 tablet 3 5 09/26/19 26 Active pregabalin (LYRICA) 50 MG capsuleIndicatio ns:Pain Take 1 capsule (50 mg total) by mouth 2 (two) times daily. Indications: Pain Take with the 100 mg in the afternoon and evening 60 capsule 5 5 Active Active Problems Problem Noted Date Diagnosed Date Diastolic dysfunction 08/17/2023 Dry mouth and eyes 05/25/2023 Idiopathic peripheral neuropathy 02/23/2023 Overview (05/30/2023): 05/31/2023 Assessment & Plan (05/31/2023 2:14 PM CDT): Plan: I discussed the pathophysiology, diagnostic tests, diagnosis and treatment options for peripheral neuropathy including EMG nerve conduction studies, laboratory studies, good neuropathy foot care, physical therapy for gait and balance and medications for neuropathic discomfort. The patient will have labs to further evaluate for possible causes of neuropathy to include TSH, folate, thiamine, vitamin B6, SPEP with JOSEFINA, UPEP with JOSEFINA. The patient will have an EMG nerve conduction study of the bilateral lower extremities to evaluate for neuropathy. For neuropathic pain I discussed antiepileptic and antiseizure medications including things like duloxetine and further adjustment of pregabalin. He does not want to make any changes until testing has been completed. The patient has declined referral to physical therapy for evaluation and treatment of gait and balance. The patient is to call for any problems. History of deep venous throm bosis (DVT) of distal vein of right lower extremity 06/05/2022 Legal blindness of right eye , as defined in [place] 06/05/2022 Disc disease, degenerative, cervical 06/05/2022 Ureteral stricture 06/05/2022 Overview (06/05/2022): S/p dilation by Dr. Robbins on 11/10/2020 Elevated PSA 03/30/2022 Urolithiasis 03/30/2022 Stricture of male urethra 11/10/2020 Memory deficit 07/10/2019 Other age-related cataract 08/06/[address] atus epilepticus, unspecified epilepsy type 11/20/2017 Overview (05/30/2023): 05/31/2023 Assessment & Plan (05/31/2023 2:13 PM CDT): Plan: He will continue to follow-up with his epilepsy doctor in [place]. This will be followed conservatively from my standpoint. The patient is to call for any problems. Chronic pain disorder 11/20/2017 Glaucoma, unspecified glaucoma type, unspecified laterality 11/20/2017 History of kidney stones 11/20/2017 History of prostate cancer 11/20/2017 Photosensitivity 11/20/2017 H/O adenomatous polyp of colon 06/13/2017 Disordered sleep 11/09/2016 Recurrent major depressive disorder, in full rem ission 03/22/2016 Hypertension 02/23/2016 Hyperlipidemia, unspecified hyperlipidemia type 02/23/2016 BPH (benign prostatic hyperplasia) 02/23/2016 Hyponatremia 02/23/2016 Seizure disorder 02/23/2016 Kidney stones 02/12/1997 Overview (07/10/2019): Followed by dr. mendoza Resolved Problems Problem Noted Date Diagnosed Date Resolved Date Peripheral neuropathy 06/05/20222023 Prostate cancer 07/10/2019 07/04/2023 Overview (07/10/2019): Patient states that he is in remission for the past 2 years. Schizophrenia, unspecified type 11/20/2017 02/23/2023 Encounter for preventive health examination 01/10/2017 11/14/2021 Encounters Date Type Department Care Team Description 11/14/2024 Telephone [facility] Multispecialty Care - [address], [address] [place] [address] Leah Gillespie MD Medication from Last 3 Months Immunizations Immunization Administration Dates Next Due Arexvy Respiratory Syncytial Virus (RSV, adjuvanted) 0.5 mL, PF 12/29/2022 Fluzone 6 Months+ Quad (0.5 mL Prefilled Syringe) 11/06/2018,10/16/2016,10/30/2015 Influenza (Generic) 10/25/2017,10/30/2014 Influenza 3 yrs + Preservati ve Free (Fluzone) 10/30/2014 Influenza Adult (Generic) 11/14/2022,04/2021,11/07/2019,2018,10/25/2017,10/16/2016,10/30/2015 MMR 09/19/2018 PFIZER COVID-19 BIVALENT (12 +) mRNA, LNP-S, PF, 30 MCG/0.3 ML DOSE 11/14/2021 Pneumococcal (Pneumovax 23) 11/23/2009 Pneumococcal (Prevnar 13) 12/01/2020 Shingrix 10/20/2022,08/21/2022 Family History Medical History Relation Comments Diabetes Brother Hyperlipidemia Brother Hypertension Brother Diabetes Father Heart Disease Father Hyperlipidemia Father Hypertension Father Stroke Father Cancer Maternal Aunt Heart Disease Maternal Aunt Heart Disease Maternal Uncle Diabetes Mother Heart Disease Mother Hyperlipidemia Mother Hypertension Mother Relation Status Comments Brother Father Maternal Aunt Maternal Uncle Mother Social History Tobacco Use Types Packs/Day Years Used Date Smoking Tobacco: Never Passive Smoke Exposure: Never Smokeless Tobacco: Never Tobacco Cessation:Counseling Given: No Comments:Non smoker will not start Alcohol Use Standard Drinks/Week Comments No 0 (1 standard drink = 0.6 oz pur e alcohol) OASIS D0700: Social Isolation Answer Da te Recorded Frequency of experiencing loneliness or isolatio n Never 07/12/2023 OASIS A1250: Transportation Answer Date Recorded Lack of Transportation (Medical) No 07/12/2023 Lack of Transportation (Non-Medical) No 07/12/2023 Patient Unable or Declines to Respond No 07/12/2023 OASIS B1300: Health Literacy Answer Huan e Recorded Frequency of needing help to read materials from doctor or pharmacy Never 07/12/2023 Humiliation, Afraid, Rape, and Kick questionnair e Answer Date Recorded Within the last year, have y ou been afraid of your partner or ex-partner? No 03/30/2022 Within the last year, have y ou been humiliated or emotionally abused in other ways by your partner or ex-partner? No Within the last year, have y ou been kicked, hit, slapped, or otherwise physically hurt by your partner or ex-partner? No 03/30/2022 Within the last year, have y ou been raped or forced to have any kind of sexual activity by your partner or ex-partner? No 03/30/2022 Social Connection and Isolation Panel Answer Date Recorded In a typical week, how many times do you talk on the phone with family, friends, or neighbors? More than three times a week 03/30/2022 How often do you get togethe r with friends or relatives? More than three times a week 03/30/2022 How often do you attend chur or jainism services? More than 4 times per year 03/30/2022 Do you belong to any clubs o r organizations such as jew groups, unions, fraternal or athletic groups, or school groups? Yes 03/30/2022 How often do you attend meet ings of the clubs or organizations you belong to? 1 to 4 times per year 03/30/2022 Are you , , di vorced, , never , or living with a partner? Never 03/30/2022 AUDIT-C Answer Date Recorded Q1: How often do you have a drink containing alcohol? Never 12/01/2022 Q2: How many drinks containi ng alcohol do you have on a typical day when you are drinking? Patient does not drink Q3: How often do you have si x or more drinks on one occasion? Never 12/01/2022 Overall Financial Resource Strain (CARDIA) Answe r Date Recorded How hard is it for you to pa y for the very basics like food, housing, medical care, and heating? Not hard at all 03/30/2022 PHQ-2 Answer Date Recorded Patient Health Questionnaire-2 Score 2 05/31/2023 [facility] - Occupational Stress Questionnaire Answer Date Recorded Do you feel stress - tense, restless, nervous, or anxious, or unable to sleep at night because your mind is troubled all the time - these days? Only a little 03/30/2022 Exercise Vital Sign Answer Date Recorde d On average, how many days pe r week do you engage in moderate to strenuous exercise (like a brisk walk)? 3 days 03/30/2022 On average, how many minutes do you engage in exercise at this level? 60 min 03/30/2022 Hunger Vital Sign Answer Date Recorded Within the past 12 months, y ou worried that your food would run out before you got the money to buy more. Never true 03/30/19 23 Within the past 12 months, t he food you bought just didn't last and you didn't have money to get more. Never true 03/30/2022 PRAPARE - Transportation Answer Date Re corded In the past 12 months, has l ack of transportation kept you from medical appointments or from getting medications? No 03/15 In the past 12 months, has l ack of transportation kept you from meetings, work, or from getting things needed for daily living? No 03/30/2022 Housing Stability Vital Sign Answer Huan e Recorded In the last 12 months, was t here a time when you were not able to pay the mortgage or rent on time? No 03/30/2022 In the last 12 months, how many places have you lived? 1 03/30/2022 In the last 12 months, was t here a time when you did not have a steady place to sleep or slept in a [place] (including now)? No 03/30/2022 Sex and Gender Information Value Date Recorded Sex Assigned at Not on file Legal Sex Male 1:36 PM CDT Gender Identity Not on file Sexual Orientation Not on file Last Filed Vital Signs Vital Sign Reading Time Taken Comments Blood Pressure 115/71 09/25/2024 11:29 AM CDT Pulse 66 09/25/2024 11:29 AM CDT Temperature 36.6 C (97.9 F) 09/25/2024 11:29 AM CDT Respiratory Rate 18 08/31/2023 2:08 AM CDT Oxygen Saturation 98% 09/25/2024 11:29 AM CDT Inhaled Oxygen Concentration - - Weight 65.9 kg (145 lb 4.8 oz) 09/25/2024 11:29 AM CDT Height 180.3 cm (5' 11) 09/25/2024 11:29 AM CDT Body Mass Index 20.27 09/25/2024 11:29 AM CDT Plan of Treatment Upcoming Encounters Date Type Department Care Team (Late st Contact Info) Description 01/26/2025 9:00 AM PAINTER TUMBLING BARREL Office Visit [facility] Multispecialty Care - [address], [address] [place] [address] Leah Gillespie MD [address] [place] [id number] Health Maintenance Due Date Last Done Comments DTaP, Tdap and Td Vaccines (1 - Tdap) 06/13/1979 Annual Physical 08/08/2023 08/07/2022 PHQ-2 (Physician Holladay) 02/13/2024 05/31/2023 COVID-19 Vaccine ( - season) 2024 12/21/2023, 12/26/2022, 11/14/2021, Additional history exists Influenza Adult (#1) 2024 11/14/2022, 11/14/2021, 11/07/2019, Additional history exists Pneumococcal Vaccine: 50+ Years (3 of 3 - PCV20 or PCV21) 12/01/2025 12/01/2020, 11/23/2009 Colorectal Cancer Screening Colonoscopy (10 Years) 03/21/2027 03/21/2022 Hepatitis C Completed 10/04/2021, 07/14/2016 Zoster Vaccines Completed 10/20/2022, 08/21/2022 RSV Immunization or 60+ Years Completed 12/29/2022 Hepatitis A Vaccines Aged Out No long er eligible based on patient's age to complete this topic Meningococcal B Vaccine Aged Out No l onger eligible based on patient's age to complete this topic Meningococcal Vaccine Aged Out No елена karey eligible based on patient's age to complete this topic RSV Immunizations Under 20 Months Aged Out No longer eligible based on patient's age to complete this topic Medical Devices Implanted Type Area Android Ui Developer Device Identifier Shelf Expiration Date Model / Serial / Lot Stent Ureteral [place] Sci Contour Vl 6fr X 22-30cm - [id number] Implanted:Qty : 1 on 03/15/2022 by Dada Robbins MD at [facility] Stent Left: Ureter [employer] [id number] 12/13/2024 [id number] 60 / / [id number] Stent Ureteral [place] Sci Contour Vl 6fr X 22-30cm - [id number] Implanted:Qty : 1 on 03/30/2022 by Dada Robbins MD at [facility] Stent Left: Ureter [employer] [id number] 12/26/2024 [id number] 60 / / [id number] Vagal Nerve Stimulator-Of f Left Iol Procedures Procedure Name Priority Date/Time Associated Diagnosis Comments HEPATITIS C ANTIBODY Routine 10/04/2021 11:57 AM CDT Medication management from Last 3 Months or Most Recently Relevant to Health Maintenance Results * HEPATITIS C ANTIBODY (10/04/2021 11:57 AM CDT) HEPATITIS C AB NON-REACTI VE NON-REACT RUSH 10/05/2021 3:49 PM CDT [facility] Comment: ANTIBODIES TO HCV NOT DETECTED. DOES NOT EXCLUDE THE POSSIBILITY OF EXPOSURE TO HCV. 10/04/2021 11:5 7 AM CDT us Bear Arreguin DPM LABORATORY Final Resul t [facility] [address] [phone] from Last 3 Months or Most Recently Relevant to Health Maintenance Insurance MEDICARE MEDICAID MEDICARE MEDICARE MEDICAID Advance Directives Documents on File Type Date Recorded Patient Trim And Burr Operator Expl anation Power of Fire Operations Forester Advance Directives and Living Will 09/23/2020 11:05 AM 09/28/2011 POA FOR HEALTH CARE Advance Directives and Living Will 09/23/2020 11:05 AM 09/27/2011 LIVING [place] Advance Directives and Living Will 01/28/2018 12:00 AM LIVING WILL Advance Directives and Living Will 01/28/2018 12:00 AM POWER OF MANAGER ERP FO R HEALTH CARE Advance Directives and Living Will 01/28/2018 12:00 AM LIVING WILL Advance Directives and Living Will 01/28/2018 12:00 AM POWER OF MANAGER ERP FO R HEALTH CARE Advance Directives and Living Will 11/21/2017 12:00 AM LIVING WILL Advance Directives and Living Will 11/21/2017 12:00 AM POWER OF MANAGER ERP FO R HEALTH CARE Advance Directives and Living Will 11/21/2017 12:00 AM LIVING WILL Advance Directives and Living Will 11/21/2017 12:00 AM POWER OF MANAGER ERP FO R HEALTH CARE Advance Directives and Living Will 07/20/2017 12:00 AM LIVING WILL Advance Directives and Living Will 07/18/2017 12:00 AM POWER OF MANAGER ERP FO R HEALTH CARE Advance Directives and Living Will 07/18/2017 12:00 AM LIVING WILL Advance Directives and Living Will 07/18/2017 12:00 AM LIVING WILL Advance Directives and Living Will 07/18/2017 12:00 AM POWER OF MANAGER ERP FO R HEALTH CARE Advance Directives and Living Will 07/18/2017 12:00 AM POWER OF MANAGER ERP FO R HEALTH CARE * Full Code (Latest Code Status on File) Date Activated Date Inactivated Comments 06/22/2023 12:07 PM 07/08/2023 5:04 PM * Full Code Date Activated Date Inactivated Comments 06/06/2022 2:57 PM 09/01/2022 7:34 AM * Full Code Date Activated Date Inactivated Comments 03/30/2022 12:16 PM 03/31/2022 4:23 PM Healthcare Agents on File Name Relationship Healthcare Agent Relationshi p Communication Priti Sandhu [facility] Health Care Agent Care Teams Stacking Machine Operator Relationship Specialty Start Date End Date Lex Eaton MD [address] [place] [address] PCP - General FAMILY PRACTICE 06/05/22 Louie Soto MD [address] [place] [address] NEUROLOGY 06/29/23
--- OUTSIDE RECORDS SUMMARY | 2025-01-20 22:16 | XMS_ITS | Encounter Summary ---
Author Organization [facility] Address [facility] [place] [address] Care Team Providers Care Gun Numberer Name Role Phone Jason Mcclure NP Primary Care Provider [phone] Lex Eaton MD Primary Care Provider [phone] Louie Soto MD Unavailable [phone] Encounter Details Date Type Department Care Team (Late st Contact Info) Description 03/07/2022 Prep for Procedure [facility] Day Services [address] [place] [address] Terry Padilla MD Social History Tobacco Use Types Packs/Day Years Used Date Smoking Tobacco: Never Smokeless Tobacco: Never Alcohol Use Standard Drinks/Week Comments No 0 (1 standard drink = 0.6 oz pur e alcohol) AUDIT-C Answer Date Recorded Frequency of Alcohol Consumption Never 08/06/2018 Average Number of Drinks Not on file 019 Frequency of Binge Drinking Not on file 07/14 Sex and Gender Information Value Date Recorded Sex Assigned at Not on file Legal Sex Male 1:36 PM CDT Gender Identity Not on file Sexual Orientation Not on file COVID-19 Exposure Response Date Recorded In the last 10 days, have yo u been in contact with someone who was confirmed or suspected to have Coronavirus/COVID-19? No / Unsure 03/09/2022 3:48 PM BEAUTY SHOP MANAGER documented as of this encounter Functional Status * Calculated C-SSRS Risk Score (Lifetime/Recent) Answer Date of Assessment Author Status No Risk Indicated 03/09/2022 3:52 PM BEAUTY SHOP MANAGER Bernardino Khoury RN Active * Odem Suicide Severity Rating Scale (Screener/Recent Self-Report) Question Answer Date of Assessment Author Status 1. Wish to be (Past 1 Month) No 03/09/2022 3:52 PM BEAUTY SHOP MANAGER Ale Khoury RN Acti ve 2. Non-Specific Active Suicidal Thoughts (Past 1 Month) No 03/09/2022 3:52 PM BEAUTY SHOP MANAGER Ale Khoury RN Acti ve 6. Suicidal Behavior (Lifetime) No 03/09/2022 3:52 PM BEAUTY SHOP MANAGER Ale Khoury RN Acti ve documented as of this encounter Plan of Treatment Upcoming Encounters Date Type Department Care Team (Late st Contact Info) Description 01/26/2025 9:00 AM BEAUTY SHOP MANAGER Office Visit [facility] Multispecialty Care - [address], [address] [place] [address] Leah Gillespie MD [address] [place] [address] documented as of this encounter Visit Diagnoses Not on filedocumented in this encounter Additional Health Concerns Infection Onset Date Last Indicated Resolved Time COVID-19 Rule Out 08/30/2023 08/30/2023 08/30/2023 11:07 PM CDT documented as of this encounter Care Teams Gun Numberer Relationship Specialty Start Date End Date Jason Mcclure NP PCP - General NURSE PRACTITIONER 08/31/21 06/04/22 Lex Eaton MD [address] [place] [address] PCP - General FAMILY PRACTICE 06/05/22 Louie Soto MD [address] [place] [address] NEUROLOGY 06/29/23 documented as of this encounter
[2025-01-20 22:22] LABS: Hematocrit 28.6 % (42.0-52.0); Hemoglobin 9.3 g/dL (14.0-18.0); Immature Granulocyte Percent A 0.3 % (0-0.5); Lymphocytes Absolute Auto 1.39 K/mm3 (0.9-3.2); Mean Corpuscular HGB Conc 32.5 g/dl (32-36); Mean Corpuscular Hemoglobin 29.7 pg (26-34); Mean Corpuscular Volume 91.4 fl (80-100); Nucleated Red Blood Cells Absolute Auto 0.000 K/mm3 (0.0-0.012); Nucleated Red Blood Cells Perc 0.0 % (0.0-0.2); Platelet Count Result 273 k/mm3 (150-375); Red Blood Count 3.13 M/mm3 (4.6-6.20); White Blood Count 9.0 K/mm3 (4.5-10.0)
--- NOTE | 2025-01-20 22:29 | ED.GENADULT ---
HPI - General Adult General Chief complaint: Seizure Stated complaint: seizure Time Seen by Provider: 01/20/25 21:39 History of Present Illness HPI narrative: 64-year-old male with prior history of seizures presents emergency department for evaluation for 3 seizures today. Patient does take Keppra patient does have a history of a vagal nerve stimulator that is no longer active. Patient does reside in a local custodial. Patient was unaware that he had had 3 seizures today. Patient denies any pain or complaints. Patient denies any recent illnesses. Patient was well-appearing at time of evaluation. Patient is unsure who he follows up with for Neurology. Patient has previously seen Dr. Ann for EEG. Related Data Home Medications ?Medication ?Instructions ?Recorded ?Confirmed ?Last Taken ?Type amlodipine 10 mg tablet 10 mg PO DAILY 07/11/24 01/17/25 01/16/25 09:30 History 10 mg apixaban 5 mg tablet (Eliquis) 5 mg PO Q12H 07/11/24 01/17/25 01/16/25 15:50 History 5 mg atorvastatin 40 mg tablet 40 mg PO HS 07/11/24 01/17/25 01/16/25 19:40 History 40 mg brimonidine 0.2 %-timolol 0.5 % 1 drp EACH EYE Q12H 07/11/24 01/17/25 01/16/25 19:40 History eye drops (Combigan) 1 drp cholecalciferol (vitamin D3) 50 2,000 unit PO DAILY 07/11/24 01/17/25 01/16/25 09:35 History mcg (2,000 unit) capsule 2,000 unit dorzolamide 2 % eye drops 1 drp EACH EYE .q12hr 07/11/24 01/17/25 01/16/25 20:10 History 1 drp latanoprost 0.005 % eye drops 1 drp EACH EYE HS 07/11/24 01/17/25 01/16/25 20:10 History 1 drp lorazepam 1 mg tablet (Ativan) 1 mg PO .q8hr 07/11/24 01/17/25 01/16/25 20:10 History 1 mg mirtazapine 15 mg tablet 15 mg PO HS 07/11/24 01/17/25 01/16/25 20:10 History 15 mg pyridoxine (vitamin B6) 100 mg 100 mg PO Q12H 07/11/24 01/17/25 01/16/25 20:10 History tablet 100 mg sertraline 50 mg tablet 50 mg PO Q24H 07/11/24 01/17/25 01/16/25 09:30 History 50 mg carboxymethylcellulose sodium 0.5 2 drp EACH EYE Q8H PRN dry eye(s) 10/09/24 01/17/25 Unknown History % eye drops artificial tears solution eye drops 1 drp ophthalmic (eye) BID 01/17/25 01/17/25 01/16/25 15:50 History Keratoconjunctivitis 1 drp Allergies Allergy/AdvReac Type Severity Reaction Status Date / Time Antihistamines - Ethanolamine Allergy Unknown Unknown Verified 01/21/25 04:31 cephalexin Allergy Unknown Unknown Verified 01/21/25 04:31 Cephalosporins Allergy Unknown Unknown Verified 01/21/25 04:31 diphenhydramine (From Allergy Unknown Unknown Verified 01/21/25 04:31 Benadryl) enoxaparin Allergy Unknown Unknown Verified 01/21/25 04:31 fexofenadine Allergy Unknown Unknown Verified 01/21/25 04:31 lactose Allergy Unknown Unknown Verified 01/21/25 04:31 milk Allergy Unknown Unknown Verified 01/21/25 04:31 olanzapine Allergy Unknown Unknown Verified 01/21/25 04:31 rofecoxib Allergy Unknown Unknown Verified 01/21/25 04:31 Sulfa (Sulfonamide Allergy Unknown Unknown Verified 01/21/25 04:31 Antibiotics) valproic acid Allergy Unknown Unknown Verified 01/21/25 04:31 zinc Allergy Unknown Unknown Verified 01/21/25 04:31 zolpidem Allergy Unknown Unknown Verified 01/21/25 04:31 Review of Systems Review of Systems: ROS unobtainable: Yes unobtainable due to medical condition PMFSH Past Medical History Medical History Blood thinned due to long-term anticoagulant use Acute on chronic blood loss anemia Melena Type 2 diabetes mellitus without complications 5.4% in September of 2024, not currently on medications as of December of 2024 Hypo-osmolality and hyponatremia Encounter for screening colonoscopy Unspecified severe protein-calorie malnutrition Unspecified mood [affective] disorder Other age-related cataract Mixed hyperlipidemia Essential (primary) hypertension Depression, unspecified Cognitive communication deficit Unspecified open-angle glaucoma, stage unspecified Sleep disorder, unspecified Mild 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, unspecified Epilepsy, unspecified, not intractable, without status epilepticus Conversion disorder with seizures or convulsions Benign prostatic hyperplasia without lower urinary tract symptoms Social History Social History Smoking status: Never smoker Second hand tobacco smoke exposure: No (Unknown) Alcohol intake: never Substance use: never Lack of Transportation: No Lack of Food: Never True Current Housing: I Have Housing Concerned About Future Housing: No Difficulty Paying Gas/Electric Bills: No Difficulty Paying for Meds: No Currently Unemployed: No Education: High School Diploma/GED Difficulty w/ Childcare or Family Care: No Living arrangements: custodial [facility] Spiritual care concerns: No Exam Narrative: APPEARANCE: Well appearing HEAD: normocephalic, atraumatic. EYES: PERRLA/EOMI, conjunctivae clear. NOSE: Normal no drainage NECK: Supple. No adenopathy, no masses. RESPIRATORY: Airway patent, respirations nonlabored. Clear to auscultation bilaterally, no rales, rhonchi, wheezing. CARDIOVASCULAR: Regular rate and rhythm without murmurs rubs or gallops. ABDOMINAL: Soft, nontender, nondistended, normal bowel sounds MUSCULOSKELETAL: Moves all extremities. Strength/ROM intact, No edema, No calf tenderness. NEURO: Alert. Cranial nerves II through XII intact. Good gait. Good coordination SKIN: Warm, dry. Normal Color Course Vital Signs Vital signs: Vital Signs Temperature 97.8 F 01/20/25 21:25 Pulse Rate 121 H 01/20/25 21:25 Respiratory Rate 22 H 01/20/25 21:25 Blood Pressure 100/70 01/20/25 21:25 Pulse Oximetry 100 01/20/25 21:25 Temperature 98.8 F 01/21/25 03:01 Pulse Rate 117 H 01/21/25 03:01 Respiratory Rate 16 01/21/25 03:01 Blood Pressure 156/86 H 01/21/25 03:01 Pulse Oximetry 100 01/21/25 03:01 Oxygen Delivery Room Air 01/20/25 21:31 MDM MDM Narrative Medical decision making narrative: 64 old male presents to the emergency department for evaluation for multiple seizures. care home reports that he did not get his evening medications. Upon arrival emergency department patient did have a 2 minute seizure that resolved prior to treatment with Ativan. Patient was given 2 mg of IV Ativan. Patient was also treated with 1.[address] showed no evidence of acute intracranial abnormality, no ICH, no mass effect or edema. No skull fracture. It does show chronic microvascular ischemic changes. Inferior bifrontal encephalomalacia. Neurology was consulted and they were comfortable with the treatment plan and plan for admission. Case will be discussed with the hospitalist. Chest x-ray shows no acute cardiopulmonary abnormality. Patient was negative for influenza RSV and for COVID. UA showed no evidence of urinary tract infection. Case was discussed with hospitalist patient was accepted to [facility]. Patient was stable at time of admission. Differential Diagnosis Differential Diagnosis: Subdural tobacco subarachnoid hemorrhage, nonepileptic seizure, epileptic seizure, COVID, RSV, influenza, pneumonia, UTI, medication noncompliance Lab Data [facility] Lab Attestation statement: I personally reviewed the patient's lab results. 01/20/25 22:13 01/20/25 22:13 Labs: Lab Results 01/20/25 01/20/25 Range/Units 22:13 22:23 WBC 9.0 (4.5-10.0) K/mm3 RBC 3.13 L (4.6-6.20) M/mm3 Hgb 9.3 L (14.0-18.0) g/dL Hct 28.6 L (42.0-52.0) % MCV 91.4 (80-100) fl MCH 29.7 (26-34) pg MCHC 32.5 (32-36) g/dl RDW 16.5 H (11.5-14.5) % Plt Count 273 (150-375) k/mm3 MPV 8.9 (7.4-10.4) fl Immature Gran % (Auto) 0.3 (0-0.5) % Neut % (Auto) 73.9 H (45.5-73.1) % Lymph % (Auto) 15.4 L (18.3-44.2) % [place] % (Auto) 8.4 (2.6-8.5) % Eos % (Auto) 1.8 (0-4.4) % Baso % (Auto) 0.2 (0.2-1.2) % Lymph # (Auto) 1.39 (0.9-3.2) K/mm3 [place] # (Auto) 0.8 H (0.1-0.6) K/mm3 Eos # (Auto) 0.2 (0-0.3) K/mm3 Baso # (Auto) 0.0 (0.0-0.1) K/mm3 Abs Immat Gran (auto) 0.03 (0.00-0.031) K/mm3 Absolute Neuts (auto) 6.7 (1.3-6.7) K/mm3 Absolute Nucleated RBC 0.000 (0.0-0.012) K/mm3 Nucleated RBC % 0.0 (0.0-0.2) % PT 14.1 (11.1-14.7) Seconds INR 1.1 APTT 28.6 (22.3-36.8) Seconds Sodium 130 L (137-145) mmol/L Potassium 3.6 (3.4-5.0) mmol/L Chloride 101 (98-107) mmol/L Carbon Dioxide 25 (22-30) mmol/L Anion Gap 4 (4-12) mmol/L BUN 14 (9-20) mg/dL Creatinine 0.72 (0.7-1.3) mg/dL Estim Creat Clear Calc 89 ml/min Estimated GFR > 60 (59 - ) Glucose 114 H (65-110) mg/dL Lactic Acid 1.5 (0.7-2.0) mmol/L Calcium 9.0 (8.4-10.2) mg/dL Total Bilirubin 0.4 (0.2-1.3) mg/dL AST 37 (17-59) U/L ALT 52 H (6-50) U/L Alkaline Phosphatase 116 (38-126) U/L Total Creatine Kinase 86 (55-170) U/L Total Protein 6.5 (6.3-8.2) g/dL Albumin 3.8 (3.5-5.1) g/dL Urine Color Yellow (Yellow) Urine Appearance Cloudy H (Clear) Urine pH 7.5 (5.0-9.0) Ur Specific [place] 1.016 (1.001-1.035) Urine Protein 1+ H (Negative) mg/dL Urine Glucose (UA) Negative (Negative) mg/dL Urine Ketones Negative (Negative) mg/dL Ur Blood (Man) Negative (Negative) Urine Nitrate Negative (Negative) Urine Bilirubin Negative (Negative) Urine Urobilinogen 1.0 (<2.0) mg/dL Add Ur Microanalysis Reviewed Leukocyte Esterase Rfl 1+ H (Negative) LEO/UL Urine RBC 0-2 (0-2) /hpf Urine WBC 6-10 H (0-3) /hpf Ur Squamous Epith Cells None seen (Few) /hpf Amorphous Sediment Few H (None) Urine Bacteria Trace /hpf Urine Casts 0-2 Levetiracetam Pending Influenza A (RT-PCR) Negative (Negative) Influenza B (RT-PCR) Negative (Negative) RSV (RT-PCR) Negative (Negative) SARS-CoV-2 RNA (RT-PCR) Negative (Negative) Discharge Plan Discharge Clinical Impression: Seizure Patient Disposition: Still a Patient Condition: Serious
[2025-01-20 22:30] VITALS: BP 147/87; PULSE 110; RESP 30; O2SAT 98
[2025-01-20 22:33] LABS: Alanine Aminotransferase 52 U/L (6-50); Albumin Level 3.8 g/dL (3.5-5.1); Alkaline Phosphatase 116 U/L (38-126); Anion Gap 4 mmol/L (4-12); Aspartate Amino Transferase 37 U/L (17-59); Bilirubin,Total 0.4 mg/dL (0.2-1.3); Blood Urea Nitrogen 14 mg/dL (9-20); Calcium 9.0 mg/dL (8.4-10.2); Carbon Dioxide 25 mmol/L (22-30); Chloride 101 mmol/L (98-107); Creatine Kinase 86 U/L (55-170); Estimated CRCL calculation 89 ml/min; Estimated Glomerular Filt Rate > 60; Glucose 114 mg/dL (65-110); Potassium 3.6 mmol/L (3.4-5.0); Sodium 130 mmol/L (137-145); Total Protein 6.5 g/dL (6.3-8.2)
[2025-01-20 22:44] LABS: Add Urine Microscopic? YES; Appearance Urine Cloudy (Clear); Glucose Urine UA Negative (Negative); Leukocyte Esterase Ur 1+ LEU/UL (Negative); Need Manual Microscopic Reviewed; Nitrate Urine Negative (Negative); Non Pathogenic Casts 0-2; Specific Grav Ur 1.016 (1.001-1.035)
[2025-01-20 22:48] LABS: INR 1.1; Partial Thromboplastin Time 28.6 Seconds (22.3-36.8); Prothrombin Time 14.1 Seconds (11.1-14.7)
[2025-01-20 23:00] VITALS: BP 157/80; PULSE 107; RESP 21; O2SAT 97
[2025-01-20 23:08] LABS: Influenza A QL RT-PCR Negative (Negative); Influenza B QL RT-PCR Negative (Negative); RSV RNA, RT-PCR Negative (Negative); SARS-CoV-2 RNA PCR Negative (Negative)
--- NOTE | 2025-01-20 23:26 | PC.NURSE ---
Phan order and charting done on wrong patients chart, no phan inserted on this patient
[2025-01-20 23:30] VITALS: BP 154/82; PULSE 113; RESP 27; O2SAT 97
[2025-01-21] VITALS (16 sets, daily range): BP systolic 110–164; BP diastolic 60–86; PULSE 86–150; RESP 12–26; TEMP 36.3–37.3; O2SAT 96–100; BMI 19.9
[2025-01-21] MEDS: LORazepam INJ (*CRX) 2 MG/ML VIAL (00:03)
--- NOTE | 2025-01-21 00:04 | PC.NURSE ---
This RN called pts facility to ask if pt had any evening medications. Facility states he only got eliquis at 1600. EDP made aware
[2025-01-21] MEDS: levETIRAcetam 1000MG/NACL100ML 1,000 MG/100 ML BAG 400 MG IVPB ×2 (00:06→09:17)
[2025-01-21] MEDS: levETIRAcetam 500MG/NACL 100ML 500 MG/100 ML BAG 400 MG IVPB (00:40)
--- NOTE | 2025-01-21 03:05 | WPCEDHO ---
ED Hand Off Checklist All vitals saved:Y IV Site documented:Y All med administrations documented:Y Triage Note Triage Note Pt BIBEMS with c/o 3 witnessed 01/20/25 21:25 seizures today. Pt is from [facility] and has a history of epilepsy. Allergies Antihistamines - Ethanolamine Allergy (Unknown, Verified 01/19/25 08:26) Unknown cephalexin Allergy (Unknown, Verified 01/19/25 08:26) Unknown Cephalosporins Allergy (Unknown, Verified 01/19/25 08:26) Unknown diphenhydramine (From Benadryl) Allergy (Unknown, Verified 01/19/25 08:26) Unknown enoxaparin Allergy (Unknown, Verified 01/19/25 08:) Unknown fexofenadine Allergy (Unknown, Verified 01/19/25 08:) Unknown lactose Allergy (Unknown, Verified 01/19/25 08:) Unknown milk Allergy (Unknown, Verified 01/19/25 08:) Unknown olanzapine Allergy (Unknown, Verified 01/19/25 08:) Unknown rofecoxib Allergy (Unknown, Verified 01/19/25 08:26) Unknown Sulfa (Sulfonamide Antibiotics) Allergy (Unknown, Verified 01/19/25 08:26) Unknown valproic acid Allergy (Unknown, Verified 01/19/25 08:26) Unknown zinc Allergy (Unknown, Verified 01/19/25 08:26) Unknown zolpidem Allergy (Unknown, Verified 01/19/25 08:26) Unknown Administered/Completed Medications Discontinued Medications Levetiracetam (Keppra Iv) 1,000 mg in 100 mls @ 400 mls/hr IVPB ONCE STA Stop: 01/21/25 00:16 Last Infusion: 01/21/25 00:22 Dose: Infused Documented By: Admin: 01/21/25 00:06 Dose: 400 mls/hr Documented By: JOSEPH Levetiracetam (Keppra Iv) 500 mg in 100 mls @ 400 mls/hr IVPB ONCE STA Stop: 01/21/25 00:32 Last Infusion: 01/21/25 01:06 Dose: Infused Documented By: Admin: 01/21/25 00:40 Dose: 400 mls/hr Documented By: ANDREW Lorazepam (Lorazepam Inj (*Crx) 2 Mg/Ml Vial) Confirm Administered Dose 2 mg .ROUTE .STK-MED ONE Stop: 01/21/25 00:00 Last Admin: 01/21/25 00:03 Dose: 2 mg Documented By: EMW Lorazepam (Lorazepam Inj (*Crx) 2 Mg/Ml Vial) 2 mg IV PUSH ONCE ONE Stop: 01/21/25 00:11 Last Admin: 01/21/25 00:20 Dose: Not Given Documented By: EMW Non-Admin Reason: Duplicate Dose Notes 01/21/25 00:04 Nurse Note by Kay Dinero This RN called pts facility to ask if pt had any evening medications. Facility states he only got eliquis at 1600. EDP made aware Initialized on 01/21/25 00:04 - END OF NOTE 01/20/25 23:26 Nurse Note by Siva Mae Phan order and charting done on wrong patients chart, no phan inserted on this patient Initialized on 01/20/25 23:26 - END OF NOTE Interventions/Assessments IV / Saline Lock, Insert Start: 01/20/25 21:25 Freq: Status: Active Protocol: Document 01/20/25 22:14 [facility] (Rec: 01/20/25 22:14 [facility] [id number]) IV Assessment Peripheral Access Right Hand IV Catheter Access Initiated IV Insertion Date 01/20/25 IV Insertion Time 22:14 Catheter Gauge 18 IV Insertion 1 Attempts Ultrasound Used for No Placement IV Site Assessment WNL IV Care and WNL Maintenance Last Vital Signs Temperature 98.8 F 01/21/25 03:01 Pulse Rate 117 H 01/21/25 03:01 Respiratory Rate 16 01/21/25 03:01 Pulse Oximetry 100 01/21/25 03:01 Blood Pressure 156/86 H 01/21/25 03:01 Blood Pressure Mean 105 01/21/25 03:01 Oxygen Delivery Room Air 01/20/25 21:31 Weight 70.5 kg 01/20/25 21:25 Last Result - Abnormals Only RBC 3.13 M/mm3 (4.6-6.20) L 01/20/25 22:13 Hgb 9.3 g/dL (14.0-18.0) L 01/20/25 22:13 Hct 28.6 % (42.0-52.0) L 01/20/25 22:13 RDW 16.5 % (11.5-14.5) H 01/20/25 22:13 Neut % (Auto) 73.9 % (45.5-73.1) H 01/20/25 22:13 Lymph % (Auto) 15.4 % (18.3-44.2) L 01/20/25 22:13 [place] # (Auto) 0.8 K/mm3 (0.1-0.6) H 01/20/25 22:13 Sodium 130 mmol/L (137-145) L 01/20/25 22:13 Glucose 114 mg/dL (65-110) H 01/20/25 22:13 ALT 52 U/L (6-50) H 01/20/25 22:13 Urine Appearance Cloudy (Clear) H 01/20/25 22:23 Urine Protein 1+ mg/dL (Negative) H 01/20/25 22:23 Leukocyte Esterase Rfl 1+ LEO/UL (Negative) H 01/20/25 22:23 Urine WBC 6-10 /hpf (0-3) H 01/20/25 22:23 Amorphous Sediment Few (None) H 01/20/25 22:23 Most Recent Suicide Severity Rating Suicide Severity Rating NO RISK INDICATED 01/20/25 21:25
--- NOTE | 2025-01-21 06:05 | PC.NURSE ---
PATIENT ARRIVED ON 3 MEDSURG AT 033
[2025-01-21] MEDS: SODIUM CHLORIDE 0.9% IV 1,000 ML 75 ML IV CONT (11:55)
--- NOTE | 2025-01-21 13:51 | PM.IMHP2 ---
H&P: HPI History of Present Illness Date/Time: 01/21/25 13:51 Chief Complaint: Seizure Narrative: 64-year-old male past medical history of type 2 diabetes, hypertension, depression, idiopathic neuropathy, BPH, epilepsy brought to the ER on account of 3 episodes of seizures. Patient was obtunded at the time of this encounter. Your liver notable for temperature 97.8?, pulse rate 121, respiratory 22, satting 100% on room air blood pressure 100/70. Hemoglobin 9 3, sodium 130, Keppra level pending. CT head and CXR showed no acute changes. Neurology was consulted and Keppra started on IV prior to admission Review of Systems Review of Systems: All other systems were reviewed and negative except as noted in the HPi above [facility] Past Medical History Medical History Blood thinned due to long-term anticoagulant use Acute on chronic blood loss anemia Melena Type 2 diabetes mellitus without complications 5.4% in September of 2024, not currently on medications as of December of 2024 Hypo-osmolality and hyponatremia Encounter for screening colonoscopy Unspecified severe protein-calorie malnutrition Unspecified mood [affective] disorder Other age-related cataract Mixed hyperlipidemia Essential (primary) hypertension Depression, unspecified Cognitive communication deficit Unspecified open-angle glaucoma, stage unspecified Sleep disorder, unspecified Mild 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, unspecified Epilepsy, unspecified, not intractable, without status epilepticus Conversion disorder with seizures or convulsions Benign prostatic hyperplasia without lower urinary tract symptoms Social History Social History Smoking status: Never smoker Second hand tobacco smoke exposure: No (Unknown) Alcohol intake: never Substance use: never Lack of Transportation: No Lack of Food: Never True Current Housing: I Have Housing Concerned About Future Housing: No Difficulty Paying Gas/Electric Bills: No Difficulty Paying for Meds: No Currently Unemployed: No Education: High School Diploma/GED Difficulty w/ Childcare or Family Care: No [facility] [facility] Additional living arrangements comments: [facility] since [facility]24 Spiritual care concerns: No Meds Home Medications and Allergies Home Medications ?Medication ?Instructions ?Recorded ?Confirmed ?Type acetaminophen 500 mg capsule 1,000 mg (2 x 500 mg) PO Q6H PRN 04/29/24 01/21/25 Rx pain #30 caps lidocaine 4 % topical patch 1 patch topical DAILY PRN pain #10 04/29/24 01/21/25 Rx ea amlodipine 10 mg tablet 10 mg PO DAILY 07/11/24 01/21/25 History apixaban 5 mg tablet (Eliquis) 5 mg PO Q12H 07/11/24 01/21/25 History atorvastatin 40 mg tablet 40 mg PO HS 07/11/24 01/21/25 History brimonidine 0.2 %-timolol 0.5 % 1 drp EACH EYE Q12H 07/11/24 01/21/25 History eye drops (Combigan) cholecalciferol (vitamin D3) 50 2,000 unit PO DAILY 07/11/24 01/21/25 History mcg (2,000 unit) capsule dorzolamide 2 % eye drops 1 drp EACH EYE .q12hr 07/11/24 01/21/25 History latanoprost 0.005 % eye drops 1 drp EACH EYE HS 07/11/24 01/21/25 History lorazepam 1 mg tablet (Ativan) 1 mg PO .q8hr 07/11/24 01/21/25 History mirtazapine 15 mg tablet 15 mg PO HS 07/11/24 01/21/25 History pyridoxine (vitamin B6) 100 mg 100 mg PO Q12H 07/11/24 01/21/25 History tablet sertraline 50 mg tablet 50 mg PO Q24H 07/11/24 01/21/25 History carboxymethylcellulose sodium 0.5 2 drp EACH EYE Q8H PRN dry eye(s) 10/09/24 01/21/25 History % eye drops peg [id number] 1 2 drp EACH EYE TID PRN Dry Eye(S) 10/12/24 01/21/25 Rx %-0.2 %-0.2 % eye drops #5 mL (Artificial Tears ([id number])) levetiracetam 500 mg tablet 1,250 mg (2.5 x 500 mg) PO Q12HR 01/06/25 01/21/25 Rx (Keppra) #60 tabs pregabalin 50 mg capsule 100 mg (2 x 50 mg) PO Q12H #30 caps 01/06/25 01/21/25 Rx artificial tears solution eye drops 1 drp ophthalmic (eye) BID 01/17/25 01/21/25 History Keratoconjunctivitis pantoprazole 40 mg tablet,delayed 40 mg PO QAM #42 tabs 01/19/25 01/21/25 Rx release Allergies Allergy/AdvReac Type Severity Reaction Status Date / Time Antihistamines - Ethanolamine Allergy Unknown Unknown Verified 01/21/25 04:31 cephalexin Allergy Unknown Unknown Verified 01/21/25 04:31 Cephalosporins Allergy Unknown Unknown Verified 01/21/25 04:31 diphenhydramine (From Allergy Unknown Unknown Verified 01/21/25 04:31 Benadryl) enoxaparin Allergy Unknown Unknown Verified 01/21/25 04:31 fexofenadine Allergy Unknown Unknown Verified 01/21/25 04:31 lactose Allergy Unknown Unknown Verified 01/21/25 04:31 milk Allergy Unknown Unknown Verified 01/21/25 04:31 olanzapine Allergy Unknown Unknown Verified 01/21/25 04:31 rofecoxib Allergy Unknown Unknown Verified 01/21/25 04:31 Sulfa (Sulfonamide Allergy Unknown Unknown Verified 01/21/25 04:31 Antibiotics) valproic acid Allergy Unknown Unknown Verified 01/21/25 04:31 zinc Allergy Unknown Unknown Verified 01/21/25 04:31 zolpidem Allergy Unknown Unknown Verified 01/21/25 04:31 Vital Signs Vital Signs - 24 hr 01/20/25 21:25 01/20/25 21:31 01/20/25 22:00 Temperature 97.8 F 98.5 F Pulse Rate 121 H 114 H Respiratory Rate 22 H 23 H Blood Pressure 100/70 120/87 Pulse Oximetry 100 100 Oxygen Delivery Room Air 01/20/25 22:30 01/20/25 23:00 01/20/25 23:30 Temperature Pulse Rate 110 H 107 H 113 H Respiratory Rate 30 H 21 H 27 H Blood Pressure 147/87 H 157/80 H 154/82 H Pulse Oximetry 98 97 97 Oxygen Delivery 01/21/25 00:00 01/21/25 00:32 01/21/25 00:33 Temperature 98.7 F Pulse Rate 150 H 86 110 H Respiratory Rate 26 H 15 25 H Blood Pressure 164/71 H 128/76 128/76 Pulse Oximetry 98 97 97 Oxygen Delivery 01/21/25 01:00 01/21/25 01:30 01/21/25 02:00 Temperature 98.8 F 98.7 F Pulse Rate 91 87 91 Respiratory Rate 14 19 12 Blood Pressure 117/67 110/63 138/72 Pulse Oximetry 98 96 99 Oxygen Delivery 01/21/25 02:30 01/21/25 03:01 01/21/25 04:00 Temperature 98.8 F Pulse Rate 102 H 117 H 121 H Respiratory Rate 18 16 Blood Pressure 148/71 H 156/86 H Pulse Oximetry 100 100 Oxygen Delivery 01/21/25 06:00 01/21/25 08:00 01/21/25 12:00 Temperature 99.1 F Pulse Rate 115 H 107 H 96 Respiratory Rate 19 Blood Pressure 131/74 Pulse Oximetry 100 Oxygen Delivery Exam Narrative: General: obtunded Eyes: EOMI, PERRLA ENNT External ears normal, Neck is supple, no masses, Respiratory systems: Clear to auscultation Cardiovascular S1, S2, normal rhythm, no murmur, rub, or gallop; no thrill or palpable murmurs on palpation. Gastrointestinal: soft, non-tender, and non-distended abdomen with no masses; BS present Skin: no rash, lesions, ulcerations, subcutaneous nodules or induration Musculoskeletal: no abnormality and no tenderness, normal ROM Neurologic: obtunded Results Labs Labs: Short CBC 01/20/25 Range/Units 22:13 WBC 9.0 (4.5-10.0) K/mm3 Hgb 9.3 L (14.0-18.0) g/dL Hct 28.6 L (42.0-52.0) % Plt Count 273 (150-375) k/mm3 [facility] 01/20/25 22:13 Sodium 130 L Potassium 3.6 Chloride 101 Carbon Dioxide 25 BUN 14 Creatinine 0.72 Glucose 114 H Calcium 9.0 Cardiac Enzymes 01/20/25 Range/Units 22:13 Total Creatine Kinase 86 (55-170) U/L Liver Function 01/20/25 Range/Units 22:13 Total Bilirubin 0.4 (0.2-1.3) mg/dL AST 37 (17-59) U/L ALT 52 H (6-50) U/L Alkaline Phosphatase 116 (38-126) U/L Albumin 3.8 (3.5-5.1) g/dL Urine 01/20/25 Range/Units 22:23 Urine Color Yellow (Yellow) Urine Appearance Cloudy H (Clear) Urine pH 7.5 (5.0-9.0) Ur Specific [place] 1.016 (1.001-1.035) Urine Protein 1+ H (Negative) mg/dL Urine Glucose (UA) Negative (Negative) mg/dL Assessment and Plan Assessment and plan (1) Breakthrough seizure: Code(s): G40.919 - Epilepsy, unspecified, intractable, without status epilepticus Status: Acute Plan Breakthrough Seizure hx of Epilepsy, CT head and CXE no acute changes on Keppra 1250mg bid Keppra level pending, EEG neurology consulted DM2 SSi with accucheks HTN titrate home meds with clinical course BPH continue home meds DVT prophylaxis on Sq Lovenox Full code Hospitalist MIPS Advance Care Plan I have confirmed that the patient's Advanced Care Plan is present, code status is documented, or surrogate decision maker is listed in patient medical record.: Yes Medication Reconciliation I have utilized all available resources to obtain, update and review the patients current medications (includes all prescriptions, OTC, herbals, cannabis, and nutritional supplements).: Yes
[2025-01-21] MEDS: PANTOPRAZOLE 40 MG TABLET PO (14:24)
[2025-01-21] MEDS: SERTRALINE HCL 50 MG TABLET PO (14:24)
[2025-01-21] MEDS: INSULIN ASPART (*BKC) 100 UNITS/ML SUB-Q (18:34)
[2025-01-21] MEDS: levETIRAcetam 1500MG/NACL100ML 1,500 MG/100 ML BAG 400 MG IVPB (20:44)
[2025-01-21] MEDS: ATORVASTATIN 40 MG TABLET PO (20:50)
[2025-01-21] MEDS: APIXABAN 5 MG TABLET PO (20:50)
[2025-01-21] MEDS: PYRIDOXINE HCL 50 MG TABLET 100 MG PO (20:50)
[2025-01-22] VITALS (8 sets, daily range): BP systolic 111–151; BP diastolic 58–67; PULSE 60–107; RESP 16–20; TEMP 36.1–37; O2SAT 97–100
[2025-01-22] MEDS: SODIUM CHLORIDE 0.9% IV 1,000 ML 75 ML IV CONT (00:55)
[2025-01-22 06:25] LABS: Hematocrit 30.6 % (42.0-52.0); Hemoglobin 9.7 g/dL (14.0-18.0); Immature Granulocyte Percent A 0.4 % (0-0.5); Lymphocytes Absolute Auto 1.35 K/mm3 (0.9-3.2); Mean Corpuscular HGB Conc 31.7 g/dl (32-36); Mean Corpuscular Hemoglobin 29.9 pg (26-34); Mean Corpuscular Volume 94.4 fl (80-100); Nucleated Red Blood Cells Absolute Auto 0.000 K/mm3 (0.0-0.012); Nucleated Red Blood Cells Perc 0.0 % (0.0-0.2); Platelet Count Result 259 k/mm3 (150-375); Red Blood Count 3.24 M/mm3 (4.6-6.20); White Blood Count 7.1 K/mm3 (4.5-10.0)
[2025-01-22 06:44] LABS: Alanine Aminotransferase 37 U/L (6-50); Albumin Level 3.6 g/dL (3.5-5.1); Alkaline Phosphatase 109 U/L (38-126); Anion Gap 6 mmol/L (4-12); Aspartate Amino Transferase 33 U/L (17-59); Bilirubin,Total 0.6 mg/dL (0.2-1.3); Blood Urea Nitrogen 15 mg/dL (9-20); Calcium 8.7 mg/dL (8.4-10.2); Carbon Dioxide 23 mmol/L (22-30); Chloride 104 mmol/L (98-107); Estimated CRCL calculation 84 ml/min; Estimated Glomerular Filt Rate > 60; Glucose 80 mg/dL (65-110); Magnesium 2.1 mg/dL (1.6-2.3); Potassium 4.0 mmol/L (3.4-5.0); Sodium 133 mmol/L (137-145); Total Protein 6.3 g/dL (6.3-8.2)
--- NOTE | 2025-01-22 09:06 | PCPTNOTE ---
attempted PT eval, pt refused to get out of bed despite encouragement from PT, stated his legs worked fine but he was not getting up, unable to answer questions appropriately about his prior level of function or home set up, will follow
[2025-01-22] MEDS: PANTOPRAZOLE 40 MG TABLET PO (09:58)
[2025-01-22] MEDS: APIXABAN 5 MG TABLET PO ×2 (09:58→20:28)
[2025-01-22] MEDS: SERTRALINE HCL 50 MG TABLET PO (09:58)
[2025-01-22] MEDS: PYRIDOXINE HCL 50 MG TABLET 100 MG PO ×2 (09:58→20:28)
--- NOTE | 2025-01-22 13:18 | PCOTNOTE ---
Patient is unavailable, having an EEG. Will continue to follow patient.
--- NOTE | 2025-01-22 13:50 | PM.IMPN2 ---
Assessment and Plan Assessment and Plan (1) Breakthrough seizure: Code(s): G40.919 - Epilepsy, unspecified, intractable, without status epilepticus Status: Acute Plan Breakthrough Seizure hx of Epilepsy, CT head and CXE no acute changes on Keppra 1500mg bid Keppra level pending, EEG neurology consulted AMS likely from Seizure improving continue above care and monitor DM2 SSi with accucheks HTN titrate home meds with clinical course BPH continue home meds DVT prophylaxis on Sq Lovenox Full code Subjective Date/time seen: 01/22/25 13:50 Interval history: Comfortable at bedside however, had his eyes closed during this encounter and did not respond to commands Review of Systems Review of Systems: All other systems were reviewed and negative except as noted in the HPi above Exam Narrative: General: obtunded Eyes: EOMI, PERRLA ENNT External ears normal, Neck is supple, no masses, Respiratory systems: Clear to auscultation Cardiovascular S1, S2, normal rhythm, no murmur, rub, or gallop; no thrill or palpable murmurs on palpation. Gastrointestinal: soft, non-tender, and non-distended abdomen with no masses; BS present Skin: no rash, lesions, ulcerations, subcutaneous nodules or induration Musculoskeletal: no abnormality and no tenderness, normal ROM Neurologic: obtunded Objective Data Vital Signs Vital Signs: Vital Signs - 24 hr 01/21/25 14:00 01/21/25 16:00 01/21/25 20:00 Temperature 98.1 F Pulse Rate 95 92 102 H Respiratory Rate 16 Blood Pressure 151/83 H Pulse Oximetry 100 Oxygen Delivery 01/21/25 22:00 01/22/25 00:00 01/22/25 06:00 Temperature 97.3 F L 97.0 F L Pulse Rate 89 107 H 81 Respiratory Rate 16 16 Blood Pressure 143/60 H 151/67 H Pulse Oximetry 99 100 Oxygen Delivery 01/22/25 09:56 01/22/25 09:58 Temperature 97.1 F L Pulse Rate 78 Respiratory Rate 16 Blood Pressure 144/58 H Pulse Oximetry 97 97 Oxygen Delivery Room Air Intake/Output Intake/Output: Intake & Output 01/19/25 01/20/25 01/21/25 01/22/25 23:59 23:59 23:59 23:59 Intake Total 880 1295 Balance 880 1295 Meds/Results Medications: Active Medications Generic Name Dose Route Start Last Admin Trade Name Freq PRN Reason Stop Dose Admin Amlodipine Besylate 10 mg 01/21/25 14:00 01/22/25 09:58 Amlodipine Besylate 10 Mg Tablet PO 10 mg DAILY RADHA Administration Apixaban 5 mg 01/21/25 21:00 01/22/25 09:58 Apixaban 5 Mg Tablet PO 5 mg Q12H RADHA Administration Atorvastatin Calcium 40 mg 01/21/25 21:00 01/21/25 20:50 Atorvastatin 40 Mg Tablet PO 40 mg HS RADHA Administration Dextrose 12.5 gm 01/21/25 09:28 Dextrose 50% 25 Gm/50 Ml Syringe IV PUSH PRN PRN Hypoglycemia Protocol Glucagon 1 mg 01/21/25 09:28 Glucagon For Inj 1 Mg Vial IM PRN PRN Hypoglycemia Protocol Glucose 15 gm 01/21/25 09:28 Glucose Oral Gel 15 Gm Of Glucse In 37.5 Gm Tube PO PRN PRN Hypoglycemia Protocol Dextrose 1,000 mls @ 100 mls/hr 01/21/25 09:28 Dextrose 5% 1,000 Ml IVPB PRN PRN Hypoglycemia Protocol Insulin Aspart 4 - 8 units 01/21/25 18:00 01/22/25 06:35 Insulin Aspart (*Bkc) 100 Units/Ml SUB-Q Not Given Q6HR RADHA Protocol Levetiracetam 1,500 mg 01/22/25 09:00 01/22/25 09:59 Levetiracetam 500 Mg Tablet PO 1,500 mg Q12HR RADHA Administration Pantoprazole Sodium 40 mg 01/21/25 14:00 01/22/25 09:58 Pantoprazole 40 Mg Tablet PO 40 mg QAM RADHA Administration Pyridoxine HCl 100 mg 01/21/25 21:00 01/22/25 09:58 Pyridoxine Hcl 50 Mg Tablet PO 100 mg Q12HR RADHA Administration Sertraline HCl 50 mg 01/21/25 13:55 01/22/25 09:58 Sertraline Hcl 50 Mg Tablet PO 50 mg DAILY RADHA Administration Radiology Results: ITS Impressions Head CT 01/21/25 06:27 IMPRESSION: 1. No acute intracranial findings. Chest X-Ray 01/21/25 08:01 IMPRESSION: 1. Portable chest x-ray with no focal acute process. Labs Labs: Laboratory Results - last 24 hr 01/21/25 01/22/25 01/22/25 16:38 05:38 06:26 WBC 7.1 RBC 3.24 L Hgb 9.7 L Hct 30.6 L MCV 94.4 MCH 29.9 MCHC 31.7 L RDW 16.4 H Plt Count 259 MPV 9.2 Immature Gran % (Auto) 0.4 Neut % (Auto) 68.5 Lymph % (Auto) 19.0 [place] % (Auto) 11.0 H Eos % (Auto) 0.8 Baso % (Auto) 0.3 Lymph # (Auto) 1.35 [place] # (Auto) 0.8 H Eos # (Auto) 0.1 Baso # (Auto) 0.0 Abs Immat Gran (auto) 0.03 Absolute Neuts (auto) 4.9 Absolute Nucleated RBC 0.000 Nucleated RBC % 0.0 Sodium 133 L Potassium 4.0 Chloride 104 Carbon Dioxide 23 Anion Gap 6 BUN 15 Creatinine 0.66 L Estim Creat Clear Calc 84 Estimated GFR > 60 Glucose 80 POC Capillary Glucose 281 H 60 L Calcium 8.7 Magnesium 2.1 Total Bilirubin 0.6 AST 33 ALT 37 Alkaline Phosphatase 109 Total Protein 6.3 Albumin 3.6 01/22/25 06:44 WBC RBC Hgb Hct MCV MCH MCHC RDW Plt Count MPV Immature Gran % (Auto) Neut % (Auto) Lymph % (Auto) [place] % (Auto) Eos % (Auto) Baso % (Auto) Lymph # (Auto) [place] # (Auto) Eos # (Auto) Baso # (Auto) Abs Immat Gran (auto) Absolute Neuts (auto) Absolute Nucleated RBC Nucleated RBC % Sodium Potassium Chloride Carbon Dioxide Anion Gap BUN Creatinine Estim Creat Clear Calc Estimated GFR Glucose POC Capillary Glucose 100 Calcium Magnesium Total Bilirubin AST ALT Alkaline Phosphatase Total Protein Albumin
--- NOTE | 2025-01-22 17:52 | PC.NURSE ---
Patient has improved interaction since start of shift. Patient will only shake head yes or no for answering questions. Patient did say thank you while feeding, but doesn't respond to orientation questions.
[2025-01-22] MEDS: ATORVASTATIN 40 MG TABLET PO (20:28)
[2025-01-23] VITALS: PULSE 62
[2025-01-23 06:00] VITALS: BP 118/53; PULSE 68; RESP 18; TEMP 37.2; O2SAT 94
[2025-01-23 07:47] LABS: Hematocrit 29.6 % (42.0-52.0); Hemoglobin 9.2 g/dL (14.0-18.0); Immature Granulocyte Percent A 0.4 % (0-0.5); Lymphocytes Absolute Auto 1.11 K/mm3 (0.9-3.2); Mean Corpuscular HGB Conc 31.1 g/dl (32-36); Mean Corpuscular Hemoglobin 29.8 pg (26-34); Mean Corpuscular Volume 95.8 fl (80-100); Nucleated Red Blood Cells Absolute Auto 0.000 K/mm3 (0.0-0.012); Nucleated Red Blood Cells Perc 0.0 % (0.0-0.2); Platelet Count Result 262 k/mm3 (150-375); Red Blood Count 3.09 M/mm3 (4.6-6.20); White Blood Count 7.0 K/mm3 (4.5-10.0)
[2025-01-23 08:15] LABS: Alanine Aminotransferase 32 U/L (6-50); Albumin Level 3.4 g/dL (3.5-5.1); Alkaline Phosphatase 103 U/L (38-126); Anion Gap 0 mmol/L (4-12); Aspartate Amino Transferase 48 U/L (17-59); Bilirubin,Total 0.4 mg/dL (0.2-1.3); Blood Urea Nitrogen 13 mg/dL (9-20); Calcium 8.8 mg/dL (8.4-10.2); Carbon Dioxide 32 mmol/L (22-30); Chloride 102 mmol/L (98-107); Estimated CRCL calculation 83 ml/min; Estimated Glomerular Filt Rate > 60; Glucose 91 mg/dL (65-110); Magnesium 2.2 mg/dL (1.6-2.3); Potassium 4.3 mmol/L (3.4-5.0); Sodium 134 mmol/L (137-145); Total Protein 6.1 g/dL (6.3-8.2)
[2025-01-23] MEDS: PYRIDOXINE HCL 50 MG TABLET 100 MG PO (09:19)
[2025-01-23] MEDS: APIXABAN 5 MG TABLET PO (09:19)
[2025-01-23] MEDS: SERTRALINE HCL 50 MG TABLET PO (09:19)
[2025-01-23] MEDS: PANTOPRAZOLE 40 MG TABLET PO (09:19)
--- NOTE | 2025-01-23 12:28 | PM.DS ---
DS: Admitting Diagnosis Discharge Date 01/23/2025 Admitting Diagnosis Seizure DS: Discharge Diagnosis Discharge Diagnosis (1) Breakthrough seizure: Code(s): G40.919 - Epilepsy, unspecified, intractable, without status epilepticus Status: Acute DS: Summary Hospital Course Hospital Course: 64-year-old male past medical history of type 2 diabetes, hypertension, depression, idiopathic neuropathy, BPH, epilepsy brought to the ER on account of [address] head and CXR was unremarkable. Patinet was started on 1500 Keppra bid, home dosing was 1250 mg bid. EEG was ordered, patient did not have any further seiures while in the hospital. EEG was performed, however for the result, i called adn discussed with Dr Ann who recommended that patient can go ahead adn discharge and he will read the EEG on Saturday 01/27 and call patient with any abnormal results. Patient discharged on Keppra 1500 mg bid and follow up with Dr Ann as noted above F/u with PCP in 3-5 days continue other home meds Time Spent with Patient Time attestation: Total time spent providing and/or coordinating discharge services: DS: Data Data Completed and Pending Labs on day of discharge: Labs from last 24 hours 01/23/25 01/23/25 01/23/25 12:20 07:38 05:41 WBC 7.0 RBC 3.09 L Hgb 9.2 L Hct 29.6 L MCV 95.8 MCH 29.8 MCHC 31.1 L RDW 16.0 H Plt Count 262 MPV 8.9 Immature Gran % (Auto) 0.4 Neut % (Auto) 72.1 Lymph % (Auto) 15.8 L [place] % (Auto) 8.8 H Eos % (Auto) 2.6 Baso % (Auto) 0.3 Lymph # (Auto) 1.11 [place] # (Auto) 0.6 Eos # (Auto) 0.2 Baso # (Auto) 0.0 Abs Immat Gran (auto) 0.03 Absolute Neuts (auto) 5.1 Absolute Nucleated RBC 0.000 Nucleated RBC % 0.0 Sodium 134 L Potassium 4.3 Chloride 102 Carbon Dioxide 32 H Anion Gap 0 L BUN 13 Creatinine 0.67 L Estim Creat Clear Calc 83 Estimated GFR > 60 Glucose 91 POC Capillary Glucose 91 100 Lactic Acid 0.6 L Calcium 8.8 Magnesium 2.2 Total Bilirubin 0.4 AST 48 ALT 32 Alkaline Phosphatase 103 Total Protein 6.1 L Albumin 3.4 L Preliminary micro results at discharge 01/20/25 22:23 - Preliminary Unspecified Urine Discharge Plan Discharge Attending physician on discharge: Cait Brooks Consulting providers: Jamar Ann Discharging Clinician: Cait Brooks Anticipated Discharge Date/Time: 01/23/25 12:25 Patient Disposition: Home Activity: as tolerated Diet: as tolerated and diabetic Patient Instructions: Antibiotic Form, Apixaban (By mouth) Patient Language: Cambodian Stand Alone Forms: General Discharge Information Follow-up/Referrals: Pantera Friedman [Other] Referral Note: F/u with PCP in 3-5 days Discharge Medications: Continued acetaminophen 500 mg capsule 1,000 mg PO Q6H PRN (Reason: pain) Qty: 30 0RF lidocaine 4 % adhesive patch,medicated 1 patch topical DAILY PRN (Reason: pain) Qty: 10 0RF pyridoxine (vitamin B6) 100 mg tablet 100 mg PO Q12H sertraline 50 mg tablet 50 mg PO Q24H lorazepam [Ativan] 1 mg tablet 1 mg PO .q8hr Eliquis 5 mg tablet 5 mg PO Q12H dorzolamide 2 % drops 1 drp EACH EYE .q12hr cholecalciferol (vitamin D3) 50 mcg (2,000 unit) capsule 2,000 unit PO DAILY brimonidine-timolol [Combigan] 0.2-0.5 % drops 1 drp EACH EYE Q12H atorvastatin 40 mg tablet 40 mg PO HS amlodipine 10 mg tablet 10 mg PO DAILY latanoprost 0.005 % drops 1 drp EACH EYE HS mirtazapine 15 mg tablet 15 mg PO HS carboxymethylcellulose sodium 0.5 % drops 2 drp EACH EYE Q8H PRN (Reason: dry eye(s)) Artificial Tears([id number]) 1-0.2-0.2 % Drops 2 drp EACH EYE TID PRN (Reason: Dry Eye(S)) Qty: 5 0RF pregabalin 50 mg capsule 100 mg PO Q12H Qty: 30 0RF artificial tears solution Drops 1 drp ophthalmic (eye) BID Patient Comments: Bilateral eyes pantoprazole 40 mg Tablet,Delayed Release (Dr/Ec) 40 mg PO QAM Qty: 42 0RF Changed levetiracetam [Keppra] 500 mg Tablet 1,500 mg PO Q12HR Qty: 60 0RF Date of admission: 01/21/25 02:18 Primary Care Provider: Pantera Friedman Admitting Provider: Ronit Sandoval Attending physician on admission: Ronit Sandoval Condition: Serious
[2025-01-23 14:00] VITALS: BP 108/60; PULSE 93; RESP 12; TEMP 37.1; O2SAT 93
--- NOTE | 2025-01-27 12:11 | WPDNEUROLOGY ---
Neurology EEG Report General Information Date of Study: 01/22/25 TEST EEG DIAGNOSIS Seizures CONDITION OF RECORDING awake, drowsy and asleep. EEG NUMBER [id number] CLINICAL HISTORY 64 years old male had 3 recurrent seizures. Patient was obtunded after these episodes. EEG DESCRIPTION Basic resting occipital frequency consists of well-organized low voltage 9 to 11 hertz per 2nd alpha admixed with low-voltage 15 to 18 hertz per 2nd beta. Alpha activity is symmetrical the blocked with eyes opening. Low-voltage beta activity seen diffusely with waxing and waning alpha during drowsy. bilateral symmetrical sleep activity is noted during sleep with symmetrical sleep spindles. Hyperventilation not done. Photic stimulation not done. Non paroxysmal. Nonfocal. Nonlateralizing. IMPRESSION Normal record.
== END 2025-01-23 19:11 ==
LOC: ANHED 22:17 → ANH3MEDSUR 01-21 04:53
PROVIDERS: Admitting Provider Internal Medicine; Emergency Provider Emergency Medicine; Visit Provider Internal Medicine
DX: G40.919 Epilepsy, unspecified, intractable, without status epilepticus (principal); E11.9 Type 2 diabetes mellitus without complications; Z79.01 Long term (current) use of anticoagulants; E78.2 Mixed hyperlipidemia; I10 Essential (primary) hypertension; N40.0 Benign prostatic hyperplasia without lower urinary tract symptoms; R41.841 Cognitive communication deficit; Z20.822 Contact with and (suspected) exposure to COVID-19
CPT/HCPCS: 36415; 70450; 71045; 80053; 80177; 81001; 82550; 82948; 83605; 83735; 85025; 85610; 85730; 87086; 87147; 87186; 87637; 92523; 93005; 95816; 96361; 96365; 96375; 96376; 97161; 97165; 99285; A9270; G0378; J1815; J1953; J2060; J7030